=== PATIENT | female | born 1965 | race Native Hawaiian/Other Pacific Islander ===

== ENCOUNTER 2019-07-01 16:09 | Inpatient (IN) | payer OTHER ==
[2019-07-01] MEDS ORDERED: NITROGLYCERIN 0.4 MG TAB SUBL SL ONE (16:55)
[2019-07-01] MEDS ORDERED: ASPIRIN 325 MG TAB PO ONE (16:55)
[2019-07-01 17:17] LABS: Basophils # (Auto) 0.1 K/mm3 (0.0-0.1); Basophils % (Auto) 0.5 % (0.0-1.8); Hematocrit 21.2 % (30.3-42.9); Hemoglobin 6.9 gm/dl (10.1-14.3); Lymphocytes # (Auto) 1.5 K/mm3 (1.2-5.4); Lymphocytes % (Auto) 8.5 % (13.4-35.0); Mean Corpuscular HGB Conc 33 % (30-34); Mean Corpuscular Volume 82 fl (79-97); Monocytes % (Auto) 5.5 % (0.0-7.3); Platelet Count 565 K/mm3 (140-440); Red Blood Count 2.59 M/mm3 (3.65-5.03); Red Cell Distribution Width 14.7 % (13.2-15.2)
[2019-07-01 17:31] LABS: INR 0.97 (0.87-1.13)
[2019-07-01 17:32] LABS: Partial Thromboplastin Time 31.5 Sec. (24.2-36.6)
[2019-07-01 17:37] LABS: Calcium 9.5 mg/dL (8.4-10.2)
[2019-07-01] MEDS ORDERED: SODIUM CHLORIDE 0.9% 1000 ML 1,000 ML IV ONE ×2 (17:58→21:44)
[2019-07-01 18:10] LABS: Chol/HDL Ratio 3.01 %
--- NOTE | 2019-07-01 18:33 | XRay Report ---
CHEST 1 VIEW 07/01/2019 6:04 PM INDICATION / CLINICAL INFORMATION: chest pain. COMPARISON: Chest x-ray 12/04/2012 FINDINGS: SUPPORT DEVICES: None. HEART / MEDIASTINUM: No significant abnormality. LUNGS / PLEURA: Streaky bilateral lower lobe parenchymal disease likely secondary to bronchopneumonia No pneumothorax. ADDITIONAL FINDINGS: No significant additional findings. IMPRESSION: 1. Probable bilateral lower lobe bronchopneumonia. Signer Name: Ganesh Persaud MD Signed: 07/01/2019 6:28 PM Workstation Name: [id number]
[2019-07-01] MEDS ORDERED: SODIUM CHLORIDE 0.9% 1000 ML IV SOLN IV ONE (18:40)
[2019-07-01] MEDS: cefTRIAXone/NS 2 GM/100 ML 2 GM/100 ML BAG IV SCH (19:35)
--- NOTE | 2019-07-01 19:42 | Emergency Department Report ---
ED Chest Pain HPI - General Chief Complaint: Chest Pain Stated Complaint: DIZZY/KEYONNA Time Seen by Provider: 07/01/19 16:55 Source: family Mode of arrival: Wheelchair Limitations: Language Barrier - History of Present Illness Initial Comments: Patient is a 53-year-old female who has a past medical history of diabetes and hypertension who is presenting with left-sided chest pain. Patient states that pain started yesterday and associated with shortness of breath. Patient states there is also some discomfort in her back and some pain with kulwant thing. Patient states the pain is a heaviness that does radiate into her left jaw and down to her hand on the left. Patient denies nausea or vomiting. Patient states she is worried about having heart attack. Note: After the patient is white count and came back and the patient had a chest x-ray which showed bilateral infiltrate as the patient has she had any fever. Her daughter states that she did have a low-grade fevers which improved with Motrin yesterday but did not return. Patient also states she has had a mild cough but she states this was not a major complaint of hers when she arrived therefore she did not mention it. - Related Data Allergies Allergy/AdvReac Type Severity Reaction Status Date / Time No Known Allergies Allergy Unverified 07/01/19 16:29 Heart Score - HEART Score History: Slightly suspicious EKG: Non-specific Age: 45-65 Risk factors: 1-2 risk factors Troponin: > 3x normal limit HEART Score: 5 ED Review of Systems ROS: Stated complaint: DIZZY/KEYONNA Other details as noted in HPI Comment: All other systems reviewed and negative ED Past Medical Hx - Past Medical History Previous Medical History?: Yes Hx Hypertension: Yes Hx Diabetes: Yes - Surgical History Past Surgical History?: No ED Physical Exam - General Limitations: Language Barrier General appearance: alert, in no apparent distress - Head Head exam: Present: atraumatic, normocephalic - Eye Eye exam: Present: normal appearance, PERRL, EOMI - ENT ENT exam: Present: normal orophraynx, mucous membranes moist - Neck Neck exam: Present: normal inspection - Respiratory Respiratory exam: Present: normal lung sounds bilaterally, respiratory distress (Patient is tachypneic and appears uncomfortable with her breathing however her breath sounds are clear). Absent: wheezes, rales, rhonchi - Cardiovascular Cardiovascular Exam: Present: normal rhythm, tachycardia. Absent: systolic murmur, diastolic murmur, rubs, gallop - GI/Abdominal GI/Abdominal exam: Present: soft, normal bowel sounds. Absent: distended, tenderness, guarding - Extremities Exam Extremities exam: Present: normal inspection - Back Exam Back exam: Present: normal inspection - Neurological Exam Neurological exam: Present: alert, oriented X3 - Psychiatric Psychiatric exam: Present: normal affect, normal mood - Skin Skin exam: Present: warm, dry, intact, normal color. Absent: rash ED Course Vital Signs 07/01/19 16:28 Temperature 98.3 F Pulse Rate 106 H Respiratory 18 Rate Blood Pressure 135/71 [Right] O2 Sat by Pulse 87 Oximetry MASSIMO score - Massimo Score Age > 65: (0) No Aspirin use within the Past 7 Days: (0) No 3 or more CAD Risk Factors: (1) Yes 2 or more Angina events in past 24 hrs: (1) Yes Known CAD with more than 50% Stenosis: (0) No Elevated Cardiac Markers: (1) Yes ST Deviation Greater than 0.5mm: (0) No MASSIMO Score: 3 ED Medical Decision Making - Lab Data Result diagrams: 07/01/19 16:58 07/01/19 16:58 Lab Results 07/01/19 07/01/19 07/01/19 Range/Units 16:58 16:58 16:58 WBC 17.6 H (4.5-11.0) K/mm3 RBC 2.59 L (3.65-5.03) M/mm3 Hgb 6.9 L (10.1-14.3) gm/dl Hct 21.2 L (30.3-42.9) % MCV 82 (79-97) fl MCH 27 L (28-32) pg MCHC 33 (30-34) % RDW 14.7 (13.2-15.2) % Plt Count 565 H (140-440) K/mm3 Lymph % (Auto) 8.5 L (13.4-35.0) % [place] % (Auto) 5.5 (0.0-7.3) % Eos % (Auto) 0.0 (0.0-4.3) % Baso % (Auto) 0.5 (0.0-1.8) % Lymph # 1.5 (1.2-5.4) K/mm3 [place] # 1.0 H (0.0-0.8) K/mm3 Eos # 0.0 (0.0-0.4) K/mm3 Baso # 0.1 (0.0-0.1) K/mm3 Seg Neutrophils % 85.5 H (40.0-70.0) % Seg Neutrophils # 15.0 H (1.8-7.7) K/mm3 PT (12.2-14.9) Sec. INR (0.87-1.13) APTT (24.2-36.6) Sec. D-Dimer (0-234) ng/mlDDU Sodium 132 L (137-145) mmol/L Potassium 4.6 (3.6-5.0) mmol/L Chloride 94.7 L (98-107) mmol/L Carbon Dioxide 17 L (22-30) mmol/L Anion Gap 25 mmol/L BUN 53 H (7-17) mg/dL Creatinine 1.3 H (0.7-1.2) mg/dL Estimated GFR 43 ml/min BUN/Creatinine Ratio 41 % Glucose 98 (65-100) mg/dL Calcium 9.5 (8.4-10.2) mg/dL Troponin T 0.236 H* (0.00-0.029) ng/mL Triglycerides 327 H (2-149) mg/dL Cholesterol 205 H (50-199) mg/dL LDL Cholesterol Direct 99 (50-130) mg/dL HDL Cholesterol 68 H (40-59) mg/dL Cholesterol/HDL Ratio 3.01 % HCG, Qual Negative (Negative) 07/01/19 Range/Units 16:58 WBC (4.5-11.0) K/mm3 RBC (3.65-5.03) M/mm3 Hgb (10.1-14.3) gm/dl Hct (30.3-42.9) % MCV (79-97) fl MCH (28-32) pg MCHC (30-34) % RDW (13.2-15.2) % Plt Count (140-440) K/mm3 Lymph % (Auto) (13.4-35.0) % [place] % (Auto) (0.0-7.3) % Eos % (Auto) (0.0-4.3) % Baso % (Auto) (0.0-1.8) % Lymph # (1.2-5.4) K/mm3 [place] # (0.0-0.8) K/mm3 Eos # (0.0-0.4) K/mm3 Baso # (0.0-0.1) K/mm3 Seg Neutrophils % (40.0-70.0) % Seg Neutrophils # (1.8-7.7) K/mm3 PT 13.0 (12.2-14.9) Sec. INR 0.97 (0.87-1.13) APTT 31.5 (24.2-36.6) Sec. D-Dimer 626.19 H (0-234) ng/mlDDU Sodium (137-145) mmol/L Potassium (3.6-5.0) mmol/L Chloride (98-107) mmol/L Carbon Dioxide (22-30) mmol/L Anion Gap mmol/L BUN (7-17) mg/dL Creatinine (0.7-1.2) mg/dL Estimated GFR ml/min BUN/Creatinine Ratio % Glucose (65-100) mg/dL Calcium (8.4-10.2) mg/dL Troponin T (0.00-0.029) ng/mL Triglycerides (2-149) mg/dL Cholesterol (50-199) mg/dL LDL Cholesterol Direct (50-130) mg/dL HDL Cholesterol (40-59) mg/dL Cholesterol/HDL Ratio % HCG, Qual (Negative) - EKG Data -: EKG Interpreted by Nv EKG shows normal: sinus rhythm, axis, intervals, QRS complexes, ST-T waves Rate: tachycardia - EKG Data 07/01/19 19:33 sinus tachytcardia - Radiology Data Patient: GAURAV KAM MR#: [id number] : 1965 Acct:[id number] Age/Sex: 53 / F ADM Date: 07/01/19 Loc: ED Attending Dr: Ordering Physician: CATHRYN HAN MD Date of Service: 07/01/19 Procedure(s): XR chest 1V ap Accession Number(s): [id number] cc: CATHRYN HAN MD Fluoro Time In Minutes: CHEST 1 VIEW 07/01/2019 6:04 PM INDICATION / CLINICAL INFORMATION: chest pain. COMPARISON: Chest x-ray 12/04/2012 FINDINGS: SUPPORT DEVICES: None. HEART / MEDIASTINUM: No significant abnormality. LUNGS / PLEURA: Streaky bilateral lower lobe parenchymal disease likely secondary to bronchopneumonia No pneumothorax. ADDITIONAL FINDINGS: No significant additional findings. IMPRESSION: 1. Probable bilateral lower lobe bronchopneumonia. Signer Name: Ganesh Persaud MD Signed: 07/01/2019 6:28 PM Workstation Name: [id number] Transcribed By: TL Dictated By: Ganesh Persaud MD Electronically Authenticated By: Ganesh Persaud MD Signed Date/Time: 07/01/19 7738 - Medical Decision Making On arrival the patient was complaining of chest pain with radiation to the left neck no shortness of breath. Patient again failed to mention that she was having a cough or fever. Patient was not coughing and did not appear congested during our interactions. Top of the patient's differential was acute coronary syndrome and pulmonary embolus. Patient's d-dimer was elevated however the patient did appear to be in renal failure and a CT could not be performed. VQ scan has been ordered. Patient's x-ray does show by basilar infiltrates. Patient has a elevated white count and the patient was placed on sepsis protocol. Patient was started on Rocephin and azithromycin. Regarding the patient's renal failure this could be due to sepsis however patient also on further questioning states that she has not been eating and drinking well for the last several weeks. Her BUN/creatinine are in a prerenal distribution and dehydration is likely. Patient was hypoxic on arrival and her hypoxia is improved with oxygen. Patient will be admitted to the hospitalist service for further management. Critical Care Time: Yes (30) Critical care attestation.: If time is entered above; I have spent that time in minutes in the direct care of this critically ill patient, excluding procedure time. ED Disposition Clinical Impression: Hypoxia, Acute renal injury, Dehydration, NSTEMI (non-ST elevated myocardial infarction) Pneumonia Qualifiers: Pneumonia type: due to unspecified organism Laterality: bilateral Lung location: lower lobe of lung Qualified Code(s): J18.9 - Pneumonia, unspecified organism Chest pain Qualifiers: Chest pain type: unspecified Qualified Code(s): R07.9 - Chest pain, unspecified Disposition: DC-09 OP ADMIT IP TO THIS HOSP Is pt being admited?: Yes Does the pt Need Aspirin: No Condition: Stable Time of Disposition: 19:46
[2019-07-01] MEDS ORDERED: SODIUM CHLORIDE 0.9% 500 ML 500 ML IV ONE (20:03)
[2019-07-01] MEDS ORDERED: HEPARIN 10,000 UNITS/10 ML VIAL IV ONE (20:04)
[2019-07-01] MEDS ORDERED: ACETAMINOPHEN 325 MG TAB PO PRN (20:08)
[2019-07-01] MEDS ORDERED: ONDANSETRON 4 MG/2 ML INJ IV PRN (20:08)
[2019-07-01] MEDS ORDERED: DEXTROSE 50% IN WATER (25GM) 50 ML SYRINGE IV PRN (20:08)
[2019-07-01] MEDS ORDERED: ALBUTEROL 2.5 MG/3 ML NEBU IH PRN (20:08)
[2019-07-01] MEDS ORDERED: oxyCODONE /ACETAMINOPHEN 5-325MG TAB PO PRN (20:10)
[2019-07-01] MEDS ORDERED: NITROGLYCERIN 0.4 MG TAB SUBL SL PRN (20:16)
[2019-07-01] MEDS: AZITHROMYCIN 500 MG in SODIUM CHLORIDE 0.9% 250ML 250 ML IV SCH (20:34)
[2019-07-01 20:47] LABS: Hemoglobin 6.2 gm/dl (10.1-14.3)
[2019-07-01 20:59] LABS: Partial Thromboplastin Time 29.2 Sec. (24.2-36.6)
[2019-07-01] MEDS ORDERED: HEPARIN/ 0.45% NACL DRIP 25,000 UNIT/500 ML BAG IV SCH (21:00)
[2019-07-01 21:06] LABS: Hematocrit 18.8 % (30.3-42.9)
[2019-07-01] MEDS ORDERED: HEPARIN/ 0.45% NACL DRIP 25,000 UNIT/500 ML BAG ONE (21:09)
[2019-07-01] MEDS ORDERED: HEPARIN 5,000 UNIT/1 ML VIAL ONE (21:09)
[2019-07-01] MEDS ORDERED: EPINEPHrine 1:10,000 1 MG/10 ML SYRINGE ONE (21:20)
[2019-07-01] MEDS ORDERED: LIP THERAPY VASELINE TP PRN (21:36)
[2019-07-01] MEDS ORDERED: MIDAZOLAM 2 MG/2 ML INJ IV PRN (21:36)
[2019-07-01] MEDS ORDERED: MINERAL OIL/PETROLATUM, WHITE OPHTH OINT 3.5 GM OU PRN (21:36)
--- NOTE | 2019-07-01 21:42 | Event Note ---
Date: 07/01/19 (2134) A CODE BLUE was called on this patient while a VQ scan. When the patient went to VQ scan and during most of the study patient was alert and oriented x3. The nuclear plant operator states that when he was taking her off the table to put her back in her stretcher she lost consciousness and loss of pulse. Myself and another physician ran to the room the patient was lying on the stretcher head with no spontaneous respirations and no heart tones. No pulse could be palpated. CPR was initiated. The room was ill-equipped with a crash cart.. Patient was moved back to the emergency department very quickly while chest compressions were initiated by myself. Patient was also being bagged at the time of being transported back to the emergency department. Patient was placed on a monitor patient was given dose of epinephrine. After epinephrine was given the patient did have return of spontaneous circulation. CPR was stopped. Jordy maldonado was intubated by Dr. Tse. There were no complications to the intubation. Postintubation x-ray was done which shows that the patient has dramatic change in her her chest x-ray. Initial chest x-ray showed bilateral lower lobe infiltrates however there is a ARDS type pattern with subcutaneous air. Patient will be sent back to CT now she is been stabilized for a CT of the chest and abdomen. Head CT will be ordered as well
--- NOTE | 2019-07-01 21:54 | Nuclear Medicine Report ---
NUCLEAR MEDICINE VENTILATION/PERFUSION LUNG SCAN INDICATION / CLINICAL INFORMATION: elevated ddimer. TECHNIQUE: 12.6 mCi of Xe-133 were given by inhalation. 5.1 mCi of Tc-99m MAA were given by IV. COMPARISON: Chest radiograph dated 6:04 PM today. FINDINGS: VENTILATION: Poor ventilation of the left lung base and the right lung base. Asymmetric low ventilati on of the right apex as well. No air trapping is identified. PERFUSION: Multiple perfusion defects, generally appearing to correspond to areas of basilar airspace consolidation seen radiographically. ADDITIONAL FINDINGS: None. IMPRESSION: 1. Indeterminate probability for pulmonary embolism. This examination is of limited utility in the se tting of acute airspace disease demonstrated by chest radiograph. Signer Name: Jens Michele MD Signed: 07/01/2019 9:50 PM Workstation Name: [id number]
[2019-07-01] MEDS ORDERED: INSULIN LISPRO 100 UNIT/ML SUB-Q SCH (22:00)
[2019-07-01] MEDS ORDERED: MIDAZOLAM 100 MG in SODIUM CHLORIDE 0.9% 80 ML IV SCH (22:00)
[2019-07-01 22:01] LABS: Alanine Aminotransferase 17 units/L (7-56); Albumin 3.5 g/dL (3.9-5)
[2019-07-01 22:07] LABS: Bilirubin,Direct < 0.2 mg/dL (0-0.2)
--- NOTE | 2019-07-01 22:08 | XRay Report ---
CHEST 1 VIEW INDICATION / CLINICAL INFORMATION: ETT placement. COMPARISON: Chest radiograph 6:04 PM FINDINGS: SUPPORT DEVICES: Endotracheal tube tip is in the midthoracic trachea in the usual position. HEART / MEDIASTINUM: Stable, normal heart size. Extensive pneumomediastinum is present, outlining the border of the heart. LUNGS / PLEURA: Apparent increase in bilateral pulmonary opacities, although some of the apparent inc rease may be due to difference in technique. No definite pleural fluid or pneumothorax, although supi ne radiography is limited for this evaluation. There is extensive cervical and upper thoracic subcutaneous emphysema. IMPRESSION: Satisfactory endotracheal tube position. Extensive subcutaneous emphysema in the neck and chest as we ll as pneumomediastinum. There may have been an interval increase in diffuse bilateral pulmonary opacities. Heart size remains normal. Signer Name: Jens Michele MD Signed: 07/01/2019 10:03 PM Workstation Name: [id number]
--- NOTE | 2019-07-01 22:12 | Procedure Note ---
Date of procedure: 07/01/19 Pre-op diagnosis: cardiac arrest. Procedure: Patient 53-year-old female cardiac arrest. Patient intubated during cardiac arrest. Procedure note for intubation: Patient had a 7.0 ET tube placed at 22 at the teeth. I visualize the tube passing through the cords, equal breath sounds bilaterally. No breath sounds over the epigastrium. Patient had good color change on capnography. A 3 Arnold was used. Patient tolerated procedure well. No complication noted. Patient had a central line because she is status post cardiac arrest. Procedure note for central line: Emergent situation. Timeout taken. Patient currently on yarn polishing machine operator to include pulse ox. Patient was cleaned, draped in a sterile fashion. Sterile mask, gown and gloves were donned. Ultrasound was used. A triple-lumen was placed using Salinger technique in the right femoral vein.. Placement initially confirmed with good blood return at all ports. All ports were aspirated and flushed and capped. The central line was secured with suture with 2-0 silk. A sterile Tegaderm was placed. Patient tolerated the procedure well with no complications. Line is cleared to use. Pathology: none Condition: critical Disposition: ICU
[2019-07-01] MEDS ORDERED: MIDAZOLAM 5 MG/5 ML INJ MDV IV ONE (22:41)
[2019-07-01 22:43] LABS: ABG Base Excess -12.8 mmol/L (-2.0-3.0); ABG HCO3 12.7 mmol/L (20.0-26.0); ABG Methemoglobin 0.3 % (0.0-1.5); ABG Oxygen Saturation 99.1 % (95.0-99.0); ABG PCO2 27.2 mm Hg; ABG PH 7.287 pH Units (7.350-7.450); ABG PO2 194.3 mm Hg (80.0-90.0)
--- NOTE | 2019-07-01 23:10 | History and Physical Report ---
History of Present Illness Date of examination: 07/01/19 Date of admission: 07/01/19 20:08 Chief complaint: Chest Pain SOB History of present illness: 53-year-old female with history of diabetes, hypertension, and CVA (2012) who presents to [facility] ED with complaints of left-sided chest pain. Patient's family is present at bedside and has assisted with providing history. Patient states that he has been experiencing left-sided chest pain with radiation to left jaw, left shoulder, and back for the past day. She describes her pain as heaviness and rates it 7/10. Her chest pain is accompanied by shortness of breath. She denies diaphoresis, nausea or emesis. Additionally patient complains of low grade fever (unable to recall actual value) but recalls using [id number] Motrin with relief. Admits to have been mild intermittent nonproductive cough. Denies recent sick contacts. At the time of my initial examination [facility], alert and oriented x3, and speaking with family. She was on 3 L nasal cannula with saturation of 94%. She continued to complain about chest pain and shortness of breath. satellite project site monitor showed sinus rhythm with heart rate mid 90's to low 100's. VQ scan was ordered due to elevated d-dimer, shortness of breath and tachycardia. CODE BLUE was called while patient was in the nuclear medicine suite. Patient had just completed VQ scan and was in the process of being transferred back to [facility] for return to the ED. ACS protocol was initiated and patient received epinephrine x1, and had return of spontaneous circulation. She was subsequently intubated and placed on ventilator. CT head, CT chest, and CT abdomen and pelvis were ordered post cardiac arrest. CT head negative, CT chest confirmed bilateral lower lobe infiltrates, small pneumothoraces, small to moderate right pleural effusion, small left pleural effusion, and extensive subcutaneous emphysema were seen. CT abdomen pelvis pending Patient will be admitted to ICU for further evaluation and treatment. Past History Past Medical History: diabetes, hypertension, stroke (2012) Past Surgical History: No surgical history Social history: lives with family Family history: no significant family history Medications and Allergies Allergies Allergy/AdvReac Type Severity Reaction Status Date / Time No Known Allergies Allergy Unverified 07/01/19 16:29 Home Medications Medication Instructions Recorded Confirmed Last Taken Type Aspirin [Aspirin BABY CHEW TAB] 81 mg PO QDAY 07/01/19 07/01/19 Unknown History AtorvaSTATin [Lipitor] 20 mg PO QHS 07/01/19 07/01/19 Unknown History Metformin HCl [metFORMIN] 1,000 mg PO BID 07/01/19 07/01/19 Unknown History Triamterene/Hydrochlorothiazid 1 each PO QDAY 07/01/19 07/01/19 Unknown History [Triamterene-Hctz 75-50 mg Tab] amLODIPine [Norvasc] 10 mg PO DAILY 07/01/19 07/01/19 Unknown History Active Meds: Active Medications Acetaminophen (Tylenol) 650 mg PO Q4H PRN PRN Reason: Pain MILD(1-3)/Fever >100.5/STILL Albuterol (Proventil) 2.5 mg IH Q3HRT PRN PRN Reason: Shortness Of Breath Atorvastatin Calcium (Lipitor) 40 mg PO QHS FOUZIA Dextrose (D50w (25gm) Syringe) 0 ml IV Q30MIN PRN; Protocol PRN Reason: Hypoglycemia Docusate Sodium (Colace) 100 mg PO BID FOUZIA Hydrophilic Ointment (Vaseline Lip Therapy) 1 applic TP Q2HR PRN PRN Reason: Dry Lips Ceftriaxone Sodium (Rocephin/Ns 2 Gm/100 Ml) 2 gm in 100 mls @ 200 mls/hr IV Q24HR FOUZIA; Protocol Last Admin: 07/01/19 19:35 Dose: 200 mls/hr Documented by: Azithromycin 500 mg/ Sodium (Chloride) 250 mls @ 250 mls/hr IV Q24HR FOUZIA; Protocol Last Admin: 07/01/19 20:34 Dose: 250 mls/hr Documented by: Sodium Chloride (Nacl 0.9% 1000 Ml) 1,000 mls @ 150 mls/hr IV DIRECT FOUZIA Stop: 07/02/19 11:00 Midazolam HCl 100 mg/ Sodium (Chloride) 100 mls @ 2 mls/hr IV TITR FOUZIA; Protocol Last Admin: 07/01/19 22:15 Dose: 2 mg/hr, 2 mls/hr Documented by: Insulin Human Lispro (Humalog) 0 unit SUB-Q ACHS FOUZIA; Protocol Midazolam HCl (Versed) 2 mg IV Q10MIN PRN PRN Reason: Sedation Multi-Ingred Cream/Lotion/Oil/Oint (Artificial Tears Ophth Oint) 1 applic OU Q4HR PRN PRN Reason: Dry Eye(s) Nitroglycerin (Nitrostat) 0.4 mg SL Q5M PRN PRN Reason: Chest Pain Ondansetron HCl (Zofran) 4 mg IV Q8H PRN PRN Reason: Nausea And Vomiting Oxycodone/Acetaminophen (Percocet 5/325) 1 tab PO Q6H PRN PRN Reason: Pain, Moderate (4-6) Sodium Chloride (Sodium Chloride Flush Syringe 10 Ml) 10 ml IV BID FOUZIA Sodium Chloride (Sodium Chloride Flush Syringe 10 Ml) 10 ml IV PRN PRN PRN Reason: LINE FLUSH Review of Systems All systems: negative Constitutional: fever (Low-grade resolved with 1 dose of OTC Motrin) Cardiovascular: chest pain (with deviation to the jaw under left breast and back), shortness of breath, dyspnea on exertion Respiratory: cough Exam - Physical Exam Narrative exam: Physical exam General appearance: Present: No acute distress, alert and oriented 3, well- developed, well-nourished, adult female - EENT Eyes: Present: PERRL, EOM intact ENT: hearing intact, no dentition, wears dentures - Neck Neck: Present: supple, normal ROM - Respiratory Respiratory effort: Slightly labored, on supplemental oxygen Respiratory: Faint bibasilar crackles - Cardiovascular Heart rate: 103 (bpm) Rhythm: Sinus tachycardia Heart Sounds: Present: S1 & S2. Absent: rub, click - Extremities Extremities: no ischemia, pulses intact, - Peripheral Assessment Peripheral Pulses: within normal limits - Abdominal General gastrointestinal: soft, non-tender, normal bowel sounds - Integumentary Integumentary: Present: warm, dry - Musculoskeletal Musculoskeletal: Able to move all extremities -Neurological Neurological: CN II-XII intact - Psychiatric Psychiatric: cooperative - Constitutional Vitals: Temp Pulse Resp BP Pulse Ox 97.9 F 103 H 26 H 134/76 94 07/01/19 19:20 07/01/19 19:20 07/01/19 19:20 07/01/19 19:20 07/01/19 19:20 JED score - Jed Score Age > 65: (0) No Aspirin use within the Past 7 Days: (0) No 3 or more CAD Risk Factors: (1) Yes 2 or more Angina events in past 24 hrs: (1) Yes Known CAD with more than 50% Stenosis: (0) No Elevated Cardiac Markers: (1) Yes ST Deviation Greater than 0.5mm: (0) No JED Score: 3 Results - Labs CBC & Chem 7: 07/01/19 20:25 07/01/19 16:58 Labs: Laboratory Last Values WBC 17.6 K/mm3 (4.5-11.0) H 07/01/19 16:58 RBC 2.59 M/mm3 (3.65-5.03) L 07/01/19 16:58 Hgb 6.2 gm/dl (10.1-14.3) L 07/01/19 20:25 Hct 18.8 % (30.3-42.9) L* 07/01/19 20:25 MCV 82 fl (79-97) 07/01/19 16:58 MCH 27 pg (28-32) L 07/01/19 16:58 MCHC 33 % (30-34) 07/01/19 16:58 RDW 14.7 % (13.2-15.2) 07/01/19 16:58 Plt Count 551 K/mm3 (140-440) H 07/01/19 20:25 Lymph % (Auto) 8.5 % (13.4-35.0) L 07/01/19 16:58 [place] % (Auto) 5.5 % (0.0-7.3) 07/01/19 16:58 Eos % (Auto) 0.0 % (0.0-4.3) 07/01/19 16:58 Baso % (Auto) 0.5 % (0.0-1.8) 07/01/19 16:58 Lymph # 1.5 K/mm3 (1.2-5.4) 07/01/19 16:58 [place] # 1.0 K/mm3 (0.0-0.8) H 07/01/19 16:58 Eos # 0.0 K/mm3 (0.0-0.4) 07/01/19 16:58 Baso # 0.1 K/mm3 (0.0-0.1) 07/01/19 16:58 Seg Neutrophils % 85.5 % (40.0-70.0) H 07/01/19 16:58 Seg Neutrophils # 15.0 K/mm3 (1.8-7.7) H 07/01/19 16:58 PT 13.3 Sec. (12.2-14.9) 07/01/19 20:25 INR 1.00 (0.87-1.13) 07/01/19 20:25 APTT 29.2 Sec. (24.2-36.6) 07/01/19 20:25 D-Dimer 626.19 ng/mlDDU (0-234) H 07/01/19 16:58 ABG pH 7.287 pH Units (7.350-7.450) L 07/01/19 22:20 ABG pCO2 27.2 mm Hg 07/01/19:20 ABG pO2 194.3 mm Hg (80.0-90.0) H 07/01/19 22:20 ABG HCO3 12.7 mmol/L (20.0-26.0) L 07/01/19 22:20 ABG O2 Saturation 99.1 % (95.0-99.0) H 07/01/19 22:20 ABG O2 Content 8.7 (0.0-44) 07/01/19 22:20 ABG Base Excess -12.8 mmol/L (-2.0-3.0) L 07/01/19:20 ABG Hemoglobin 5.9 gm/dl (12.0-16.0) L 07/01/19 22:20 ABG Carboxyhemoglobin 0.6 % (0.0-5.0) 07/01/19:20 ABG Methemoglobin 0.3 % (0.0-1.5) 07/01/19 22:20 Oxyhemoglobin 98.2 % (95.0-99.0) 07/01/19 22:20 FiO2 100 % 07/01/19 22:20 Sodium 132 mmol/L (137-145) L 07/01/19 16:58 Potassium 4.6 mmol/L (3.6-5.0) 07/01/19 16:58 Chloride 94.7 mmol/L (98-107) L 07/01/19 16:58 Carbon Dioxide 17 mmol/L (22-30) L 07/01/19 16:58 Anion Gap 25 mmol/L 07/01/19 16:58 BUN 53 mg/dL (7-17) H 07/01/19 16:58 Creatinine 1.3 mg/dL (0.7-1.2) H 07/01/19 16:58 Estimated GFR 43 ml/min 07/01/19 16:58 BUN/Creatinine Ratio 41 % 07/01/19 16:58 Glucose 98 mg/dL (65-100) 07/01/19 16:58 Hemoglobin A1c 11.5 % (4-6) H 07/01/19 20:25 Lactic Acid 1.80 mmol/L (0.7-2.0) 07/01/19 20:25 Calcium 9.5 mg/dL (8.4-10.2) 07/01/19 16:58 Total Bilirubin 0.20 mg/dL (0.1-1.2) 07/01/19 19:17 Direct Bilirubin < 0.2 mg/dL (0-0.2) 07/01/19 19:17 Indirect Bilirubin 0.0 mg/dL 07/01/19 19:17 AST 19 units/L (5-40) 07/01/19 19:17 ALT 17 units/L (7-56) 07/01/19 19:17 Alkaline Phosphatase 135 units/L (35-129) H 07/01/19 19:17 Troponin T 0.211 ng/mL (0.00-0.029) H* 07/01/19 21:58 Total Protein 7.6 g/dL (6.3-8.2) 07/01/19 19:17 Albumin 3.5 g/dL (3.9-5) L 07/01/19 19:17 Albumin/Globulin Ratio 0.9 % 07/01/19 19:17 Triglycerides 327 mg/dL (2-149) H 07/01/19 16:58 Cholesterol 205 mg/dL (50-199) H 07/01/19 16:58 LDL Cholesterol Direct 99 mg/dL (50-130) 07/01/19 16:58 HDL Cholesterol 68 mg/dL (40-59) H 07/01/19 16:58 Cholesterol/HDL Ratio 3.01 % 07/01/19 16:58 HCG, Qual Negative (Negative) 07/01/19 16:58 Blood Type A POSITIVE 07/01/19 20:25 Antibody Screen Negative 07/01/19 20:25 Crossmatch See Detail 07/01/19 20:25 - Imaging and Cardiology Imaging and Cardiology: CXR: FINDINGS: SUPPORT DEVICES: None. HEART / MEDIASTINUM: No significant abnormality. LUNGS / PLEURA: Streaky bilateral lower lobe parenchymal disease likely secondary to bronchopneumonia No pneumothorax. ADDITIONAL FINDINGS: No significant additional findings. IMPRESSION: 1. Probable bilateral lower lobe bronchopneumonia. Post Intubation CXR: IMPRESSION: Satisfactory endotracheal tube position. Extensive subcutaneous emphysema in the neck and chest as well as pneumomediastinum. There may have been an interval increase in diffuse bilateral pulmonary opacities. Heart size remains normal. CT Chest with con: FINDINGS: MEDIASTINUM: Extensive pneumomediastinum is noted without a distinct mass or lymphadenopathy. The trachea and main bronchi are patent and normal in caliber. An ET tube appears unremarkable. HEART: No significant abnormality. THORACIC AORTA AND ARTERIES: The aorta is patent and normal in caliber with mild atherosclerosis. Mild atherosclerosis is noted along the great vessels. There is severe coronary atherosclerosis. LUNGS: Small pneumothoraces are seen with a small to moderate right pleural effusion and small left pleural effusion with associated atelectasis. Bilateral multifocal consolidations are noted elsewhere and likely represent pneumonia/edema. No suspicious nodule or mass is seen. ADDITIONAL FINDINGS: Extensive subcutaneous emphysema is noted along the neck and chest. UPPER ABDOMEN: Pneumomediastinum tracks along the central upper abdomen. An NG tube terminates appropriately along the gastric body. There is moderate to severe generalized atherosclerosis. SKELETAL SYSTEM: No acute abnormality. Degenerative changes are seen throughout the spine. IMPRESSION: 1. Extensive pneumomediastinum with small pneumothoraces and subcutaneous emphysema throughout the chest and neck. 2. Bilateral pleural effusions, right greater than left, with associated atelectasis as well as consolidations representing pneumonia/edema. 3. Additional findings as above. CT Head: PARENCHYMA: No mass, midline shift, hemorrhage, extraaxial collection or acute territorial infarction. VENTRICLES: Symmetric and normal in size. SOFT TISSUES: No significant abnormality of the included soft tissues/orbits. BONES: No acute osseous abnormality. SINUSES: Extensive opacification of the nasal cavity is noted. The sinuses and mastoid air cells are clear. ADDITIONAL FINDINGS: There is dense generalized atherosclerosis. IMPRESSION: 1. No acute intracranial abnormality. 2. Additional findings as above. CT Abdomen/Pelvis Pending Assessment and Plan Assessment and plan: 53-year-old female with history of diabetes, hypertension, and CVA (2012) who presents to [facility] ED with complaints of left-sided chest pain, subsequently went into cardiac arrest, and is currently intubated, on vent, and sedated. Acute hypoxic respiratory failure -No Baseline home oxygen requirements -Saturation <88% on RA -Initially placed on nasal cannula -Currently intubated and on vent -Monitor saturations -Continue supplemental oxygen wean as tolerated ACS -S/P cardiac arrest in Nuclear Medicine -C/o Acute chest pain with radiation to jaw and back -Initiate chest pain protocol -Continuous telemetry monitoring -Continue supportive care -Troponin elevated -Will hold heparin drip due to severe anemia -Cardiology consulted Pneumonia -CXR shows Probable bilateral lower lobe bronchopneumonia -Leukocytosis at 17.6 -Blood Cultures pending -Start on IV Abx Sepsis -Leukocytosis 17.6 -Tachycardia 103 -Respirations >20 -Start IVF and IV abx -Continue supportive care Pneumothorax Pleural Effusion -CT Chest shows Small pneumothoraces are seen with a small to moderate right pleural effusion and small left pleural effusion with associated atelectasis -Continue to monitor -Pulmonary consulted Extensive subcutaneous emphysema -Seen on CT chest -Continue to monitor -Continue supportive care SYL -Likely secondary to dehydration -BUN 53 -Cr 1.3 -Hydrate with IVF -Avoid nephrotoxic agents -Renal dose all meds -Nephrology consulted Anemia -Hemoglobin on admission 6.9 -No s/s of active bleeding -Transfused 1U PRBC -Continue to monitor hemoglobin -Transfuse as needed R/O PE -D-dimer elevated at 626 -Tachycardic and tachypneic -V/Q Indeterminate probability for pulmonary embolism. This examination is of limited utility in the setting of acute airspace disease demonstrated by chest radiograph -CT angio Chest Negative Hyponatremia -Na on admission 132 -Slowly correct Na with IVF -Continue to monitor replete prn DM -POC BG monitoring -SSI coverage prn -HgbA1C pending Hypotension -Hx hypertension -On IVF -Continue to monitor BP -Hold all antihypertensive meds HLD -on Statin DVT PPX -On Heparin Advance Directives: No VTE prophylaxis?: Chemical, Mechanical Plan of care discussed with patient/family: Yes
--- NOTE | 2019-07-01 23:20 | Cat Scan Report ---
CT HEAD WITHOUT CONTRAST INDICATION : post cardiac arrest. TECHNIQUE: Axial, coronal and sagittal CT imaging was performed from the skull apex through the skul l base without contrast. All CT scans at this location are performed using CT dose reduction for ALA RA by means of automated exposure control. COMPARISON: None available. FINDINGS: PARENCHYMA: No mass, midline shift, hemorrhage, extraaxial collection or acute territorial infarctio n. VENTRICLES: Symmetric and normal in size. SOFT TISSUES: No significant abnormality of the included soft tissues/orbits. BONES: No acute osseous abnormality. SINUSES: Extensive opacification of the nasal cavity is noted. The sinuses and mastoid air cells are clear. ADDITIONAL FINDINGS: There is dense generalized atherosclerosis. IMPRESSION: 1. No acute intracranial abnormality. 2. Additional findings as above. Signer Name: Gerald Foley MD Signed: 07/01/2019 11:15 PM Workstation Name: [id number]
--- NOTE | 2019-07-01 23:29 | Cat Scan Report ---
CT CHEST WITH CONTRAST INDICATION: Acute respiratory failure. TECHNIQUE: Axial CT images were obtained through the chest after 60 cc Omnipaque 300 IV contrast. Coronal and sa gittal reformats were produced. All CT scans at this location are performed using CT dose reduction f or ALARA by means of automated exposure control. COMPARISON: One view of the chest from earlier today. FINDINGS: MEDIASTINUM: Extensive pneumomediastinum is noted without a distinct mass or lymphadenopathy. The tra jermain and main bronchi are patent and normal in caliber. An ET tube appears unremarkable. HEART: No significant abnormality. THORACIC AORTA AND ARTERIES: The aorta is patent and normal in caliber with mild atherosclerosis. Mil d atherosclerosis is noted along the great vessels. There is severe coronary atherosclerosis. LUNGS: Small pneumothoraces are seen with a small to moderate right pleural effusion and small left p leural effusion with associated atelectasis. Bilateral multifocal consolidations are noted elsewhere and likely represent pneumonia/edema. No suspicious nodule or mass is seen. ADDITIONAL FINDINGS: Extensive subcutaneous emphysema is noted along the neck and chest. UPPER ABDOMEN: Pneumomediastinum tracks along the central upper abdomen. An NG tube terminates approp riately along the gastric body. There is moderate to severe generalized atherosclerosis. SKELETAL SYSTEM: No acute abnormality. Degenerative changes are seen throughout the spine. IMPRESSION: 1. Extensive pneumomediastinum with small pneumothoraces and subcutaneous emphysema throughout the ch est and neck. 2. Bilateral pleural effusions, right greater than left, with associated atelectasis as well as conso lidations representing pneumonia/edema. 3. Additional findings as above. Signer Name: Gerald Foley MD Signed: 07/01/2019 11:25 PM Workstation Name: [id number]
[2019-07-01] MEDS ORDERED: SODIUM CHLORIDE 0.9% 500 ML 500 ML ONE (23:36)
--- NOTE | 2019-07-01 23:58 | Cat Scan Report ---
CT ABDOMEN AND PELVIS WITH CONTRAST INDICATION: Acute respiratory failure. Cardiac arrest. COMPARISON: CT chest with contrast performed concomitantly. TECHNIQUE: Axial, coronal and sagittal CT imaging of the abdomen and pelvis was performed after inje ction of 60 cc Omnipaque [address] scans at this location are performed using CT dose red uction for ALARA by means of automated exposure control. FINDINGS: LOWER CHEST: Pleural effusions are again seen with associated atelectasis as well as possible pneumon ia/edema and small pneumothoraces. Pneumomediastinum is partially visualized. LIVER: There is periportal edema. No additional significant abnormality. BILIARY: The bladder wall thickening and mild surrounding edema is seen without visualization of gall stones. No biliary ductal dilatation is noted. PANCREAS: No significant abnormality. SPLEEN: No significant abnormality. ADRENALS: No significant abnormality. KIDNEYS AND URETERS: No significant abnormality. GI TRACT: No significant abnormality of the stomach, small bowel or colon. Unremarkable appendix. PERITONEUM: There is a small amount of free fluid along the pelvis. The pneumomediastinum is seen tra cking along the upper abdomen centrally. No other free air is seen. No fluid collection. LYMPH NODES: Shotty periaortic nodes are present. No additional significant adenopathy. VASCULATURE: The aorta is patent and normal in caliber. The visualized branches of the aorta are clark nt. There is moderate to severe atherosclerosis. URINARY BLADDER: No significant abnormality. REPRODUCTIVE ORGANS: No significant abnormality. ADDITIONAL FINDINGS: None. SKELETAL SYSTEM: No acute abnormality. Degenerative changes are seen throughout the spine and pelvis. IMPRESSION: 1. Pneumomediastinum with extension into the upper abdomen. 2. Gallbladder wall thickening with mild surrounding edema may indicate acute acalculous cholecystiti s. A gallbladder ultrasound may be helpful for further evaluation. 3. Additional findings as above. Signer Name: Gerald Foley MD Signed: 07/01/2019 11:54 PM Workstation Name: [id number]
[2019-07-02] MEDS: DOCUSATE SODIUM 100 MG CAP PO SCH ×3 (00:53→21:40)
[2019-07-02] MEDS: SODIUM CHLORIDE 0.9% 1000 ML 1,000 ML IV SCH ×2 (01:46→09:27)
[2019-07-02] MEDS: LORazepam 2 MG/ML VIAL IV PRN ×4 (03:36→17:10)
[2019-07-02 05:05] LABS: ABG Base Excess -7.2 mmol/L (-2.0-3.0); ABG HCO3 17.1 mmol/L (20.0-26.0); ABG Methemoglobin 0.3 % (0.0-1.5); ABG Oxygen Saturation 90.8 % (95.0-99.0); ABG PCO2 30.2 mm Hg; ABG PH 7.371 pH Units (7.350-7.450); ABG PO2 65.4 mm Hg (80.0-90.0)
[2019-07-02 05:35] LABS: Basophils # (Auto) 0.1 K/mm3 (0.0-0.1); Basophils % (Auto) 0.4 % (0.0-1.8); Hemoglobin 6.2 gm/dl (10.1-14.3); Lymphocytes # (Auto) 0.9 K/mm3 (1.2-5.4); Mean Corpuscular HGB Conc 33 % (30-34); Mean Corpuscular Volume 83 fl (79-97); Monocytes # (Auto) 1.4 K/mm3 (0.0-0.8); Monocytes % (Auto) 9.4 % (0.0-7.3); Platelet Count 410 K/mm3 (140-440); Red Blood Count 2.33 M/mm3 (3.65-5.03); Red Cell Distribution Width 15.3 % (13.2-15.2)
[2019-07-02 05:42] LABS: Hematocrit 19.2 % (30.3-42.9)
[2019-07-02] MEDS ORDERED: SODIUM CHLORIDE 0.9% 500 ML 500 ML IV ONE (05:53)
[2019-07-02 05:58] LABS: Calcium 7.7 mg/dL (8.4-10.2)
[2019-07-02] MEDS: INSULIN LISPRO 100 UNIT/ML SUB-Q SCH ×3 (07:36→18:35)
--- NOTE | 2019-07-02 08:51 | XRay Report ---
CHEST 1 VIEW INDICATION: follow up respiratory failure. COMPARISON: FINDINGS: Support devices: The endotracheal tube is satisfactory. The nasogastric tube tip is below the diaphra gm and not imaged. Heart: Within normal limits. Pulmonary vessels: Indistinct but more distinct than on the last exam. Lungs/Pleura: Decreased bilateral airspace opacities in the upper lobes and the lung bases when [place] to the last exam. Decreased pneumomediastinum. No pneumothorax. No pleural effusion. Additional findings: Decreased subcutaneous emphysema in the neck and upper chest. IMPRESSION: 1. Interval improvement with decreased bilateral multi lobar airspace disease and decreased pneumomed iastinum and subcutaneous emphysema. Signer Name: Miguelito Dudley MD Signed: 07/02/2019 8:47 AM Workstation Name: [id number]
[2019-07-02] MEDS: cefTRIAXone/NS 2 GM/100 ML 2 GM/100 ML BAG IV SCH (09:26)
[2019-07-02] MEDS: HEPARIN 5,000 UNIT/1 ML VIAL SUB-Q SCH ×2 (09:27→21:36)
[2019-07-02] MEDS: AZITHROMYCIN 500 MG in SODIUM CHLORIDE 0.9% 250ML 250 ML IV SCH (09:27)
[2019-07-02 09:39] LABS: Chloride, Urine 17.5 mmolL (110-250); Creatinine,Urine 62.3 mg/dL (0.1-20.0)
--- NOTE | 2019-07-02 09:51 | Consultation ---
History of Present Illness Consult date: 07/02/19 Requesting physician: SURYA BECK Reason for consult: hypoxemia History of present illness: 53 y/o female, admitted with acute respiratory failure, post cardiac arrest in V/Q scan after coming in with complaints of chest pain. Patient currently intubated. Not on continuous sedation. No family currently at bedside. Past History Past Medical History: diabetes, hypertension, stroke (2012) Past Surgical History: No surgical history Social history: lives with family Family history: no significant family history Medications and Allergies Allergies Allergy/AdvReac Type Severity Reaction Status Date / Time No Known Allergies Allergy Unverified 07/01/19 16:29 Home Medications Medication Instructions Recorded Confirmed Last Taken Type Aspirin [Aspirin BABY CHEW TAB] 81 mg PO QDAY 07/01/19 07/01/19 Unknown History AtorvaSTATin [Lipitor] 20 mg PO QHS 07/01/19 07/01/19 Unknown History Metformin HCl [metFORMIN] 1,000 mg PO BID 07/01/19 07/01/19 Unknown History Triamterene/Hydrochlorothiazid 1 each PO QDAY 07/01/19 07/01/19 Unknown History [Triamterene-Hctz 75-50 mg Tab] amLODIPine [Norvasc] 10 mg PO DAILY 07/01/19 07/01/19 Unknown History Active Meds: Active Medications Acetaminophen (Tylenol) 650 mg PO Q4H PRN PRN Reason: Pain MILD(1-3)/Fever >100.5/STILL Albuterol (Proventil) 2.5 mg IH Q3HRT PRN PRN Reason: Shortness Of Breath Atorvastatin Calcium (Lipitor) 40 mg PO QHS [facility] Last Admin: 07/02/19 00:53 Dose: Not Given Documented by: Dextrose (D50w (25gm) Syringe) 0 ml IV Q30MIN PRN; Protocol PRN Reason: Hypoglycemia Docusate Sodium (Colace) 100 mg PO BID [facility] Last Admin: 07/02/19 00:53 Dose: Not Given Documented by: Famotidine (Pepcid) 20 mg IV BID [facility] Last Admin: 07/02/19 09:27 Dose: 20 mg Documented by: Heparin Sodium (Porcine) (Heparin) 5,000 unit SUB-Q Q12HR [facility] Last Admin: 07/02/19 09:27 Dose: 5,000 unit Documented by: Hydrophilic Ointment (Vaseline Lip Therapy) 1 applic TP Q2HR PRN PRN Reason: Dry Lips Ceftriaxone Sodium (Rocephin/Ns 2 Gm/100 Ml) 2 gm in 100 mls @ 200 mls/hr IV Q24HR FOUZIA; Protocol Last Admin: 07/02/19 09:26 Dose: 200 mls/hr Documented by: Azithromycin 500 mg/ Sodium (Chloride) 250 mls @ 250 mls/hr IV Q24HR FOUZIA; Protocol Last Admin: 07/02/19 09:27 Dose: 250 mls/hr Documented by: Sodium Chloride (Nacl 0.9% 1000 Ml) 1,000 mls @ 150 mls/hr IV DIRECT FOUZIA Stop: 07/02/19 11:00 Last Admin: 07/02/19 09:27 Dose: 150 mls/hr Documented by: Insulin Human Lispro (Humalog) 0 unit SUB-Q Q6H FOUZIA; Protocol Last Admin: 07/02/19 07:36 Dose: 3 unit Documented by: Lorazepam (Ativan) 1 mg IV Q4H PRN PRN Reason: Agitation Last Admin: 07/02/19 06:56 Dose: 1 mg Documented by: Multi-Ingred Cream/Lotion/Oil/Oint (Artificial Tears Ophth Oint) 1 applic OU Q4HR PRN PRN Reason: Dry Eye(s) Nitroglycerin (Nitrostat) 0.4 mg SL Q5M PRN PRN Reason: Chest Pain Ondansetron HCl (Zofran) 4 mg IV Q8H PRN PRN Reason: Nausea And Vomiting Oxycodone/Acetaminophen (Percocet 5/325) 1 tab PO Q6H PRN PRN Reason: Pain, Moderate (4-6) Sodium Chloride (Sodium Chloride Flush Syringe 10 Ml) 10 ml IV BID [facility] Last Admin: 07/02/19 09:27 Dose: 10 ml Documented by: Sodium Chloride (Sodium Chloride Flush Syringe 10 Ml) 10 ml IV PRN PRN PRN Reason: LINE FLUSH Physical Examination Vital signs: Vital Signs Temp Pulse Resp BP Pulse Ox 98.3 F 106 H 18 135/71 87 07/01/19 16:28 07/01/19 16:28 07/01/19 16:28 07/01/19 16:28 07/01/19 16:28 Results - Laboratory Findings CBC and BMP: 07/02/19 05:15 07/02/19 05:15 ABG ABG pH 7.371 pH Units (7.350-7.450) 07/02/19 04:30 ABG pCO2 30.2 mm Hg 07/02/19 04:30 ABG pO2 65.4 mm Hg (80.0-90.0) L 07/02/19 04:30 ABG O2 Saturation 90.8 % (95.0-99.0) L 07/02/19 04:30 PT/INR, D-dimer PT 13.3 Sec. (12.2-14.9) 07/01/19 20:25 INR 1.00 (0.87-1.13) 07/01/19 20:25 D-Dimer 626.19 ng/mlDDU (0-234) H 07/01/19 16:58 Abnormal lab findings: Abnormal Labs 07/01/19 07/01/19 07/01/19 16:58 16:58 16:58 WBC 17.6 H RBC 2.59 L Hgb 6.9 L Hct 21.2 L MCH 27 L RDW Plt Count 565 H Lymph % (Auto) 8.5 L [place] % (Auto) Lymph # [place] # 1.0 H Seg Neutrophils % 85.5 H Seg Neutrophils # 15.0 H D-Dimer 626.19 H ABG pH ABG pO2 ABG HCO3 ABG O2 Saturation ABG Base Excess ABG Hemoglobin Oxyhemoglobin Sodium 132 L Chloride 94.7 L Carbon Dioxide 17 L BUN 53 H Creatinine 1.3 H Glucose POC Glucose Hemoglobin A1c Calcium Alkaline Phosphatase Troponin T 0.236 H* Albumin Triglycerides 327 H Cholesterol 205 H HDL Cholesterol 68 H Urine Creatinine Urine Chloride Crossmatch 07/01/19 07/01/19 07/01/19 19:17 19:17 20:25 WBC RBC Hgb Hct MCH RDW Plt Count Lymph % (Auto) [place] % (Auto) Lymph # [place] # Seg Neutrophils % Seg Neutrophils # D-Dimer ABG pH ABG pO2 ABG HCO3 ABG O2 Saturation ABG Base Excess ABG Hemoglobin Oxyhemoglobin Sodium Chloride Carbon Dioxide BUN Creatinine Glucose POC Glucose Hemoglobin A1c Calcium Alkaline Phosphatase 135 H Troponin T 0.214 H* Albumin 3.5 L Triglycerides Cholesterol HDL Cholesterol Urine Creatinine Urine Chloride Crossmatch See Detail 02/05/0807/01/19 07/01/19 20:25 20:25 21:58 WBC RBC Hgb 6.2 L Hct 18.8 L* MCH RDW Plt Count 551 H Lymph % (Auto) [place] % (Auto) Lymph # [place] # Seg Neutrophils % Seg Neutrophils # D-Dimer ABG pH ABG pO2 ABG HCO3 ABG O2 Saturation ABG Base Excess ABG Hemoglobin Oxyhemoglobin Sodium Chloride Carbon Dioxide BUN Creatinine Glucose POC Glucose Hemoglobin A1c 11.5 H Calcium Alkaline Phosphatase Troponin T 0.211 H* Albumin Triglycerides Cholesterol HDL Cholesterol Urine Creatinine Urine Chloride Crossmatch 07/01/19 07/02/19 07/02/19 22:20 04:30 05:15 WBC 15.0 H RBC 2.33 L Hgb 6.2 L Hct 19.2 L* MCH 27 L RDW 15.3 H Plt Count Lymph % (Auto) 6.0 L [place] % (Auto) 9.4 H Lymph # 0.9 L [place] # 1.4 H Seg Neutrophils % 84.2 H Seg Neutrophils # 12.6 H D-Dimer ABG pH 7.287 L ABG pO2 194.3 H 65.4 L ABG HCO3 12.7 L 17.1 L ABG O2 Saturation 99.1 H 90.8 L ABG Base Excess -12.8 L -7.2 L ABG Hemoglobin 5.9 L 9.1 L Oxyhemoglobin 89.8 L Sodium Chloride Carbon Dioxide BUN Creatinine Glucose POC Glucose Hemoglobin A1c Calcium Alkaline Phosphatase Troponin T Albumin Triglycerides Cholesterol HDL Cholesterol Urine Creatinine Urine Chloride Crossmatch 07/02/19 07/02/19 07/02/19 05:15 05:15 07:34 WBC RBC Hgb Hct MCH RDW Plt Count Lymph % (Auto) [place] % (Auto) Lymph # [place] # Seg Neutrophils % Seg Neutrophils # D-Dimer ABG pH ABG pO2 ABG HCO3 ABG O2 Saturation ABG Base Excess ABG Hemoglobin Oxyhemoglobin Sodium 134 L Chloride Carbon Dioxide 15 L BUN 49 H Creatinine 1.3 H Glucose 228 H POC Glucose 270 H Hemoglobin A1c Calcium 7.7 L D Alkaline Phosphatase Troponin T 0.294 H* D Albumin Triglycerides Cholesterol HDL Cholesterol Urine Creatinine Urine Chloride Crossmatch 07/02/19 09:10 WBC RBC Hgb Hct MCH RDW Plt Count Lymph % (Auto) [place] % (Auto) Lymph # [place] # Seg Neutrophils % Seg Neutrophils # D-Dimer ABG pH ABG pO2 ABG HCO3 ABG O2 Saturation ABG Base Excess ABG Hemoglobin Oxyhemoglobin Sodium Chloride Carbon Dioxide BUN Creatinine Glucose POC Glucose Hemoglobin A1c Calcium Alkaline Phosphatase Troponin T Albumin Triglycerides Cholesterol HDL Cholesterol Urine Creatinine 62.3 H Urine Chloride 17.5 L Crossmatch
[2019-07-02 09:52] LABS: Bacteria,Urine 1+ /HPF (Negative); Bilirubin,Urine NEG (Negative); Blood,Urine SM (Negative); Color,Urine Yellow (Yellow); Mucus,Urine FEW /HPF; Urobilinogen,Urine < 2.0 mg/dL (<2.0)
[2019-07-02] MEDS ORDERED: FAMOTIDINE 20 MG/2 ML INJ IV SCH (10:00)
[2019-07-02] MEDS ORDERED: ASPIRIN 81 MG TAB CHEW PO SCH (10:00)
--- NOTE | 2019-07-02 10:18 | Progress Note ---
Assessment and Plan Assessment and plan: 53-year-old female with history of diabetes, hypertension, and CVA (2012) who presents to [facility] ED with complaints of left-sided chest pain, subsequently went into cardiac arrest while getting a VQ scan, status post CPR, and is currently intubated, on vent, and sedated. --Cardiac arrest status post CPR; Patient is currently intubated on vent Continue current management Cardiology evaluation, follow echocardiogram --Anoxic brain injury; supportive care Neuro work-up, neurology consult --Acute hypoxic respiratory failure; Requiring intubation, continue ventilatory support Nebulizers, supportive care Pulmonary critical following --Possible bilateral pneumonia; Empiric antibiotics, follow cultures Supportive care, ID evaluation --Sepsis; With leukocytosis tachycardia tachypnea Continue empiric antibiotics follow cultures --Small pneumothorax; Supportive care, pulmonary critical following Follow-up chest x-ray as needed --Subcutaneous emphysema; --Acute kidney injury; ATN /vasomotor nephropathy Monitor renal function, avoid nephrotoxins Nephrology following --Anemia; requiring blood transfusion No external evidence of bleeding hemoglobin improved to 7.4 Monitor H&H and transfuse as needed --Elevated D-dimers; CT angiogram negative for PE Lower extremity venous Doppler negative for DVT --Type 2 diabetes mellitus: Accu-Chek sliding scale coverage ADA diet insulin as needed --DVT prophylaxis;SCDs --Full CODE STATUS Monitor closely and adjust management as needed Patient is critically ill with multiple medical problems Poor prognosis. Plan of care reviewed with the patient's nurse Critical care time 45 minutes History Interval history: Patient seen and examined at the bedside in ICU this morning Patient's chart, consultant in ergonomics and safety recommendations, overnight events reviewed Patient is orally intubated on ventilatory support Unresponsive, Vital signs reviewed Hospitalist Physical - Constitutional Vitals: Temp Pulse Resp BP Pulse Ox 99.4 F 110 H 30 H 118/76 94 07/02/19 08:55 07/02/19 10:00 07/02/19 10:00 07/02/19 10:00 07/02/19 10:00 General appearance: Present: severe distress, well-nourished, other (Intubated on vent) - EENT Eyes: Present: PERRL, EOM intact - Neck Neck: Present: supple, normal ROM - Respiratory Respiratory effort: normal Respiratory: bilateral: diminished, rhonchi, negative: rales, wheezing - Cardiovascular Rhythm: regular Heart Sounds: Present: S1 & S2 - Extremities Extremities: no ischemia, No edema - Abdominal General gastrointestinal: soft, non-tender, non-distended, normal bowel sounds - Integumentary Integumentary: Present: clear, warm - Psychiatric Psychiatric: other (Noncommunicative) - Neurologic Neurologic: other (Intubated on vent) JED score - Jed Score Age > 65: (0) No Aspirin use within the Past 7 Days: (0) No 3 or more CAD Risk Factors: (1) Yes 2 or more Angina events in past 24 hrs: (1) Yes Known CAD with more than 50% Stenosis: (0) No Elevated Cardiac Markers: (1) Yes ST Deviation Greater than 0.5mm: (0) No JED Score: 3 Results - Labs CBC & Chem 7: 07/02/19 12:50 07/02/19 05:15 Labs: Laboratory Last Values WBC 15.0 K/mm3 (4.5-11.0) H 07/02/19 05:15 RBC 2.33 M/mm3 (3.65-5.03) L 07/02/19 05:15 Hgb 6.2 gm/dl (10.1-14.3) L 07/02/19 05:15 Hct 19.2 % (30.3-42.9) L* 07/02/19 05:15 MCV 83 fl (79-97) 07/02/19 05:15 MCH 27 pg (28-32) L 07/02/19 05:15 MCHC 33 % (30-34) 07/02/19 05:15 RDW 15.3 % (13.2-15.2) H 07/02/19 05:15 Plt Count 410 K/mm3 (140-440) 07/02/19 05:15 Lymph % (Auto) 6.0 % (13.4-35.0) L 07/02/19 05:15 Gem % (Auto) 9.4 % (0.0-7.3) H 07/02/19 05:15 Eos % (Auto) 0.0 % (0.0-4.3) 07/02/19 05:15 Baso % (Auto) 0.4 % (0.0-1.8) 07/02/19 05:15 Lymph # 0.9 K/mm3 (1.2-5.4) L 07/02/19 05:15 Gem # 1.4 K/mm3 (0.0-0.8) H 07/02/19 05:15 Eos # 0.0 K/mm3 (0.0-0.4) 07/02/19 05:15 Baso # 0.1 K/mm3 (0.0-0.1) 07/02/19 05:15 Seg Neutrophils % 84.2 % (40.0-70.0) H 07/02/19 05:15 Seg Neutrophils # 12.6 K/mm3 (1.8-7.7) H 07/02/19 05:15 PT 13.3 Sec. (12.2-14.9) 07/01/19 20:25 INR 1.00 (0.87-1.13) 07/01/19 20:25 APTT 29.2 Sec. (24.2-36.6) 07/01/19 20:25 D-Dimer 626.19 ng/mlDDU (0-234) H 07/01/19 16:58 ABG pH 7.371 pH Units (7.350-7.450) 07/02/19 04:30 ABG pCO2 30.2 mm Hg 07/02/19 04:30 ABG pO2 65.4 mm Hg (80.0-90.0) L 07/02/19 04:30 ABG HCO3 17.1 mmol/L (20.0-26.0) L 07/02/19 04:30 ABG O2 Saturation 90.8 % (95.0-99.0) L 07/02/19 04:30 ABG O2 Content 11.6 (0.0-44) 07/02/19 04:30 ABG Base Excess -7.2 mmol/L (-2.0-3.0) L 07/02/19 04:30 ABG Hemoglobin 9.1 gm/dl (12.0-16.0) L 07/02/19 04:30 ABG Carboxyhemoglobin 0.7 % (0.0-5.0) 07/02/19 04:30 ABG Methemoglobin 0.3 % (0.0-1.5) 07/02/19 04:30 Oxyhemoglobin 89.8 % (95.0-99.0) L 07/02/19 04:30 FiO2 75 % 07/02/19 04:30 Sodium 134 mmol/L (137-145) L 07/02/19 05:15 Potassium 5.0 mmol/L (3.6-5.0) 07/02/19 05:15 Chloride 100.9 mmol/L (98-107) 07/02/19 05:15 Carbon Dioxide 15 mmol/L (22-30) L 07/02/19 05:15 Anion Gap 23 mmol/L 07/02/19 05:15 BUN 49 mg/dL (7-17) H 07/02/19 05:15 Creatinine 1.3 mg/dL (0.7-1.2) H 07/02/19 05:15 Estimated GFR 43 ml/min 07/02/19 05:15 BUN/Creatinine Ratio 38 % 07/02/19 05:15 Glucose 228 mg/dL (65-100) H 07/02/19 05:15 POC Glucose 270 (70-105) H 07/02/19 07:34 Hemoglobin A1c 11.5 % (4-6) H 07/01/19 20:25 Lactic Acid 1.80 mmol/L (0.7-2.0) 07/01/19 20:25 Calcium 7.7 mg/dL (8.4-10.2) L D 07/02/19 05:15 Total Bilirubin 0.20 mg/dL (0.1-1.2) 07/01/19 19:17 Direct Bilirubin < 0.2 mg/dL (0-0.2) 07/01/19 19:17 Indirect Bilirubin 0.0 mg/dL 07/01/19 19:17 AST 19 units/L (5-40) 07/01/19 19:17 ALT 17 units/L (7-56) 07/01/19 19:17 Alkaline Phosphatase 135 units/L (35-129) H 07/01/19 19:17 Troponin T 0.294 ng/mL (0.00-0.029) H* D 07/02/19 05:15 Total Protein 7.6 g/dL (6.3-8.2) 07/01/19 19:17 Albumin 3.5 g/dL (3.9-5) L 07/01/19 19:17 Albumin/Globulin Ratio 0.9 % 07/01/19 19:17 Triglycerides 327 mg/dL (2-149) H 07/01/19 16:58 Cholesterol 205 mg/dL (50-199) H 07/01/19 16:58 LDL Cholesterol Direct 99 mg/dL (50-130) 07/01/19 16:58 HDL Cholesterol 68 mg/dL (40-59) H 07/01/19 16:58 Cholesterol/HDL Ratio 3.01 % 07/01/19 16:58 HCG, Qual Negative (Negative) 07/01/19 16:58 Urine Color Yellow (Yellow) 07/02/19 09:10 Urine Turbidity Slightly-cloudy (Clear) 07/02/19 09:10 Urine pH 5.0 (5.0-7.0) 07/02/19 09:10 Ur Specific [place] 1.027 (1.003-1.030) 07/02/19 09:10 Urine Protein 100 mg/dl mg/dL (Negative) 07/02/19 09:10 Urine Glucose (UA) 50 mg/dL (Negative) 07/02/19 09:10 Urine Ketones Neg mg/dL (Negative) 07/02/19 09:10 Urine Blood Sm (Negative) 07/02/19 09:10 Urine Nitrite Neg (Negative) 07/02/19 09:10 Urine Bilirubin Neg (Negative) 07/02/19 09:10 Urine Urobilinogen < 2.0 mg/dL (<2.0) 07/02/19 09:10 Ur Leukocyte Esterase Tr (Negative) 07/02/19 09:10 Urine WBC (Auto) 19.0 /HPF (0.0-6.0) H 07/02/19 09:10 Urine RBC (Auto) 1.0 /HPF (0.0-6.0) 07/02/19 09:10 U Epithel Cells (Auto) 1.0 /HPF (0-13.0) 07/02/19 09:10 Urine Bacteria (Auto) 1+ /HPF (Negative) 07/02/19 09:10 Urine Mucus Few /HPF 07/02/19 09:10 Urine Creatinine 62.3 mg/dL (0.1-20.0) H 07/02/19 09:10 Urine Sodium 19 mmol/L 07/02/19 09:10 Urine Chloride 17.5 mmolL (110-250) L 07/02/19 09:10 Blood Type A POSITIVE 07/01/19 20:25 Antibody Screen Negative 07/01/19 20:25 Crossmatch See Detail 07/01/19 20:25 Active Medications - Current Medications Current Medications: Generic Name Dose Route Start Last Admin Trade Name Freq PRN Reason Stop Dose Admin Acetaminophen 650 mg 07/01/19 20:08 Tylenol PO Q4H PRN Pain MILD(1-3)/Fever >100.5/STILL Albuterol 2.5 mg 07/01/19 20:08 Proventil IH Q3HRT PRN Shortness Of Breath Atorvastatin Calcium 40 mg 07/01/19 22:00 07/02/19 00:53 Lipitor PO Not Given QHS FOUZIA Dextrose 0 ml 07/01/19 20:08 D50w (25gm) Syringe IV Q30MIN PRN Hypoglycemia Protocol Docusate Sodium 100 mg 07/01/19 22:00 07/02/19 00:53 Colace PO Not Given BID FOUZIA Famotidine 20 mg 07/02/19 10:00 07/02/19 09:27 Pepcid IV 20 mg BID FOUZIA Administration Heparin Sodium (Porcine) 5,000 unit 07/02/19 10:00 07/02/19 09:27 Heparin SUB-Q 5,000 unit Q12HR FOUZIA Administration Hydrophilic Ointment 1 applic 07/01/19 21:36 Vaseline Lip Therapy TP Q2HR PRN Dry Lips Ceftriaxone Sodium 2 gm in 100 mls @ 200 mls/hr 07/01/19 18:40 07/02/19 09:26 Rocephin/Ns 2 Gm/100 Ml IV 200 mls/hr Q24HR FOUZIA Administration Protocol Azithromycin 500 mg/ Sodium 250 mls @ 250 mls/hr 07/01/19 18:40 07/02/19 09:27 Chloride IV 250 mls/hr Q24HR FOUZIA Administration Protocol Sodium Chloride 1,000 mls @ 150 mls/hr 07/01/19 20:15 07/02/19 09:27 Nacl 0.9% 1000 Ml IV 07/02/19 11:00 150 mls/hr DIRECT FOUZIA Administration Insulin Human Lispro 0 unit 07/02/19 07:00 07/02/19 07:36 Humalog SUB-Q 3 unit Q6H FOUZIA Administration Protocol Lorazepam 1 mg 07/02/19 01:02 07/02/19 06:56 Ativan IV 1 mg Q4H PRN Administration Agitation Multi-Ingred Cream/Lotion/Oil/Oint 1 applic 07/01/19 21:36 Artificial Tears Ophth Oint OU Q4HR PRN Dry Eye(s) Nitroglycerin 0.4 mg 07/01/19 20:16 Nitrostat SL Q5M PRN Chest Pain Ondansetron HCl 4 mg 07/01/19 20:08 Zofran IV Q8H PRN Nausea And Vomiting Oxycodone/Acetaminophen 1 tab 07/01/19 20:10 Percocet 5/325 PO Q6H PRN Pain, Moderate (4-6) Sodium Chloride 10 ml 07/01/19 22:00 07/02/19 09:27 Sodium Chloride Flush Syringe 10 Ml IV 10 ml BID FOUZIA Administration Sodium Chloride 10 ml 07/01/19 20:08 Sodium Chloride Flush Syringe 10 Ml IV PRN PRN LINE FLUSH Nutrition/Malnutrition Assess - Dietary Evaluation Nutrition/Malnutrition Findings: Nutrition Notes Start: 07/02/19 08:21 Freq: Status: Active Protocol: Document 07/02/19 08:21 CT (Rec: 07/02/19 08:37 CT [id number]) Co-Sign 07/02/19 08:21 LP Nutrition Notes Need for Assessment generated from: MD Order,optometric tech Initial or Follow up Assessment Current Diagnosis Acute Kidney Injury,Diabetes, Hypertension,Respiratory Failure,Hyperlipidemia Other Pertinent Diagnosis ACS, Pneu, Pneumothrax Pleural effusion, emphysema, cardiac arrest, [id number] Current Diet NPO Labs/Tests Na 134 BUN 49 Cr 1.3 POC Glu 270 A1c 11.5 Pertinent Medications Humalog Lorazepam NS 150 ml/hr Height 5 ft 2 in Weight 68.2 kg [place] Body Weight (kg) 50.00 BMI 27.5 Weight Status Overweight Subjective/Other Information MD consult for evaluation of nutritional intake and RN screen for hx difficulty chewing and skin risk of 12. Pt on vent, recommending Glucerna 1.2 at 50 ml/hr. Burn Absent Trauma Absent Difficulty In Chewing Current % PO Negligible #1 Nutrition Diagnosis Inadequate oral intake Etiology pt on vent As Evidenced by Signs and Symptoms NPO Is patient on ventilator? Yes Is Patient Ambulatory and/or Out of Bed No REE-([place]-St. Jeor-confined to bed) [phone] Calculation Used for Recommendations [place]-St Jeor Additional Notes Protein needs: 82-136 g/day (1 .2-2 g/kg/day) Fluid needs: 1 ml/kcal or per MD Nutrition Intervention Change Diet Order: Advance to TF when medically feasible Nutrition Support: TF Glucerna at 50 ml/hr (goal rate) Flush 90 ml q4h Kcal 1,440 Protein (gm) 72 Fluid (mL) 966 Goal #1 Diet advancement when medically feasible Anticipated Discharge Needs: unable to determine at this time Follow-Up By: 07/06/19 Additional Comments Follow up for TF initiation and Na labs.
--- NOTE | 2019-07-02 10:31 | Consultation ---
History of Present Illness Consult date: 07/02/19 Requesting physician: LEXUS HOUGH Consult reason: cardiac arrest, other (NSTEMI 2 s/p arrest) History of present illness: Pt is a 53 y.o. female with a past medical hx of CVA (in 2012), HTN, and DM. She is previously unknown to our practice. She is intubated upon evaluation, and thus the HPI is obtained from the chart and ER physician. Pt presented to the ER with c/o CP radiating to her left jaw, shoulder, and back x 1 day. She also reported SOB x 1 day and a recent non-productive cough. Following V/Q scan while in the Nuc Med suite, the pt was noted to develop respiratory distress and hypoxia and then was noted to be in asystole. ACS protocol was initiated at 2120. ROSC obtained following 1 dose of epinephrine. Per Dr. Morales, pt was believed to be in sinus [place]/PEA and then developed sinus tach after ROSC was obtained. The pt was subsequently intubated and placed on mechanical ventilation. Troponin elevated - 0.294. ECG prior to code showed sinus tach with no evidence of acute ischemic changes. F/u ECG obtained - showed NSR with early repolarization pattern, no evidence of acute ischemic changes. D- dimer elevated. V/Q scan showed indeterminate probability for PE. Chest CT showed extensive pneumomediastinum with small pneumothoraces and subcutaneous emphysema, as well as bilateral pleural effusions (R > L) with associated atelectasis. CXR shows diffuse bilateral lower lobe opacities, probable for PNA. Past History Past Medical History: diabetes, hypertension, stroke (2012) Past Surgical History: No surgical history Social history: lives with family Medications and Allergies Allergies Allergy/AdvReac Type Severity Reaction Status Date / Time No Known Allergies Allergy Unverified 07/01/19 16:29 Home Medications Medication Instructions Recorded Confirmed Last Taken Type Aspirin [Aspirin BABY CHEW TAB] 81 mg PO QDAY 07/01/19 07/01/19 Unknown History AtorvaSTATin [Lipitor] 20 mg PO QHS 07/01/19 07/01/19 Unknown History Metformin HCl [metFORMIN] 1,000 mg PO BID 07/01/19 07/01/19 Unknown History Triamterene/Hydrochlorothiazid 1 each PO QDAY 07/01/19 07/01/19 Unknown History [Triamterene-Hctz 75-50 mg Tab] amLODIPine [Norvasc] 10 mg PO DAILY 07/01/19 07/01/19 Unknown History Active Meds: Active Medications Acetaminophen (Tylenol) 650 mg PO Q4H PRN PRN Reason: Pain MILD(1-3)/Fever >100.5/STILL Albuterol (Proventil) 2.5 mg IH Q3HRT PRN PRN Reason: Shortness Of Breath Atorvastatin Calcium (Lipitor) 40 mg PO QHS [facility] Last Admin: 07/02/19 00:53 Dose: Not Given Documented by: Dextrose (D50w (25gm) Syringe) 0 ml IV Q30MIN PRN; Protocol PRN Reason: Hypoglycemia Docusate Sodium (Colace) 100 mg PO BID [facility] Last Admin: 07/02/19 00:53 Dose: Not Given Documented by: Famotidine (Pepcid) 20 mg IV BID [facility] Last Admin: 07/02/19 09:27 Dose: 20 mg Documented by: Heparin Sodium (Porcine) (Heparin) 5,000 unit SUB-Q Q12HR [facility] Last Admin: 07/02/19 09:27 Dose: 5,000 unit Documented by: Hydrophilic Ointment (Vaseline Lip Therapy) 1 applic TP Q2HR PRN PRN Reason: Dry Lips Ceftriaxone Sodium (Rocephin/Ns 2 Gm/100 Ml) 2 gm in 100 mls @ 200 mls/hr IV Q24HR [facility]; Protocol Last Admin: 07/02/19 09:26 Dose: 200 mls/hr Documented by: Azithromycin 500 mg/ Sodium (Chloride) 250 mls @ 250 mls/hr IV Q24HR [facility]; Protocol Last Admin: 07/02/19 09:27 Dose: 250 mls/hr Documented by: Sodium Chloride (Nacl 0.9% 1000 Ml) 1,000 mls @ 150 mls/hr IV DIRECT [facility] Stop: 07/02/19 11:00 Last Admin: 07/02/19 09:27 Dose: 150 mls/hr Documented by: Insulin Human Lispro (Humalog) 0 unit SUB-Q Q6H [facility]; Protocol Last Admin: 07/02/19 07:36 Dose: 3 unit Documented by: Lorazepam (Ativan) 1 mg IV Q4H PRN PRN Reason: Agitation Last Admin: 07/02/19 06:56 Dose: 1 mg Documented by: Multi-Ingred Cream/Lotion/Oil/Oint (Artificial Tears Ophth Oint) 1 applic OU Q4HR PRN PRN Reason: Dry Eye(s) Nitroglycerin (Nitrostat) 0.4 mg SL Q5M PRN PRN Reason: Chest Pain Ondansetron HCl (Zofran) 4 mg IV Q8H PRN PRN Reason: Nausea And Vomiting Oxycodone/Acetaminophen (Percocet 5/325) 1 tab PO Q6H PRN PRN Reason: Pain, Moderate (4-6) Sodium Chloride (Sodium Chloride Flush Syringe 10 Ml) 10 ml IV BID [facility] Last Admin: 07/02/19 09:27 Dose: 10 ml Documented by: Sodium Chloride (Sodium Chloride Flush Syringe 10 Ml) 10 ml IV PRN PRN PRN Reason: LINE FLUSH Review of Systems ROS unobtainable: due to endotracheal tube Physical Examination Last Vital Signs Temp 99.4 F 07/02/19 08:55 Pulse 110 H 07/02/19 10:00 Resp 30 H 07/02/19 10:00 BP 118/76 07/02/19 10:00 Pulse Ox 94 07/02/19 10:00 HEENT: Positive: Normocephaly. Negative: PERRL (pupils sluggish roya) Neck: Positive: neck supple, trachea midline Cardiac: Positive: Regular Rhythm, S1/S2, Tachycardia Lungs: Positive: Ventilated Respirations Neuro: Positive: Other (unable to assess) Abdomen: Positive: Soft, Active Bowel Sounds Skin: Negative: Rash, Wound Musculoskeletal: other (unable to assess) Extremities: Present: upper extr. pulses, lower extr. pulses. Absent: edema Results 07/02/19 05:15 07/02/19 05:15 Cardiac Enzymes 07/01/19 Range/Units 19:17 AST 19 (5-40) units/L Coagulation 07/01/19 07/01/19 Range/Units 16:58 20:25 PT 13.0 13.3 (12.2-14.9) Sec. INR 0.97 1.00 (0.87-1.13) APTT 31.5 29.2 (24.2-36.6) Sec. Lipids 07/01/19 Range/Units 16:58 Triglycerides 327 H (2-149) mg/dL Cholesterol 205 H (50-199) mg/dL HDL Cholesterol 68 H (40-59) mg/dL Cholesterol/HDL Ratio 3.01 % CBC 07/01/19 07/01/19 07/02/19 Range/Units 16:58 20:25 05:15 WBC 17.6 H 15.0 H (4.5-11.0) K/mm3 RBC 2.59 L 2.33 L (3.65-5.03) M/mm3 Hgb 6.9 L 6.2 L 6.2 L (10.1-14.3) gm/dl Hct 21.2 L 18.8 L* 19.2 L* (30.3-42.9) % Plt Count 565 H 551 H 410 (140-440) K/mm3 Lymph # 1.5 0.9 L (1.2-5.4) K/mm3 [place] # 1.0 H 1.4 H (0.0-0.8) K/mm3 Eos # 0.0 0.0 (0.0-0.4) K/mm3 Baso # 0.1 0.1 (0.0-0.1) K/mm3 Comprehensive Metabolic Panel 07/01/19 07/01/19 07/02/19 Range/Units 16:58 19:17 05:15 Sodium 132 L 134 L (137-145) mmol/L Potassium 4.6 5.0 (3.6-5.0) mmol/L Chloride 94.7 L 100.9 (98-107) mmol/L Carbon Dioxide 17 L 15 L (22-30) mmol/L BUN 53 H 49 H (7-17) mg/dL Creatinine 1.3 H 1.3 H (0.7-1.2) mg/dL Glucose 98 228 H (65-100) mg/dL Calcium 9.5 7.7 L D (8.4-10.2) mg/dL Direct Bilirubin < 0.2 (0-0.2) mg/dL Indirect Bilirubin 0.0 mg/dL AST 19 (5-40) units/L ALT 17 (7-56) units/L Alkaline Phosphatase 135 H (35-129) units/L Total Protein 7.6 (6.3-8.2) g/dL Albumin 3.5 L (3.9-5) g/dL - Imaging and Cardiology EKG: report reviewed, image reviewed - EKG Interpretation EKG: no acute changes EKG interpretations - Telemetry EKG Rhythm: Sinus Rhythm - EKG Sinus rhythms and dysrhythmias: sinus tachycardia Assessment and Plan Trend ECGs. Continue to hold ASA and systemic AC in setting of anemia. Continue statin. Obtain echo. Plan for ischemic eval when pt is clinically stable. Consider addition of beta mani if necessary for HR and/or BP optimization. Vent weaning per Pulmonary. The patient has been seen in conjunction with Dr. Almodovar, who agrees with the assessment and plan of care. - Patient Problems (1) NSTEMI (non-ST elevated myocardial infarction) Current Visit: Yes Status: Acute (2) Cardiopulmonary arrest with successful resuscitation Current Visit: Yes Status: Acute (3) Chest pain Current Visit: Yes Status: Acute Qualifiers: Chest pain type: unspecified Qualified Code(s): R07.9 - Chest pain, unspecified (4) Acute respiratory failure with hypoxia Current Visit: Yes Status: Acute (5) Pneumonia Current Visit: Yes Status: Suspected Qualifiers: Pneumonia type: due to unspecified organism Laterality: bilateral Lung location: lower lobe of lung Qualified Code(s): J18.9 - Pneumonia, unspecified organism (6) Subcutaneous emphysema Current Visit: Yes Status: Acute Qualifiers: Encounter type: initial encounter Qualified Code(s): T79.7XXA - Traumatic subcutaneous emphysema, initial encounter (7) Sepsis Current Visit: Yes Status: Suspected (8) UTI (urinary tract infection) Current Visit: Yes Status: Acute (9) Renal insufficiency Current Visit: Yes Status: Acute (10) Anemia Current Visit: Yes Status: Acute Plan to address problem: s/p 2 x PRBCs (11) History of CVA (cerebrovascular accident) Current Visit: Yes Status: Chronic (12) Hypertension Current Visit: Yes Status: Chronic (13) Hyperlipidemia Current Visit: Yes Status: Chronic (14) Diabetes Current Visit: Yes Status: Chronic
[2019-07-02] MEDS ORDERED: fentaNYL 100 MCG/2 ML INJ IV PRN (11:14)
[2019-07-02] MEDS: fentaNYL DRIP Premix 2,000 MCG/100 ML BAG IV SCH (11:25)
--- NOTE | 2019-07-02 11:53 | Vascular Lab Report ---
DUPLEX DOPPLER LOWER EXTREMITY VEINS, BILATERAL INDICATION: Elevated d-dimer, status post cardiac arrest. TECHNIQUE: Duplex doppler imaging was performed through the veins of both lower extremities using venous munir ovi and other maneuvers. COMPARISON: None available. FINDINGS: Right Common femoral vein: Negative. Right Superficial femoral vein: Negative. Right Popliteal vein: Negative. Right Calf veins: Negative. Left Common femoral vein: Negative. Left Superficial femoral vein: Negative. Left Popliteal vein: Negative. Left Calf veins: Negative. Additional findings: PICC line is noted entering the right common femoral vein IMPRESSION: 1. No sonographic evidence for DVT in either lower extremity. Signer Name: Louis Liao MD Signed: 07/02/2019 11:49 AM Workstation Name: [id number]
--- NOTE | 2019-07-02 12:17 | Ultrasound Report ---
ULTRASOUND RENAL INDICATION / CLINICAL INFORMATION: Acute kidney injury. COMPARISON: CT abdomen pelvis with contrast dated 07/01/2019 FINDINGS: RIGHT KIDNEY: Length = 11.8 cm. [normal > 9 cm] - Parenchymal Thickness = 1.8 cm. [normal > 1.5 cm] - Echogenicity: Increased - Hydronephrosis: None. - Cyst or mass: No significant abnormality. - Stones: 2 or 3 calyceal stones are identified in the superior right kidney measuring up to 7 mm on ultrasound. LEFT KIDNEY: Length = 11.8 cm. [normal > 9 cm] - Parenchymal Thickness = 1.9 cm. [normal > 1.5 cm] - Echogenicity: Increased - Hydronephrosis: None. - Cyst or mass: No significant abnormality. - Stones: None seen. URINARY BLADDER: The bladder is empty and contains a Diaz catheter. FREE FLUID: None. ADDITIONAL FINDINGS: None. IMPRESSION: Echogenic kidneys consistent with nonspecific renal parenchymal disease. Right nephrolithiasis, nonobstructing. Signer Name: Bin Sanches Jr, MD Signed: 07/02/2019 12:12 PM Workstation Name: [id number]
[2019-07-02] MEDS: PANTOPRAZOLE 40 MG INJ IV SCH ×2 (12:30→21:36)
[2019-07-02 13:13] LABS: Hemoglobin 7.4 gm/dl (10.1-14.3)
--- NOTE | 2019-07-02 14:37 | Consultation ---
History of Present Illness - Reason for Consult acute renal failure - History of Present Illness 53 y/o female with PMHx of HTN, DM, unknown baseline kidney function, presented to [facility] ED secondary to chest pain with radiation down to left arm, along with worsening shortness of breath. After undergoing a V/Q scan evaluation, patient went into cardiac arrest, CPR was initiated, and ROSC was obtained after one round of epinephrine per ICU nursing staff. Labs noted concerning for NSTEMI. She was noted to have elevated serum creatinine levels, for which nephrology was consulted secondary to SYL evaluation. Renal US was ordered, and it did not show any acute abnormalities. Past History Past Medical History: diabetes, hypertension, stroke (2012) Past Surgical History: No surgical history Social history: lives with family Family history: no significant family history Medications and Allergies Allergies Allergy/AdvReac Type Severity Reaction Status Date / Time No Known Allergies Allergy Unverified 07/01/19 16:29 Home Medications Medication Instructions Recorded Confirmed Last Taken Type Aspirin [Aspirin BABY CHEW TAB] 81 mg PO QDAY 07/01/19 07/01/19 Unknown History AtorvaSTATin [Lipitor] 20 mg PO QHS 07/01/19 07/01/19 Unknown History Metformin HCl [metFORMIN] 1,000 mg PO BID 07/01/19 07/01/19 Unknown History Triamterene/Hydrochlorothiazid 1 each PO QDAY 07/01/19 07/01/19 Unknown History [Triamterene-Hctz 75-50 mg Tab] amLODIPine [Norvasc] 10 mg PO DAILY 07/01/19 07/01/19 Unknown History Active Meds: Active Medications Acetaminophen (Tylenol) 650 mg PO Q4H PRN PRN Reason: Pain MILD(1-3)/Fever >100.5/STILL Albuterol (Proventil) 2.5 mg IH Q3HRT PRN PRN Reason: Shortness Of Breath Atorvastatin Calcium (Lipitor) 40 mg PO QHS [facility] Last Admin: 07/02/19 00:53 Dose: Not Given Documented by: Dextrose (D50w (25gm) Syringe) 0 ml IV Q30MIN PRN; Protocol PRN Reason: Hypoglycemia Docusate Sodium (Colace) 100 mg PO BID [facility] Last Admin: 07/02/19 11:42 Dose: Not Given Documented by: Fentanyl (Sublimaze) 50 mcg IV Q10MIN PRN PRN Reason: ANALGESIA Heparin Sodium (Porcine) (Heparin) 5,000 unit SUB-Q Q12HR [facility] Last Admin: 07/02/19 09:27 Dose: 5,000 unit Documented by: Hydrophilic Ointment (Vaseline Lip Therapy) 1 applic TP Q2HR PRN PRN Reason: Dry Lips Ceftriaxone Sodium (Rocephin/Ns 2 Gm/100 Ml) 2 gm in 100 mls @ 200 mls/hr IV Q24HR [facility]; Protocol Last Admin: 07/02/19 09:26 Dose: 200 mls/hr Documented by: Azithromycin 500 mg/ Sodium (Chloride) 250 mls @ 250 mls/hr IV Q24HR [facility]; Protocol Last Admin: 07/02/19 09:27 Dose: 250 mls/hr Documented by: Fentanyl Citrate (Fentanyl Drip Premix) 2,000 mcg in 100 mls @ 3.41 mls/hr IV TITR [facility]; Protocol Last Admin: 07/02/19 11:25 Dose: 1 mcg/kg/hr, 3.41 mls/hr Documented by: Insulin Human Lispro (Humalog) 0 unit SUB-Q Q6H [facility]; Protocol Last Admin: 07/02/19 13:40 Dose: 2 unit Documented by: Lorazepam (Ativan) 1 mg IV Q4H PRN PRN Reason: Agitation Last Admin: 07/02/19 11:43 Dose: 1 mg Documented by: Multi-Ingred Cream/Lotion/Oil/Oint (Artificial Tears Ophth Oint) 1 applic OU Q4HR PRN PRN Reason: Dry Eye(s) Nitroglycerin (Nitrostat) 0.4 mg SL Q5M PRN PRN Reason: Chest Pain Ondansetron HCl (Zofran) 4 mg IV Q8H PRN PRN Reason: Nausea And Vomiting Oxycodone/Acetaminophen (Percocet 5/325) 1 tab PO Q6H PRN PRN Reason: Pain, Moderate (4-6) Pantoprazole Sodium (Protonix) 40 mg IV BID [facility] Last Admin: 07/02/19 12:30 Dose: 40 mg Documented by: Sodium Chloride (Sodium Chloride Flush Syringe 10 Ml) 10 ml IV BID [facility] Last Admin: 07/02/19 09:27 Dose: 10 ml Documented by: Sodium Chloride (Sodium Chloride Flush Syringe 10 Ml) 10 ml IV PRN PRN PRN Reason: LINE FLUSH Review of Systems ROS unobtainable: due to endotracheal tube Exam - Vital Signs Vital signs: Vital Signs Temp Pulse Resp BP Pulse Ox 98.3 F 106 H 18 135/71 87 07/01/19 16:28 07/01/19 16:28 07/01/19 16:28 07/01/19 16:28 07/01/19 16:28 - General Appearance General appearance: appears stated age, obese, sedated on ventilator, intubated EENT: ATNC Neck: Present: neck supple, trachea midline Respiratory: Clear to Ascultation Heart: regular, S1S2 Gastrointestinal: Present: normal Integumentary: no rash Neurologic: other (intubated, sedated for ECHO. Per nursing staff, when they wean off the fentanyl she is able to follow simple commands in qatari) Musculoskeletal: Present: deferred Results - Lab Results 07/02/19 12:50 07/02/19 05:15 Most recent lab results ABG pH 7.371 pH Units (7.350-7.450) 07/02/19 04:30 ABG pCO2 30.2 mm Hg 07/02/19 04:30 ABG pO2 65.4 mm Hg (80.0-90.0) L 07/02/19 04:30 ABG HCO3 17.1 mmol/L (20.0-26.0) L 07/02/19 04:30 ABG O2 Saturation 90.8 % (95.0-99.0) L 07/02/19 04:30 Calcium 7.7 mg/dL (8.4-10.2) L D 07/02/19 05:15 Urine Creatinine 62.3 mg/dL (0.1-20.0) H 07/02/19 09:10 Urine Sodium 19 mmol/L 07/02/19 09:10 Assessment and Plan - Patient Problems (1) Acute renal injury Current Visit: Yes Status: Acute Plan to address problem: Likely pre-renal in nature in the setting of cardiac arrest. Overall renal function is stable, and we do not have her previous baseline renal function for comparison. Maintain MAP >65mmHg, avoid nephrotoxins. Agree with current management and IV fluid hydration. UA/Urine electrolytes orders in, pending. Will monitor renal function daily. (2) Acute and chronic respiratory failure with hypoxia Current Visit: Yes Status: Acute Plan to address problem: Intubated at this time. Obtaining ECHO at bedside. Further vent management per ICU/pulmonary (3) Cardiopulmonary arrest with successful resuscitation Current Visit: Yes Status: Acute Plan to address problem: Remains in the ICU, intubated, not on pressors. Overall remains hemodynamically stable at this time. Further recommendations/plan per cardiology. (4) Hyperkalemia Current Visit: Yes Status: Acute Plan to address problem: In the setting of SYL. Medical management and close monitoring. (5) NSTEMI (non-ST elevated myocardial infarction) Current Visit: Yes Status: Acute Plan to address problem: Cardiology input appreciated. (6) Diabetes Current Visit: Yes Status: Chronic Plan to address problem: Poorly controlled DM, evidenced by elevated HgA1c. DM management per primary attending. (7) Pneumonia Current Visit: Yes Status: Suspected Qualifiers: Pneumonia type: due to unspecified organism Laterality: bilateral Lung location: lower lobe of lung Qualified Code(s): J18.9 - Pneumonia, unspecified organism Plan to address problem: Please ensure that antibiotics are dosed appropriately for renal function.
--- NOTE | 2019-07-02 14:56 | Consultation ---
History of Present Illness - Reason for Consult Consult date: 07/02/19 - History of Present Illness 53-year-old female past medical history diabetes type 2, hypertension admitted with left-sided chest pain. The pain began the day prior to admission was associated with shortness of breath, she denied any cough at the time. She did complain of some back pain and some pleuritic pain as well. Any nausea or vomiting. She was most concerned about having a heart attack given the heaviness in her chest that radiated to her left jaw. She was sent to radiology for perfusion scan, and had a cardiac arrest there and was resuscitated with CPR. At the time of admission family noted that she had some low-grade fevers for which she took some Motrin which improved her temperature. Afebrile since admission with a white count of 15. She is currently receiving ceftriaxone and azithromycin. Blood cultures are pending. Imaging personally reviewed: Chest x-ray on admission: Bilateral bronchopneumonia. Chest x-ray after coding: Bilateral multi lobar airspace disease with pneumomediastinum and subcutaneous emphysema CT abdomen pelvis: Questionable acute acalculous cholecystitis Past History Past Medical History: diabetes, hypertension, stroke (2012) Past Surgical History: No surgical history Social history: lives with family Family history: no significant family history Medications and Allergies Allergies Allergy/AdvReac Type Severity Reaction Status Date / Time No Known Allergies Allergy Unverified 07/01/19 16:29 Home Medications Medication Instructions Recorded Confirmed Last Taken Type Aspirin [Aspirin BABY CHEW TAB] 81 mg PO QDAY 07/01/19 07/01/19 Unknown History AtorvaSTATin [Lipitor] 20 mg PO QHS 07/01/19 07/01/19 Unknown History Metformin HCl [metFORMIN] 1,000 mg PO BID 07/01/19 07/01/19 Unknown History Triamterene/Hydrochlorothiazid 1 each PO QDAY 07/01/19 07/01/19 Unknown History [Triamterene-Hctz 75-50 mg Tab] amLODIPine [Norvasc] 10 mg PO DAILY 07/01/19 07/01/19 Unknown History Active Meds: Active Medications Acetaminophen (Tylenol) 650 mg PO Q4H PRN PRN Reason: Pain MILD(1-3)/Fever >100.5/STILL Albuterol (Proventil) 2.5 mg IH Q3HRT PRN PRN Reason: Shortness Of Breath Atorvastatin Calcium (Lipitor) 40 mg PO QHS [facility] Last Admin: 07/02/19 00:53 Dose: Not Given Documented by: Dextrose (D50w (25gm) Syringe) 0 ml IV Q30MIN PRN; Protocol PRN Reason: Hypoglycemia Docusate Sodium (Colace) 100 mg PO BID [facility] Last Admin: 07/02/19 11:42 Dose: Not Given Documented by: Fentanyl (Sublimaze) 50 mcg IV Q10MIN PRN PRN Reason: ANALGESIA Heparin Sodium (Porcine) (Heparin) 5,000 unit SUB-Q Q12HR [facility] Last Admin: 07/02/19 09:27 Dose: 5,000 unit Documented by: Hydrophilic Ointment (Vaseline Lip Therapy) 1 applic TP Q2HR PRN PRN Reason: Dry Lips Ceftriaxone Sodium (Rocephin/Ns 2 Gm/100 Ml) 2 gm in 100 mls @ 200 mls/hr IV Q24HR FOUZIA; Protocol Last Admin: 07/02/19 09:26 Dose: 200 mls/hr Documented by: Azithromycin 500 mg/ Sodium (Chloride) 250 mls @ 250 mls/hr IV Q24HR FOUZIA; Protocol Last Admin: 07/02/19 09:27 Dose: 250 mls/hr Documented by: Fentanyl Citrate (Fentanyl Drip Premix) 2,000 mcg in 100 mls @ 3.41 mls/hr IV TITR [facility]; Protocol Last Admin: 07/02/19 11:25 Dose: 1 mcg/kg/hr, 3.41 mls/hr Documented by: Insulin Human Lispro (Humalog) 0 unit SUB-Q Q6H [facility]; Protocol Last Admin: 07/02/19 13:40 Dose: 2 unit Documented by: Lorazepam (Ativan) 1 mg IV Q4H PRN PRN Reason: Agitation Last Admin: 07/02/19 11:43 Dose: 1 mg Documented by: Multi-Ingred Cream/Lotion/Oil/Oint (Artificial Tears Ophth Oint) 1 applic OU Q4HR PRN PRN Reason: Dry Eye(s) Nitroglycerin (Nitrostat) 0.4 mg SL Q5M PRN PRN Reason: Chest Pain Ondansetron HCl (Zofran) 4 mg IV Q8H PRN PRN Reason: Nausea And Vomiting Oxycodone/Acetaminophen (Percocet 5/325) 1 tab PO Q6H PRN PRN Reason: Pain, Moderate (4-6) Pantoprazole Sodium (Protonix) 40 mg IV BID [facility] Last Admin: 07/02/19 12:30 Dose: 40 mg Documented by: Sodium Chloride (Sodium Chloride Flush Syringe 10 Ml) 10 ml IV BID [facility] Last Admin: 07/02/19 09:27 Dose: 10 ml Documented by: Sodium Chloride (Sodium Chloride Flush Syringe 10 Ml) 10 ml IV PRN PRN PRN Reason: LINE FLUSH Review of Systems ROS unobtainable: due to endotracheal tube Physical Examination - Physical Exam Narrative exam: Physical Exam: Constitutional: Intubated, nonresponsive Head, Ears, Nose: Normocephalic, atraumatic. External ears, nose normal Eyes: Conjunctivae/corneas clear. No icterus. No ptosis. Neck: Intubated Oral: Intubated Cardiovascular: S1, S2 normal. Respiratory: Mechanical breath sounds GI: Soft, non-tender; bowel sounds normal. No peritoneal signs. Musculoskeletal: No pedal edema, no cyanosis. Skin: No rash or abscess Hem/Lymphatic: No palpable cervical or supraclavicular nodes. No lymphangitis Psych: Nonresponsive Neurological: Nonresponsive - Constitutional Vitals: Vital Signs Temp Pulse Resp BP Pulse Ox 99.3 F 87 24 118/71 96 07/02/19 12:00 07/02/19 14:30 07/02/19 14:30 07/02/19 14:30 07/02/19 14:30 Temperature -Last 24 Hours Temperature 99.3 F Temperature 99.3 F Temperature 99.4 F Temperature 98.9 F Temperature 98.5 F Temperature 98.9 F Temperature 99.6 F Temperature 100.0 F Temperature 98.0 F Temperature 96 F Temperature 96.4 F Temperature 96.4 F Temperature 94.5 F Temperature 97.9 F Temperature 98.3 F Results - Labs CBC & Chem 7: 07/02/19 12:50 07/02/19 05:15 Labs: Abnormal lab results 07/01/19 07/01/19 07/01/19 Range/Units 16:58 16:58 16:58 WBC 17.6 H (4.5-11.0) K/mm3 RBC 2.59 L (3.65-5.03) M/mm3 Hgb 6.9 L (10.1-14.3) gm/dl Hct 21.2 L (30.3-42.9) % MCH 27 L (28-32) pg RDW (13.2-15.2) % Plt Count 565 H (140-440) K/mm3 Lymph % (Auto) 8.5 L (13.4-35.0) % Roosevelt % (Auto) (0.0-7.3) % Lymph # (1.2-5.4) K/mm3 Roosevelt # 1.0 H (0.0-0.8) K/mm3 Seg Neutrophils % 85.5 H (40.0-70.0) % Seg Neutrophils # 15.0 H (1.8-7.7) K/mm3 D-Dimer 626.19 H (0-234) ng/mlDDU ABG pH (7.350-7.450) pH Units ABG pO2 (80.0-90.0) mm Hg ABG HCO3 (20.0-26.0) mmol/L ABG O2 Saturation (95.0-99.0) % ABG Base Excess (-2.0-3.0) mmol/L ABG Hemoglobin (12.0-16.0) gm/dl Oxyhemoglobin (95.0-99.0) % Sodium 132 L (137-145) mmol/L Chloride 94.7 L (98-107) mmol/L Carbon Dioxide 17 L (22-30) mmol/L BUN 53 H (7-17) mg/dL Creatinine 1.3 H (0.7-1.2) mg/dL Glucose (65-100) mg/dL POC Glucose (70-105) Hemoglobin A1c (4-6) % Calcium (8.4-10.2) mg/dL Alkaline Phosphatase (35-129) units/L Troponin T 0.236 H* (0.00-0.029) ng/mL Albumin (3.9-5) g/dL Triglycerides 327 H (2-149) mg/dL Cholesterol 205 H (50-199) mg/dL HDL Cholesterol 68 H (40-59) mg/dL Urine WBC (Auto) (0.0-6.0) /HPF Urine Creatinine (0.1-20.0) mg/dL Urine Chloride (110-250) mmolL Crossmatch 07/01/19 07/01/19 07/01/19 Range/Units 19:17 19:17 20:25 WBC (4.5-11.0) K/mm3 RBC (3.65-5.03) M/mm3 Hgb (10.1-14.3) gm/dl Hct (30.3-42.9) % MCH (28-32) pg RDW (13.2-15.2) % Plt Count (140-440) K/mm3 Lymph % (Auto) (13.4-35.0) % Roosevelt % (Auto) (0.0-7.3) % Lymph # (1.2-5.4) K/mm3 Roosevelt # (0.0-0.8) K/mm3 Seg Neutrophils % (40.0-70.0) % Seg Neutrophils # (1.8-7.7) K/mm3 D-Dimer (0-234) ng/mlDDU ABG pH (7.350-7.450) pH Units ABG pO2 (80.0-90.0) mm Hg ABG HCO3 (20.0-26.0) mmol/L ABG O2 Saturation (95.0-99.0) % ABG Base Excess (-2.0-3.0) mmol/L ABG Hemoglobin (12.0-16.0) gm/dl Oxyhemoglobin (95.0-99.0) % Sodium (137-145) mmol/L Chloride (98-107) mmol/L Carbon Dioxide (22-30) mmol/L BUN (7-17) mg/dL Creatinine (0.7-1.2) mg/dL Glucose (65-100) mg/dL POC Glucose (70-105) Hemoglobin A1c (4-6) % Calcium (8.4-10.2) mg/dL Alkaline Phosphatase 135 H (35-129) units/L Troponin T 0.214 H* (0.00-0.029) ng/mL Albumin 3.5 L (3.9-5) g/dL Triglycerides (2-149) mg/dL Cholesterol (50-199) mg/dL HDL Cholesterol (40-59) mg/dL Urine WBC (Auto) (0.0-6.0) /HPF Urine Creatinine (0.1-20.0) mg/dL Urine Chloride (110-250) mmolL Crossmatch See Detail 07/01/19 07/01/19 07/01/19 Range/Units 20:25 20:25 21:58 WBC (4.5-11.0) K/mm3 RBC (3.65-5.03) M/mm3 Hgb 6.2 L (10.1-14.3) gm/dl Hct 18.8 L* (30.3-42.9) % MCH (28-32) pg RDW (13.2-15.2) % Plt Count 551 H (140-440) K/mm3 Lymph % (Auto) (13.4-35.0) % Roosevelt % (Auto) (0.0-7.3) % Lymph # (1.2-5.4) K/mm3 Roosevelt # (0.0-0.8) K/mm3 Seg Neutrophils % (40.0-70.0) % Seg Neutrophils # (1.8-7.7) K/mm3 D-Dimer (0-234) ng/mlDDU ABG pH (7.350-7.450) pH Units ABG pO2 (80.0-90.0) mm Hg ABG HCO3 (20.0-26.0) mmol/L ABG O2 Saturation (95.0-99.0) % ABG Base Excess (-2.0-3.0) mmol/L ABG Hemoglobin (12.0-16.0) gm/dl Oxyhemoglobin (95.0-99.0) % Sodium (137-145) mmol/L Chloride (98-107) mmol/L Carbon Dioxide (22-30) mmol/L BUN (7-17) mg/dL Creatinine (0.7-1.2) mg/dL Glucose (65-100) mg/dL POC Glucose (70-105) Hemoglobin A1c 11.5 H (4-6) % Calcium (8.4-10.2) mg/dL Alkaline Phosphatase (35-129) units/L Troponin T 0.211 H* (0.00-0.029) ng/mL Albumin (3.9-5) g/dL Triglycerides (2-149) mg/dL Cholesterol (50-199) mg/dL HDL Cholesterol (40-59) mg/dL Urine WBC (Auto) (0.0-6.0) /HPF Urine Creatinine (0.1-20.0) mg/dL Urine Chloride (110-250) mmolL Crossmatch 07/01/19 07/02/19 07/02/19 Range/Units 22:20 04:30 05:15 WBC 15.0 H (4.5-11.0) K/mm3 RBC 2.33 L (3.65-5.03) M/mm3 Hgb 6.2 L (10.1-14.3) gm/dl Hct 19.2 L* (30.3-42.9) % MCH 27 L (28-32) pg RDW 15.3 H (13.2-15.2) % Plt Count (140-440) K/mm3 Lymph % (Auto) 6.0 L (13.4-35.0) % Roosevelt % (Auto) 9.4 H (0.0-7.3) % Lymph # 0.9 L (1.2-5.4) K/mm3 Roosevelt # 1.4 H (0.0-0.8) K/mm3 Seg Neutrophils % 84.2 H (40.0-70.0) % Seg Neutrophils # 12.6 H (1.8-7.7) K/mm3 D-Dimer (0-234) ng/mlDDU ABG pH 7.287 L (7.350-7.450) pH Units ABG pO2 194.3 H 65.4 L (80.0-90.0) mm Hg ABG HCO3 12.7 L 17.1 L (20.0-26.0) mmol/L ABG O2 Saturation 99.1 H 90.8 L (95.0-99.0) % ABG Base Excess -12.8 L -7.2 L (-2.0-3.0) mmol/L ABG Hemoglobin 5.9 L 9.1 L (12.0-16.0) gm/dl Oxyhemoglobin 89.8 L (95.0-99.0) % Sodium (137-145) mmol/L Chloride (98-107) mmol/L Carbon Dioxide (22-30) mmol/L BUN (7-17) mg/dL Creatinine (0.7-1.2) mg/dL Glucose (65-100) mg/dL POC Glucose (70-105) Hemoglobin A1c (4-6) % Calcium (8.4-10.2) mg/dL Alkaline Phosphatase (35-129) units/L Troponin T (0.00-0.029) ng/mL Albumin (3.9-5) g/dL Triglycerides (2-149) mg/dL Cholesterol (50-199) mg/dL HDL Cholesterol (40-59) mg/dL Urine WBC (Auto) (0.0-6.0) /HPF Urine Creatinine (0.1-20.0) mg/dL Urine Chloride (110-250) mmolL Crossmatch 07/02/19 07/02/19 07/02/19 Range/Units 05:15 05:15 07:34 WBC (4.5-11.0) K/mm3 RBC (3.65-5.03) M/mm3 Hgb (10.1-14.3) gm/dl Hct (30.3-42.9) % MCH (28-32) pg RDW (13.2-15.2) % Plt Count (140-440) K/mm3 Lymph % (Auto) (13.4-35.0) % Roosevelt % (Auto) (0.0-7.3) % Lymph # (1.2-5.4) K/mm3 Roosevelt # (0.0-0.8) K/mm3 Seg Neutrophils % (40.0-70.0) % Seg Neutrophils # (1.8-7.7) K/mm3 D-Dimer (0-234) ng/mlDDU ABG pH (7.350-7.450) pH Units ABG pO2 (80.0-90.0) mm Hg ABG HCO3 (20.0-26.0) mmol/L ABG O2 Saturation (95.0-99.0) % ABG Base Excess (-2.0-3.0) mmol/L ABG Hemoglobin (12.0-16.0) gm/dl Oxyhemoglobin (95.0-99.0) % Sodium 134 L (137-145) mmol/L Chloride (98-107) mmol/L Carbon Dioxide 15 L (22-30) mmol/L BUN 49 H (7-17) mg/dL Creatinine 1.3 H (0.7-1.2) mg/dL Glucose 228 H (65-100) mg/dL POC Glucose 270 H (70-105) Hemoglobin A1c (4-6) % Calcium 7.7 L D (8.4-10.2) mg/dL Alkaline Phosphatase (35-129) units/L Troponin T 0.294 H* D (0.00-0.029) ng/mL Albumin (3.9-5) g/dL Triglycerides (2-149) mg/dL Cholesterol (50-199) mg/dL HDL Cholesterol (40-59) mg/dL Urine WBC (Auto) (0.0-6.0) /HPF Urine Creatinine (0.1-20.0) mg/dL Urine Chloride (110-250) mmolL Crossmatch 07/02/19 07/02/19 07/02/19 Range/Units 09:10 09:10 12:50 WBC (4.5-11.0) K/mm3 RBC (3.65-5.03) M/mm3 Hgb 7.4 L (10.1-14.3) gm/dl Hct 22.0 L (30.3-42.9) % MCH (28-32) pg RDW (13.2-15.2) % Plt Count (140-440) K/mm3 Lymph % (Auto) (13.4-35.0) % Roosevelt % (Auto) (0.0-7.3) % Lymph # (1.2-5.4) K/mm3 Roosevelt # (0.0-0.8) K/mm3 Seg Neutrophils % (40.0-70.0) % Seg Neutrophils # (1.8-7.7) K/mm3 D-Dimer (0-234) ng/mlDDU ABG pH (7.350-7.450) pH Units ABG pO2 (80.0-90.0) mm Hg ABG HCO3 (20.0-26.0) mmol/L ABG O2 Saturation (95.0-99.0) % ABG Base Excess (-2.0-3.0) mmol/L ABG Hemoglobin (12.0-16.0) gm/dl Oxyhemoglobin (95.0-99.0) % Sodium (137-145) mmol/L Chloride (98-107) mmol/L Carbon Dioxide (22-30) mmol/L BUN (7-17) mg/dL Creatinine (0.7-1.2) mg/dL Glucose (65-100) mg/dL POC Glucose (70-105) Hemoglobin A1c (4-6) % Calcium (8.4-10.2) mg/dL Alkaline Phosphatase (35-129) units/L Troponin T (0.00-0.029) ng/mL Albumin (3.9-5) g/dL Triglycerides (2-149) mg/dL Cholesterol (50-199) mg/dL HDL Cholesterol (40-59) mg/dL Urine WBC (Auto) 19.0 H (0.0-6.0) /HPF Urine Creatinine 62.3 H (0.1-20.0) mg/dL Urine Chloride 17.5 L (110-250) mmolL Crossmatch 07/02/19 Range/Units 13:19 WBC (4.5-11.0) K/mm3 RBC (3.65-5.03) M/mm3 Hgb (10.1-14.3) gm/dl Hct (30.3-42.9) % MCH (28-32) pg RDW (13.2-15.2) % Plt Count (140-440) K/mm3 Lymph % (Auto) (13.4-35.0) % Roosevelt % (Auto) (0.0-7.3) % Lymph # (1.2-5.4) K/mm3 Roosevelt # (0.0-0.8) K/mm3 Seg Neutrophils % (40.0-70.0) % Seg Neutrophils # (1.8-7.7) K/mm3 D-Dimer (0-234) ng/mlDDU ABG pH (7.350-7.450) pH Units ABG pO2 (80.0-90.0) mm Hg ABG HCO3 (20.0-26.0) mmol/L ABG O2 Saturation (95.0-99.0) % ABG Base Excess (-2.0-3.0) mmol/L ABG Hemoglobin (12.0-16.0) gm/dl Oxyhemoglobin (95.0-99.0) % Sodium (137-145) mmol/L Chloride (98-107) mmol/L Carbon Dioxide (22-30) mmol/L BUN (7-17) mg/dL Creatinine (0.7-1.2) mg/dL Glucose (65-100) mg/dL POC Glucose 220 H (70-105) Hemoglobin A1c (4-6) % Calcium (8.4-10.2) mg/dL Alkaline Phosphatase (35-129) units/L Troponin T (0.00-0.029) ng/mL Albumin (3.9-5) g/dL Triglycerides (2-149) mg/dL Cholesterol (50-199) mg/dL HDL Cholesterol (40-59) mg/dL Urine WBC (Auto) (0.0-6.0) /HPF Urine Creatinine (0.1-20.0) mg/dL Urine Chloride (110-250) mmolL Crossmatch Assessment and Plan Cultures: 07/01/2019 blood culture: Pending A&P: 53-year-old woman past medical history hypertension diabetes admitted with chest pain, subsequent CODE BLUE. #Bilateral pneumonia: Agree with ceftriaxone and azithromycin for now. She has minimal risk factors for resistant disease. Procalcitonin not likely to be useful in the setting after having a cardiac arrest. Check flu #Leukocytosis: May worsen after having cardiac arrest and resuscitation. #Acute acalculous cholecystitis: Add metronidazole for now #SYL: Renally adjust antibiotics Recommendations: -Continue ceftriaxone 2 g every 24 hours -Continue azithromycin 500 mg every 24 hours -Start metronidazole 500 mg every 8 hours -Start Tamiflu 75 mg every 24 hours renally adjusted -Check influenza swab Thank you for the consult, will continue to follow Ada Shook MD [facility] M: [phone] O: [phone] F: [phone]
[2019-07-02] MEDS ORDERED: OSELTAMIVIR 75 MG CAP PO SCH (16:00)
[2019-07-02] MEDS: metroNIDAZOLE/NS 500 MG/100 ML 500 MG/100 ML BAG IV SCH ×2 (16:00→21:36)
[2019-07-02 16:24] LABS: ABG HCO3 17.1 mmol/L (20.0-26.0); ABG Methemoglobin 0.3 % (0.0-1.5); ABG Oxygen Saturation 95.1 % (95.0-99.0); ABG PH 7.388 pH Units (7.350-7.450); ABG PO2 74.8 mm Hg (80.0-90.0)
--- NOTE | 2019-07-02 17:29 | Progress Note ---
Assessment and Plan - Patient Problems (1) NSTEMI (non-ST elevated myocardial infarction) Current Visit: Yes Status: Acute (2) Cardiopulmonary arrest with successful resuscitation Current Visit: Yes Status: Acute (3) Chest pain Current Visit: Yes Status: Acute Qualifiers: Chest pain type: unspecified Qualified Code(s): R07.9 - Chest pain, unspecified (4) Acute respiratory failure with hypoxia Current Visit: Yes Status: Acute (5) Pneumonia Current Visit: Yes Status: Suspected Qualifiers: Pneumonia type: due to unspecified organism Laterality: bilateral Lung location: lower lobe of lung Qualified Code(s): J18.9 - Pneumonia, unspecified organism (6) Subcutaneous emphysema Current Visit: Yes Status: Acute Qualifiers: Encounter type: initial encounter Qualified Code(s): T79.7XXA - Traumatic subcutaneous emphysema, initial encounter (7) Sepsis Current Visit: Yes Status: Suspected (8) UTI (urinary tract infection) Current Visit: Yes Status: Acute (9) Renal insufficiency Current Visit: Yes Status: Acute (10) Anemia Current Visit: Yes Status: Acute Plan to address problem: s/p 2 x PRBCs (11) History of CVA (cerebrovascular accident) Current Visit: Yes Status: Chronic (12) Hypertension Current Visit: Yes Status: Chronic (13) Hyperlipidemia Current Visit: Yes Status: Chronic (14) Diabetes Current Visit: Yes Status: Chronic Subjective Date of service: 07/02/19 Interval history: Patient seen in ICU. Paient is on respirator. Objective Vital Signs Temp Pulse Resp BP BP Pulse Ox 07/02/19 16:30 87 24 116/69 95 07/02/19 16:21 88 24 106/65 94 07/02/19 16:11 85 24 106/65 95 07/02/19 16:00 99.2 F 86 24 106/65 96 07/02/19 15:51 86 24 110/65 96 07/02/19 15:42 87 118/71 96 07/02/19 15:41 88 24 105/60 95 07/02/19 15:30 87 21 111/65 96 07/02/19 15:21 89 24 116/61 95 07/02/19 15:11 84 24 105/60 95 07/02/19 15:00 84 24 105/60 96 07/02/19 14:51 85 24 110/63 96 07/02/19 14:41 87 24 118/71 95 07/02/19 14:30 87 24 118/71 96 07/02/19 14:21 86 24 108/63 96 07/02/19 14:11 85 22 116/71 95 07/02/19 14:00 84 24 116/71 95 07/02/19 13:51 83 22 109/66 95 07/02/19 13:41 84 24 117/72 95 07/02/19 13:30 88 24 117/71 95 07/02/19 13:21 86 24 111/70 95 07/02/19 13:11 88 24 117/72 94 07/02/19 13:00 90 24 117/72 94 07/02/19 12:51 90 24 116/74 93 07/02/19 12:41 88 24 117/71 93 07/02/19 12:30 93 H 24 120/73 93 07/02/19 12:21 92 H 24 111/69 90 07/02/19 12:11 92 H 23 117/71 91 07/02/19 12:00 99.3 F 96 H 24 117/71 92 07/02/19 11:51 97 H 24 124/74 93 07/02/19 11:41 103 H 24 132/80 95 07/02/19 11:30 107 H 28 H 132/80 96 07/02/19 11:21 111 H 31 H 153/90 96 07/02/19 11:11 122 H 16 160/93 96 07/02/19 11:00 99.3 F 118 H 16 160/93 94 07/02/19 10:51 101 H 30 H 110/69 90 07/02/19 10:41 100 H 26 H 108/67 89 07/02/19 10:30 102 H 30 H 108/67 89 07/02/19 10:21 103 H 26 H 112/70 90 07/02/19 10:11 106 H 26 H 118/76 91 07/02/19 10:00 110 H 30 H 118/76 94 07/02/19 09:51 120 H 35 H 168/85 99 07/02/19 09:41 125 H 26 H 169/87 98 07/02/19 09:31 123 H 26 H 169/87 98 07/02/19 09:21 118 H 19 118/72 86 07/02/19 09:11 94 H 24 123/71 96 07/02/19 09:00 95 H 26 H 116/70 96 07/02/19 08:55 99.4 F 94 H 26 H 123/71 96 07/02/19 08:51 95 H 27 H 123/71 95 07/02/19 08:41 96 H 25 H 111/65 96 07/02/19 08:30 98 H 26 H 129/76 96 07/02/19 08:25 98.9 F 98 H 26 H 120/72 95 07/02/19 08:21 100 H 26 H 120/72 94 07/02/19 08:11 94 H 27 H 111/65 95 07/02/19 08:08 94 H 111/65 93 07/02/19 08:00 93 H 25 H 111/65 93 07/02/19 07:55 98.5 F 94 H 24 111/65 93 07/02/19 07:51 94 H 24 111/64 93 07/02/19 07:50 98.9 F 07/02/19 07:41 96 H 24 109/61 93 07/02/19 07:30 93 H 23 109/61 94 07/02/19 07:25 99.6 F 96 H 25 H 109/61 94 07/02/19 07:21 98 H 23 116/65 93 07/02/19 07:11 105 H 28 H 143/78 92 07/02/19 07:00 115 H 33 H 143/78 99 07/02/19 06:55 100.0 F H 109 H 25 H 143/78 100 07/02/19 06:51 127 H 19 171/93 100 07/02/19 06:41 104 H 31 H 105/64 98 07/02/19 06:40 98.0 F 103 H 32 H 105/64 97 07/02/19 06:30 93 H 24 105/64 97 07/02/19 06:21 95 H 24 105/64 97 07/02/19 06:11 93 H 25 H 111/66 97 07/02/19 06:00 95 H 25 H 111/66 97 07/02/19 05:51 92 H 24 106/63 96 07/02/19 05:41 94 H 24 104/60 96 07/02/19 05:30 94 H 25 H 104/60 95 07/02/19 05:21 93 H 24 104/62 95 07/02/19 05:11 93 H 24 109/63 95 07/02/19 05:00 96 H 25 H 109/63 94 07/02/19 04:51 94 H 27 H 99/59 94 07/02/19 04:41 93 H 24 105/63 93 07/02/19 04:30 96 H 24 105/63 93 07/02/19 04:22 91 H 91/55 93 07/02/19 04:21 92 H 24 91/55 93 07/02/19 04:11 91 H 24 87/53 94 07/02/19 04:10 93 H 07/02/19 04:00 93 H 24 87/53 93 07/02/19 03:51 97 H 24 108/64 91 07/02/19 03:41 107 H 24 145/106 92 07/02/19 03:31 124 H 26 H 145/106 97 07/02/19 03:21 91 H 24 98/62 97 07/02/19 03:11 94 H 24 96/62 97 07/02/19 03:00 93 H 24 96/62 97 07/02/19 02:51 92 H 24 99/65 97 07/02/19 02:45 93 H 99/65 97 07/02/19 02:41 95 H 24 100/62 96 07/02/19 02:30 95 H 24 100/62 96 07/02/19 02:21 93 H 24 105/67 97 07/02/19 02:11 98 H 24 111/73 100 07/02/19 02:00 99 H 24 111/73 100 07/02/19 01:51 101 H 24 121/79 100 07/02/19 01:41 104 H 24 100 07/02/19 01:33 103 H 24 100 07/02/19 01:09 96 F L 96 H 24 115/73 100 07/02/19 00:43 100 H 07/02/19 00:30 24 100 07/02/19 00:26 96.4 F L 102 H 24 141/85 100 07/02/19 00:20 96.4 F L 07/01/19 23:56 94 H 24 105/58 97 07/01/19 23:55 94 H 24 105/58 97 07/01/19 23:41 94.5 F L 94 H 17 100/59 97 07/01/19 22:34 92 H 96/59 96 07/01/19 22:31 115 H 30 H 138/79 95 07/01/19 22:00 107 H 31 H 133/65 97 07/01/19 20:31 102 H 26 H 130/74 93 07/01/19 20:00 103 H 23 127/66 94 07/01/19 19:20 97.9 F 103 H 26 H 134/76 94 07/01/19 19:15 102 H 35 H 139/76 91 07/01/19 19:00 105 H 31 H 147/86 93 07/01/19 18:45 107 H 27 H 147/86 92 07/01/19 18:30 104 H 39 H 133/75 90 07/01/19 18:15 108 H 28 H 133/75 89 07/01/19 18:12 28 H 92 07/01/19 18:00 109 H 30 H 136/75 90 07/01/19 17:45 106 H 20 136/75 92 07/01/19 17:30 111 H 26 H 143/74 97 - Physical Examination HEENT: Positive: Normocephaly. Negative: PERRL (pupils sluggish roya) Neck: Positive: neck supple, trachea midline Neuro: Positive: Other (unable to assess) Abdomen: Positive: Soft, Active Bowel Sounds Skin: Negative: Rash, Wound Musculoskeletal: other (unable to assess) Extremities: Present: upper extr. pulses, lower extr. pulses. Absent: edema - Labs and Meds Cardiac Enzymes 07/01/19 Range/Units 19:17 AST 19 (5-40) units/L Coagulation 07/01/19 07/01/19 Range/Units 16:58 20:25 PT 13.0 13.3 (12.2-14.9) Sec. INR 0.97 1.00 (0.87-1.13) APTT 31.5 29.2 (24.2-36.6) Sec. Lipids 07/01/19 Range/Units 16:58 Triglycerides 327 H (2-149) mg/dL Cholesterol 205 H (50-199) mg/dL HDL Cholesterol 68 H (40-59) mg/dL Cholesterol/HDL Ratio 3.01 % CBC 0207/02/19 07/02/19 Range/Units 20:25 05:15 12:50 WBC 15.0 H (4.5-11.0) K/mm3 RBC 2.33 L (3.65-5.03) M/mm3 Hgb 6.2 L 6.2 L 7.4 L (10.1-14.3) gm/dl Hct 18.8 L* 19.2 L* 22.0 L (30.3-42.9) % Plt Count 551 H 410 (140-440) K/mm3 Lymph # 0.9 L (1.2-5.4) K/mm3 [place] # 1.4 H (0.0-0.8) K/mm3 Eos # 0.0 (0.0-0.4) K/mm3 Baso # 0.1 (0.0-0.1) K/mm3 Comprehensive Metabolic Panel 07/01/19 07/01/19 07/02/19 Range/Units 16:58 19:17 05:15 Sodium 132 L 134 L (137-145) mmol/L Potassium 4.6 5.0 (3.6-5.0) mmol/L Chloride 94.7 L 100.9 (98-107) mmol/L Carbon Dioxide 17 L 15 L (22-30) mmol/L BUN 53 H 49 H (7-17) mg/dL Creatinine 1.3 H 1.3 H (0.7-1.2) mg/dL Glucose 98 228 H (65-100) mg/dL Calcium 9.5 7.7 L D (8.4-10.2) mg/dL Direct Bilirubin < 0.2 (0-0.2) mg/dL Indirect Bilirubin 0.0 mg/dL AST 19 (5-40) units/L ALT 17 (7-56) units/L Alkaline Phosphatase 135 H (35-129) units/L Total Protein 7.6 (6.3-8.2) g/dL Albumin 3.5 L (3.9-5) g/dL - Imaging and Cardiology EKG: report reviewed, image reviewed - EKG Sinus rhythms and dysrhythmias: sinus tachycardia
[2019-07-02 18:16] LABS: Hematocrit 22.6 % (30.3-42.9); Hemoglobin 7.6 gm/dl (10.1-14.3)
[2019-07-03] MEDS: fentaNYL DRIP Premix 2,000 MCG/100 ML BAG IV SCH (00:21)
[2019-07-03] MEDS: INSULIN LISPRO 100 UNIT/ML SUB-Q SCH ×4 (01:05→18:17)
[2019-07-03 01:20] LABS: Hematocrit 24.2 % (30.3-42.9)
--- NOTE | 2019-07-03 02:50 | XRay Report ---
CHEST 1 VIEW 07/03/2019 2:05 AM INDICATION / CLINICAL INFORMATION: follow up respiratory failure. COMPARISON: One view of the chest from 07/02/2019. FINDINGS: SUPPORT DEVICES: Stable. HEART / MEDIASTINUM: No significant abnormality. LUNGS / PLEURA: Aeration of the lungs has improved. No significant pleural effusion. No pneumothorax. ADDITIONAL FINDINGS: No significant additional findings. IMPRESSION: Improved aeration of the lungs. Signer Name: Gerald Foley MD Signed: 07/03/2019 2:45 AM Workstation Name: [id number]
[2019-07-03 05:03] LABS: ABG Base Excess -8.1 mmol/L (-2.0-3.0); ABG HCO3 16.2 mmol/L (20.0-26.0); ABG Methemoglobin 0.5 % (0.0-1.5); ABG Oxygen Saturation 98.6 % (95.0-99.0); ABG PH 7.366 pH Units (7.350-7.450); ABG PO2 134.8 mm Hg (80.0-90.0)
[2019-07-03] MEDS: metroNIDAZOLE/NS 500 MG/100 ML 500 MG/100 ML BAG IV SCH ×3 (06:37→22:00)
[2019-07-03 08:58] LABS: Basophils % (Auto) 0.2 % (0.0-1.8); Hematocrit 27.4 % (30.3-42.9); Hemoglobin 9.1 gm/dl (10.1-14.3); Lymphocytes # (Auto) 1.1 K/mm3 (1.2-5.4); Lymphocytes % (Auto) 6.8 % (13.4-35.0); Mean Corpuscular HGB Conc 33 % (30-34); Mean Corpuscular Volume 84 fl (79-97); Monocytes # (Auto) 1.6 K/mm3 (0.0-0.8); Monocytes % (Auto) 9.8 % (0.0-7.3); Platelet Count 453 K/mm3 (140-440); Red Blood Count 3.25 M/mm3 (3.65-5.03)
[2019-07-03] MEDS ORDERED: FUROSEMIDE 40 MG/4 ML INJ IV NR (09:01)
--- NOTE | 2019-07-03 09:03 | Progress Note ---
Assessment and Plan Assessment and plan: 53-year-old female with history of diabetes, hypertension, and CVA (2012) who presents to [facility] ED with complaints of left-sided chest pain, subsequently went into cardiac arrest while getting a VQ scan, status post CPR, and is currently intubated, on vent, and sedated. Patient is more alert and awake, responding appropriately Pulmonary planning to wean and extubate Advised Lasix 40 IV once. Patient had anemia requiring transfusion Consult GI to rule out GI causes of anemia Stool for occult blood --Cardiac arrest status post CPR; Patient is currently intubated on vent Wean as tolerated and extubate --Anoxic brain injury; supportive care Neuro work-up, neurology consult --Acute hypoxic respiratory failure; Requiring intubation, continue ventilatory support Nebulizers, supportive care Pulmonary critical following Wean as tolerated and extubate --Possible bilateral pneumonia; Empiric antibiotics, follow cultures Supportive care, ID following --Sepsis; With leukocytosis tachycardia tachypnea Continue empiric antibiotics follow cultures --Small pneumothorax/pneumomediastinum on CT chest Supportive care, pulmonary critical following Follow-up chest x-ray as needed --Subcutaneous emphysema; --Acute kidney injury; ATN /vasomotor nephropathy Monitor renal function, avoid nephrotoxins Nephrology following --Anemia; requiring blood transfusion No external evidence of bleeding hemoglobin improved to 7.4 Stool for occult blood, GI consult --Elevated D-dimers; CT angiogram negative for PE Lower extremity venous Doppler negative for DVT --Type 2 diabetes mellitus: Accu-Chek sliding scale coverage ADA diet insulin as needed --DVT prophylaxis;SCDs --Full CODE STATUS Monitor closely and adjust management as needed Patient is critically ill with multiple medical problems Poor prognosis. Plan of care reviewed with the patient's nurse Critical care time 45 minutes History Interval history: Patient seen and examined at bedside in ICU this morning medical records reviewed Patient is alert and awake responding appropriately, not in acute distress Patient is intubated on ventilatory support No new overnight events reported by the nursing Vital signs reviewed Hospitalist Physical - Constitutional Vitals: Temp Pulse Resp BP Pulse Ox 98.7 F 103 H 20 153/79 95 07/03/19 08:00 07/03/19 08:32 07/03/19 08:32 07/03/19 08:32 07/03/19 08:32 General appearance: Present: mild distress, well-nourished, other (Intubated on vent, alert and awake responding appropriately) - EENT Eyes: Present: PERRL, EOM intact - Neck Neck: Present: supple, normal ROM - Respiratory Respiratory effort: normal Respiratory: bilateral: diminished, negative: rales, rhonchi, wheezing - Cardiovascular Rhythm: regular Heart Sounds: Present: S1 & S2 - Extremities Extremities: no ischemia, No edema - Abdominal General gastrointestinal: soft, non-tender, non-distended - Integumentary Integumentary: Present: clear, warm - Psychiatric Psychiatric: appropriate mood/affect, cooperative - Neurologic Neurologic: moves all extremities JED score - Jed Score Age > 65: (0) No Aspirin use within the Past 7 Days: (0) No 3 or more CAD Risk Factors: (1) Yes 2 or more Angina events in past 24 hrs: (1) Yes Known CAD with more than 50% Stenosis: (0) No Elevated Cardiac Markers: (1) Yes ST Deviation Greater than 0.5mm: (0) No JED Score: 3 Results - Labs CBC & Chem 7: 07/03/19 19:25 07/03/19 08:53 Labs: Laboratory Last Values WBC 15.0 K/mm3 (4.5-11.0) H 07/02/19 05:15 RBC 2.33 M/mm3 (3.65-5.03) L 07/02/19 05:15 Hgb 8.0 gm/dl (10.1-14.3) L 07/03/19 00:43 Hct 24.2 % (30.3-42.9) L 07/03/19 00:43 MCV 83 fl (79-97) 07/02/19 05:15 MCH 27 pg (28-32) L 07/02/19 05:15 MCHC 33 % (30-34) 07/02/19 05:15 RDW 15.3 % (13.2-15.2) H 07/02/19 05:15 Plt Count 410 K/mm3 (140-440) 07/02/19 05:15 Lymph % (Auto) 6.0 % (13.4-35.0) L 07/02/19 05:15 [place] % (Auto) 9.4 % (0.0-7.3) H 07/02/19 05:15 Eos % (Auto) 0.0 % (0.0-4.3) 07/02/19 05:15 Baso % (Auto) 0.4 % (0.0-1.8) 07/02/19 05:15 Lymph # 0.9 K/mm3 (1.2-5.4) L 07/02/19 05:15 [place] # 1.4 K/mm3 (0.0-0.8) H 07/02/19 05:15 Eos # 0.0 K/mm3 (0.0-0.4) 07/02/19 05:15 Baso # 0.1 K/mm3 (0.0-0.1) 07/02/19 05:15 Seg Neutrophils % 84.2 % (40.0-70.0) H 07/02/19 05:15 Seg Neutrophils # 12.6 K/mm3 (1.8-7.7) H 07/02/19 05:15 PT 13.3 Sec. (12.2-14.9) 07/01/19 20:25 INR 1.00 (0.87-1.13) 07/01/19 20:25 APTT 29.2 Sec. (24.2-36.6) 07/01/19 20:25 D-Dimer 626.19 ng/mlDDU (0-234) H 07/01/19 16:58 ABG pH 7.366 pH Units (7.350-7.450) 07/03/19 04:23 ABG pCO2 29.0 mm Hg 07/03/19 04:23 ABG pO2 134.8 mm Hg (80.0-90.0) H 07/03/19 04:23 ABG HCO3 16.2 mmol/L (20.0-26.0) L 07/03/19 04:23 ABG O2 Saturation 98.6 % (95.0-99.0) 07/03/19 04:23 ABG O2 Content 12.4 (0.0-44) 07/03/19 04:23 ABG Base Excess -8.1 mmol/L (-2.0-3.0) L 07/03/19 04:23 ABG Hemoglobin 8.9 gm/dl (12.0-16.0) L 07/03/19 04:23 ABG Carboxyhemoglobin 0.8 % (0.0-5.0) 07/03/19 04:23 ABG Methemoglobin 0.5 % (0.0-1.5) 07/03/19 04:23 Oxyhemoglobin 97.4 % (95.0-99.0) 07/03/19 04:23 FiO2 70 % 07/03/19 04:23 Sodium 134 mmol/L (137-145) L 07/02/19 05:15 Potassium 5.0 mmol/L (3.6-5.0) 07/02/19 05:15 Chloride 100.9 mmol/L (98-107) 07/02/19 05:15 Carbon Dioxide 15 mmol/L (22-30) L 07/02/19 05:15 Anion Gap 23 mmol/L 07/02/19 05:15 BUN 49 mg/dL (7-17) H 07/02/19 05:15 Creatinine 1.3 mg/dL (0.7-1.2) H 07/02/19 05:15 Estimated GFR 43 ml/min 07/02/19 05:15 BUN/Creatinine Ratio 38 % 07/02/19 05:15 Glucose 228 mg/dL (65-100) H 07/02/19 05:15 POC Glucose 180 (70-105) H 07/03/19 05:10 Hemoglobin A1c 11.5 % (4-6) H 07/01/19 20:25 Lactic Acid 1.80 mmol/L (0.7-2.0) 07/01/19 20:25 Calcium 7.7 mg/dL (8.4-10.2) L D 07/02/19 05:15 Total Bilirubin 0.20 mg/dL (0.1-1.2) 07/01/19 19:17 Direct Bilirubin < 0.2 mg/dL (0-0.2) 07/01/19 19:17 Indirect Bilirubin 0.0 mg/dL 07/01/19 19:17 AST 19 units/L (5-40) 07/01/19 19:17 ALT 17 units/L (7-56) 07/01/19 19:17 Alkaline Phosphatase 135 units/L (35-129) H 07/01/19 19:17 Troponin T 0.294 ng/mL (0.00-0.029) H* D 07/02/19 05:15 Total Protein 7.6 g/dL (6.3-8.2) 07/01/19 19:17 Albumin 3.5 g/dL (3.9-5) L 07/01/19 19:17 Albumin/Globulin Ratio 0.9 % 07/01/19 19:17 Triglycerides 327 mg/dL (2-149) H 07/01/19 16:58 Cholesterol 205 mg/dL (50-199) H 07/01/19 16:58 LDL Cholesterol Direct 99 mg/dL (50-130) 07/01/19 16:58 HDL Cholesterol 68 mg/dL (40-59) H 07/01/19 16:58 Cholesterol/HDL Ratio 3.01 % 07/01/19 16:58 HCG, Qual Negative (Negative) 07/01/19 16:58 Urine Color Yellow (Yellow) 07/02/19 09:10 Urine Turbidity Slightly-cloudy (Clear) 07/02/19 09:10 Urine pH 5.0 (5.0-7.0) 07/02/19 09:10 Ur Specific [place] 1.027 (1.003-1.030) 07/02/19 09:10 Urine Protein 100 mg/dl mg/dL (Negative) 07/02/19 09:10 Urine Glucose (UA) 50 mg/dL (Negative) 07/02/19 09:10 Urine Ketones Neg mg/dL (Negative) 07/02/19 09:10 Urine Blood Sm (Negative) 07/02/19 09:10 Urine Nitrite Neg (Negative) 07/02/19 09:10 Urine Bilirubin Neg (Negative) 07/02/19 09:10 Urine Urobilinogen < 2.0 mg/dL (<2.0) 07/02/19 09:10 Ur Leukocyte Esterase Tr (Negative) 07/02/19 09:10 Urine WBC (Auto) 19.0 /HPF (0.0-6.0) H 07/02/19 09:10 Urine RBC (Auto) 1.0 /HPF (0.0-6.0) 07/02/19 09:10 U Epithel Cells (Auto) 1.0 /HPF (0-13.0) 07/02/19 09:10 Urine Bacteria (Auto) 1+ /HPF (Negative) 07/02/19 09:10 Urine Mucus Few /HPF 07/02/19 09:10 Urine Creatinine 62.3 mg/dL (0.1-20.0) H 07/02/19 09:10 Urine Sodium 19 mmol/L 07/02/19 09:10 Urine Chloride 17.5 mmolL (110-250) L 07/02/19 09:10 Influenza A (Rapid) Negative (Negative) 07/02/19 17:55 Influenza B (Rapid) Negative (Negative) 07/02/19 17:55 Blood Type A POSITIVE 07/01/19 20:25 Antibody Screen Negative 07/01/19 20:25 Crossmatch See Detail 07/01/19 20:25 Active Medications - Current Medications Current Medications: Generic Name Dose Route Start Last Admin Trade Name Freq PRN Reason Stop Dose Admin Acetaminophen 650 mg 07/01/19 20:08 Tylenol PO Q4H PRN Pain MILD(1-3)/Fever >100.5/STILL Albuterol 2.5 mg 07/01/19 20:08 Proventil IH Q3HRT PRN Shortness Of Breath Atorvastatin Calcium 40 mg 07/01/19 22:00 07/02/19 21:40 Lipitor PO Not Given QHS FOUZIA Dextrose 0 ml 07/01/19 20:08 D50w (25gm) Syringe IV Q30MIN PRN Hypoglycemia Protocol Docusate Sodium 100 mg 07/01/19 22:00 07/02/19 21:40 Colace PO Not Given BID FOUZIA Fentanyl 50 mcg 07/02/19 11:14 Sublimaze IV Q10MIN PRN ANALGESIA Heparin Sodium (Porcine) 5,000 unit 07/02/19 10:00 07/02/19 21:36 Heparin SUB-Q 5,000 unit Q12HR FOUZIA Administration Hydrophilic Ointment 1 applic 07/01/19 21:36 Vaseline Lip Therapy TP Q2HR PRN Dry Lips Ceftriaxone Sodium 2 gm in 100 mls @ 200 mls/hr 07/01/19 18:40 07/02/19 09:26 Rocephin/Ns 2 Gm/100 Ml IV 200 mls/hr Q24HR FOUZIA Administration Protocol Azithromycin 500 mg/ Sodium 250 mls @ 250 mls/hr 07/01/19 18:40 07/02/19 09:2 7 Chloride IV 250 mls/hr Q24HR FOUZIA Administration Protocol Fentanyl Citrate 2,000 mcg in 100 mls @ 3.41 mls/hr 07/02/19 12:00 07/03/19 00:21 Fentanyl Drip Premix IV 2 mcg/kg/hr TITR FOUZIA 6.82 mls/hr Administration Protocol 1 MCG/KG/HR Metronidazole 500 mg in 100 mls @ 100 mls/hr 07/02/19 16:00 07/03/19 06:37 Flagyl 500 Mg/100 Ml IV 100 mls/hr Q8HR FOUZIA Administration Protocol Insulin Human Lispro 0 unit 07/02/19 07:00 07/03/19 06:48 Humalog SUB-Q Not Given Q6H [facility] Protocol Lorazepam 1 mg 07/02/19 01:02 07/02/19 17:10 Ativan IV 1 mg Q4H PRN Administration Agitation Multi-Ingred Cream/Lotion/Oil/Oint 1 applic 07/01/19 21:36 Artificial Tears Ophth Oint OU Q4HR PRN Dry Eye(s) Nitroglycerin 0.4 mg 07/01/19 20:16 Nitrostat SL Q5M PRN Chest Pain Ondansetron HCl 4 mg 07/01/19 20:08 Zofran IV Q8H PRN Nausea And Vomiting Oseltamivir Phosphate 30 mg 07/03/19 10:00 Tamiflu PO 07/07/19 22:01 BID FOUZIA Oxycodone/Acetaminophen 1 tab 07/01/19 20:10 Percocet 5/325 PO Q6H PRN Pain, Moderate (4-6) Pantoprazole Sodium 40 mg 07/02/19 12:00 07/02/19 21:36 Protonix IV 40 mg BID FOUZIA Administration Sodium Chloride 10 ml 07/01/19 22:00 07/02/19 21:40 Sodium Chloride Flush Syringe 10 Ml IV 10 ml BID FOUZIA Administration Sodium Chloride 10 ml 07/01/19 20:08 Sodium Chloride Flush Syringe 10 Ml IV PRN PRN LINE FLUSH Nutrition/Malnutrition Assess - Dietary Evaluation Nutrition/Malnutrition Findings: Nutrition Notes Start: 07/02/19 08:21 Freq: Status: Active Protocol: Document 07/02/19 08:21 CT (Rec: 07/02/19 08:37 CT [id number]) Co-Sign 07/02/19 08:21 LP Nutrition Notes Need for Assessment generated from: MD Order,customer professional Initial or Follow up Assessment Current Diagnosis Acute Kidney Injury,Diabetes, Hypertension,Respiratory Failure,Hyperlipidemia Other Pertinent Diagnosis ACS, Pneu, Pneumothrax Pleural effusion, emphysema, cardiac arrest, [id number] Current Diet NPO Labs/Tests Na 134 BUN 49 Cr 1.3 POC Glu 270 A1c 11.5 Pertinent Medications Humalog Lorazepam NS 150 ml/hr Height 5 ft 2 in Weight 68.2 kg [place] Body Weight (kg) 50.00 BMI 27.5 Weight Status Overweight Subjective/Other Information MD consult for evaluation of nutritional intake and RN screen for hx difficulty chewing and skin risk of 12. Pt on vent, recommending Glucerna 1.2 at 50 ml/hr. Pt has an OGT that is having blood suctioned. Per MD pt to remain NPO until GI consult/dx . Burn Absent Trauma Absent Difficulty In Chewing Current % PO Negligible #1 Nutrition Diagnosis Inadequate oral intake Etiology pt on vent As Evidenced by Signs and Symptoms NPO Is patient on ventilator? Yes Is Patient Ambulatory and/or Out of Bed No REE-([facility]-confined to bed) [phone] Calculation Used for Recommendations [facility] Additional Notes Protein needs: 82-136 g/day (1 .2-2 g/kg/day) Fluid needs: 1 ml/kcal or per MD Nutrition Intervention Change Diet Order: Advance to TF when medically feasible Nutrition Support: TF Glucerna 1.2 at 50 ml/hr ( goal rate) Flush 90 ml q4h Kcal 1,440 Protein (gm) 72 Fluid (mL) 966 Goal #1 Diet advancement when medically feasible Anticipated Discharge Needs: unable to determine at this time Follow-Up By: 07/06/19 Additional Comments Follow up for TF initiation and Na labs.
[2019-07-03] MEDS: AZITHROMYCIN 500 MG in SODIUM CHLORIDE 0.9% 250ML 250 ML IV SCH (09:07)
[2019-07-03] MEDS: cefTRIAXone/NS 2 GM/100 ML 2 GM/100 ML BAG IV SCH (09:07)
[2019-07-03] MEDS: PANTOPRAZOLE 40 MG INJ IV SCH ×2 (09:07→21:11)
[2019-07-03] MEDS: DOCUSATE SODIUM 100 MG CAP PO SCH ×2 (09:23→21:10)
[2019-07-03] MEDS: HEPARIN 5,000 UNIT/1 ML VIAL SUB-Q SCH ×2 (09:23→21:09)
--- NOTE | 2019-07-03 09:28 | Progress Note ---
Assessment and Plan 53 y/o female with acute respiratory failure, likely from pulmonary edema, now with newly diagnosed systolic heart failure. 1. Spoke with renal, will given lasix 40 now given new diagnosis of systolic CHF. 2. Extubate 3. Will order BIPAP PRN 4. Follow up renal and cardiology recs, likely needs ischemic work up. CCT 31 minutes Subjective Date of service: 07/03/19 Interval history: no acute events. Currently on PSV and tolerating well. Alert and oriented. Objective Vital Signs - 12hr 07/02/19 07/02/19 07/02/19 21:30 21:35 21:41 Temperature Pulse Rate 86 82 80 Pulse Rate [ From Monitor] Respiratory 24 24 24 Rate Blood Pressure 113/70 113/70 113/70 O2 Sat by Pulse 98 97 97 Oximetry 07/02/19 07/02/19 07/02/19 21:51 22:00 22:11 Temperature Pulse Rate 78 78 76 Pulse Rate [ From Monitor] Respiratory 24 24 24 Rate Blood Pressure 108/67 101/63 101/63 O2 Sat by Pulse 97 97 98 Oximetry 07/02/19 07/02/19 07/02/19 22:21 22:30 22:41 Temperature Pulse Rate 77 77 77 Pulse Rate [ From Monitor] Respiratory 23 24 24 Rate Blood Pressure 97/62 99/61 99/61 O2 Sat by Pulse 98 97 98 Oximetry 07/02/19 07/02/19 07/02/19 22:51 23:00 23:11 Temperature Pulse Rate 79 79 98 H Pulse Rate [ From Monitor] Respiratory 25 H 24 22 Rate Blood Pressure 105/64 103/65 103/65 O2 Sat by Pulse 98 98 99 Oximetry 07/02/19 07/02/19 07/02/19 23:21 23:30 23:41 Temperature Pulse Rate 97 H 85 80 Pulse Rate [ From Monitor] Respiratory 24 24 24 Rate Blood Pressure 158/87 130/73 130/73 O2 Sat by Pulse 98 97 97 Oximetry 07/02/19 07/02/19 07/03/19 23:48 23:51 00:00 Temperature 97.8 F Pulse Rate 86 86 Pulse Rate [ 86 From Monitor] Respiratory 24 24 Rate Blood Pressure 120/71 127/75 O2 Sat by Pulse 99 100 Oximetry 07/03/19 07/03/19 07/03/19 00:11 00:21 00:30 Temperature Pulse Rate 82 80 78 Pulse Rate [ From Monitor] Respiratory 24 23 24 Rate Blood Pressure 127/75 118/68 113/64 O2 Sat by Pulse 97 98 97 Oximetry 07/03/19 07/03/19 07/03/19 00:34 00:41 00:51 Temperature Pulse Rate 79 101 H 92 H Pulse Rate [ From Monitor] Respiratory 20 23 Rate Blood Pressure 113/64 113/64 153/78 O2 Sat by Pulse 97 99 97 Oximetry 07/03/19 07/03/19 07/03/19 01:00 01:11 01:21 Temperature Pulse Rate 88 81 80 Pulse Rate [ From Monitor] Respiratory 24 24 24 Rate Blood Pressure 131/74 131/74 121/67 O2 Sat by Pulse 97 96 97 Oximetry 07/03/19 07/03/19 07/03/19 01:30 01:41 01:51 Temperature Pulse Rate 82 82 80 Pulse Rate [ From Monitor] Respiratory 24 24 24 Rate Blood Pressure 118/68 118/68 115/66 O2 Sat by Pulse 97 97 97 Oximetry 07/03/19 07/03/19 07/03/19 02:00 02:11 02:21 Temperature Pulse Rate 77 98 H 87 Pulse Rate [ From Monitor] Respiratory 25 H 26 H 24 Rate Blood Pressure 114/64 114/64 145/78 O2 Sat by Pulse 97 97 97 Oximetry 07/03/19 07/03/19 07/03/19 02:30 02:41 02:51 Temperature Pulse Rate 91 H 84 Pulse Rate [ From Monitor] Respiratory 23 24 Rate Blood Pressure 148/79 148/79 142/75 O2 Sat by Pulse 96 99 98 Oximetry 07/03/19 07/03/19 07/03/19 03:00 03:11 03:15 Temperature 98.8 F Pulse Rate 92 H 84 Pulse Rate [ From Monitor] Respiratory 24 24 Rate Blood Pressure 151/83 151/83 O2 Sat by Pulse 99 97 Oximetry 07/03/19 07/03/19 07/03/19 03:21 03:30 03:41 Temperature Pulse Rate 104 H 84 80 Pulse Rate [ From Monitor] Respiratory 21 24 24 Rate Blood Pressure 138/81 133/73 133/73 O2 Sat by Pulse 100 100 100 Oximetry 07/03/19 07/03/19 07/03/19 03:51 04:00 04:11 Temperature Pulse Rate 80 84 80 Pulse Rate [ 78 From Monitor] Respiratory 24 24 24 Rate Blood Pressure 126/69 135/76 135/76 O2 Sat by Pulse 100 100 100 Oximetry 07/03/19 07/03/19 07/03/19 04:21 04:30 04:41 Temperature Pulse Rate 87 85 82 Pulse Rate [ From Monitor] Respiratory 25 H 24 24 Rate Blood Pressure 138/84 139/75 139/75 O2 Sat by Pulse 100 98 98 Oximetry 07/03/19 07/03/19 07/03/19 04:51 05:00 05:11 Temperature Pulse Rate 98 H 94 H 84 Pulse Rate [ From Monitor] Respiratory 21 19 24 Rate Blood Pressure 135/82 150/78 150/78 O2 Sat by Pulse 100 100 98 Oximetry 07/03/19 07/03/19 07/03/19 05:21 05:30 05:41 Temperature Pulse Rate 90 88 87 Pulse Rate [ From Monitor] Respiratory 24 23 24 Rate Blood Pressure 128/69 139/74 139/74 O2 Sat by Pulse 99 99 98 Oximetry 07/03/19 07/03/19 07/03/19 05:51 06:00 06:11 Temperature Pulse Rate 84 91 H 96 H Pulse Rate [ From Monitor] Respiratory 24 21 24 Rate Blood Pressure 146/78 148/74 148/74 O2 Sat by Pulse 98 100 99 Oximetry 07/03/19 07/03/19 07/03/19 06:21 06:30 06:41 Temperature Pulse Rate 86 101 H 93 H Pulse Rate [ From Monitor] Respiratory 25 H 29 H 24 Rate Blood Pressure 135/72 155/80 155/80 O2 Sat by Pulse 99 100 100 Oximetry 07/03/19 07/03/19 07/03/19 06:51 07:00 07:11 Temperature Pulse Rate 92 H 90 85 Pulse Rate [ From Monitor] Respiratory 17 24 15 Rate Blood Pressure 137/73 131/72 131/72 O2 Sat by Pulse 98 95 94 Oximetry 07/03/19 07/03/19 07/03/19 07:21 07:30 07:41 Temperature Pulse Rate 98 H 99 H 102 H Pulse Rate [ From Monitor] Respiratory 21 17 13 Rate Blood Pressure 149/81 149/81 O2 Sat by Pulse 97 95 97 Oximetry 07/03/19 07/03/19 07/03/19 07:51 08:00 08:11 Temperature 98.7 F Pulse Rate 109 H 107 H 101 H Pulse Rate [ 101 H From Monitor] Respiratory 18 21 19 Rate Blood Pressure 161/78 144/74 144/74 O2 Sat by Pulse 95 96 96 Oximetry 07/03/19 07/03/19 07/03/19 08:21 08:28 08:30 Temperature Pulse Rate 102 H 104 H 103 H Pulse Rate [ From Monitor] Respiratory 18 24 Rate Blood Pressure 138/70 138/70 153/79 O2 Sat by Pulse 93 98 97 Oximetry 07/03/19 07/03/19 07/03/19 08:32 08:41 08:51 Temperature Pulse Rate 103 H 102 H 105 H Pulse Rate [ From Monitor] Respiratory 20 29 H 17 Rate Blood Pressure 153/79 153/79 158/80 O2 Sat by Pulse 95 92 95 Oximetry 07/03/19 09:00 Temperature Pulse Rate 105 H Pulse Rate [ From Monitor] Respiratory 14 Rate Blood Pressure 149/77 O2 Sat by Pulse 97 Oximetry CBC and BMP: 07/03/19 08:53 07/02/19 05:15 ABG, PT/INR, D-dimer: ABG ABG pH 7.366 pH Units (7.350-7.450) 07/03/19 04:23 ABG pCO2 29.0 mm Hg 07/03/19 04:23 ABG pO2 134.8 mm Hg (80.0-90.0) H 07/03/19 04:23 ABG O2 Saturation 98.6 % (95.0-99.0) 07/03/19 04:23 PT/INR, D-dimer PT 13.3 Sec. (12.2-14.9) 07/01/19 20:25 INR 1.00 (0.87-1.13) 07/01/19 20:25 D-Dimer 626.19 ng/mlDDU (0-234) H 07/01/19 16:58 Abnormal lab findings: Abnormal Labs 07/01/19 07/01/19 07/01/19 16:58 16:58 16:58 WBC 17.6 H RBC 2.59 L Hgb 6.9 L Hct 21.2 L MCH 27 L RDW Plt Count 565 H Lymph % (Auto) 8.[address] [place] % (Auto) Lymph # [place] # 1.0 H Seg Neutrophils % 85.5 H Seg Neutrophils # 15.0 H D-Dimer 626.19 H ABG pH ABG pO2 ABG HCO3 ABG O2 Saturation ABG Base Excess ABG Hemoglobin Oxyhemoglobin Sodium 132 L Chloride 94.7 L Carbon Dioxide 17 L BUN 53 H Creatinine 1.3 H Glucose POC Glucose Hemoglobin A1c Calcium Alkaline Phosphatase Troponin T 0.236 H* Albumin Triglycerides 327 H Cholesterol 205 H HDL Cholesterol 68 H Urine WBC (Auto) Urine Creatinine Urine Chloride Crossmatch 07/01/19 07/01/19 07/01/19 19:17 19:17 20:25 WBC RBC Hgb Hct MCH RDW Plt Count Lymph % (Auto) [place] % (Auto) Lymph # [place] # Seg Neutrophils % Seg Neutrophils # D-Dimer ABG pH ABG pO2 ABG HCO3 ABG O2 Saturation ABG Base Excess ABG Hemoglobin Oxyhemoglobin Sodium Chloride Carbon Dioxide BUN Creatinine Glucose POC Glucose Hemoglobin A1c Calcium Alkaline Phosphatase 135 H Troponin T 0.214 H* Albumin 3.5 L Triglycerides Cholesterol HDL Cholesterol Urine WBC (Auto) Urine Creatinine Urine Chloride Crossmatch See Detail 07/01/19 07/01/19 07/01/19 20:25 20:25 21:58 WBC RBC Hgb 6.2 L Hct 18.8 L* MCH RDW Plt Count 551 H Lymph % (Auto) [place] % (Auto) Lymph # [place] # Seg Neutrophils % Seg Neutrophils # D-Dimer ABG pH ABG pO2 ABG HCO3 ABG O2 Saturation ABG Base Excess ABG Hemoglobin Oxyhemoglobin Sodium Chloride Carbon Dioxide BUN Creatinine Glucose POC Glucose Hemoglobin A1c 11.5 H Calcium Alkaline Phosphatase Troponin T 0.211 H* Albumin Triglycerides Cholesterol HDL Cholesterol Urine WBC (Auto) Urine Creatinine Urine Chloride Crossmatch 07/01/19 07/02/19 07/02/19 22:20 04:30 05:15 WBC 15.0 H RBC 2.33 L Hgb 6.2 L Hct 19.2 L* MCH 27 L RDW 15.3 H Plt Count Lymph % (Auto) 6.[address] [place] % (Auto) 9.4 H Lymph # 0.[address] [place] # 1.4 H Seg Neutrophils % 84.2 H Seg Neutrophils # 12.6 H D-Dimer ABG pH 7.287 L ABG pO2 194.3 H 65.4 L ABG HCO3 12.7 L 17.1 L ABG O2 Saturation 99.1 H 90.8 L ABG Base Excess -12.8 L -7.2 L ABG Hemoglobin 5.9 L 9.1 L Oxyhemoglobin 89.8 L Sodium Chloride Carbon Dioxide BUN Creatinine Glucose POC Glucose Hemoglobin A1c Calcium Alkaline Phosphatase Troponin T Albumin Triglycerides Cholesterol HDL Cholesterol Urine WBC (Auto) Urine Creatinine Urine Chloride Crossmatch 07/02/19 07/02/19 07/02/19 05:15 05:15 07:34 WBC RBC Hgb Hct MCH RDW Plt Count Lymph % (Auto) [place] % (Auto) Lymph # [place] # Seg Neutrophils % Seg Neutrophils # D-Dimer ABG pH ABG pO2 ABG HCO3 ABG O2 Saturation ABG Base Excess ABG Hemoglobin Oxyhemoglobin Sodium 134 L Chloride Carbon Dioxide 15 L BUN 49 H Creatinine 1.3 H Glucose 228 H POC Glucose 270 H Hemoglobin A1c Calcium 7.7 L D Alkaline Phosphatase Troponin T 0.294 H* D Albumin Triglycerides Cholesterol HDL Cholesterol Urine WBC (Auto) Urine Creatinine Urine Chloride Crossmatch 07/02/19 07/02/19 07/02/19 09:10 09:10 12:50 WBC RBC Hgb 7.4 L Hct 22.0 L MCH RDW Plt Count Lymph % (Auto) [place] % (Auto) Lymph # [place] # Seg Neutrophils % Seg Neutrophils # D-Dimer ABG pH ABG pO2 ABG HCO3 ABG O2 Saturation ABG Base Excess ABG Hemoglobin Oxyhemoglobin Sodium Chloride Carbon Dioxide BUN Creatinine Glucose POC Glucose Hemoglobin A1c Calcium Alkaline Phosphatase Troponin T Albumin Triglycerides Cholesterol HDL Cholesterol Urine WBC (Auto) 19.0 H Urine Creatinine 62.3 H Urine Chloride 17.5 L Crossmatch 07/02/19 07/02/19 07/02/19 13:19 16:16 17:55 WBC RBC Hgb 7.6 L Hct 22.6 L MCH RDW Plt Count Lymph % (Auto) [place] % (Auto) Lymph # [facility] # Seg Neutrophils % Seg Neutrophils # D-Dimer ABG pH ABG pO2 74.8 L ABG HCO3 17.1 L ABG O2 Saturation ABG Base Excess -7.0 L ABG Hemoglobin 8.4 L Oxyhemoglobin 94.1 L Sodium Chloride Carbon Dioxide BUN Creatinine Glucose POC Glucose 220 H Hemoglobin A1c Calcium Alkaline Phosphatase Troponin T Albumin Triglycerides Cholesterol HDL Cholesterol Urine WBC (Auto) Urine Creatinine Urine Chloride Crossmatch 07/02/19 07/02/19 07/03/19 18:25 23:23 00:43 WBC RBC Hgb 8.0 L Hct 24.2 L MCH RDW Plt Count Lymph % (Auto) [facility] % (Auto) Lymph # [facility] # Seg Neutrophils % Seg Neutrophils # D-Dimer ABG pH ABG pO2 ABG HCO3 ABG O2 Saturation ABG Base Excess ABG Hemoglobin Oxyhemoglobin Sodium Chloride Carbon Dioxide BUN Creatinine Glucose POC Glucose 191 H 141 H Hemoglobin A1c Calcium Alkaline Phosphatase Troponin T Albumin Triglycerides Cholesterol HDL Cholesterol Urine WBC (Auto) Urine Creatinine Urine Chloride Crossmatch 07/03/19 07/03/19 07/03/19 04:23 05:10 08:53 WBC 16.4 H RBC 3.25 L Hgb 9.1 L Hct 27.4 L MCH RDW Plt Count 453 H Lymph % (Auto) 6.[address] [facility] % (Auto) 9.8 H Lymph # 1.[address] [facility] # 1.6 H Seg Neutrophils % 83.2 H Seg Neutrophils # 13.6 H D-Dimer ABG pH ABG pO2 134.8 H ABG HCO3 16.2 L ABG O2 Saturation ABG Base Excess -8.1 L ABG Hemoglobin 8.9 L Oxyhemoglobin Sodium Chloride Carbon Dioxide BUN Creatinine Glucose POC Glucose 180 H Hemoglobin A1c Calcium Alkaline Phosphatase Troponin T Albumin Triglycerides Cholesterol HDL Cholesterol Urine WBC (Auto) Urine Creatinine Urine Chloride Crossmatch
[2019-07-03 09:35] LABS: Calcium 8.5 mg/dL (8.4-10.2)
[2019-07-03] MEDS: OSELTAMIVIR PHOSPHATE 30 MG/5 ML ORALSYR PO SCH ×2 (09:45→21:11)
[2019-07-03] MEDS ORDERED: EPINEPHrine RACEMIC 2.25% 0.5ML NEBU IH ONE (09:55)
--- NOTE | 2019-07-03 10:04 | Progress Note ---
Assessment and Plan - Patient Problems (1) Acute renal injury Current Visit: Yes Status: Acute Plan to address problem: Likely pre-renal in nature in the setting of cardiac arrest. Overall renal function is stable, and we do not have her previous baseline renal function for comparison. Maintain MAP >65mmHg, avoid nephrotoxins. Agree with current management and IV fluid hydration. UA/Urine electrolytes reviewed, confirming likely pre-renal etiology. Will monitor renal function daily. (2) Acute and chronic respiratory failure with hypoxia Current Visit: Yes Status: Acute Plan to address problem: Intubated at this time. s/p ECHO with EF 30-35% noted Further vent management per ICU/pulmonary From renal standpoint ok to give dose of lasix to help diurese with goal of extubation. (3) Cardiopulmonary arrest with successful resuscitation Current Visit: Yes Status: Acute Plan to address problem: Remains in the ICU, intubated, not on pressors. Overall remains hemodynamically stable at this time. Further recommendations/plan per cardiology. (4) Hyperkalemia Current Visit: Yes Status: Acute Plan to address problem: In the setting of SYL. Medical management and close monitoring. (5) NSTEMI (non-ST elevated myocardial infarction) Current Visit: Yes Status: Acute Plan to address problem: Cardiology input appreciated. (6) Diabetes Current Visit: Yes Status: Chronic Plan to address problem: Poorly controlled DM, evidenced by elevated HgA1c. DM management per primary attending. (7) Pneumonia Current Visit: Yes Status: Suspected Qualifiers: Pneumonia type: due to unspecified organism Laterality: bilateral Lung location: lower lobe of lung Qualified Code(s): J18.9 - Pneumonia, unspecified organism Plan to address problem: Please ensure that antibiotics are dosed appropriately for renal function. Subjective Date of service: 07/03/19 Interval history: Patient awake, remains intubate, but plans to likely extubate today. Seen earlier this am. No new renal function labs. Objective - Vital Signs Vital signs: Vital Signs - 12hr 07/02/19 07/02/19 07/02/19 22:11 22:21 22:30 Temperature Pulse Rate 76 77 77 Pulse Rate [ From Monitor] Respiratory 24 23 24 Rate Blood Pressure 101/63 97/62 99/61 O2 Sat by Pulse 98 98 97 Oximetry 07/02/19 07/02/19 07/02/19 22:41 22:51 23:00 Temperature Pulse Rate 77 79 79 Pulse Rate [ From Monitor] Respiratory 24 25 H 24 Rate Blood Pressure 99/61 105/64 103/65 O2 Sat by Pulse 98 98 98 Oximetry 07/02/19 07/02/19 07/02/19 23:11 23:21 23:30 Temperature Pulse Rate 98 H 97 H 85 Pulse Rate [ From Monitor] Respiratory 22 24 24 Rate Blood Pressure 103/65 158/87 130/73 O2 Sat by Pulse 99 98 97 Oximetry 07/02/19 07/02/19 07/02/19 23:41 23:48 23:51 Temperature 97.8 F Pulse Rate 80 86 Pulse Rate [ From Monitor] Respiratory 24 24 Rate Blood Pressure 130/73 120/71 O2 Sat by Pulse 97 99 Oximetry 07/03/19 07/03/19 07/03/19 00:00 00:11 00:21 Temperature Pulse Rate 86 82 80 Pulse Rate [ 86 From Monitor] Respiratory 24 24 23 Rate Blood Pressure 127/75 127/75 118/68 O2 Sat by Pulse 100 97 98 Oximetry 07/03/19 07/03/19 07/03/19 00:30 00:34 00:41 Temperature Pulse Rate 78 79 101 H Pulse Rate [ From Monitor] Respiratory 24 20 Rate Blood Pressure 113/64 113/64 113/64 O2 Sat by Pulse 97 97 99 Oximetry 07/03/19 07/03/19 07/03/19 00:51 01:00 01:11 Temperature Pulse Rate 92 H 88 81 Pulse Rate [ From Monitor] Respiratory 23 24 24 Rate Blood Pressure 153/78 131/74 131/74 O2 Sat by Pulse 97 97 96 Oximetry 07/03/19 07/03/19 07/03/19 01:21 01:30 01:41 Temperature Pulse Rate 80 82 82 Pulse Rate [ From Monitor] Respiratory 24 24 24 Rate Blood Pressure 121/67 118/68 118/68 O2 Sat by Pulse 97 97 97 Oximetry 07/03/19 07/03/19 07/03/19 01:51 02:00 02:11 Temperature Pulse Rate 80 77 98 H Pulse Rate [ From Monitor] Respiratory 24 25 H 26 H Rate Blood Pressure 115/66 114/64 114/64 O2 Sat by Pulse 97 97 97 Oximetry 07/03/19 07/03/19 07/03/19 02:21 02:30 02:41 Temperature Pulse Rate 87 91 H Pulse Rate [ From Monitor] Respiratory 24 23 Rate Blood Pressure 145/78 148/79 148/79 O2 Sat by Pulse 97 96 99 Oximetry 07/03/19 07/03/19 07/03/19 02:51 03:00 03:11 Temperature Pulse Rate 84 92 H 84 Pulse Rate [ From Monitor] Respiratory 24 24 24 Rate Blood Pressure 142/75 151/83 151/83 O2 Sat by Pulse 98 99 97 Oximetry 07/03/19 07/03/19 07/03/19 03:15 03:21 03:30 Temperature 98.8 F Pulse Rate 104 H 84 Pulse Rate [ From Monitor] Respiratory 21 24 Rate Blood Pressure 138/81 133/73 O2 Sat by Pulse 100 100 Oximetry 07/03/19 07/03/19 07/03/19 03:41 03:51 04:00 Temperature Pulse Rate 80 80 84 Pulse Rate [ 78 From Monitor] Respiratory 24 24 24 Rate Blood Pressure 133/73 126/69 135/76 O2 Sat by Pulse 100 100 100 Oximetry 07/03/19 07/03/19 07/03/19 04:11 04:21 04:30 Temperature Pulse Rate 80 87 85 Pulse Rate [ From Monitor] Respiratory 24 25 H 24 Rate Blood Pressure 135/76 138/84 139/75 O2 Sat by Pulse 100 100 98 Oximetry 07/03/19 07/03/19 07/03/19 04:41 04:51 05:00 Temperature Pulse Rate 82 98 H 94 H Pulse Rate [ From Monitor] Respiratory 24 21 19 Rate Blood Pressure 139/75 135/82 150/78 O2 Sat by Pulse 98 100 100 Oximetry 07/03/19 07/03/19 07/03/19 05:11 05:21 05:30 Temperature Pulse Rate 84 90 88 Pulse Rate [ From Monitor] Respiratory 24 24 23 Rate Blood Pressure 150/78 128/69 139/74 O2 Sat by Pulse 98 99 99 Oximetry 07/03/19 07/03/19 07/03/19 05:41 05:51 06:00 Temperature Pulse Rate 87 84 91 H Pulse Rate [ From Monitor] Respiratory 24 24 21 Rate Blood Pressure 139/74 146/78 148/74 O2 Sat by Pulse 98 98 100 Oximetry 07/03/19 07/03/19 07/03/19 06:11 06:21 06:30 Temperature Pulse Rate 96 H 86 101 H Pulse Rate [ From Monitor] Respiratory 24 25 H 29 H Rate Blood Pressure 148/74 135/72 155/80 O2 Sat by Pulse 99 99 100 Oximetry 07/03/19 07/03/19 07/03/19 06:41 06:51 07:00 Temperature Pulse Rate 93 H 92 H 90 Pulse Rate [ From Monitor] Respiratory 24 17 24 Rate Blood Pressure 155/80 137/73 131/72 O2 Sat by Pulse 100 98 95 Oximetry 07/03/19 07/03/19 07/03/19 07:11 07:21 07:30 Temperature Pulse Rate 85 98 H 99 H Pulse Rate [ From Monitor] Respiratory 15 21 17 Rate Blood Pressure 131/72 149/81 149/81 O2 Sat by Pulse 94 97 95 Oximetry 07/03/19 07/03/19 07/03/19 07:41 07:51 08:00 Temperature 98.7 F Pulse Rate 102 H 109 H 107 H Pulse Rate [ 101 H From Monitor] Respiratory 13 18 21 Rate Blood Pressure 161/78 144/74 O2 Sat by Pulse 97 95 96 Oximetry 07/03/19 07/03/19 07/03/19 08:11 08:21 08:28 Temperature Pulse Rate 101 H 102 H 104 H Pulse Rate [ From Monitor] Respiratory 19 18 Rate Blood Pressure 144/74 138/70 138/70 O2 Sat by Pulse 96 93 98 Oximetry 07/03/19 07/03/19 07/03/19 08:30 08:32 08:41 Temperature Pulse Rate 103 H 103 H 102 H Pulse Rate [ From Monitor] Respiratory 24 20 29 H Rate Blood Pressure 153/79 153/79 153/79 O2 Sat by Pulse 97 95 92 Oximetry 07/03/19 07/03/19 08:51 09:00 Temperature Pulse Rate 105 H 105 H Pulse Rate [ From Monitor] Respiratory 17 14 Rate Blood Pressure 158/80 149/77 O2 Sat by Pulse 95 97 Oximetry - General Appearance General appearance: well-developed, appears stated age, intubated EENT: ATNC, PERRL Neck: no JVD Respiratory: Present: Decreased Breath Sounds Cardiology: regular, S1S2 Gastrointestinal: normal, normoactive bowel sounds Integumentary: no rash Neurologic: no focal deficit Musculoskeletal: deferred Psychiatric: cooperative - Lab 07/03/19 08:53 07/03/19 08:53 Most recent lab results ABG pH 7.366 pH Units (7.350-7.450) 07/03/19 04:23 ABG pCO2 29.0 mm Hg 07/03/19 04:23 ABG pO2 134.8 mm Hg (80.0-90.0) H 07/03/19 04:23 ABG HCO3 16.2 mmol/L (20.0-26.0) L 07/03/19 04:23 ABG O2 Saturation 98.6 % (95.0-99.0) 07/03/19 04:23 Calcium 8.5 mg/dL (8.4-10.2) 07/03/19 08:53 Urine Creatinine 62.3 mg/dL (0.1-20.0) H 07/02/19 09:10 Urine Sodium 19 mmol/L 07/02/19 09:10 - Allied health notes Allied health notes reviewed: nursing Medications & Allergies - Medications Allergies/Adverse Reactions: Allergies No Known Allergies Allergy (Unverified 07/01/19 16:29) Home Medications: Home Medications Medication Instructions Recorded Confirmed Last Taken Type Aspirin [Aspirin BABY CHEW TAB] 81 mg PO QDAY 07/01/19 07/01/19 Unknown History AtorvaSTATin [Lipitor] 20 mg PO QHS 07/01/19 07/01/19 Unknown History Metformin HCl [metFORMIN] 1,000 mg PO BID 07/01/19 07/01/19 Unknown History Triamterene/Hydrochlorothiazid 1 each PO QDAY 07/01/19 07/01/19 Unknown History [Triamterene-Hctz 75-50 mg Tab] amLODIPine [Norvasc] 10 mg PO DAILY 07/01/19 07/01/19 Unknown History Active Medications: Generic Name Dose Route Start Last Admin Trade Name Freq PRN Reason Stop Dose Admin Acetaminophen 650 mg 07/01/19 20:08 Tylenol PO Q4H PRN Pain MILD(1-3)/Fever >100.5/STILL Albuterol 2.5 mg 07/01/19 20:08 Proventil IH Q3HRT PRN Shortness Of Breath Atorvastatin Calcium 40 mg 07/01/19 22:00 07/02/19 21:40 Lipitor PO Not Given QHS FOUZIA Dextrose 0 ml 07/01/19 20:08 D50w (25gm) Syringe IV Q30MIN PRN Hypoglycemia Protocol Docusate Sodium 100 mg 07/01/19 22:00 07/03/19 09:23 Colace PO 100 mg BID FOUZIA Administration Fentanyl 50 mcg 07/02/19 11:14 Sublimaze IV Q10MIN PRN ANALGESIA Furosemide 40 mg 07/03/19 09:01 07/03/19 09:20 Lasix IV 07/03/19 10:30 40 mg ONCE NR Administration Heparin Sodium (Porcine) 5,000 unit 07/02/19 10:00 07/03/19 09:23 Heparin SUB-Q 5,000 unit Q12HR FOUZIA Administration Hydrophilic Ointment 1 applic 07/01/19 21:36 Vaseline Lip Therapy TP Q2HR PRN Dry Lips Ceftriaxone Sodium 2 gm in 100 mls @ 200 mls/hr 07/01/19 18:40 07/03/19 09:07 Rocephin/Ns 2 Gm/100 Ml IV 200 mls/hr Q24HR [facility] Administration Protocol Azithromycin 500 mg/ Sodium 250 mls @ 250 mls/hr 07/01/19 18:40 07/03/19 09:07 Chloride IV 250 mls/hr Q24HR [facility] Administration Protocol Fentanyl Citrate 2,000 mcg in 100 mls @ 3.41 mls/hr 07/02/19 12:00 07/03/19 00:21 Fentanyl Drip Premix IV 2 mcg/kg/hr TITR FOUZIA 6.82 mls/hr Administration Protocol 1 MCG/KG/HR Metronidazole 500 mg in 100 mls @ 100 mls/hr 07/02/19 16:00 07/03/19 06:37 Flagyl 500 Mg/100 Ml IV 100 mls/hr Q8HR [facility] Administration Protocol Insulin Human Lispro 0 unit 07/02/19 07:00 07/03/19 06:48 Humalog SUB-Q Not Given Q6H [facility] Protocol Lorazepam 1 mg 07/02/19 01:02 07/02/19 17:10 Ativan IV 1 mg Q4H PRN Administration Agitation Multi-Ingred Cream/Lotion/Oil/Oint 1 applic 07/01/19 21:36 Artificial Tears Ophth Oint OU Q4HR PRN Dry Eye(s) Nitroglycerin 0.4 mg 07/01/19 20:16 Nitrostat SL Q5M PRN Chest Pain Ondansetron HCl 4 mg 07/01/19 20:08 Zofran IV Q8H PRN Nausea And Vomiting Oseltamivir Phosphate 30 mg 07/03/19 10:00 07/03/19 09:45 Tamiflu PO 07/07/19 22:01 30 mg BID FOUZIA Administration Oxycodone/Acetaminophen 1 tab 07/01/19 20:10 Percocet 5/325 PO Q6H PRN Pain, Moderate (4-6) Pantoprazole Sodium 40 mg 07/02/19 12:00 07/03/19 09:07 Protonix IV 40 mg BID FOUZIA Administration Sodium Chloride 10 ml 07/01/19 22:00 07/03/19 09:09 Sodium Chloride Flush Syringe 10 Ml IV 10 ml BID FOUZIA Administration Sodium Chloride 10 ml 07/01/19 20:08 Sodium Chloride Flush Syringe 10 Ml IV PRN PRN LINE FLUSH
--- NOTE | 2019-07-03 10:31 | Progress Note ---
Assessment and Plan TTE reviewed - EF 30-35%, pseudonormalization, mild MR and TR, RVSP 49mmHg. No heparin gtt or ASA for NSTEMI at this time in setting of anemia. Pt is s/p PRBC tx. Recommend GI consultation per primary team for eval of anemia. Initiate GDMT for CMP and titrate as tolerated. Pt for extubation today. Will tentatively plan for lexiscan MPI stress test on Saturday pending pt is medically stable. The patient has been seen in conjunction with Dr. Almodovar who agrees with the assessment and plan of care. - Patient Problems (1) NSTEMI (non-ST elevated myocardial infarction) Current Visit: Yes Status: Acute (2) Cardiopulmonary arrest with successful resuscitation Current Visit: Yes Status: Acute (3) Cardiomyopathy Current Visit: Yes Status: Chronic (4) Acute respiratory failure with hypoxia Current Visit: Yes Status: Acute (5) Pneumonia Current Visit: Yes Status: Suspected Qualifiers: Pneumonia type: due to unspecified organism Laterality: bilateral Lung location: lower lobe of lung Qualified Code(s): J18.9 - Pneumonia, unspecified organism (6) Subcutaneous emphysema Current Visit: Yes Status: Acute Qualifiers: Encounter type: initial encounter Qualified Code(s): T79.7XXA - Traumatic subcutaneous emphysema, initial encounter (7) Sepsis Current Visit: Yes Status: Suspected (8) UTI (urinary tract infection) Current Visit: Yes Status: Acute (9) Renal insufficiency Current Visit: Yes Status: Acute (10) Anemia Current Visit: Yes Status: Acute Plan to address problem: s/p 2 x PRBCs (11) History of CVA (cerebrovascular accident) Current Visit: Yes Status: Chronic (12) Hypertension Current Visit: Yes Status: Chronic (13) Hyperlipidemia Current Visit: Yes Status: Chronic (14) Diabetes Current Visit: Yes Status: Chronic Subjective Date of service: 07/03/19 Principal diagnosis: respiratory failure Interval history: pt resting in bed, alert, remains intubated. in SR on tele. Objective Last Vital Signs Temp 98.7 F 07/03/19 08:00 Pulse 105 H 07/03/19 09:00 Resp 07/03/19 09:00 BP 149/77 07/03/19 09:00 Pulse Ox 94 07/03/19 10:10 - Physical Examination General: Other (intubated, alert) HEENT: Positive: Normocephaly. Negative: PERRL (pupils sluggish roya) Neck: Positive: neck supple, trachea midline Cardiac: Positive: Reg Rate and Rhythm, S1/S2 Lungs: Positive: Decreased Breath Sounds Neuro: Positive: Other (intubated, alert) Abdomen: Positive: Soft, Active Bowel Sounds Skin: Negative: Rash, Wound Musculoskeletal: other (unable to assess) Extremities: Present: upper extr. pulses, lower extr. pulses. Absent: edema - Labs and Meds CBC 07/02/19 07/02/19 07/03/19 Range/Units 12:50 17:55 00:43 WBC (4.5-11.0) K/mm3 RBC (3.65-5.03) M/mm3 Hgb 7.4 L 7.6 L 8.0 L (10.1-14.3) gm/dl Hct 22.0 L 22.6 L 24.2 L (30.3-42.9) % Plt Count (140-440) K/mm3 Lymph # (1.2-5.4) K/mm3 Real # (0.0-0.8) K/mm3 Eos # (0.0-0.4) K/mm3 Baso # (0.0-0.1) K/mm3 07/03/19 Range/Units 08:53 WBC 16.4 H (4.5-11.0) K/mm3 RBC 3.25 L (3.65-5.03) M/mm3 Hgb 9.1 L (10.1-14.3) gm/dl Hct 27.4 L (30.3-42.9) % Plt Count 453 H (140-440) K/mm3 Lymph # 1.1 L (1.2-5.4) K/mm3 Real # 1.6 H (0.0-0.8) K/mm3 Eos # 0.0 (0.0-0.4) K/mm3 Baso # 0.0 (0.0-0.1) K/mm3 Comprehensive Metabolic Panel 07/03/19 Range/Units 08:53 Sodium 138 (137-145) mmol/L Potassium 4.5 (3.6-5.0) mmol/L Chloride 105.0 (98-107) mmol/L Carbon Dioxide 13 L (22-30) mmol/L BUN 46 H (7-17) mg/dL Creatinine 1.4 H (0.7-1.2) mg/dL Glucose 242 H (65-100) mg/dL Calcium 8.5 (8.4-10.2) mg/dL - Imaging and Cardiology EKG: report reviewed, image reviewed Echo: report reviewed - Telemetry EKG Rhythm: Sinus Rhythm - EKG Sinus rhythms and dysrhythmias: sinus tachycardia - Allied health notes Allied health notes reviewed: nursing
--- NOTE | 2019-07-03 11:17 | Progress Note ---
Assessment and Plan Cultures: 07/01/2019 blood culture: Pending Rapid flu: negative A&P: 53-year-old woman past medical history hypertension diabetes admitted with chest pain, subsequent CODE BLUE. #Bilateral pneumonia: Agree with ceftriaxone and azithromycin for now. She has minimal risk factors for resistant disease. Procalcitonin not likely to be usef ul in the setting after having a cardiac arrest. Check flu #Leukocytosis: May worsen after having cardiac arrest and resuscitation. #Acute acalculous cholecystitis: Add metronidazole for now #SYL: Renally adjust antibiotics Recommendations: -Continue ceftriaxone 2 g every 24 hours -Continue azithromycin 500 mg every 24 hours -Start metronidazole 500 mg every 8 hours -Stop Tamiflu as flu negative Thank you for the consult, will continue to follow Dr. Aguiar covering this weekend. Ada Shook MD [facility] ([facility]) M: [phone] O: [phone] F: [phone] Subjective Date of service: 07/03/19 Principal diagnosis: respiratory failure Interval history: Afebrile, white count mildly increased. Alert and oriented now. Objective - Exam Narrative Exam: Physical Exam: Constitutional: Intubated, alert Head, Ears, Nose: Normocephalic, atraumatic. External ears, nose normal Neck: Intubated Oral: Intubated Cardiovascular: S1, S2 normal. Respiratory: Mechanical breath sounds GI: Soft, non-tender; bowel sounds normal. No peritoneal signs. Musculoskeletal: No pedal edema, no cyanosis. Skin: No rash or abscess Hem/Lymphatic: No palpable cervical or supraclavicular nodes. No lymphangitis Neurological: alert, oriented - Constitutional Vitals: Vital Signs Temp Pulse Resp BP Pulse Ox 98.7 F 105 H 16 125/70 89 07/03/19 08:00 07/03/19 11:00 07/03/19 11:00 07/03/19 11:00 07/03/19 11:00 Temperature -Last 24 Hours Temperature 98.7 F Temperature 98.8 F Temperature 97.8 F Temperature 99.9 F Temperature 99.2 F Temperature 99.3 F - Labs CBC & Chem 7: 07/03/19 08:53 07/03/19 08:53 Labs: Abnormal lab results 07/02/19 07/02/19 07/02/19 Range/Units 12:50 13:19 16:16 WBC (4.5-11.0) K/mm3 RBC (3.65-5.03) M/mm3 Hgb 7.4 L (10.1-14.3) gm/dl Hct 22.0 L (30.3-42.9) % Plt Count (140-440) K/mm3 Lymph % (Auto) (13.4-35.0) % [place] % (Auto) (0.0-7.3) % Lymph # (1.2-5.4) K/mm3 [place] # (0.0-0.8) K/mm3 Seg Neutrophils % (40.0-70.0) % Seg Neutrophils # (1.8-7.7) K/mm3 ABG pO2 74.8 L (80.0-90.0) mm Hg ABG HCO3 17.1 L (20.0-26.0) mmol/L ABG Base Excess -7.0 L (-2.0-3.0) mmol/L ABG Hemoglobin 8.4 L (12.0-16.0) gm/dl Oxyhemoglobin 94.1 L (95.0-99.0) % Carbon Dioxide (22-30) mmol/L BUN (7-17) mg/dL Creatinine (0.7-1.2) mg/dL Glucose (65-100) mg/dL POC Glucose 220 H (70-105) Troponin T (0.00-0.029) ng/mL 07/02/19 07/02/19 07/02/19 Range/Units 17:55 18:25 23:23 WBC (4.5-11.0) K/mm3 RBC (3.65-5.03) M/mm3 Hgb 7.6 L (10.1-14.3) gm/dl Hct 22.6 L (30.3-42.9) % Plt Count (140-440) K/mm3 Lymph % (Auto) (13.4-35.0) % [place] % (Auto) (0.0-7.3) % Lymph # (1.2-5.4) K/mm3 [place] # (0.0-0.8) K/mm3 Seg Neutrophils % (40.0-70.0) % Seg Neutrophils # (1.8-7.7) K/mm3 ABG pO2 (80.0-90.0) mm Hg ABG HCO3 (20.0-26.0) mmol/L ABG Base Excess (-2.0-3.0) mmol/L ABG Hemoglobin (12.0-16.0) gm/dl Oxyhemoglobin (95.0-99.0) % Carbon Dioxide (22-30) mmol/L BUN (7-17) mg/dL Creatinine (0.7-1.2) mg/dL Glucose (65-100) mg/dL POC Glucose 191 H 141 H (70-105) Troponin T (0.00-0.029) ng/mL 07/03/19 07/03/19 07/03/19 Range/Units 00:43 04:23 05:10 WBC (4.5-11.0) K/mm3 RBC (3.65-5.03) M/mm3 Hgb 8.0 L (10.1-14.3) gm/dl Hct 24.2 L (30.3-42.9) % Plt Count (140-440) K/mm3 Lymph % (Auto) (13.4-35.0) % [place] % (Auto) (0.0-7.3) % Lymph # (1.2-5.4) K/mm3 [place] # (0.0-0.8) K/mm3 Seg Neutrophils % (40.0-70.0) % Seg Neutrophils # (1.8-7.7) K/mm3 ABG pO2 134.8 H (80.0-90.0) mm Hg ABG HCO3 16.2 L (20.0-26.0) mmol/L ABG Base Excess -8.1 L (-2.0-3.0) mmol/L ABG Hemoglobin 8.9 L (12.0-16.0) gm/dl Oxyhemoglobin (95.0-99.0) % Carbon Dioxide (22-30) mmol/L BUN (7-17) mg/dL Creatinine (0.7-1.2) mg/dL Glucose (65-100) mg/dL POC Glucose 180 H (70-105) Troponin T (0.00-0.029) ng/mL 07/03/19 07/03/19 Range/Units 08:53 08:53 WBC 16.4 H (4.5-11.0) K/mm3 RBC 3.25 L (3.65-5.03) M/mm3 Hgb 9.1 L (10.1-14.3) gm/dl Hct 27.4 L (30.3-42.9) % Plt Count 453 H (140-440) K/mm3 Lymph % (Auto) 6.8 L (13.4-35.0) % [place] % (Auto) 9.8 H (0.0-7.3) % Lymph # 1.1 L (1.2-5.4) K/mm3 [place] # 1.6 H (0.0-0.8) K/mm3 Seg Neutrophils % 83.2 H (40.0-70.0) % Seg Neutrophils # 13.6 H (1.8-7.7) K/mm3 ABG pO2 (80.0-90.0) mm Hg ABG HCO3 (20.0-26.0) mmol/L ABG Base Excess (-2.0-3.0) mmol/L ABG Hemoglobin (12.0-16.0) gm/dl Oxyhemoglobin (95.0-99.0) % Carbon Dioxide 13 L (22-30) mmol/L BUN 46 H (7-17) mg/dL Creatinine 1.4 H (0.7-1.2) mg/dL Glucose 242 H (65-100) mg/dL POC Glucose (70-105) Troponin T 0.370 H* D (0.00-0.029) ng/mL
--- NOTE | 2019-07-03 12:19 | Gastroenterology Consultation ---
<ABRAHAM KATE - Last Filed: 07/03/19 12:46> History of Present Illness - Reason for Consult Consult date: 07/03/19 anemia Requesting physician: KYLIE KWON - History of Present Illness Patient is a 53 y/o female with PMH of DM, HTN, and CVA ( who presented to ED on 07/01/19 with c/o CP and SOB. Upon admission, she went into cardiac arrest during VQ scan with successful resuscitation, was intubated and admitted to ICU. She currently remains in ICU s/p extubation (on NC; BiPAP PRN) this am being treated for s/p arrest, acute respiratory failure/subcutaneous emphysema, bilateral pneumonia, pneumothorax, sepsis/acute acalculous cholecystitis?, SYL, elevated D-dimer (CTA negative for PE, lower ext doppler negative for DVT), cardiomyopathy (EF 30-35%), NSTEMI (no anticogulation at this time in setting of anemia), and anemia to which GI has been consulted. ID, pulmonary, nephrology, and cardiology following. Cards with ischemic workup in progress with stress test tentatively planned for this up coming Saturday07/06/19. This morning patient was sitting up on bed w/o acute distress. Noted to be alert and oriented, however with noted language barrier so history obtained via chart reviewed and by assistance of daughter at bedside. Patient has no hx of anemia or GI bleeding. Daughter states that prior to admission, patient was complaining of abd pain and diarrhea with stool color unknown (patient reports brown stool). There has been no active signs of bleeding such as hematemesis, melena, or hematochezia noted since admission per nursing. Takes daily ASA at home but no hx of PUD. No previous endoscopic evaluation with EGD/colonoscopy. No know Fhx of GI cancers. Past History Past Medical History: diabetes, hypertension, stroke (2012) Past Surgical History: No surgical history Social history: lives with family Family history: no significant family history Medications and Allergies Allergies Allergy/AdvReac Type Severity Reaction Status Date / Time No Known Allergies Allergy Unverified 07/01/19 16:29 Home Medications Medication Instructions Recorded Confirmed Last Taken Type Aspirin [Aspirin BABY CHEW TAB] 81 mg PO QDAY 07/01/19 07/01/19 Unknown History AtorvaSTATin [Lipitor] 20 mg PO QHS 07/01/19 07/01/19 Unknown History Metformin HCl [metFORMIN] 1,000 mg PO BID 07/01/19 07/01/19 Unknown History Triamterene/Hydrochlorothiazid 1 each PO QDAY 07/01/19 07/01/19 Unknown History [Triamterene-Hctz 75-50 mg Tab] amLODIPine [Norvasc] 10 mg PO DAILY 07/01/19 07/01/19 Unknown History Active Meds: Active Medications Acetaminophen (Tylenol) 650 mg PO Q4H PRN PRN Reason: Pain MILD(1-3)/Fever >100.5/STILL Albuterol (Proventil) 2.5 mg IH Q3HRT PRN PRN Reason: Shortness Of Breath Atorvastatin Calcium (Lipitor) 40 mg PO QHS [facility] Last Admin: 07/02/19 21:40 Dose: Not Given Documented by: Dextrose (D50w (25gm) Syringe) 0 ml IV Q30MIN PRN; Protocol PRN Reason: Hypoglycemia Docusate Sodium (Colace) 100 mg PO BID [facility] Last Admin: 07/03/19 09:23 Dose: 100 mg Documented by: Fentanyl (Sublimaze) 50 mcg IV Q10MIN PRN PRN Reason: ANALGESIA Heparin Sodium (Porcine) (Heparin) 5,000 unit SUB-Q Q12HR [facility] Last Admin: 07/03/19 09:23 Dose: 5,000 unit Documented by: Hydrophilic Ointment (Vaseline Lip Therapy) 1 applic TP Q2HR PRN PRN Reason: Dry Lips Ceftriaxone Sodium (Rocephin/Ns 2 Gm/100 Ml) 2 gm in 100 mls @ 200 mls/hr IV Q24HR [facility]; Protocol Last Admin: 07/03/19 09:07 Dose: 200 mls/hr Documented by: Azithromycin 500 mg/ Sodium (Chloride) 250 mls @ 250 mls/hr IV Q24HR [facility]; Protocol Last Admin: 07/03/19 09:07 Dose: 250 mls/hr Documented by: Fentanyl Citrate (Fentanyl Drip Premix) 2,000 mcg in 100 mls @ 3.41 mls/hr IV TITR [facility]; Protocol Last Titration: 07/03/19 09:21 Dose: 0 mcg/kg/hr, 0 mls/hr Documented by: Metronidazole (Flagyl 500 Mg/100 Ml) 500 mg in 100 mls @ 100 mls/hr IV Q8HR [facility]; Protocol Last Admin: 07/03/19 06:37 Dose: 100 mls/hr Documented by: Insulin Human Lispro (Humalog) 0 unit SUB-Q Q6H [facility]; Protocol Last Admin: 07/03/19 06:48 Dose: Not Given Documented by: Lisinopril (Zestril) 10 mg PO QDAY [facility] Lorazepam (Ativan) 1 mg IV Q4H PRN PRN Reason: Agitation Last Admin: 07/02/19 17:10 Dose: 1 mg Documented by: Metoprolol Succinate (Metoprolol Xl) 25 mg PO QDAY [facility] Multi-Ingred Cream/Lotion/Oil/Oint (Artificial Tears Ophth Oint) 1 applic OU Q4HR PRN PRN Reason: Dry Eye(s) Nitroglycerin (Nitrostat) 0.4 mg SL Q5M PRN PRN Reason: Chest Pain Ondansetron HCl (Zofran) 4 mg IV Q8H PRN PRN Reason: Nausea And Vomiting Oseltamivir Phosphate (Tamiflu) 30 mg PO BID [facility] Stop: 07/07/19 22:01 Last Admin: 07/03/19 09:45 Dose: 30 mg Documented by: Oxycodone/Acetaminophen (Percocet 5/325) 1 tab PO Q6H PRN PRN Reason: Pain, Moderate (4-6) Pantoprazole Sodium (Protonix) 40 mg IV BID [facility] Last Admin: 07/03/19 09:07 Dose: 40 mg Documented by: Sodium Chloride (Sodium Chloride Flush Syringe 10 Ml) 10 ml IV BID [facility] Last Admin: 07/03/19 09:09 Dose: 10 ml Documented by: Sodium Chloride (Sodium Chloride Flush Syringe 10 Ml) 10 ml IV PRN PRN PRN Reason: LINE FLUSH medications reviewed/updated as required Review of Systems - Review of Systems All systems: negative Cardiovascular: chest pain Respiratory: shortness of breath Gastrointestinal: no hematemesis, no melena, no hematochezia Exam - Constitutional Vital Signs: Temp Pulse Resp BP Pulse Ox 98.7 F 102 H 19 144/84 93 07/03/19 08:00 07/03/19 12:00 07/03/19 12:00 07/03/19 12:00 02/14/20 12:00 General appearance: no acute distress - EENT Eyes: PERRL, EOM intact ENT: hearing intact - Respiratory Respiratory effort: labored (slightly) Respiratory: bilateral: diminished - Cardiovascular Rhythm: other (tachycardia) - Gastrointestinal General gastrointestinal: Present: soft, non-tender, non-distended, normal bowel sounds - Integumentary Integumentary: Present: warm, dry - Neurologic Neurological: alert and oriented x3 - Labs CBC & Chem 7: 07/03/19 08:53 07/03/19 08:53 Lab Results: Laboratory Results - last 24 hr 07/02/19 07/02/19 07/02/19 12:50 13:19 16:16 WBC RBC Hgb 7.4 L Hct 22.0 L MCV MCH MCHC RDW Plt Count Lymph % (Auto) [place] % (Auto) Eos % (Auto) Baso % (Auto) Lymph # [place] # Eos # Baso # Seg Neutrophils % Seg Neutrophils # ABG pH 7.388 ABG pCO2 29.0 ABG pO2 74.8 L ABG HCO3 17.1 L ABG O2 Saturation 95.1 ABG O2 Content 11.2 ABG Base Excess -7.0 L ABG Hemoglobin 8.4 L ABG Carboxyhemoglobin 0.8 ABG Methemoglobin 0.3 Oxyhemoglobin 94.1 L FiO2 70 Sodium Potassium Chloride Carbon Dioxide Anion Gap BUN Creatinine Estimated GFR BUN/Creatinine Ratio Glucose POC Glucose 220 H Calcium Troponin T Influenza A (Rapid) Influenza B (Rapid) 07/02/19 07/02/19 07/02/19 17:55 17:55 18:25 WBC RBC Hgb 7.6 L Hct 22.6 L MCV MCH MCHC RDW Plt Count Lymph % (Auto) [place] % (Auto) Eos % (Auto) Baso % (Auto) Lymph # [place] # Eos # Baso # Seg Neutrophils % Seg Neutrophils # ABG pH ABG pCO2 ABG pO2 ABG HCO3 ABG O2 Saturation ABG O2 Content ABG Base Excess ABG Hemoglobin ABG Carboxyhemoglobin ABG Methemoglobin Oxyhemoglobin FiO2 Sodium Potassium Chloride Carbon Dioxide Anion Gap BUN Creatinine Estimated GFR BUN/Creatinine Ratio Glucose POC Glucose 191 H Calcium Troponin T Influenza A (Rapid) Negative Influenza B (Rapid) Negative 07/02/19 07/03/19 07/03/19 23:23 00:43 04:23 WBC RBC Hgb 8.0 L Hct 24.2 L MCV MCH MCHC RDW Plt Count Lymph % (Auto) [place] % (Auto) Eos % (Auto) Baso % (Auto) Lymph # [place] # Eos # Baso # Seg Neutrophils % Seg Neutrophils # ABG pH 7.366 ABG pCO2 29.0 ABG pO2 134.8 H ABG HCO3 16.2 L ABG O2 Saturation 98.6 ABG O2 Content 12.4 ABG Base Excess -8.1 L ABG Hemoglobin 8.9 L ABG Carboxyhemoglobin 0.8 ABG Methemoglobin 0.5 Oxyhemoglobin 97.4 FiO2 70 Sodium Potassium Chloride Carbon Dioxide Anion Gap BUN Creatinine Estimated GFR BUN/Creatinine Ratio Glucose POC Glucose 141 H Calcium Troponin T Influenza A (Rapid) Influenza B (Rapid) 07/03/19 07/03/19 07/03/19 05:10 08:53 08:53 WBC 16.4 H RBC 3.25 L Hgb 9.1 L Hct 27.4 L MCV 84 MCH 28 MCHC 33 RDW 15.0 Plt Count 453 H Lymph % (Auto) 6.8 L [place] % (Auto) 9.8 H Eos % (Auto) 0.0 Baso % (Auto) 0.2 Lymph # 1.1 L [place] # 1.6 H Eos # 0.0 Baso # 0.0 Seg Neutrophils % 83.2 H Seg Neutrophils # 13.6 H ABG pH ABG pCO2 ABG pO2 ABG HCO3 ABG O2 Saturation ABG O2 Content ABG Base Excess ABG Hemoglobin ABG Carboxyhemoglobin ABG Methemoglobin Oxyhemoglobin FiO2 Sodium 138 Potassium 4.5 Chloride 105.0 Carbon Dioxide 13 L Anion Gap 25 BUN 46 H Creatinine 1.4 H Estimated GFR 39 BUN/Creatinine Ratio 33 Glucose 242 H POC Glucose 180 H Calcium 8.5 Troponin T 0.370 H* D Influenza A (Rapid) Influenza B (Rapid) 07/03/19 11:50 WBC RBC Hgb Hct MCV MCH MCHC RDW Plt Count Lymph % (Auto) [place] % (Auto) Eos % (Auto) Baso % (Auto) Lymph # [place] # Eos # Baso # Seg Neutrophils % Seg Neutrophils # ABG pH ABG pCO2 ABG pO2 ABG HCO3 ABG O2 Saturation ABG O2 Content ABG Base Excess ABG Hemoglobin ABG Carboxyhemoglobin ABG Methemoglobin Oxyhemoglobin FiO2 Sodium Potassium Chloride Carbon Dioxide Anion Gap BUN Creatinine Estimated GFR BUN/Creatinine Ratio Glucose POC Glucose 286 H Calcium Troponin T Influenza A (Rapid) Influenza B (Rapid) Assessment and Plan 1.anemia -MCV WNL -H/H 6.2/18.8 on admission; now 9.1/27.4 s/p blood transfusion -continue to monitor H/H and transfuse as needed -no active signs of bleeding; currently HD stable -etiology unclear -given need for anticoagulation, recommend EGD/colonoscopy for further evaluation once medically stable (will speak with Dr. Diallo on timing; sooner if overt bleeding develops) -cardiology following with ischemic workup in process (stress test tentatively planned on Thursday 07/06) -diet as tolerated for now -continue PPI IV BID -continue supportive care -further recommendations to follow 2.s/p cardiac arrest 3.NSTEMI 4.cardiomyopathy 5.acute respiratory failure 6.sepsis 7.pneumonia 8.subcutaneous emphysema 9.SYL 10.HTN 11.DM 12.H/o CVA 12.HLD <ALONDRA DIALLO - Last Filed: 07/03/19 14:25> Medications and Allergies Active Meds: Active Medications Acetaminophen (Tylenol) 650 mg PO Q4H PRN PRN Reason: Pain MILD(1-3)/Fever >100.5/STILL Albuterol (Proventil) 2.5 mg IH Q3HRT PRN PRN Reason: Shortness Of Breath Atorvastatin Calcium (Lipitor) 40 mg PO QHS [facility] Last Admin: 07/02/19 21:40 Dose: Not Given Documented by: Dextrose (D50w (25gm) Syringe) 0 ml IV Q30MIN PRN; Protocol PRN Reason: Hypoglycemia Docusate Sodium (Colace) 100 mg PO BID [facility] Last Admin: 07/03/19 09:23 Dose: 100 mg Documented by: Fentanyl (Sublimaze) 50 mcg IV Q10MIN PRN PRN Reason: ANALGESIA Heparin Sodium (Porcine) (Heparin) 5,000 unit SUB-Q Q12HR [facility] Last Admin: 07/03/19 09:23 Dose: 5,000 unit Documented by: Hydrophilic Ointment (Vaseline Lip Therapy) 1 applic TP Q2HR PRN PRN Reason: Dry Lips Ceftriaxone Sodium (Rocephin/Ns 2 Gm/100 Ml) 2 gm in 100 mls @ 200 mls/hr IV Q24HR [facility]; Protocol Last Admin: 07/03/19 09:07 Dose: 200 mls/hr Documented by: Azithromycin 500 mg/ Sodium (Chloride) 250 mls @ 250 mls/hr IV Q24HR [facility]; Protocol Last Admin: 07/03/19 09:07 Dose: 250 mls/hr Documented by: Fentanyl Citrate (Fentanyl Drip Premix) 2,000 mcg in 100 mls @ 3.41 mls/hr IV TITR [facility]; Protocol Last Titration: 07/03/19 09:21 Dose: 0 mcg/kg/hr, 0 mls/hr Documented by: Metronidazole (Flagyl 500 Mg/100 Ml) 500 mg in 100 mls @ 100 mls/hr IV Q8HR [facility]; Protocol Last Admin: 07/03/19 13:15 Dose: 100 mls/hr Documented by: Insulin Human Lispro (Humalog) 0 unit SUB-Q Q6H [facility]; Protocol Last Admin: 07/03/19 12:18 Dose: 3 unit Documented by: Lisinopril (Zestril) 10 mg PO QDAY [facility] Lorazepam (Ativan) 1 mg IV Q4H PRN PRN Reason: Agitation Last Admin: 07/02/19 17:10 Dose: 1 mg Documented by: Metoprolol Succinate (Metoprolol Xl) 25 mg PO QDAY [facility] Multi-Ingred Cream/Lotion/Oil/Oint (Artificial Tears Ophth Oint) 1 applic OU Q4HR PRN PRN Reason: Dry Eye(s) Nitroglycerin (Nitrostat) 0.4 mg SL Q5M PRN PRN Reason: Chest Pain Ondansetron HCl (Zofran) 4 mg IV Q8H PRN PRN Reason: Nausea And Vomiting Oseltamivir Phosphate (Tamiflu) 30 mg PO BID [facility] Stop: 07/07/19 22:01 Last Admin: 07/03/19 09:45 Dose: 30 mg Documented by: Oxycodone/Acetaminophen (Percocet 5/325) 1 tab PO Q6H PRN PRN Reason: Pain, Moderate (4-6) Pantoprazole Sodium (Protonix) 40 mg IV BID [facility] Last Admin: 07/03/19 09:07 Dose: 40 mg Documented by: Sodium Chloride (Sodium Chloride Flush Syringe 10 Ml) 10 ml IV BID [facility] Last Admin: 07/03/19 09:09 Dose: 10 ml Documented by: Sodium Chloride (Sodium Chloride Flush Syringe 10 Ml) 10 ml IV PRN PRN PRN Reason: LINE FLUSH Exam - Constitutional Vital Signs: Temp Pulse Resp BP Pulse Ox 98.5 F 105 H 22 143/78 90 07/03/19 12:00 07/03/19 13:21 07/03/19 13:21 07/03/19 13:21 07/03/19 13:21 - Labs CBC & Chem 7: 07/03/19 08:53 07/03/19 08:53 Lab Results: Laboratory Results - last 24 hr 07/02/19 07/02/19 07/02/19 16:16 17:55 17:55 WBC RBC Hgb 7.6 L Hct 22.6 L MCV MCH MCHC RDW Plt Count Lymph % (Auto) [place] % (Auto) Eos % (Auto) Baso % (Auto) Lymph # [place] # Eos # Baso # Seg Neutrophils % Seg Neutrophils # ABG pH 7.388 ABG pCO2 29.0 ABG pO2 74.8 L ABG HCO3 17.1 L ABG O2 Saturation 95.1 ABG O2 Content 11.2 ABG Base Excess -7.0 L ABG Hemoglobin 8.4 L ABG Carboxyhemoglobin 0.8 ABG Methemoglobin 0.3 Oxyhemoglobin 94.1 L FiO2 70 Sodium Potassium Chloride Carbon Dioxide Anion Gap BUN Creatinine Estimated GFR BUN/Creatinine Ratio Glucose POC Glucose Calcium Troponin T Influenza A (Rapid) Negative Influenza B (Rapid) Negative 07/02/19 07/02/19 07/03/19 18:25 23:23 00:43 WBC RBC Hgb 8.0 L Hct 24.2 L MCV MCH MCHC RDW Plt Count Lymph % (Auto) [place] % (Auto) Eos % (Auto) Baso % (Auto) Lymph # [place] # Eos # Baso # Seg Neutrophils % Seg Neutrophils # ABG pH ABG pCO2 ABG pO2 ABG HCO3 ABG O2 Saturation ABG O2 Content ABG Base Excess ABG Hemoglobin ABG Carboxyhemoglobin ABG Methemoglobin Oxyhemoglobin FiO2 Sodium Potassium Chloride Carbon Dioxide Anion Gap BUN Creatinine Estimated GFR BUN/Creatinine Ratio Glucose POC Glucose 191 H 141 H Calcium Troponin T Influenza A (Rapid) Influenza B (Rapid) 07/03/19 07/03/1920 04:23 05:10 08:53 WBC 16.4 H RBC 3.25 L Hgb 9.1 L Hct 27.4 L MCV 84 MCH 28 MCHC 33 RDW 15.0 Plt Count 453 H Lymph % (Auto) 6.8 L [place] % (Auto) 9.8 H Eos % (Auto) 0.0 Baso % (Auto) 0.2 Lymph # 1.1 L [place] # 1.6 H Eos # 0.0 Baso # 0.0 Seg Neutrophils % 83.2 H Seg Neutrophils # 13.6 H ABG pH 7.366 ABG pCO2 29.0 ABG pO2 134.8 H ABG HCO3 16.2 L ABG O2 Saturation 98.6 ABG O2 Content 12.4 ABG Base Excess -8.1 L ABG Hemoglobin 8.9 L ABG Carboxyhemoglobin 0.8 ABG Methemoglobin 0.5 Oxyhemoglobin 97.4 FiO2 70 Sodium Potassium Chloride Carbon Dioxide Anion Gap BUN Creatinine Estimated GFR BUN/Creatinine Ratio Glucose POC Glucose 180 H Calcium Troponin T Influenza A (Rapid) Influenza B (Rapid) 07/03/19 07/03/19 08:53 11:50 WBC RBC Hgb Hct MCV MCH MCHC RDW Plt Count Lymph % (Auto) [place] % (Auto) Eos % (Auto) Baso % (Auto) Lymph # [place] # Eos # Baso # Seg Neutrophils % Seg Neutrophils # ABG pH ABG pCO2 ABG pO2 ABG HCO3 ABG O2 Saturation ABG O2 Content ABG Base Excess ABG Hemoglobin ABG Carboxyhemoglobin ABG Methemoglobin Oxyhemoglobin FiO2 Sodium 138 Potassium 4.5 Chloride 105.0 Carbon Dioxide 13 L Anion Gap 25 BUN 46 H Creatinine 1.4 H Estimated GFR 39 BUN/Creatinine Ratio 33 Glucose 242 H POC Glucose 286 H Calcium 8.5 Troponin T 0.370 H* D Influenza A (Rapid) Influenza B (Rapid) Assessment and Plan Patient seen and examined; agree with note above. s/p cardiac arrest, respiratory failure, nstemi now extubated. presented with severe anemia, unknown baseline without overt gi bleeding. appropriate rise in h/h following blood transfusions. noted plans for stress test on Saturday; will plan for egd/colonoscopy after cardiac work-up/stress test. will follow
[2019-07-03 14:27] LABS: Hematocrit 26.5 % (30.3-42.9); Hemoglobin 8.9 gm/dl (10.1-14.3)
--- NOTE | 2019-07-03 16:02 | Consultation ---
History of Present Illness Consult date: 07/03/19 Reason for Consult: Altered mental status, anoxic brain injury Chief complaint: Altered mental status, anoxic brain injury. History of present illness: Patient is a 53-year-old woman with history of diabetes, hypertension, history of CVA with residual left-sided weakness, hyperlipidemia. Patient presented 2 days ago with chest pain. As patient was undergoing a VQ scan, she was noted to have coded. Patient was given CPR, and return ultimately to spontaneous circulation. She was intubated and sent to the ICU. She was found to have ACS, respiratory failure, pneumonia, sepsis, SYL. This morning, the patient was extubated around 10 AM. I examined the patient at approximately 1 PM, and she was noted to be alert, awake, and oriented. Past History Past Medical History: diabetes, hypertension, stroke (2012), other Past Surgical History: No surgical history Social history: lives with family Family history: no significant family history Medications and Allergies Allergies Allergy/AdvReac Type Severity Reaction Status Date / Time No Known Allergies Allergy Unverified 07/01/19 16:29 Home Medications Medication Instructions Recorded Confirmed Last Taken Type Aspirin [Aspirin BABY CHEW TAB] 81 mg PO QDAY 07/01/19 07/01/19 Unknown History AtorvaSTATin [Lipitor] 20 mg PO QHS 07/01/19 07/01/19 Unknown History Metformin HCl [metFORMIN] 1,000 mg PO BID 07/01/19 07/01/19 Unknown History Triamterene/Hydrochlorothiazid 1 each PO QDAY 07/01/19 07/01/19 Unknown History [Triamterene-Hctz 75-50 mg Tab] amLODIPine [Norvasc] 10 mg PO DAILY 07/01/19 07/01/19 Unknown History Active Meds: Active Medications Acetaminophen (Tylenol) 650 mg PO Q4H PRN PRN Reason: Pain MILD(1-3)/Fever >100.5/STILL Albuterol (Proventil) 2.5 mg IH Q3HRT PRN PRN Reason: Shortness Of Breath Atorvastatin Calcium (Lipitor) 40 mg PO QHS [facility] Last Admin: 07/02/19 21:40 Dose: Not Given Documented by: Dextrose (D50w (25gm) Syringe) 0 ml IV Q30MIN PRN; Protocol PRN Reason: Hypoglycemia Docusate Sodium (Colace) 100 mg PO BID [facility] Last Admin: 07/03/19 09:23 Dose: 100 mg Documented by: Fentanyl (Sublimaze) 50 mcg IV Q10MIN PRN PRN Reason: ANALGESIA Heparin Sodium (Porcine) (Heparin) 5,000 unit SUB-Q Q12HR [facility] Last Admin: 07/03/19 09:23 Dose: 5,000 unit Documented by: Hydrophilic Ointment (Vaseline Lip Therapy) 1 applic TP Q2HR PRN PRN Reason: Dry Lips Ceftriaxone Sodium (Rocephin/Ns 2 Gm/100 Ml) 2 gm in 100 mls @ 200 mls/hr IV Q24HR [facility]; Protocol Last Admin: 07/03/19 09:07 Dose: 200 mls/hr Documented by: Azithromycin 500 mg/ Sodium (Chloride) 250 mls @ 250 mls/hr IV Q24HR [facility]; Protocol Last Admin: 07/03/19 09:07 Dose: 250 mls/hr Documented by: Fentanyl Citrate (Fentanyl Drip Premix) 2,000 mcg in 100 mls @ 3.41 mls/hr IV TITR [facility]; Protocol Last Titration: 07/03/19 09:21 Dose: 0 mcg/kg/hr, 0 mls/hr Documented by: Metronidazole (Flagyl 500 Mg/100 Ml) 500 mg in 100 mls @ 100 mls/hr IV Q8HR [facility]; Protocol Last Admin: 07/03/19 13:15 Dose: 100 mls/hr Documented by: Insulin Human Lispro (Humalog) 0 unit SUB-Q Q6H [facility]; Protocol Last Admin: 07/03/19 12:18 Dose: 3 unit Documented by: Lisinopril (Zestril) 10 mg PO QDAY [facility] Lorazepam (Ativan) 1 mg IV Q4H PRN PRN Reason: Agitation Last Admin: 07/02/19 17:10 Dose: 1 mg Documented by: Metoprolol Succinate (Metoprolol Xl) 25 mg PO QDAY [facility] Multi-Ingred Cream/Lotion/Oil/Oint (Artificial Tears Ophth Oint) 1 applic OU Q4HR PRN PRN Reason: Dry Eye(s) Nitroglycerin (Nitrostat) 0.4 mg SL Q5M PRN PRN Reason: Chest Pain Ondansetron HCl (Zofran) 4 mg IV Q8H PRN PRN Reason: Nausea And Vomiting Oseltamivir Phosphate (Tamiflu) 30 mg PO BID [facility] Stop: 07/07/19 22:01 Last Admin: 07/03/19 09:45 Dose: 30 mg Documented by: Oxycodone/Acetaminophen (Percocet 5/325) 1 tab PO Q6H PRN PRN Reason: Pain, Moderate (4-6) Pantoprazole Sodium (Protonix) 40 mg IV BID [facility] Last Admin: 07/03/19 09:07 Dose: 40 mg Documented by: Sodium Chloride (Sodium Chloride Flush Syringe 10 Ml) 10 ml IV BID [facility] Last Admin: 07/03/19 09:09 Dose: 10 ml Documented by: Sodium Chloride (Sodium Chloride Flush Syringe 10 Ml) 10 ml IV PRN PRN PRN Reason: LINE FLUSH Review of Systems All systems: negative Cardiovascular: chest pain Physical Examination - Vital Signs Vital Signs: Vital Signs Temp Pulse Resp BP Pulse Ox 98.3 F 106 H 18 135/71 87 07/01/19 16:28 07/01/19 16:28 07/01/19 16:28 07/01/19 16:28 07/01/19 16:28 - Physical Exam Narrative exam: Patient is alert, awake, oriented x4, follows complex commands. PERRL, EOMI, VF F, tongue midline, bilaterally intact to LT, no facial weakness noted. 5/5 strength in right upper extremity/right lower extremity, 5-/5 in left upper and lower extremities which is reportedly her baseline since previous stroke. Bilaterally intact light touch. Bilaterally intact to FTN and HTS. 2+ reflexes throughout. - Constitutional General appearance: comfortable - EENT EENT: Present: ATNC, PERRL, mucous membranes moist, hearing intact, vision intact - Respiratory Respiratory: Present: decreased breath sounds - Cardiovascular Cardiovascular: Present: regular rate, normal S1, normal S2 Extremities: Present: no clubbing, cyanosis, no inflammation - Gastrointestinal Gastrointestinal: Present: normoactive bowel sounds, soft, non-tender - Integumentary Integumentary: Present: normal - Musculoskeletal Musculoskeletal: Present: no fluid collection - Psychiatric Psychiatric: Present: mood/affect appropriate Results - Laboratory Findings CBC and BMP: 07/03/19 13:44 07/03/19 08:53 Abnormal Lab Findings: Abnormal Labs 07/01/19 07/01/19 07/01/19 16:58 16:58 16:58 WBC 17.6 H RBC 2.59 L Hgb 6.9 L Hct 21.2 L MCH 27 L RDW Plt Count 565 H Lymph % (Auto) 8.5 L [place] % (Auto) Lymph # [place] # 1.0 H Seg Neutrophils % 85.5 H Seg Neutrophils # 15.0 H D-Dimer 626.19 H ABG pH ABG pO2 ABG HCO3 ABG O2 Saturation ABG Base Excess ABG Hemoglobin Oxyhemoglobin Sodium 132 L Chloride 94.7 L Carbon Dioxide 17 L BUN 53 H Creatinine 1.3 H Glucose POC Glucose Hemoglobin A1c Calcium Alkaline Phosphatase Troponin T 0.236 H* Albumin Triglycerides 327 H Cholesterol 205 H HDL Cholesterol 68 H Urine WBC (Auto) Urine Creatinine Urine Chloride Crossmatch 07/01/19 07/01/19 07/01/19 19:17 19:17 20:25 WBC RBC Hgb Hct MCH RDW Plt Count Lymph % (Auto) [place] % (Auto) Lymph # [place] # Seg Neutrophils % Seg Neutrophils # D-Dimer ABG pH ABG pO2 ABG HCO3 ABG O2 Saturation ABG Base Excess ABG Hemoglobin Oxyhemoglobin Sodium Chloride Carbon Dioxide BUN Creatinine Glucose POC Glucose Hemoglobin A1c Calcium Alkaline Phosphatase 135 H Troponin T 0.214 H* Albumin 3.5 L Triglycerides Cholesterol HDL Cholesterol Urine WBC (Auto) Urine Creatinine Urine Chloride Crossmatch See Detail 07/01/19 07/01/19 07/01/19 20:25 20:25 21:58 WBC RBC Hgb 6.2 L Hct 18.8 L* MCH RDW Plt Count 551 H Lymph % (Auto) [place] % (Auto) Lymph # [place] # Seg Neutrophils % Seg Neutrophils # D-Dimer ABG pH ABG pO2 ABG HCO3 ABG O2 Saturation ABG Base Excess ABG Hemoglobin Oxyhemoglobin Sodium Chloride Carbon Dioxide BUN Creatinine Glucose POC Glucose Hemoglobin A1c 11.5 H Calcium Alkaline Phosphatase Troponin T 0.211 H* Albumin Triglycerides Cholesterol HDL Cholesterol Urine WBC (Auto) Urine Creatinine Urine Chloride Crossmatch 07/01/19 07/02/19 07/02/19 22:20 04:30 05:15 WBC 15.0 H RBC 2.33 L Hgb 6.2 L Hct 19.2 L* MCH 27 L RDW 15.3 H Plt Count Lymph % (Auto) 6.0 L [place] % (Auto) 9.4 H Lymph # 0.9 L [place] # 1.4 H Seg Neutrophils % 84.2 H Seg Neutrophils # 12.6 H D-Dimer ABG pH 7.287 L ABG pO2 194.3 H 65.4 L ABG HCO3 12.7 L 17.1 L ABG O2 Saturation 99.1 H 90.8 L ABG Base Excess -12.8 L -7.2 L ABG Hemoglobin 5.9 L 9.1 L Oxyhemoglobin 89.8 L Sodium Chloride Carbon Dioxide BUN Creatinine Glucose POC Glucose Hemoglobin A1c Calcium Alkaline Phosphatase Troponin T Albumin Triglycerides Cholesterol HDL Cholesterol Urine WBC (Auto) Urine Creatinine Urine Chloride Crossmatch 07/02/19 07/02/19 07/02/19 05:15 05:15 07:34 WBC RBC Hgb Hct MCH RDW Plt Count Lymph % (Auto) [place] % (Auto) Lymph # [place] # Seg Neutrophils % Seg Neutrophils # D-Dimer ABG pH ABG pO2 ABG HCO3 ABG O2 Saturation ABG Base Excess ABG Hemoglobin Oxyhemoglobin Sodium 134 L Chloride Carbon Dioxide 15 L BUN 49 H Creatinine 1.3 H Glucose 228 H POC Glucose 270 H Hemoglobin A1c Calcium 7.7 L D Alkaline Phosphatase Troponin T 0.294 H* D Albumin Triglycerides Cholesterol HDL Cholesterol Urine WBC (Auto) Urine Creatinine Urine Chloride Crossmatch 07/02/19 07/02/19 07/02/19 09:10 09:10 12:50 WBC RBC Hgb 7.4 L Hct 22.0 L MCH RDW Plt Count Lymph % (Auto) [place] % (Auto) Lymph # [place] # Seg Neutrophils % Seg Neutrophils # D-Dimer ABG pH ABG pO2 ABG HCO3 ABG O2 Saturation ABG Base Excess ABG Hemoglobin Oxyhemoglobin Sodium Chloride Carbon Dioxide BUN Creatinine Glucose POC Glucose Hemoglobin A1c Calcium Alkaline Phosphatase Troponin T Albumin Triglycerides Cholesterol HDL Cholesterol Urine WBC (Auto) 19.0 H Urine Creatinine 62.3 H Urine Chloride 17.5 L Crossmatch 07/02/19 07/02/19 07/02/19 13:19 16:16 17:55 WBC RBC Hgb 7.6 L Hct 22.6 L MCH RDW Plt Count Lymph % (Auto) [place] % (Auto) Lymph # [place] # Seg Neutrophils % Seg Neutrophils # D-Dimer ABG pH ABG pO2 74.8 L ABG HCO3 17.1 L ABG O2 Saturation ABG Base Excess -7.0 L ABG Hemoglobin 8.4 L Oxyhemoglobin 94.1 L Sodium Chloride Carbon Dioxide BUN Creatinine Glucose POC Glucose 220 H Hemoglobin A1c Calcium Alkaline Phosphatase Troponin T Albumin Triglycerides Cholesterol HDL Cholesterol Urine WBC (Auto) Urine Creatinine Urine Chloride Crossmatch 07/02/19 07/02/19 07/03/19 18:25 23:23 00:43 WBC RBC Hgb 8.0 L Hct 24.2 L MCH RDW Plt Count Lymph % (Auto) [place] % (Auto) Lymph # [place] # Seg Neutrophils % Seg Neutrophils # D-Dimer ABG pH ABG pO2 ABG HCO3 ABG O2 Saturation ABG Base Excess ABG Hemoglobin Oxyhemoglobin Sodium Chloride Carbon Dioxide BUN Creatinine Glucose POC Glucose 191 H 141 H Hemoglobin A1c Calcium Alkaline Phosphatase Troponin T Albumin Triglycerides Cholesterol HDL Cholesterol Urine WBC (Auto) Urine Creatinine Urine Chloride Crossmatch 07/03/19 07/03/19 07/03/19 04:23 05:10 08:53 WBC 16.4 H RBC 3.25 L Hgb 9.1 L Hct 27.4 L MCH RDW Plt Count 453 H Lymph % (Auto) 6.8 L [place] % (Auto) 9.8 H Lymph # 1.1 L [place] # 1.6 H Seg Neutrophils % 83.2 H Seg Neutrophils # 13.6 H D-Dimer ABG pH ABG pO2 134.8 H ABG HCO3 16.2 L ABG O2 Saturation ABG Base Excess -8.1 L ABG Hemoglobin 8.9 L Oxyhemoglobin Sodium Chloride Carbon Dioxide BUN Creatinine Glucose POC Glucose 180 H Hemoglobin A1c Calcium Alkaline Phosphatase Troponin T Albumin Triglycerides Cholesterol HDL Cholesterol Urine WBC (Auto) Urine Creatinine Urine Chloride Crossmatch 07/03/19 07/03/19 07/03/19 08:53 11:50 13:44 WBC RBC Hgb 8.9 L Hct 26.5 L MCH RDW Plt Count Lymph % (Auto) [place] % (Auto) Lymph # [place] # Seg Neutrophils % Seg Neutrophils # D-Dimer ABG pH ABG pO2 ABG HCO3 ABG O2 Saturation ABG Base Excess ABG Hemoglobin Oxyhemoglobin Sodium Chloride Carbon Dioxide 13 L BUN 46 H Creatinine 1.4 H Glucose 242 H POC Glucose 286 H Hemoglobin A1c Calcium Alkaline Phosphatase Troponin T 0.370 H* D Albumin Triglycerides Cholesterol HDL Cholesterol Urine WBC (Auto) Urine Creatinine Urine Chloride Crossmatch Assessment and Plan Patient is a 53-year-old woman with history of diabetes, hypertension, history of CVA with residual left-sided weakness, hyperlipidemia. Patient presented 2 days ago with chest pain. As patient was undergoing a VQ scan, she was noted to have coded. Patient was given CPR, and return ultimately to spontaneous circulation. She was intubated and sent to the ICU. She was found to have ACS, respiratory failure, pneumonia, sepsis, SYL. According the patient's clinical findings, she likely had very mild anoxic brain injury at the time of cardiac arrest. However, patient is now awake, alert, extubated, following all commands, and is oriented. Family endorses that the patient is back to baseline of mental and neurologic status. Plan: 1. Anoxic brain injury: - CT head: No acute abnormality -Patient now back to baseline mental status, after being extubated. No significant neurologic deficits noted at this time. -Continue to correct metabolic abnormalities and infections per primary team and ICU team. -Recommend PT/OT. -Will sign off, as I am not covering neurology service over the weekend. Please consult neurologist covering the service over the weekend for further neurologic monitoring and management. Thank you for allowing me to take part in the care of this patient. Peewee Arroyo MD Neurology
[2019-07-03 19:48] LABS: Hematocrit 26.5 % (30.3-42.9); Hemoglobin 8.8 gm/dl (10.1-14.3)
[2019-07-04] MEDS: INSULIN LISPRO 100 UNIT/ML SUB-Q SCH ×4 (00:26→18:48)
[2019-07-04 00:35] LABS: Hematocrit 25.6 % (30.3-42.9); Hemoglobin 8.3 gm/dl (10.1-14.3)
[2019-07-04] MEDS: LORazepam 2 MG/ML VIAL IV PRN (01:22)
--- NOTE | 2019-07-04 02:37 | XRay Report ---
CHEST 1 VIEW INDICATION / CLINICAL INFORMATION: follow up respiratory failure. COMPARISON: 07/03/2019 FINDINGS: SUPPORT DEVICES: Endotracheal tube and nasogastric tube have been removed. HEART / MEDIASTINUM: Unchanged LUNGS / PLEURA: There are bilateral probably perihilar interstitial and airspace opacities likely rep resenting edema.. No pneumothorax. ADDITIONAL FINDINGS: No significant additional findings. IMPRESSION: 1. There are increased interstitial and airspace opacities bilaterally. This likely represents edema. Signer Name: Louis Liao MD Signed: 07/04/2019 2:32 AM Workstation Name: [email or web address]
[2019-07-04 04:54] LABS: Hemoglobin 8.3 gm/dl (10.1-14.3); Mean Corpuscular HGB Conc 33 % (30-34); Mean Corpuscular Volume 84 fl (79-97); Platelet Count 357 K/mm3 (140-440); Red Blood Count 2.97 M/mm3 (3.65-5.03); Red Cell Distribution Width 15.1 % (13.2-15.2)
[2019-07-04 05:04] LABS: Calcium 8.9 mg/dL (8.4-10.2)
[2019-07-04] MEDS: metroNIDAZOLE/NS 500 MG/100 ML 500 MG/100 ML BAG IV SCH ×3 (06:14→21:37)
[2019-07-04] MEDS: HEPARIN 5,000 UNIT/1 ML VIAL SUB-Q SCH ×2 (10:20→21:36)
[2019-07-04] MEDS: PANTOPRAZOLE 40 MG INJ IV SCH ×2 (10:20→21:36)
[2019-07-04] MEDS: cefTRIAXone/NS 2 GM/100 ML 2 GM/100 ML BAG IV SCH (10:20)
--- NOTE | 2019-07-04 10:21 | Progress Note ---
Assessment and Plan - Patient Problems (1) Acute renal injury Current Visit: Yes Status: Acute Plan to address problem: Likely pre-renal in nature in the setting of cardiac arrest. Overall renal function is stable, and we do not have her previous baseline renal function for comparison. Maintain MAP >65mmHg, avoid nephrotoxins. Agree with current management and IV fluid hydration. (2) Acute and chronic respiratory failure with hypoxia Current Visit: Yes Status: Acute Plan to address problem: s/p extubation s/p ECHO with EF 30-35% noted Further vent management per ICU/pulmonary (3) Cardiopulmonary arrest with successful resuscitation Current Visit: Yes Status: Acute Plan to address problem: Overall remains hemodynamically stable at this time. Further recommendations/plan per cardiology. (4) Hyperkalemia Current Visit: Yes Status: Acute Plan to address problem: In the setting of SYL. improved with medical management (5) NSTEMI (non-ST elevated myocardial infarction) Current Visit: Yes Status: Acute Plan to address problem: Cardiology input appreciated. (6) Diabetes Current Visit: Yes Status: Chronic Plan to address problem: Poorly controlled DM, evidenced by elevated HgA1c. DM management per primary attending. (7) Pneumonia Current Visit: Yes Status: Suspected Qualifiers: Pneumonia type: due to unspecified organism Laterality: bilateral Lung location: lower lobe of lung Qualified Code(s): J18.9 - Pneumonia, unspecified organism Subjective Date of service: 07/04/19 Principal diagnosis: respiratory failure Interval history: Pt awake, alert, in no acute distress Objective - Vital Signs Vital signs: Vital Signs - 12hr 07/03/19 07/03/19 07/04/19 23:00 23:18 00:00 Temperature 98.8 F Pulse Rate 102 H 105 H Pulse Rate [ From Monitor] Respiratory 24 20 Rate Blood Pressure 139/71 137/69 O2 Sat by Pulse 90 93 Oximetry 07/04/19 07/04/19 07/04/19 01:00 01:15 01:20 Temperature Pulse Rate 115 H Pulse Rate [ 103 H From Monitor] Respiratory 26 H 24 Rate Blood Pressure 137/69 132/72 O2 Sat by Pulse 75 L 96 100 Oximetry 07/04/19 07/04/19 07/04/19 02:00 03:00 03:40 Temperature 98.4 F Pulse Rate 95 H 92 H Pulse Rate [ From Monitor] Respiratory 19 18 Rate Blood Pressure 123/65 126/73 O2 Sat by Pulse 96 95 Oximetry 07/04/19 07/04/19 07/04/19 03:53 04:00 05:00 Temperature Pulse Rate 102 H 90 91 H Pulse Rate [ 103 H From Monitor] Respiratory 18 33 H 26 H Rate Blood Pressure 126/73 141/80 130/76 O2 Sat by Pulse 99 97 96 Oximetry 07/04/19 07/04/19 07/04/19 06:00 07:00 07:50 Temperature 98.7 F Pulse Rate 85 86 Pulse Rate [ From Monitor] Respiratory 15 17 Rate Blood Pressure 124/73 137/74 O2 Sat by Pulse 96 98 96 Oximetry 07/04/19 07/04/19 07/04/19 07:51 08:00 09:00 Temperature 98.7 F Pulse Rate 94 H 95 H 95 H Pulse Rate [ From Monitor] Respiratory 23 15 11 L Rate Blood Pressure 137/74 132/77 143/89 O2 Sat by Pulse 99 92 95 Oximetry - General Appearance General appearance: well-developed, well-nourished, appears stated age EENT: ATNC, PERRL, mucous membranes moist Neck: no JVD Respiratory: Present: Clear to Ascultation Cardiology: regular, S1S2 Gastrointestinal: normoactive bowel sounds Integumentary: no rash, other (no edema ) Neurologic: no focal deficit, alert and oriented x3, strength 5/5, CN 3-12 intact Psychiatric: mood/affect appropriate, cooperative - Lab 07/04/19 04:05 07/04/19 04:05 Most recent lab results ABG pH 7.366 pH Units (7.350-7.450) 07/03/19 04:23 ABG pCO2 29.0 mm Hg 07/03/19 04:23 ABG pO2 134.8 mm Hg (80.0-90.0) H 07/03/19 04:23 ABG HCO3 16.2 mmol/L (20.0-26.0) L 07/03/19 04:23 ABG O2 Saturation 98.6 % (95.0-99.0) 07/03/19 04:23 Calcium 8.9 mg/dL (8.4-10.2) 07/04/19 04:05 Urine Creatinine 62.3 mg/dL (0.1-20.0) H 07/02/19 09:10 Urine Sodium 19 mmol/L 07/02/19 09:10 Medications & Allergies - Medications Allergies/Adverse Reactions: Allergies No Known Allergies Allergy (Unverified 07/01/19 16:29) Home Medications: Home Medications Medication Instructions Recorded Confirmed Last Taken Type Aspirin [Aspirin BABY CHEW TAB] 81 mg PO QDAY 07/01/19 07/01/19 Unknown History AtorvaSTATin [Lipitor] 20 mg PO QHS 07/01/19 07/01/19 Unknown History Metformin HCl [metFORMIN] 1,000 mg PO BID 07/01/19 07/01/19 Unknown History Triamterene/Hydrochlorothiazid 1 each PO QDAY 07/01/19 07/01/19 Unknown History [Triamterene-Hctz 75-50 mg Tab] amLODIPine [Norvasc] 10 mg PO DAILY 07/01/19 07/01/19 Unknown History Active Medications: Generic Name Dose Route Start Last Admin Trade Name Freq PRN Reason Stop Dose Admin Acetaminophen 650 mg 07/01/19 20:08 Tylenol PO Q4H PRN Pain MILD(1-3)/Fever >100.5/STILL Albuterol 2.5 mg 07/01/19 20:08 Proventil IH Q3HRT PRN Shortness Of Breath Atorvastatin Calcium 40 mg 07/01/19 22:00 07/03/19 21:10 Lipitor PO Not Given QHS [facility] Dextrose 0 ml 07/01/19 20:08 D50w (25gm) Syringe IV Q30MIN PRN Hypoglycemia Protocol Docusate Sodium 100 mg 07/01/19 22:00 07/03/19 21:10 Colace PO Not Given BID [facility] Fentanyl 50 mcg 07/02/19 11:14 Sublimaze IV Q10MIN PRN ANALGESIA Heparin Sodium (Porcine) 5,000 unit 07/02/19 10:00 07/03/19 21:09 Heparin SUB-Q 5,000 unit Q12HR [facility] Administration Hydrophilic Ointment 1 applic 07/01/19 21:36 Vaseline Lip Therapy TP Q2HR PRN Dry Lips Ceftriaxone Sodium 2 gm in 100 mls @ 200 mls/hr 07/01/19 18:40 07/03/19 09:07 Rocephin/Ns 2 Gm/100 Ml IV 200 mls/hr Q24HR [facility] Administration Protocol Azithromycin 500 mg/ Sodium 250 mls @ 250 mls/hr 07/01/19 18:40 07/03/19 09:07 Chloride IV 250 mls/hr Q24HR [facility] Administration Protocol Fentanyl Citrate 2,000 mcg in 100 mls @ 3.41 mls/hr 07/02/19 12:00 07/03/19 09:21 Fentanyl Drip Premix IV 0 mcg/kg/hr TITR [facility] 0 mls/hr Titration Protocol 1 MCG/KG/HR Metronidazole 500 mg in 100 mls @ 100 mls/hr 07/02/19 16:00 07/04/19 06:14 Flagyl 500 Mg/100 Ml IV 100 mls/hr Q8HR [facility] Administration Protocol Insulin Human Lispro 0 unit 07/02/19 07:00 07/04/19 06:14 Humalog SUB-Q 2 unit Q6H [facility] Administration Protocol Lisinopril 10 mg 07/04/19 10:00 Zestril PO QDAY [facility] Lorazepam 1 mg 07/02/19 01:02 07/04/19 01:22 Ativan IV 1 mg Q4H PRN Administration Agitation Metoprolol Succinate 25 mg 07/04/19 10:00 Metoprolol Xl PO QDAY [facility] Multi-Ingred Cream/Lotion/Oil/Oint 1 applic 07/01/19 21:36 Artificial Tears Ophth Oint OU Q4HR PRN Dry Eye(s) Nitroglycerin 0.4 mg 07/01/19 20:16 Nitrostat SL Q5M PRN Chest Pain Ondansetron HCl 4 mg 07/01/19 20:08 Zofran IV Q8H PRN Nausea And Vomiting Oseltamivir Phosphate 30 mg 07/03/19 10:00 07/03/19 21:11 Tamiflu PO 07/07/19 22:01 Not Given BID [facility] Oxycodone/Acetaminophen 1 tab 07/01/19 20:10 Percocet 5/325 PO Q6H PRN Pain, Moderate (4-6) Pantoprazole Sodium 40 mg 07/02/19 12:00 07/03/19 21:11 Protonix IV 40 mg BID [facility] Administration Sodium Chloride 10 ml 07/01/19 22:00 07/03/19 21:11 Sodium Chloride Flush Syringe 10 Ml IV 10 ml BID [facility] Administration Sodium Chloride 10 ml 07/01/19 20:08 Sodium Chloride Flush Syringe 10 Ml IV PRN PRN LINE FLUSH
[2019-07-04] MEDS: LISINOPRIL 10 MG TAB PO SCH (10:32)
[2019-07-04] MEDS: METOPROLOL SUCCINATE XL 25 MG TAB PO SCH (10:32)
[2019-07-04] MEDS: AZITHROMYCIN 500 MG in SODIUM CHLORIDE 0.9% 250ML 250 ML IV SCH (10:34)
[2019-07-04] MEDS: DOCUSATE SODIUM 100 MG CAP PO SCH ×2 (10:34→21:36)
[2019-07-04] MEDS: OSELTAMIVIR PHOSPHATE 30 MG/5 ML ORALSYR PO SCH ×2 (10:38→21:36)
[2019-07-04] MEDS ORDERED: FUROSEMIDE 40 MG/4 ML INJ IV ONE (11:57)
--- NOTE | 2019-07-04 12:03 | Progress Note ---
Assessment and Plan 53 y/o female with acute respiratory failure, likely from pulmonary edema, now with newly diagnosed systolic heart failure. 1. Will give an additional 40 of lasix now 2. May need bipap later today 3. BP control given CHF, likely new diagnosis 4. May need to hold transfer if sats dont improve Subjective Date of service: 07/04/19 Principal diagnosis: respiratory failure Interval history: Patient back in pulmonary edema once PPV removed. Satting in the low 90's on ventimask. Mildly labored breathing. Objective Vital Signs - 12hr 07/04/19 07/04/19 07/04/19 00:00 01:00 01:15 Temperature Pulse Rate 105 H Pulse Rate [ 103 H From Monitor] Respiratory 20 26 H Rate Blood Pressure 137/69 137/69 O2 Sat by Pulse 93 75 L 96 Oximetry 07/04/19 07/04/19 07/04/19 01:20 02:00 03:00 Temperature Pulse Rate 115 H 95 H 92 H Pulse Rate [ From Monitor] Respiratory 24 19 18 Rate Blood Pressure 132/72 123/65 126/73 O2 Sat by Pulse 100 96 95 Oximetry 07/04/19 07/04/19 07/04/19 03:40 03:53 04:00 Temperature 98.4 F Pulse Rate 102 H 90 Pulse Rate [ From Monitor] Respiratory 18 33 H Rate Blood Pressure 126/73 141/80 O2 Sat by Pulse 99 97 Oximetry 07/04/19 07/04/19 07/04/19 05:00 06:00 07:00 Temperature 98.7 F Pulse Rate 91 H 85 86 Pulse Rate [ 103 H From Monitor] Respiratory 26 H 15 17 Rate Blood Pressure 130/76 124/73 137/74 O2 Sat by Pulse 96 96 98 Oximetry 07/04/19 07/04/19 07/04/19 07:50 07:51 08:00 Temperature 98.7 F Pulse Rate 94 H 95 H Pulse Rate [ From Monitor] Respiratory 23 15 Rate Blood Pressure 137/74 132/77 O2 Sat by Pulse 96 99 92 Oximetry 07/04/19 07/04/19 09:00 10:32 Temperature Pulse Rate 95 H 101 H Pulse Rate [ From Monitor] Respiratory 11 L Rate Blood Pressure 143/89 131/67 O2 Sat by Pulse 95 Oximetry Constitutional: alert, appears uncomfortable Eyes: non-icteric ENT: oropharynx moist Neck: supple Effort: mildly labored Ascultation: Bilateral: rales Gastrointestinal: normoactive bowel sounds, soft, non-tender Integumentary: normal CBC and BMP: 07/04/19 04:05 07/04/19 04:05 ABG, PT/INR, D-dimer: ABG ABG pH 7.366 pH Units (7.350-7.450) 07/03/19 04:23 ABG pCO2 29.0 mm Hg 07/03/19 04:23 ABG pO2 134.8 mm Hg (80.0-90.0) H 07/03/19 04:23 ABG O2 Saturation 98.6 % (95.0-99.0) 07/03/19 04:23 PT/INR, D-dimer PT 13.3 Sec. (12.2-14.9) 07/01/19 20:25 INR 1.00 (0.87-1.13) 07/01/19 20:25 D-Dimer 626.19 ng/mlDDU (0-234) H 07/01/19 16:58 Abnormal lab findings: Abnormal Labs 07/01/19 07/01/19 07/01/19 16:58 16:58 16:58 WBC 17.6 H RBC 2.59 L Hgb 6.9 L Hct 21.2 L MCH 27 L RDW Plt Count 565 H Lymph % (Auto) 8.5 L [place] % (Auto) Lymph # [place] # 1.0 H Seg Neutrophils % 85.5 H Seg Neutrophils # 15.0 H D-Dimer 626.19 H ABG pH ABG pO2 ABG HCO3 ABG O2 Saturation ABG Base Excess ABG Hemoglobin Oxyhemoglobin Sodium 132 L Chloride 94.7 L Carbon Dioxide 17 L BUN 53 H Creatinine 1.3 H Glucose POC Glucose Hemoglobin A1c Calcium Alkaline Phosphatase Troponin T 0.236 H* Albumin Triglycerides 327 H Cholesterol 205 H HDL Cholesterol 68 H Urine WBC (Auto) Urine Creatinine Urine Chloride Crossmatch 07/01/19 07/01/19 07/01/19 19:17 19:17 20:25 WBC RBC Hgb Hct MCH RDW Plt Count Lymph % (Auto) [place] % (Auto) Lymph # [place] # Seg Neutrophils % Seg Neutrophils # D-Dimer ABG pH ABG pO2 ABG HCO3 ABG O2 Saturation ABG Base Excess ABG Hemoglobin Oxyhemoglobin Sodium Chloride Carbon Dioxide BUN Creatinine Glucose POC Glucose Hemoglobin A1c Calcium Alkaline Phosphatase 135 H Troponin T 0.214 H* Albumin 3.5 L Triglycerides Cholesterol HDL Cholesterol Urine WBC (Auto) Urine Creatinine Urine Chloride Crossmatch See Detail 07/01/19 07/01/19 07/01/19 20:25 20:25 21:58 WBC RBC Hgb 6.2 L Hct 18.8 L* MCH RDW Plt Count 551 H Lymph % (Auto) [place] % (Auto) Lymph # [place] # Seg Neutrophils % Seg Neutrophils # D-Dimer ABG pH ABG pO2 ABG HCO3 ABG O2 Saturation ABG Base Excess ABG Hemoglobin Oxyhemoglobin Sodium Chloride Carbon Dioxide BUN Creatinine Glucose POC Glucose Hemoglobin A1c 11.5 H Calcium Alkaline Phosphatase Troponin T 0.211 H* Albumin Triglycerides Cholesterol HDL Cholesterol Urine WBC (Auto) Urine Creatinine Urine Chloride Crossmatch 07/01/19 07/02/19 07/02/19 22:20 04:30 05:15 WBC 15.0 H RBC 2.33 L Hgb 6.2 L Hct 19.2 L* MCH 27 L RDW 15.3 H Plt Count Lymph % (Auto) 6.0 L [place] % (Auto) 9.4 H Lymph # 0.9 L [place] # 1.4 H Seg Neutrophils % 84.2 H Seg Neutrophils # 12.6 H D-Dimer ABG pH 7.287 L ABG pO2 194.3 H 65.4 L ABG HCO3 12.7 L 17.1 L ABG O2 Saturation 99.1 H 90.8 L ABG Base Excess -12.8 L -7.2 L ABG Hemoglobin 5.9 L 9.1 L Oxyhemoglobin 89.8 L Sodium Chloride Carbon Dioxide BUN Creatinine Glucose POC Glucose Hemoglobin A1c Calcium Alkaline Phosphatase Troponin T Albumin Triglycerides Cholesterol HDL Cholesterol Urine WBC (Auto) Urine Creatinine Urine Chloride Crossmatch 07/02/19 07/02/19 07/02/19 05:15 05:15 07:34 WBC RBC Hgb Hct MCH RDW Plt Count Lymph % (Auto) [place] % (Auto) Lymph # [place] # Seg Neutrophils % Seg Neutrophils # D-Dimer ABG pH ABG pO2 ABG HCO3 ABG O2 Saturation ABG Base Excess ABG Hemoglobin Oxyhemoglobin Sodium 134 L Chloride Carbon Dioxide 15 L BUN 49 H Creatinine 1.3 H Glucose 228 H POC Glucose 270 H Hemoglobin A1c Calcium 7.7 L D Alkaline Phosphatase Troponin T 0.294 H* D Albumin Triglycerides Cholesterol HDL Cholesterol Urine WBC (Auto) Urine Creatinine Urine Chloride Crossmatch 07/02/19 07/02/19 07/02/19 09:10 09:10 12:50 WBC RBC Hgb 7.4 L Hct 22.0 L MCH RDW Plt Count Lymph % (Auto) [place] % (Auto) Lymph # [place] # Seg Neutrophils % Seg Neutrophils # D-Dimer ABG pH ABG pO2 ABG HCO3 ABG O2 Saturation ABG Base Excess ABG Hemoglobin Oxyhemoglobin Sodium Chloride Carbon Dioxide BUN Creatinine Glucose POC Glucose Hemoglobin A1c Calcium Alkaline Phosphatase Troponin T Albumin Triglycerides Cholesterol HDL Cholesterol Urine WBC (Auto) 19.0 H Urine Creatinine 62.3 H Urine Chloride 17.5 L Crossmatch 07/02/19 07/02/19 07/02/19 13:19 16:16 17:55 WBC RBC Hgb 7.6 L Hct 22.6 L MCH RDW Plt Count Lymph % (Auto) [place] % (Auto) Lymph # [place] # Seg Neutrophils % Seg Neutrophils # D-Dimer ABG pH ABG pO2 74.8 L ABG HCO3 17.1 L ABG O2 Saturation ABG Base Excess -7.0 L ABG Hemoglobin 8.4 L Oxyhemoglobin 94.1 L Sodium Chloride Carbon Dioxide BUN Creatinine Glucose POC Glucose 220 H Hemoglobin A1c Calcium Alkaline Phosphatase Troponin T Albumin Triglycerides Cholesterol HDL Cholesterol Urine WBC (Auto) Urine Creatinine Urine Chloride Crossmatch 07/02/19 07/02/19 07/03/19 18:25 23:23 00:43 WBC RBC Hgb 8.0 L Hct 24.2 L MCH RDW Plt Count Lymph % (Auto) [place] % (Auto) Lymph # [place] # Seg Neutrophils % Seg Neutrophils # D-Dimer ABG pH ABG pO2 ABG HCO3 ABG O2 Saturation ABG Base Excess ABG Hemoglobin Oxyhemoglobin Sodium Chloride Carbon Dioxide BUN Creatinine Glucose POC Glucose 191 H 141 H Hemoglobin A1c Calcium Alkaline Phosphatase Troponin T Albumin Triglycerides Cholesterol HDL Cholesterol Urine WBC (Auto) Urine Creatinine Urine Chloride Crossmatch 07/03/19 07/03/19 07/03/19 04:23 05:10 08:53 WBC 16.4 H RBC 3.25 L Hgb 9.1 L Hct 27.4 L MCH RDW Plt Count 453 H Lymph % (Auto) 6.8 L [place] % (Auto) 9.8 H Lymph # 1.1 L [place] # 1.6 H Seg Neutrophils % 83.2 H Seg Neutrophils # 13.6 H D-Dimer ABG pH ABG pO2 134.8 H ABG HCO3 16.2 L ABG O2 Saturation ABG Base Excess -8.1 L ABG Hemoglobin 8.9 L Oxyhemoglobin Sodium Chloride Carbon Dioxide BUN Creatinine Glucose POC Glucose 180 H Hemoglobin A1c Calcium Alkaline Phosphatase Troponin T Albumin Triglycerides Cholesterol HDL Cholesterol Urine WBC (Auto) Urine Creatinine Urine Chloride Crossmatch 07/03/19 07/03/19 07/03/19 08:53 11:50 13:44 WBC RBC Hgb 8.9 L Hct 26.5 L MCH RDW Plt Count Lymph % (Auto) [place] % (Auto) Lymph # [place] # Seg Neutrophils % Seg Neutrophils # D-Dimer ABG pH ABG pO2 ABG HCO3 ABG O2 Saturation ABG Base Excess ABG Hemoglobin Oxyhemoglobin Sodium Chloride Carbon Dioxide 13 L BUN 46 H Creatinine 1.4 H Glucose 242 H POC Glucose 286 H Hemoglobin A1c Calcium Alkaline Phosphatase Troponin T 0.370 H* D Albumin Triglycerides Cholesterol HDL Cholesterol Urine WBC (Auto) Urine Creatinine Urine Chloride Crossmatch 07/03/19 07/03/19 07/04/19 17:57 19:25 00:02 WBC RBC Hgb 8.8 L Hct 26.5 L MCH RDW Plt Count Lymph % (Auto) [place] % (Auto) Lymph # [place] # Seg Neutrophils % Seg Neutrophils # D-Dimer ABG pH ABG pO2 ABG HCO3 ABG O2 Saturation ABG Base Excess ABG Hemoglobin Oxyhemoglobin Sodium Chloride Carbon Dioxide BUN Creatinine Glucose POC Glucose 239 H 265 H Hemoglobin A1c Calcium Alkaline Phosphatase Troponin T Albumin Triglycerides Cholesterol HDL Cholesterol Urine WBC (Auto) Urine Creatinine Urine Chloride Crossmatch 07/04/19 07/04/19 07/04/19 00:13 04:05 04:05 WBC 14.0 H RBC 2.97 L Hgb 8.3 L 8.3 L Hct 25.6 L 25.0 L MCH RDW Plt Count Lymph % (Auto) [place] % (Auto) Lymph # [place] # Seg Neutrophils % Seg Neutrophils # D-Dimer ABG pH ABG pO2 ABG HCO3 ABG O2 Saturation ABG Base Excess ABG Hemoglobin Oxyhemoglobin Sodium 146 H D Chloride 109.6 H Carbon Dioxide 16 L BUN 37 H Creatinine 1.3 H Glucose 232 H POC Glucose Hemoglobin A1c Calcium Alkaline Phosphatase Troponin T Albumin Triglycerides Cholesterol HDL Cholesterol Urine WBC (Auto) Urine Creatinine Urine Chloride Crossmatch 07/04/19 05:17 WBC RBC Hgb Hct MCH RDW Plt Count Lymph % (Auto) [place] % (Auto) Lymph # [place] # Seg Neutrophils % Seg Neutrophils # D-Dimer ABG pH ABG pO2 ABG HCO3 ABG O2 Saturation ABG Base Excess ABG Hemoglobin Oxyhemoglobin Sodium Chloride Carbon Dioxide BUN Creatinine Glucose POC Glucose 241 H Hemoglobin A1c Calcium Alkaline Phosphatase Troponin T Albumin Triglycerides Cholesterol HDL Cholesterol Urine WBC (Auto) Urine Creatinine Urine Chloride Crossmatch Allied health notes reviewed: nursing
--- NOTE | 2019-07-04 13:29 | Progress Note ---
Assessment and Plan Patient is extubated.doing better.Lexiscan Saturday if stable. TTE reviewed - EF 30-35%, pseudonormalization, mild MR and TR, RVSP 49mmHg. No heparin gtt or ASA for NSTEMI at this time in setting of anemia. Pt is s/p PRBC - Patient Problems (1) Acute respiratory failure with hypoxia Current Visit: Yes Status: Acute (2) Cardiopulmonary arrest with successful resuscitation Current Visit: Yes Status: Acute (3) NSTEMI (non-ST elevated myocardial infarction) Current Visit: Yes Status: Acute (4) Hyperlipidemia Current Visit: Yes Status: Chronic (5) Hypertension Current Visit: Yes Status: Chronic (6) Pneumonia Current Visit: Yes Status: Suspected Qualifiers: Pneumonia type: due to unspecified organism Laterality: bilateral Lung location: lower lobe of lung Qualified Code(s): J18.9 - Pneumonia, unspecified organism Subjective Date of service: 07/04/19 Principal diagnosis: respiratory failure Interval history: Feeling better. No cardiac sx Objective Vital Signs Temp Pulse Pulse Resp Resp BP Pulse Ox 07/04/19 13:00 89 19 120/69 95 07/04/19 12:00 84 83 24 112/63 92 07/04/19 11:00 95 H 27 H 142/78 93 07/04/19 10:32 101 H 131/67 07/04/19 10:00 99 H 24 131/67 91 07/04/19 09:00 95 H 11 L 143/89 95 07/04/19 08:00 98.7 F 84 86 20 20 132/77 94 07/04/19 07:51 94 H 23 137/74 99 07/04/19 07:50 96 07/04/19 07:00 86 17 137/74 98 07/04/19 06:00 98.7 F 85 15 124/73 96 07/04/19 05:00 91 H 103 H 26 H 130/76 96 07/04/19 04:00 90 33 H 141/80 97 07/04/19 03:53 102 H 18 126/73 99 07/04/19 03:40 98.4 F 07/04/19 03:00 92 H 18 126/73 95 07/04/19 02:00 95 H 19 123/65 96 07/04/19 01:20 115 H 24 132/72 100 07/04/19 01:15 103 H 26 H 96 07/04/19 01:00 137/69 75 L 07/04/19 00:00 105 H 20 137/69 93 07/03/19 23:18 98.8 F 07/03/19 23:00 102 H 24 139/71 90 07/03/19 22:19 104 H 25 H 138/77 89 07/03/19 22:00 103 H 25 H 138/77 95 07/03/19 21:00 106 H 28 H 114/58 90 07/03/19 20:20 94 07/03/19 20:00 98.5 F 104 H 107 H 20 123/67 92 07/03/19 19:01 108 H 29 H 129/72 93 07/03/19 18:00 105 H 21 126/60 92 07/03/19 17:51 77 33 H 145/81 88 07/03/19 17:41 102 H 22 146/80 91 07/03/19 17:30 102 H 26 H 146/80 92 07/03/19 17:29 93 07/03/19 17:21 102 H 18 131/75 90 07/03/19 17:11 101 H 26 H 147/77 88 07/03/19 17:00 101 H 25 H 147/77 89 07/03/19 16:51 101 H 22 142/84 89 07/03/19 16:41 101 H 27 H 134/77 92 07/03/19 16:30 101 H 27 H 134/77 92 07/03/19 16:21 104 H 23 136/80 90 07/03/19 16:11 102 H 30 H 133/77 93 07/03/19 16:00 101 H 107 H 23 133/77 90 07/03/19 15:51 100 H 22 136/83 90 07/03/19 15:41 101 H 22 142/85 92 07/03/19 15:30 102 H 18 141/81 90 07/03/19 15:20 103 H 24 142/85 90 07/03/19 15:10 102 H 25 H 145/86 91 07/03/19 15:00 105 H 17 145/86 88 07/03/19 14:51 103 H 24 140/81 91 07/03/19 14:41 105 H 26 H 152/77 90 07/03/19 14:30 106 H 22 152/77 90 07/03/19 14:21 105 H 20 141/86 86 07/03/19 14:11 107 H 27 H 141/86 88 07/03/19 14:00 105 H 22 141/86 91 07/03/19 13:51 105 H 24 145/76 89 07/03/19 13:41 110 H 18 143/81 88 07/03/19 13:30 102 H 22 143/81 94 - Physical Examination General: No Apparent Distress HEENT: Positive: Normocephaly. Negative: PERRL (pupils sluggish roya) Neck: Positive: neck supple, trachea midline Cardiac: Positive: Reg Rate and Rhythm Lungs: Positive: Decreased Breath Sounds, Other (in the base) Neuro: Positive: Other (intubated, alert) Abdomen: Positive: Soft, Active Bowel Sounds Skin: Negative: Rash, Wound Musculoskeletal: other (unable to assess) Extremities: Present: upper extr. pulses, lower extr. pulses. Absent: edema - Labs and Meds CBC 07/03/19 07/03/19 07/04/19 Range/Units 13:44 19:25 00:13 WBC (4.5-11.0) K/mm3 RBC (3.65-5.03) M/mm3 Hgb 8.9 L 8.8 L 8.3 L (10.1-14.3) gm/dl Hct 26.5 L 26.5 L 25.6 L (30.3-42.9) % Plt Count (140-440) K/mm3 07/04/19 Range/Units 04:05 WBC 14.0 H (4.5-11.0) K/mm3 RBC 2.97 L (3.65-5.03) M/mm3 Hgb 8.3 L (10.1-14.3) gm/dl Hct 25.0 L (30.3-42.9) % Plt Count 357 (140-440) K/mm3 Comprehensive Metabolic Panel 07/04/19 Range/Units 04:05 Sodium 146 H D (137-145) mmol/L Potassium 3.9 (3.6-5.0) mmol/L Chloride 109.6 H (98-107) mmol/L Carbon Dioxide 16 L (22-30) mmol/L BUN 37 H (7-17) mg/dL Creatinine 1.3 H (0.7-1.2) mg/dL Glucose 232 H (65-100) mg/dL Calcium 8.9 (8.4-10.2) mg/dL - Imaging and Cardiology EKG: report reviewed, image reviewed Echo: report reviewed - EKG Sinus rhythms and dysrhythmias: sinus tachycardia - Allied health notes Allied health notes reviewed: nursing
--- NOTE | 2019-07-04 13:34 | Progress Note ---
Assessment and Plan Cultures: 07/01/2019 blood culture: Negative 07/01/2019 sputum culture: usual respiratory toney 07/02/2019 tracheal aspirate culture: No growth 07/02/2019 urine culture: No growth A&P: 53-year-old woman past medical history hypertension diabetes admitted with chest pain, subsequent CODE BLUE. #Bilateral pneumonia v/s fluid overload: She has minimal risk factors for resistant disease. Procalcitonin not likely to be useful in the setting after having a cardiac arrest. Short course of empiric abx. #Leukocytosis: stable to improving #?Acute acalculous cholecystitis: Clinically no RUQ tenderness. Will get RUQ US. #SYL: Renally adjust antibiotics Recommendations: -Continue ceftriaxone 2 g every 24 hours and Flagyl -Azithromycin discontinued -RUQ US ordered to eval GB -anticipate short course of abx Sai Aguiar MD, FACP [facility] ([facility] C: [phone] O: [phone] F: [phone] Subjective Date of service: 07/04/19 Principal diagnosis: respiratory failure Interval history: No fever. Extubated. Getting bedside swallow eval. Pain ?from CPR. Objective - Exam Narrative Exam: Physical Exam: Constitutional: Alert, cooperative. No acute distress Head, Ears, Nose: Normocephalic, atraumatic. External ears, nose normal Eyes: Conjunctivae/corneas clear. No icterus. No ptosis. Neck: Supple, no meningeal signs Cardiovascular: S1, S2 normal. Respiratory: Good air entry, clear to auscultation bilaterally GI: Soft, non-tender; bowel sounds normal. No peritoneal signs Musculoskeletal: No pedal edema, no cyanosis. Skin: No rash or abscess Hem/Lymphatic: No palpable cervical or supraclavicular nodes. No lymphangitis Psych: Mood ok. Affect normal Neurological: Awake, alert, oriented - Constitutional Vitals: Vital Signs Temp Pulse Resp BP Pulse Ox 98.7 F 89 19 120/69 95 07/04/19 08:00 07/04/19 13:00 07/04/19 13:00 07/04/19 13:00 07/04/19 13:00 Temperature -Last 24 Hours Temperature 98.7 F Temperature 98.7 F Temperature 98.4 F Temperature 98.8 F Temperature 98.5 F - Labs CBC & Chem 7: 07/04/19 04:05 07/04/19 04:05 Labs: Abnormal lab results 07/03/19 07/03/19 07/03/19 Range/Units 13:44 17:57 19:25 WBC (4.5-11.0) K/mm3 RBC (3.65-5.03) M/mm3 Hgb 8.9 L 8.8 L (10.1-14.3) gm/dl Hct 26.5 L 26.5 L (30.3-42.9) % Sodium (137-145) mmol/L Chloride (98-107) mmol/L Carbon Dioxide (22-30) mmol/L BUN (7-17) mg/dL Creatinine (0.7-1.2) mg/dL Glucose (65-100) mg/dL POC Glucose 239 H (70-105) 07/04/19 07/04/19 07/04/19 Range/Units 00:02 00:13 04:05 WBC 14.0 H (4.5-11.0) K/mm3 RBC 2.97 L (3.65-5.03) M/mm3 Hgb 8.3 L 8.3 L (10.1-14.3) gm/dl Hct 25.6 L 25.0 L (30.3-42.9) % Sodium (137-145) mmol/L Chloride (98-107) mmol/L Carbon Dioxide (22-30) mmol/L BUN (7-17) mg/dL Creatinine (0.7-1.2) mg/dL Glucose (65-100) mg/dL POC Glucose 265 H (70-105) 07/04/19 07/04/19 07/04/19 Range/Units 04:05 05:17 12:57 WBC (4.5-11.0) K/mm3 RBC (3.65-5.03) M/mm3 Hgb (10.1-14.3) gm/dl Hct (30.3-42.9) % Sodium 146 H D (137-145) mmol/L Chloride 109.6 H (98-107) mmol/L Carbon Dioxide 16 L (22-30) mmol/L BUN 37 H (7-17) mg/dL Creatinine 1.3 H (0.7-1.2) mg/dL Glucose 232 H (65-100) mg/dL POC Glucose 241 H 249 H (70-105)
--- NOTE | 2019-07-04 13:59 | Progress Note ---
Assessment and Plan Assessment and plan: 53-year-old female with history of diabetes, hypertension, and CVA (2012) who presents to [facility] with complaints of left-sided chest pain, subsequently went into cardiac arrest while getting a VQ scan, status post CPR, and was intubated, on vent, patient was stabilized Weaned and extubated yesterday afternoon. Today patient is more alert and awake, oriented x3 --Cardiac arrest status post CPR; Patient intubated and extubated Wean as tolerated and extubate --Anoxic brain injury; supportive care Neuro work-up, neurology consult --Acute hypoxic respiratory failure; Requiring intubation, continue ventilatory support Nebulizers, supportive care, Pulmonary critical following Wean as tolerated and extubate --Possible bilateral pneumonia; Empiric antibiotics, follow cultures Supportive care, ID following --Sepsis; With leukocytosis tachycardia tachypnea Continue empiric antibiotics follow cultures --Small pneumothorax/pneumomediastinum on CT chest Supportive care, pulmonary critical following Follow-up chest x-ray as needed --Subcutaneous emphysema; --Acute kidney injury; ATN /vasomotor nephropathy Monitor renal function, avoid nephrotoxins Nephrology following --Anemia; requiring blood transfusion No external evidence of bleeding hemoglobin improved to 7.4 Stool for occult blood, GI consult --Elevated D-dimers; CT angiogram negative for PE Lower extremity venous Doppler negative for DVT --Type 2 diabetes mellitus: Accu-Chek sliding scale coverage ADA diet insulin as needed --DVT prophylaxis;SCDs --Full CODE STATUS Monitor closely and adjust management as needed Patient is critically ill with multiple medical problems Poor prognosis. Plan of care reviewed with the patient's nurse Critical care time 45 minutes History Interval history: Patient seen and examined at the bedside Patient's chart and other records reviewed Patient feels better, on Ventimask/BiPAP as needed Alert and awake complains of mild sore throat Vital signs noted Hospitalist Physical - Constitutional Vitals: Temp Pulse Resp BP Pulse Ox 98.7 F 89 19 120/69 95 07/04/19 08:00 07/04/19 13:00 07/04/19 13:00 07/04/19 13:00 07/04/19 13:00 General appearance: Present: mild distress, well-nourished, other (On Ventimask) - EENT Eyes: Present: PERRL, EOM intact - Neck Neck: Present: supple, normal ROM - Respiratory Respiratory effort: normal Respiratory: bilateral: diminished, rhonchi, negative: rales, wheezing - Cardiovascular Rhythm: regular Heart Sounds: Present: S1 & S2 - Extremities Extremities: no ischemia, No edema - Abdominal General gastrointestinal: soft, non-tender, non-distended, normal bowel sounds - Integumentary Integumentary: Present: clear, warm - Psychiatric Psychiatric: appropriate mood/affect, cooperative - Neurologic Neurologic: CNII-XII intact, moves all extremities JED score - Jed Score Age > 65: (0) No Aspirin use within the Past 7 Days: (0) No 3 or more CAD Risk Factors: (1) Yes 2 or more Angina events in past 24 hrs: (1) Yes Known CAD with more than 50% Stenosis: (0) No Elevated Cardiac Markers: (1) Yes ST Deviation Greater than 0.5mm: (0) No JED Score: 3 Results - Labs CBC & Chem 7: 07/04/19 04:05 07/04/19 04:05 Labs: Laboratory Last Values WBC 14.0 K/mm3 (4.5-11.0) H 07/04/19 04:05 RBC 2.97 M/mm3 (3.65-5.03) L 07/04/19 04:05 Hgb 8.3 gm/dl (10.1-14.3) L 07/04/19 04:05 Hct 25.0 % (30.3-42.9) L 07/04/19 04:05 MCV 84 fl (79-97) 07/04/19 04:05 MCH 28 pg (28-32) 07/04/19 04:05 MCHC 33 % (30-34) 07/04/19 04:05 RDW 15.1 % (13.2-15.2) 07/04/19 04:05 Plt Count 357 K/mm3 (140-440) 07/04/19 04:05 Lymph % (Auto) 6.8 % (13.4-35.0) L 07/03/19 08:53 [place] % (Auto) 9.8 % (0.0-7.3) H 07/03/19 08:53 Eos % (Auto) 0.0 % (0.0-4.3) 07/03/19 08:53 Baso % (Auto) 0.2 % (0.0-1.8) 07/03/19 08:53 Lymph # 1.1 K/mm3 (1.2-5.4) L 07/03/19 08:53 [place] # 1.6 K/mm3 (0.0-0.8) H 07/03/19 08:53 Eos # 0.0 K/mm3 (0.0-0.4) 07/03/19 08:53 Baso # 0.0 K/mm3 (0.0-0.1) 07/03/19 08:53 Seg Neutrophils % 83.2 % (40.0-70.0) H 07/03/19 08:53 Seg Neutrophils # 13.6 K/mm3 (1.8-7.7) H 07/03/19 08:53 PT 13.3 Sec. (12.2-14.9) 07/01/19 20:25 INR 1.00 (0.87-1.13) 07/01/19 20:25 APTT 29.2 Sec. (24.2-36.6) 07/01/19 20:25 D-Dimer 626.19 ng/mlDDU (0-234) H 07/01/19 16:58 ABG pH 7.366 pH Units (7.350-7.450) 07/03/19 04:23 ABG pCO2 29.0 mm Hg 07/03/19 04:23 ABG pO2 134.8 mm Hg (80.0-90.0) H 07/03/19 04:23 ABG HCO3 16.2 mmol/L (20.0-26.0) L 07/03/19 04:23 ABG O2 Saturation 98.6 % (95.0-99.0) 07/03/19 04:23 ABG O2 Content 12.4 (0.0-44) 07/03/19 04:23 ABG Base Excess -8.1 mmol/L (-2.0-3.0) L 07/03/19 04:23 ABG Hemoglobin 8.9 gm/dl (12.0-16.0) L 07/03/19 04:23 ABG Carboxyhemoglobin 0.8 % (0.0-5.0) 07/03/19 04:23 ABG Methemoglobin 0.5 % (0.0-1.5) 07/03/19 04:23 Oxyhemoglobin 97.4 % (95.0-99.0) 07/03/19 04:23 FiO2 70 % 07/03/19 04:23 Sodium 146 mmol/L (137-145) H D 07/04/19 04:05 Potassium 3.9 mmol/L (3.6-5.0) 07/04/19 04:05 Chloride 109.6 mmol/L (98-107) H 07/04/19 04:05 Carbon Dioxide 16 mmol/L (22-30) L 07/04/19 04:05 Anion Gap 24 mmol/L 07/04/19 04:05 BUN 37 mg/dL (7-17) H 07/04/19 04:05 Creatinine 1.3 mg/dL (0.7-1.2) H 07/04/19 04:05 Estimated GFR 43 ml/min 07/04/19 04:05 BUN/Creatinine Ratio 28 % 07/04/19 04:05 Glucose 232 mg/dL (65-100) H 07/04/19 04:05 POC Glucose 249 (70-105) H 07/04/19 12:57 Hemoglobin A1c 11.5 % (4-6) H 07/01/19 20:25 Lactic Acid 1.80 mmol/L (0.7-2.0) 07/01/19 20:25 Calcium 8.9 mg/dL (8.4-10.2) 07/04/19 04:05 Total Bilirubin 0.20 mg/dL (0.1-1.2) 07/01/19 19:17 Direct Bilirubin < 0.2 mg/dL (0-0.2) 07/01/19 19:17 Indirect Bilirubin 0.0 mg/dL 07/01/19 19:17 AST 19 units/L (5-40) 07/01/19 19:17 ALT 17 units/L (7-56) 07/01/19 19:17 Alkaline Phosphatase 135 units/L (35-129) H 07/01/19 19:17 Troponin T 0.370 ng/mL (0.00-0.029) H* D 07/03/19 08:53 Total Protein 7.6 g/dL (6.3-8.2) 07/01/19 19:17 Albumin 3.5 g/dL (3.9-5) L 07/01/19 19:17 Albumin/Globulin Ratio 0.9 % 07/01/19 19:17 Triglycerides 327 mg/dL (2-149) H 07/01/19 16:58 Cholesterol 205 mg/dL (50-199) H 07/01/19 16:58 LDL Cholesterol Direct 99 mg/dL (50-130) 07/01/19 16:58 HDL Cholesterol 68 mg/dL (40-59) H 07/01/19 16:58 Cholesterol/HDL Ratio 3.01 % 07/01/19 16:58 HCG, Qual Negative (Negative) 07/01/19 16:58 Urine Color Yellow (Yellow) 07/02/19 09:10 Urine Turbidity Slightly-cloudy (Clear) 07/02/19 09:10 Urine pH 5.0 (5.0-7.0) 07/02/19 09:10 Ur Specific [place] 1.027 (1.003-1.030) 07/02/19 09:10 Urine Protein 100 mg/dl mg/dL (Negative) 07/02/19 09:10 Urine Glucose (UA) 50 mg/dL (Negative) 07/02/19 09:10 Urine Ketones Neg mg/dL (Negative) 07/02/19 09:10 Urine Blood Sm (Negative) 07/02/19 09:10 Urine Nitrite Neg (Negative) 07/02/19 09:10 Urine Bilirubin Neg (Negative) 07/02/19 09:10 Urine Urobilinogen < 2.0 mg/dL (<2.0) 07/02/19 09:10 Ur Leukocyte Esterase Tr (Negative) 07/02/19 09:10 Urine WBC (Auto) 19.0 /HPF (0.0-6.0) H 07/02/19 09:10 Urine RBC (Auto) 1.0 /HPF (0.0-6.0) 07/02/19 09:10 U Epithel Cells (Auto) 1.0 /HPF (0-13.0) 07/02/19 09:10 Urine Bacteria (Auto) 1+ /HPF (Negative) 07/02/19 09:10 Urine Mucus Few /HPF 07/02/19 09:10 Urine Creatinine 62.3 mg/dL (0.1-20.0) H 07/02/19 09:10 Urine Sodium 19 mmol/L 07/02/19 09:10 Urine Chloride 17.5 mmolL (110-250) L 07/02/19 09:10 Influenza A (Rapid) Negative (Negative) 07/02/19 17:55 Influenza B (Rapid) Negative (Negative) 07/02/19 17:55 Blood Type A POSITIVE 07/01/19 20:25 Antibody Screen Negative 07/01/19 20:25 Crossmatch See Detail 07/01/19 20:25 Active Medications - Current Medications Current Medications: Generic Name Dose Route Start Last Admin Trade Name Freq PRN Reason Stop Dose Admin Acetaminophen 650 mg 07/01/19 20:08 Tylenol PO Q4H PRN Pain MILD(1-3)/Fever >100.5/STILL Albuterol 2.5 mg 07/01/19 20:08 Proventil IH Q3HRT PRN Shortness Of Breath Atorvastatin Calcium 40 mg 07/01/19 22:00 07/03/19 21:10 Lipitor PO Not Given QHS FOUZIA Dextrose 0 ml 07/01/19 20:08 D50w (25gm) Syringe IV Q30MIN PRN Hypoglycemia Protocol Docusate Sodium 100 mg 07/01/19 22:00 07/04/19 10:34 Colace PO 100 mg BID FOUZIA Administration Fentanyl 50 mcg 07/02/19 11:14 Sublimaze IV Q10MIN PRN ANALGESIA Heparin Sodium (Porcine) 5,000 unit 07/02/19 10:00 07/04/19 10:20 Heparin SUB-Q 5,000 unit Q12HR FOUZIA Administration Hydrophilic Ointment 1 applic 07/01/19 21:36 Vaseline Lip Therapy TP Q2HR PRN Dry Lips Ceftriaxone Sodium 2 gm in 100 mls @ 200 mls/hr 07/01/19 18:40 07/04/19 10:20 Rocephin/Ns 2 Gm/100 Ml IV 200 mls/hr Q24HR FOUZIA Administration Protocol Azithromycin 500 mg/ Sodium 250 mls @ 250 mls/hr 07/01/19 18:40 07/04/19 10:34 Chloride IV 250 mls/hr Q24HR FOUZIA Administration Protocol Fentanyl Citrate 2,000 mcg in 100 mls @ 3.41 mls/hr 07/02/19 12:00 07/03/19 09:21 Fentanyl Drip Premix IV 0 mcg/kg/hr TITR FOUZIA 0 mls/hr Titration Protocol 1 MCG/KG/HR Metronidazole 500 mg in 100 mls @ 100 mls/hr 07/02/19 16:00 07/04/19 13:45 Flagyl 500 Mg/100 Ml IV 100 mls/hr Q8HR FOUZIA Administration Protocol Insulin Human Lispro 0 unit 07/02/19 07:00 07/04/19 13:44 Humalog SUB-Q 2 unit Q6H FOUZIA Administration Protocol Lisinopril 10 mg 07/04/19 10:00 07/04/19 10:32 Zestril PO 10 mg QDAY FOUZIA Administration Lorazepam 1 mg 07/02/19 01:02 07/04/19 01:22 Ativan IV 1 mg Q4H PRN Administration Agitation Metoprolol Succinate 25 mg 07/04/19 10:00 07/04/19 10:32 Metoprolol Xl PO 25 mg QDAY FOUZIA Administration Multi-Ingred Cream/Lotion/Oil/Oint 1 applic 07/01/19 21:36 Artificial Tears Ophth Oint OU Q4HR PRN Dry Eye(s) Nitroglycerin 0.4 mg 07/01/19 20:16 Nitrostat SL Q5M PRN Chest Pain Ondansetron HCl 4 mg 07/01/19 20:08 Zofran IV Q8H PRN Nausea And Vomiting Oseltamivir Phosphate 30 mg 07/03/19 10:00 07/04/19 10:38 Tamiflu PO 07/07/19 22:01 30 mg BID FOUZIA Administration Oxycodone/Acetaminophen 1 tab 07/01/19 20:10 Percocet 5/325 PO Q6H PRN Pain, Moderate (4-6) Pantoprazole Sodium 40 mg 07/02/19 12:00 07/04/19 10:20 Protonix IV 40 mg BID FOUZIA Administration Sodium Chloride 10 ml 07/01/19 22:00 07/04/19 10:34 Sodium Chloride Flush Syringe 10 Ml IV 10 ml BID FOUZIA Administration Sodium Chloride 10 ml 07/01/19 20:08 Sodium Chloride Flush Syringe 10 Ml IV PRN PRN LINE FLUSH Nutrition/Malnutrition Assess - Dietary Evaluation Nutrition/Malnutrition Findings: Nutrition Notes Start: 07/02/19 08:21 Freq: Status: Active Protocol: Document 02/13/20 08:21 CT (Rec: 07/02/19 08:37 CT [id number]) Co-Sign 07/02/19 08:21 LP Nutrition Notes Need for Assessment generated from: MD Order,rehab director occupational therapist Initial or Follow up Assessment Current Diagnosis Acute Kidney Injury,Diabetes, Hypertension,Respiratory Failure,Hyperlipidemia Other Pertinent Diagnosis ACS, Pneu, Pneumothrax Pleural effusion, emphysema, cardiac arrest, [id number] Current Diet NPO Labs/Tests Na 134 BUN 49 Cr 1.3 POC Glu 270 A1c 11.5 Pertinent Medications Humalog Lorazepam NS 150 ml/hr Height 5 ft 2 in Weight 68.2 kg [place] Body Weight (kg) 50.00 BMI 27.5 Weight Status Overweight Subjective/Other Information MD consult for evaluation of nutritional intake and RN screen for hx difficulty chewing and skin risk of 12. Pt on vent, recommending Glucerna 1.2 at 50 ml/hr. Pt has an OGT that is having blood suctioned. Per MD pt to remain NPO until GI consult/dx . Burn Absent Trauma Absent Difficulty In Chewing Current % PO Negligible #1 Nutrition Diagnosis Inadequate oral intake Etiology pt on vent As Evidenced by Signs and Symptoms NPO Is patient on ventilator? Yes Is Patient Ambulatory and/or Out of Bed No REE-([facility]-confined to bed) 3537.022 Calculation Used for Recommendations [facility] Additional Notes Protein needs: 82-136 g/day (1 .2-2 g/kg/day) Fluid needs: 1 ml/kcal or per MD Nutrition Intervention Change Diet Order: Advance to TF when medically feasible Nutrition Support: TF Glucerna 1.2 at 50 ml/hr ( goal rate) Flush 90 ml q4h Kcal 1,440 Protein (gm) 72 Fluid (mL) 966 Goal #1 Diet advancement when medically feasible Anticipated Discharge Needs: unable to determine at this time Follow-Up By: 07/06/19 Additional Comments Follow up for TF initiation and Na labs.
[2019-07-04] MEDS ORDERED: SODIUM BICARBONATE 325 MG TAB FEEDTUBE PRN (15:20)
[2019-07-04] MEDS ORDERED: LIPASE 10,500/PROTEASE 25,000/AMYLASE 43,750 (UNITS) DR CAP FEEDTUBE PRN (15:20)
[2019-07-04] MEDS ORDERED: SIMPLE SYRUP 15 ML FEEDTUBE PRN ×2 (15:20)
--- NOTE | 2019-07-04 19:19 | Gastroenterology Progress Note ---
Assessment and Plan Assessment and Plan 1.anemia -MCV WNL -H/H 6.2/18.8 on admission; now 9.1/27.4 s/p blood transfusion -continue to monitor H/H and transfuse as needed -no active signs of bleeding; currently HD stable -etiology unclear -given need for anticoagulation, recommend EGD/colonoscopy for further evaluation once medically stable and cleared by cardiology -cardiology following with ischemic workup in process (stress test tentatively planned on Thursday 07/06) -diet as tolerated for now -continue PPI IV BID -continue supportive care -further recommendations to follow 2.s/p cardiac arrest 3.NSTEMI 4.cardiomyopathy 5.acute respiratory failure 6.sepsis 7.pneumonia 8.subcutaneous emphysema 9.SYL 10.HTN 11.DM 12.H/o CVA 12.HLD Subjective Date of service: 07/04/19 Principal diagnosis: respiratory failure Interval history: - no signs bleeding overnight per staff Objective - Constitutional Vitals: Temp Pulse Resp BP Pulse Ox 99.0 F 89 21 138/66 95 07/04/19 16:00 07/04/19 18:00 07/04/19 18:00 07/04/19 18:00 07/04/19 18:00 General appearance: no acute distress - EENT Eyes: PERRL - Respiratory Respiratory: bilateral: rhonchi - Cardiovascular Rhythm: regular Heart Sounds: Present: S1 & S2 - Gastrointestinal General gastrointestinal: Present: soft, non-tender, non-distended - Labs CBC & Chem 7: 07/04/19 04:05 07/04/19 04:05 Labs: Laboratory Results - last 24 hr 07/03/19 07/04/19 07/04/19 19:25 00:02 00:13 WBC RBC Hgb 8.8 L 8.3 L Hct 26.5 L 25.6 L MCV MCH MCHC RDW Plt Count Sodium Potassium Chloride Carbon Dioxide Anion Gap BUN Creatinine Estimated GFR BUN/Creatinine Ratio Glucose POC Glucose 265 H Calcium 07/04/19 07/04/19 07/04/19 04:05 04:05 05:17 WBC 14.0 H RBC 2.97 L Hgb 8.3 L Hct 25.0 L MCV 84 MCH 28 MCHC 33 RDW 15.1 Plt Count 357 Sodium 146 H D Potassium 3.9 Chloride 109.6 H Carbon Dioxide 16 L Anion Gap 24 BUN 37 H Creatinine 1.3 H Estimated GFR 43 BUN/Creatinine Ratio 28 Glucose 232 H POC Glucose 241 H Calcium 8.9 07/04/19 07/04/19 12:57 17:54 WBC RBC Hgb Hct MCV MCH MCHC RDW Plt Count Sodium Potassium Chloride Carbon Dioxide Anion Gap BUN Creatinine Estimated GFR BUN/Creatinine Ratio Glucose POC Glucose 249 H 291 H Calcium
[2019-07-05] MEDS: INSULIN LISPRO 100 UNIT/ML SUB-Q SCH ×5 (00:09→19:08)
--- NOTE | 2019-07-05 02:30 | XRay Report ---
CHEST 1 VIEW INDICATION / CLINICAL INFORMATION: follow up respiratory failure. COMPARISON: 07/04/2019 FINDINGS: SUPPORT DEVICES: None. HEART / MEDIASTINUM: No significant abnormality. LUNGS / PLEURA: Pulmonary opacities appear unchanged.. No pneumothorax. ADDITIONAL FINDINGS: No significant additional findings. IMPRESSION: 1. No significant change. Signer Name: Louis Liao MD Signed: 07/05/2019 2:25 AM Workstation Name: [id number]
[2019-07-05] MEDS: metroNIDAZOLE/NS 500 MG/100 ML 500 MG/100 ML BAG IV SCH ×3 (05:49→22:14)
--- NOTE | 2019-07-05 08:51 | Progress Note ---
Assessment and Plan - Patient Problems (1) Acute renal injury Current Visit: Yes Status: Acute Plan to address problem: Likely pre-renal in nature in the setting of cardiac arrest. Overall renal function is stable, and we do not have her previous baseline renal function for comparison. Maintain MAP >65mmHg, avoid nephrotoxins. Agree with current management and IV fluid hydration. (2) Acute and chronic respiratory failure with hypoxia Current Visit: Yes Status: Acute Plan to address problem: s/p extubation s/p ECHO with EF 30-35% noted Further vent management per ICU/pulmonary (3) Cardiopulmonary arrest with successful resuscitation Current Visit: Yes Status: Acute Plan to address problem: Overall remains hemodynamically stable at this time. Further recommendations/plan per cardiology. (4) Hyperkalemia Current Visit: Yes Status: Acute Plan to address problem: In the setting of SYL. improved with medical management (5) NSTEMI (non-ST elevated myocardial infarction) Current Visit: Yes Status: Acute Plan to address problem: Cardiology input appreciated. (6) Diabetes Current Visit: Yes Status: Chronic Plan to address problem: Poorly controlled DM, evidenced by elevated HgA1c. DM management per primary attending. (7) Pneumonia Current Visit: Yes Status: Suspected Qualifiers: Pneumonia type: due to unspecified organism Laterality: bilateral Lung location: lower lobe of lung Qualified Code(s): J18.9 - Pneumonia, unspecified organism Subjective Date of service: 07/05/19 Principal diagnosis: respiratory failure Interval history: Pt awake, alert, in no acute distress Objective - Vital Signs Vital signs: Vital Signs - 12hr 07/04/19 07/04/19 07/04/19 21:00 22:00 22:02 Temperature Pulse Rate 91 H 94 H 94 H Pulse Rate [ From Monitor] Respiratory 19 12 17 Rate Respiratory Rate [Chest] Blood Pressure 139/70 135/110 135/110 O2 Sat by Pulse 95 97 96 Oximetry 07/04/19 07/04/19 07/05/19 23:00 23:39 00:00 Temperature 100.3 F H Pulse Rate 87 85 Pulse Rate [ 85 From Monitor] Respiratory 21 28 H Rate Respiratory 20 Rate [Chest] Blood Pressure 138/68 138/65 O2 Sat by Pulse 94 94 Oximetry 07/05/19 07/05/19 07/05/19 01:00 02:00 03:00 Temperature Pulse Rate 96 H 85 82 Pulse Rate [ From Monitor] Respiratory 17 20 21 Rate Respiratory Rate [Chest] Blood Pressure 128/68 128/60 143/73 O2 Sat by Pulse 60 L 94 93 Oximetry 07/05/19 07/05/19 07/05/19 03:20 04:00 05:00 Temperature 99.1 F Pulse Rate 85 84 Pulse Rate [ 85 From Monitor] Respiratory 21 17 Rate Respiratory Rate [Chest] Blood Pressure 125/50 133/59 O2 Sat by Pulse 95 92 Oximetry 07/05/19 07/05/19 06:00 07:52 Temperature Pulse Rate 92 H Pulse Rate [ From Monitor] Respiratory 25 H Rate Respiratory Rate [Chest] Blood Pressure 133/59 O2 Sat by Pulse 98 98 Oximetry - General Appearance General appearance: well-developed, well-nourished, appears stated age EENT: ATNC, PERRL, mucous membranes moist Neck: no JVD Respiratory: Present: Clear to Ascultation Cardiology: regular, S1S2 Gastrointestinal: normoactive bowel sounds Integumentary: no rash, other (no edema ) Neurologic: no focal deficit, alert and oriented x3, strength 5/5, CN 3-12 intact Psychiatric: mood/affect appropriate, cooperative - Lab 07/04/19 04:05 07/04/19 04:05 Most recent lab results ABG pH 7.366 pH Units (7.350-7.450) 07/03/19 04:23 ABG pCO2 29.0 mm Hg 07/03/19 04:23 ABG pO2 134.8 mm Hg (80.0-90.0) H 07/03/19 04:23 ABG HCO3 16.2 mmol/L (20.0-26.0) L 07/03/19 04:23 ABG O2 Saturation 98.6 % (95.0-99.0) 07/03/19 04:23 Calcium 8.9 mg/dL (8.4-10.2) 07/04/19 04:05 Urine Creatinine 62.3 mg/dL (0.1-20.0) H 07/02/19 09:10 Urine Sodium 19 mmol/L 07/02/19 09:10 Medications & Allergies - Medications Allergies/Adverse Reactions: Allergies No Known Allergies Allergy (Unverified 07/01/19 16:29) Home Medications: Home Medications Medication Instructions Recorded Confirmed Last Taken Type Aspirin [Aspirin BABY CHEW TAB] 81 mg PO QDAY 07/01/19 07/01/19 Unknown History AtorvaSTATin [Lipitor] 20 mg PO QHS 07/01/19 07/01/19 Unknown History Metformin HCl [metFORMIN] 1,000 mg PO BID 07/01/19 07/01/19 Unknown History Triamterene/Hydrochlorothiazid 1 each PO QDAY 07/01/19 07/01/19 Unknown History [Triamterene-Hctz 75-50 mg Tab] amLODIPine [Norvasc] 10 mg PO DAILY 07/01/19 07/01/19 Unknown History Active Medications: Generic Name Dose Route Start Last Admin Trade Name Freq PRN Reason Stop Dose Admin Acetaminophen 650 mg 07/01/19 20:08 Tylenol PO Q4H PRN Pain MILD(1-3)/Fever >100.5/STILL Albuterol 2.5 mg 07/01/19 20:08 Proventil IH Q3HRT PRN Shortness Of Breath Lipase/Protease/Amylase 1 each 07/04/19 15:20 Pancrechaparro Best 10,500 Unit FEEDTUBE PRN PRN For Clogged Feeding Tube Atorvastatin Calcium 40 mg 07/01/19 22:00 07/04/19 21:36 Lipitor PO 40 mg QHS FOUZIA Administration Dextrose 0 ml 07/01/19 20:08 D50w (25gm) Syringe IV Q30MIN PRN Hypoglycemia Protocol Docusate Sodium 100 mg 07/01/19 22:00 07/04/19 21:36 Colace PO 100 mg BID FOUZIA Administration Fentanyl 50 mcg 07/02/19 11:14 Sublimaze IV Q10MIN PRN ANALGESIA Heparin Sodium (Porcine) 5,000 unit 07/02/19 10:00 07/04/19 21:36 Heparin SUB-Q 5,000 unit Q12HR FOUZIA Administration Hydrophilic Ointment 1 applic 07/01/19 21:36 Vaseline Lip Therapy TP Q2HR PRN Dry Lips Ceftriaxone Sodium 2 gm in 100 mls @ 200 mls/hr 07/01/19 18:40 07/04/19 10:20 Rocephin/Ns 2 Gm/100 Ml IV 200 mls/hr Q24HR FOUZIA Administration Protocol Fentanyl Citrate 2,000 mcg in 100 mls @ 3.41 mls/hr 07/02/19 12:00 07/03/19 09:21 Fentanyl Drip Premix IV 0 mcg/kg/hr TITR FOUZIA 0 mls/hr Titration Protocol 1 MCG/KG/HR Metronidazole 500 mg in 100 mls @ 100 mls/hr 07/02/19 16:00 07/05/19 05:49 Flagyl 500 Mg/100 Ml IV 100 mls/hr Q8HR [facility] Administration Protocol Insulin Human Lispro 0 unit 07/02/19 07:00 07/05/19 05:49 Humalog SUB-Q 4 unit Q6H [facility] Administration Protocol Lisinopril 10 mg 07/04/19 10:00 07/04/19 10:32 Zestril PO 10 mg QDAY [facility] Administration Lorazepam 1 mg 07/02/19 01:02 07/04/19 01:22 Ativan IV 1 mg Q4H PRN Administration Agitation Metoprolol Succinate 25 mg 07/04/19 10:00 07/04/19 10:32 Metoprolol Xl PO 25 mg QDAY [facility] Administration Multi-Ingred Cream/Lotion/Oil/Oint 1 applic 07/01/19 21:36 Artificial Tears Ophth Oint OU Q4HR PRN Dry Eye(s) Nitroglycerin 0.4 mg 07/01/19 20:16 Nitrostat SL Q5M PRN Chest Pain Ondansetron HCl 4 mg 07/01/19 20:08 Zofran IV Q8H PRN Nausea And Vomiting Oseltamivir Phosphate 30 mg 07/03/19 10:00 07/04/19 21:36 Tamiflu PO 07/07/19 22:01 30 mg BID FOUZIA Administration Oxycodone/Acetaminophen 1 tab 07/01/19 20:10 Percocet 5/325 PO Q6H PRN Pain, Moderate (4-6) Pantoprazole Sodium 40 mg 07/02/19 12:00 07/04/19 21:36 Protonix IV 40 mg BID FOUZIA Administration Simple Syrup 15 ml 07/04/19 15:20 Simple Syrup FEEDTUBE PRN PRN Hypoglycemia Simple Syrup 30 ml 07/04/19 15:20 Simple Syrup FEEDTUBE PRN PRN Hypoglycemia Sodium Bicarbonate 325 mg 07/04/19 15:20 Sodium Bicarbonate FEEDTUBE PRN PRN For Clogged Feeding Tube Sodium Chloride 10 ml 07/01/19 22:00 07/04/19 21:36 Sodium Chloride Flush Syringe 10 Ml IV 10 ml BID FOUZIA Administration Sodium Chloride 10 ml 07/01/19 20:08 Sodium Chloride Flush Syringe 10 Ml IV PRN PRN LINE FLUSH
--- NOTE | 2019-07-05 09:28 | Progress Note ---
Assessment and Plan Cultures: 07/01/2019 blood culture: Negative 07/01/2019 sputum culture: usual respiratory toney 07/02/2019 tracheal aspirate culture: No growth 07/02/2019 urine culture: No growth A&P: 53-year-old woman past medical history hypertension diabetes admitted with chest pain, subsequent CODE BLUE. #Bilateral pneumonia v/s fluid overload: She has minimal risk factors for resistant disease. Procalcitonin not likely to be useful in the setting after having a cardiac arrest. Short course of empiric abx. #Leukocytosis: stable to improving #?Acute acalculous cholecystitis: Clinically no RUQ tenderness. F/U RUQ US. #SYL: Renally adjust antibiotics Recommendations: -Continue ceftriaxone 2 g every 24 hours and Flagyl -RUQ US ordered is still pending -anticipate short course of abx Dr. Shook covering tomorrow onwards. Sai Aguiar MD, FACP [facility] ([facility]) C: [phone] O: [phone] F: [phone] Subjective Date of service: 07/05/19 Principal diagnosis: respiratory failure Interval history: One low grade temp last evening, no fever as such. Denies any new complaints. Breathing is fair. Objective - Exam Narrative Exam: Physical Exam: Constitutional: Alert, cooperative. No acute distress Head, Ears, Nose: Normocephalic, atraumatic. External ears, nose normal Eyes: Conjunctivae/corneas clear. No icterus. No ptosis. Neck: Supple, no meningeal signs Cardiovascular: S1, S2 normal. Respiratory: Good air entry, clear to auscultation bilaterally GI: Soft, non-tender; bowel sounds normal. No peritoneal signs Musculoskeletal: No pedal edema, no cyanosis. Skin: No rash or abscess Hem/Lymphatic: No palpable cervical or supraclavicular nodes. No lymphangitis Psych: Mood ok. Affect normal Neurological: Awake, alert, oriented - Constitutional Vitals: Vital Signs Temp Pulse Resp BP Pulse Ox 99.1 F 92 H 25 H 133/59 98 07/05/19 03:20 07/05/19 06:00 07/05/19 06:00 07/05/19 06:00 07/05/19 07:52 Temperature -Last 24 Hours Temperature 99.1 F Temperature 100.3 F Temperature 98.2 F Temperature 99.0 F - Labs CBC & Chem 7: 07/04/19 04:05 07/04/19 04:05 Labs: Abnormal lab results 07/04/19 07/04/19 07/05/19 Range/Units 12:57 17:54 00:15 POC Glucose 249 H 291 H 365 H (70-105) 07/05/19 Range/Units 05:20 POC Glucose 282 H (70-105) - Imaging and cardiology Chest x-ray: report reviewed, image reviewed (stable findings, mild b/l pulmonary opacities)
[2019-07-05] MEDS: PANTOPRAZOLE 40 MG INJ IV SCH ×2 (10:12→22:14)
[2019-07-05] MEDS: METOPROLOL SUCCINATE XL 25 MG TAB PO SCH (10:13)
[2019-07-05] MEDS: OSELTAMIVIR PHOSPHATE 30 MG/5 ML ORALSYR PO SCH (10:13)
[2019-07-05] MEDS: DOCUSATE SODIUM 100 MG CAP PO SCH ×2 (10:13→22:14)
[2019-07-05] MEDS: LISINOPRIL 10 MG TAB PO SCH (10:14)
[2019-07-05] MEDS: cefTRIAXone/NS 2 GM/100 ML 2 GM/100 ML BAG IV SCH (10:15)
[2019-07-05] MEDS: HEPARIN 5,000 UNIT/1 ML VIAL SUB-Q SCH ×2 (10:15→22:14)
--- NOTE | 2019-07-05 10:53 | Progress Note ---
Assessment and Plan 53 y/o female with acute respiratory failure, likely from pulmonary edema, now with newly diagnosed systolic heart failure. 1. Will give an additional 40 of lasix now. May need to have daily lasix but will defer to renal for this. 2. Bipap QHS and PRN 3. BP control given CHF, likely new diagnosis 4. Stable for transfer to floor 5. Follow up Speech recs Subjective Date of service: 07/05/19 Principal diagnosis: respiratory failure Interval history: No acute events. Stable on nasal cannula. Sitting up in chair. Objective Vital Signs - 12hr 07/04/19 07/04/19 07/05/19 23:00 23:39 00:00 Temperature 100.3 F H Pulse Rate 87 85 Pulse Rate [ 85 From Monitor] Respiratory 21 28 H Rate Respiratory 20 Rate [Chest] Blood Pressure 138/68 138/65 O2 Sat by Pulse 94 94 Oximetry 07/05/19 07/05/19 07/05/19 01:00 02:00 03:00 Temperature Pulse Rate 96 H 85 82 Pulse Rate [ From Monitor] Respiratory 17 20 21 Rate Respiratory Rate [Chest] Blood Pressure 128/68 128/60 143/73 O2 Sat by Pulse 60 L 94 93 Oximetry 07/05/19 07/05/19 07/05/19 03:20 04:00 05:00 Temperature 99.1 F Pulse Rate 85 84 Pulse Rate [ 85 From Monitor] Respiratory 21 17 Rate Respiratory Rate [Chest] Blood Pressure 125/50 133/59 O2 Sat by Pulse 95 92 Oximetry 07/05/19 07/05/19 07/05/19 06:00 07:52 10:13 Temperature Pulse Rate 92 H 79 Pulse Rate [ From Monitor] Respiratory 25 H Rate Respiratory Rate [Chest] Blood Pressure 133/59 145/65 O2 Sat by Pulse 98 98 Oximetry 07/05/19 10:14 Temperature Pulse Rate 81 Pulse Rate [ From Monitor] Respiratory Rate Respiratory Rate [Chest] Blood Pressure 145/65 O2 Sat by Pulse Oximetry Constitutional: alert, appears uncomfortable Eyes: non-icteric ENT: oropharynx moist Neck: supple Effort: mildly labored Ascultation: Bilateral: rales Gastrointestinal: normoactive bowel sounds, soft, non-tender Integumentary: normal CBC and BMP: 07/04/19 04:05 07/04/19 04:05 ABG, PT/INR, D-dimer: ABG ABG pH 7.366 pH Units (7.350-7.450) 07/03/19 04:23 ABG pCO2 29.0 mm Hg 07/03/19 04:23 ABG pO2 134.8 mm Hg (80.0-90.0) H 07/03/19 04:23 ABG O2 Saturation 98.6 % (95.0-99.0) 07/03/19 04:23 PT/INR, D-dimer PT 13.3 Sec. (12.2-14.9) 07/01/19 20:25 INR 1.00 (0.87-1.13) 07/01/19 20:25 D-Dimer 626.19 ng/mlDDU (0-234) H 07/01/19 16:58 Abnormal lab findings: Abnormal Labs 07/01/19 07/01/19 07/01/19 16:58 16:58 16:58 WBC 17.6 H RBC 2.59 L Hgb 6.9 L Hct 21.2 L MCH 27 L RDW Plt Count 565 H Lymph % (Auto) 8.5 L [place] % (Auto) Lymph # [place] # 1.0 H Seg Neutrophils % 85.5 H Seg Neutrophils # 15.0 H D-Dimer 626.19 H ABG pH ABG pO2 ABG HCO3 ABG O2 Saturation ABG Base Excess ABG Hemoglobin Oxyhemoglobin Sodium 132 L Chloride 94.7 L Carbon Dioxide 17 L BUN 53 H Creatinine 1.3 H Glucose POC Glucose Hemoglobin A1c Calcium Alkaline Phosphatase Troponin T 0.236 H* Albumin Triglycerides 327 H Cholesterol 205 H HDL Cholesterol 68 H Urine WBC (Auto) Urine Creatinine Urine Chloride Crossmatch 07/01/19 07/01/19 07/01/19 19:17 19:17 20:25 WBC RBC Hgb Hct MCH RDW Plt Count Lymph % (Auto) [place] % (Auto) Lymph # [place] # Seg Neutrophils % Seg Neutrophils # D-Dimer ABG pH ABG pO2 ABG HCO3 ABG O2 Saturation ABG Base Excess ABG Hemoglobin Oxyhemoglobin Sodium Chloride Carbon Dioxide BUN Creatinine Glucose POC Glucose Hemoglobin A1c Calcium Alkaline Phosphatase 135 H Troponin T 0.214 H* Albumin 3.5 L Triglycerides Cholesterol HDL Cholesterol Urine WBC (Auto) Urine Creatinine Urine Chloride Crossmatch See Detail 07/01/19 07/01/19 07/01/19 20:25 20:25 21:58 WBC RBC Hgb 6.2 L Hct 18.8 L* MCH RDW Plt Count 551 H Lymph % (Auto) [place] % (Auto) Lymph # [place] # Seg Neutrophils % Seg Neutrophils # D-Dimer ABG pH ABG pO2 ABG HCO3 ABG O2 Saturation ABG Base Excess ABG Hemoglobin Oxyhemoglobin Sodium Chloride Carbon Dioxide BUN Creatinine Glucose POC Glucose Hemoglobin A1c 11.5 H Calcium Alkaline Phosphatase Troponin T 0.211 H* Albumin Triglycerides Cholesterol HDL Cholesterol Urine WBC (Auto) Urine Creatinine Urine Chloride Crossmatch 07/01/19 07/02/19 07/02/19 22:20 04:30 05:15 WBC 15.0 H RBC 2.33 L Hgb 6.2 L Hct 19.2 L* MCH 27 L RDW 15.3 H Plt Count Lymph % (Auto) 6.0 L [place] % (Auto) 9.4 H Lymph # 0.9 L [place] # 1.4 H Seg Neutrophils % 84.2 H Seg Neutrophils # 12.6 H D-Dimer ABG pH 7.287 L ABG pO2 194.3 H 65.4 L ABG HCO3 12.7 L 17.1 L ABG O2 Saturation 99.1 H 90.8 L ABG Base Excess -12.8 L -7.2 L ABG Hemoglobin 5.9 L 9.1 L Oxyhemoglobin 89.8 L Sodium Chloride Carbon Dioxide BUN Creatinine Glucose POC Glucose Hemoglobin A1c Calcium Alkaline Phosphatase Troponin T Albumin Triglycerides Cholesterol HDL Cholesterol Urine WBC (Auto) Urine Creatinine Urine Chloride Crossmatch 07/02/19 07/02/19 07/02/19 05:15 05:15 07:34 WBC RBC Hgb Hct MCH RDW Plt Count Lymph % (Auto) [place] % (Auto) Lymph # [place] # Seg Neutrophils % Seg Neutrophils # D-Dimer ABG pH ABG pO2 ABG HCO3 ABG O2 Saturation ABG Base Excess ABG Hemoglobin Oxyhemoglobin Sodium 134 L Chloride Carbon Dioxide 15 L BUN 49 H Creatinine 1.3 H Glucose 228 H POC Glucose 270 H Hemoglobin A1c Calcium 7.7 L D Alkaline Phosphatase Troponin T 0.294 H* D Albumin Triglycerides Cholesterol HDL Cholesterol Urine WBC (Auto) Urine Creatinine Urine Chloride Crossmatch 07/02/19 07/02/19 07/02/19 09:10 09:10 12:50 WBC RBC Hgb 7.4 L Hct 22.0 L MCH RDW Plt Count Lymph % (Auto) [place] % (Auto) Lymph # [place] # Seg Neutrophils % Seg Neutrophils # D-Dimer ABG pH ABG pO2 ABG HCO3 ABG O2 Saturation ABG Base Excess ABG Hemoglobin Oxyhemoglobin Sodium Chloride Carbon Dioxide BUN Creatinine Glucose POC Glucose Hemoglobin A1c Calcium Alkaline Phosphatase Troponin T Albumin Triglycerides Cholesterol HDL Cholesterol Urine WBC (Auto) 19.0 H Urine Creatinine 62.3 H Urine Chloride 17.5 L Crossmatch 07/02/19 07/02/19 07/02/19 13:19 16:16 17:55 WBC RBC Hgb 7.6 L Hct 22.6 L MCH RDW Plt Count Lymph % (Auto) [place] % (Auto) Lymph # [place] # Seg Neutrophils % Seg Neutrophils # D-Dimer ABG pH ABG pO2 74.8 L ABG HCO3 17.1 L ABG O2 Saturation ABG Base Excess -7.0 L ABG Hemoglobin 8.4 L Oxyhemoglobin 94.1 L Sodium Chloride Carbon Dioxide BUN Creatinine Glucose POC Glucose 220 H Hemoglobin A1c Calcium Alkaline Phosphatase Troponin T Albumin Triglycerides Cholesterol HDL Cholesterol Urine WBC (Auto) Urine Creatinine Urine Chloride Crossmatch 07/02/19 07/02/19 07/03/19 18:25 23:23 00:43 WBC RBC Hgb 8.0 L Hct 24.2 L MCH RDW Plt Count Lymph % (Auto) [place] % (Auto) Lymph # [place] # Seg Neutrophils % Seg Neutrophils # D-Dimer ABG pH ABG pO2 ABG HCO3 ABG O2 Saturation ABG Base Excess ABG Hemoglobin Oxyhemoglobin Sodium Chloride Carbon Dioxide BUN Creatinine Glucose POC Glucose 191 H 141 H Hemoglobin A1c Calcium Alkaline Phosphatase Troponin T Albumin Triglycerides Cholesterol HDL Cholesterol Urine WBC (Auto) Urine Creatinine Urine Chloride Crossmatch 07/03/19 07/03/19 07/03/19 04:23 05:10 08:53 WBC 16.4 H RBC 3.25 L Hgb 9.1 L Hct 27.4 L MCH RDW Plt Count 453 H Lymph % (Auto) 6.8 L [place] % (Auto) 9.8 H Lymph # 1.1 L [place] # 1.6 H Seg Neutrophils % 83.2 H Seg Neutrophils # 13.6 H D-Dimer ABG pH ABG pO2 134.8 H ABG HCO3 16.2 L ABG O2 Saturation ABG Base Excess -8.1 L ABG Hemoglobin 8.9 L Oxyhemoglobin Sodium Chloride Carbon Dioxide BUN Creatinine Glucose POC Glucose 180 H Hemoglobin A1c Calcium Alkaline Phosphatase Troponin T Albumin Triglycerides Cholesterol HDL Cholesterol Urine WBC (Auto) Urine Creatinine Urine Chloride Crossmatch 07/03/19 07/03/19 07/03/19 08:53 11:50 13:44 WBC RBC Hgb 8.9 L Hct 26.5 L MCH RDW Plt Count Lymph % (Auto) [place] % (Auto) Lymph # [place] # Seg Neutrophils % Seg Neutrophils # D-Dimer ABG pH ABG pO2 ABG HCO3 ABG O2 Saturation ABG Base Excess ABG Hemoglobin Oxyhemoglobin Sodium Chloride Carbon Dioxide 13 L BUN 46 H Creatinine 1.4 H Glucose 242 H POC Glucose 286 H Hemoglobin A1c Calcium Alkaline Phosphatase Troponin T 0.370 H* D Albumin Triglycerides Cholesterol HDL Cholesterol Urine WBC (Auto) Urine Creatinine Urine Chloride Crossmatch 07/03/19 07/03/19 07/04/19 17:57 19:25 00:02 WBC RBC Hgb 8.8 L Hct 26.5 L MCH RDW Plt Count Lymph % (Auto) [place] % (Auto) Lymph # [place] # Seg Neutrophils % Seg Neutrophils # D-Dimer ABG pH ABG pO2 ABG HCO3 ABG O2 Saturation ABG Base Excess ABG Hemoglobin Oxyhemoglobin Sodium Chloride Carbon Dioxide BUN Creatinine Glucose POC Glucose 239 H 265 H Hemoglobin A1c Calcium Alkaline Phosphatase Troponin T Albumin Triglycerides Cholesterol HDL Cholesterol Urine WBC (Auto) Urine Creatinine Urine Chloride Crossmatch 07/04/19 07/04/19 07/04/19 00:13 04:05 04:05 WBC 14.0 H RBC 2.97 L Hgb 8.3 L 8.3 L Hct 25.6 L 25.0 L MCH RDW Plt Count Lymph % (Auto) [place] % (Auto) Lymph # [place] # Seg Neutrophils % Seg Neutrophils # D-Dimer ABG pH ABG pO2 ABG HCO3 ABG O2 Saturation ABG Base Excess ABG Hemoglobin Oxyhemoglobin Sodium 146 H D Chloride 109.6 H Carbon Dioxide 16 L BUN 37 H Creatinine 1.3 H Glucose 232 H POC Glucose Hemoglobin A1c Calcium Alkaline Phosphatase Troponin T Albumin Triglycerides Cholesterol HDL Cholesterol Urine WBC (Auto) Urine Creatinine Urine Chloride Crossmatch 07/04/19 07/04/19 07/04/19 05:17 12:57 17:54 WBC RBC Hgb Hct MCH RDW Plt Count Lymph % (Auto) [place] % (Auto) Lymph # [place] # Seg Neutrophils % Seg Neutrophils # D-Dimer ABG pH ABG pO2 ABG HCO3 ABG O2 Saturation ABG Base Excess ABG Hemoglobin Oxyhemoglobin Sodium Chloride Carbon Dioxide BUN Creatinine Glucose POC Glucose 241 H 249 H 291 H Hemoglobin A1c Calcium Alkaline Phosphatase Troponin T Albumin Triglycerides Cholesterol HDL Cholesterol Urine WBC (Auto) Urine Creatinine Urine Chloride Crossmatch 07/05/19 07/05/19 00:15 05:20 WBC RBC Hgb Hct MCH RDW Plt Count Lymph % (Auto) [place] % (Auto) Lymph # [place] # Seg Neutrophils % Seg Neutrophils # D-Dimer ABG pH ABG pO2 ABG HCO3 ABG O2 Saturation ABG Base Excess ABG Hemoglobin Oxyhemoglobin Sodium Chloride Carbon Dioxide BUN Creatinine Glucose POC Glucose 365 H 282 H Hemoglobin A1c Calcium Alkaline Phosphatase Troponin T Albumin Triglycerides Cholesterol HDL Cholesterol Urine WBC (Auto) Urine Creatinine Urine Chloride Crossmatch Allied health notes reviewed: nursing
[2019-07-05] MEDS ORDERED: FUROSEMIDE 40 MG/4 ML INJ IV ONE (11:00)
[2019-07-05] MEDS ORDERED: INSULIN NPH/REGULAR 70/30 INJ SUB-Q ONE (11:00)
--- NOTE | 2019-07-05 11:27 | Progress Note ---
Assessment and Plan Patient is doing well today. Appears to be more alert and comfortable. No cardiac symptoms today. Improving. Lexiscan tomorrow for further cardiac evaluation.. TTE reviewed - EF 30-35%, pseudonormalization, mild MR and TR, RVSP 49mmHg. No heparin gtt or ASA for NSTEMI at this time in setting of anemia. Pt is s/p PRBC - Patient Problems (1) Acute respiratory failure with hypoxia Current Visit: Yes Status: Acute (2) Cardiopulmonary arrest with successful resuscitation Current Visit: Yes Status: Acute (3) NSTEMI (non-ST elevated myocardial infarction) Current Visit: Yes Status: Acute (4) Hyperlipidemia Current Visit: Yes Status: Chronic (5) Hypertension Current Visit: Yes Status: Chronic (6) Pneumonia Current Visit: Yes Status: Suspected Qualifiers: Pneumonia type: due to unspecified organism Laterality: bilateral Lung location: lower lobe of lung Qualified Code(s): J18.9 - Pneumonia, unspecified organism Subjective Date of service: 07/05/19 Principal diagnosis: respiratory failure Interval history: Patient is sitting in the chair. Appears to be more alert Feeling better. No cardiac sx Objective Vital Signs Temp Pulse Pulse Resp Resp BP Pulse Ox 07/05/19 10:14 81 145/65 07/05/19 10:13 79 145/65 07/05/19 07:52 98 07/05/19 06:00 92 H 25 H 133/59 98 07/05/19 05:00 84 17 133/59 92 07/05/19 04:00 85 85 21 125/50 95 07/05/19 03:20 99.1 F 07/05/19 03:00 82 21 143/73 93 07/05/19 02:00 85 20 128/60 94 07/05/19 01:00 96 H 17 128/68 60 L 07/05/19 00:00 85 85 28 H 20 138/65 94 07/04/19 23:39 100.3 F H 07/04/19 23:00 87 21 138/68 94 07/04/19 22:02 94 H 17 135/110 96 07/04/19 22:00 94 H 12 135/110 97 07/04/19 21:00 91 H 19 139/70 95 07/04/19 20:13 87 25 H 93 07/04/19 20:01 96 07/04/19 20:00 98.2 F 96 H 27 H 125/52 93 07/04/19 19:00 89 22 128/61 91 07/04/19 18:00 89 21 138/66 95 07/04/19 17:26 97 07/04/19 17:00 90 91 H 22 134/73 92 07/04/19 16:00 99.0 F 92 H 21 134/73 89 07/04/19 15:00 101 H 15 134/68 91 07/04/19 14:00 91 H 22 134/68 96 07/04/19 13:00 89 19 120/69 95 07/04/19 12:00 84 83 24 112/63 92 - Physical Examination General: No Apparent Distress HEENT: Positive: Normocephaly. Negative: PERRL (pupils sluggish roya) Neck: Positive: neck supple, trachea midline Cardiac: Positive: Regular Rhythm Lungs: Positive: clear to auscultation Neuro: Positive: Other (intubated, alert) Abdomen: Positive: Soft, Active Bowel Sounds Skin: Negative: Rash, Wound Musculoskeletal: other (unable to assess) Extremities: Present: upper extr. pulses, lower extr. pulses. Absent: edema - Imaging and Cardiology EKG: report reviewed, image reviewed Echo: report reviewed - EKG Sinus rhythms and dysrhythmias: sinus tachycardia - Allied health notes Allied health notes reviewed: nursing
--- NOTE | 2019-07-05 15:31 | Gastroenterology Progress Note ---
Assessment and Plan 1.anemia -MCV WNL -H/H 6.2/18.8 on admission; now 9.1/27.4 s/p blood transfusion -continue to monitor H/H and transfuse as needed -no active signs of bleeding; currently HD stable -etiology unclear -given need for anticoagulation, recommend EGD/colonoscopy for further evaluation once medically stable and cleared by cardiology -cardiology following with ischemic workup in process (stress test tentatively planned on Thursday 07/06) -diet as tolerated for now -continue PPI IV BID -continue supportive care -further recommendations to follow 2.s/p cardiac arrest 3.NSTEMI 4.cardiomyopathy 5.acute respiratory failure 6.sepsis 7.pneumonia 8.subcutaneous emphysema 9.SYL 10.HTN 11.DM 12.H/o CVA 12.HLD Subjective Date of service: 07/05/19 Principal diagnosis: respiratory failure Interval history: - no GI complaints overnight Objective - Constitutional Vitals: Temp Pulse Resp BP Pulse Ox 97.8 F 80 14 147/71 98 07/05/19 12:00 07/05/19 12:00 07/05/19 12:00 07/05/19 12:00 07/05/19 12:00 General appearance: no acute distress - EENT Eyes: PERRL - Respiratory Respiratory: bilateral: rhonchi - Cardiovascular Rhythm: regular Heart Sounds: Present: S1 & S2 - Gastrointestinal General gastrointestinal: Present: soft, non-tender, non-distended - Labs CBC & Chem 7: 07/04/19 04:05 07/04/19 04:05 Labs: Laboratory Results - last 24 hr 07/04/19 07/05/19 07/05/19 17:54 00:15 05:20 POC Glucose 291 H 365 H 282 H 07/05/19 11:35 POC Glucose 278 H
--- NOTE | 2019-07-05 19:03 | Progress Note ---
Assessment and Plan Assessment and plan: 53-year-old female with history of diabetes, hypertension, and CVA (2012) who presents to [facility] ED with complaints of left-sided chest pain, subsequently went into cardiac arrest while getting a VQ scan, status post CPR, and was intubated, on vent, patient was stabilized Weaned and extubated yesterday afternoon. Today patient is sitting in chair alert awake oriented, saturating well on nasal cannula oxygen Past bedside swallow evaluation, started on clear liquids Cardiology planning stress test tomorrow --Cardiac arrest status post CPR; Patient intubated and extubated On nasal cannula oxygen --Non-ST elevation OH; continue current cardiac medications Possible stress test tomorrow, cardiology following --New onset systolic congestive heart failure; EF 30 to 35% IV diuretics, beta-blockers, no ERNESTO inhibitors due to acute renal failure, Input output monitoring, cardiology following --Acute hypoxic respiratory failure; status post extubation Nasal cannula oxygen, not in acute distress --Possible bilateral pneumonia; Empiric antibiotics, follow cultures Supportive care, ID following --Sepsis; With leukocytosis tachycardia tachypnea Continue empiric antibiotics follow cultures --Acute kidney injury; ATN /vasomotor nephropathy Monitor renal function, avoid nephrotoxins, Nephrology following --Anemia; requiring blood transfusion No external evidence of bleeding hemoglobin improved to 7.4 Stool for occult blood, GI following --Elevated D-dimers; CT angiogram negative for PE Lower extremity venous Doppler negative for DVT --Type 2 diabetes mellitus: Accu-Chek sliding scale coverage ADA diet insulin as needed --DVT prophylaxis;SCDs --Full CODE STATUS Monitor closely and adjust management as needed Patient is critically ill with multiple medical problems Poor prognosis. Plan of care reviewed with the patient and her nurse Critical care time 32 minutes Patient is stable to be transferred out of ICU to telemetry today Consults and recommendations noted and appreciated History Interval history: Patient seen and examined at bedside in ICU this morning Patient's chart, last 24 hours events, medication list, consultants recommendations reviewed Patient is sitting in chair, asking for food, Not in acute distress Passed the bedside swallow eval, Vital signs noted Hospitalist Physical - Constitutional Vitals: Temp Pulse Resp BP Pulse Ox 97.8 F 80 14 147/71 98 07/05/19 12:00 07/05/19 12:07/05/19 12:07/05/19 12:00 07/05/19 12:00 General appearance: Present: mild distress, well-nourished, other (On nasal cannula oxygen) - EENT Eyes: Present: PERRL, EOM intact - Neck Neck: Present: supple, normal ROM - Respiratory Respiratory effort: normal Respiratory: bilateral: diminished, rhonchi, negative: rales, wheezing - Cardiovascular Rhythm: regular Heart Sounds: Present: S1 & S2 - Extremities Extremities: no ischemia, No edema - Abdominal General gastrointestinal: soft, non-tender, non-distended, normal bowel sounds - Integumentary Integumentary: Present: clear, warm - Psychiatric Psychiatric: appropriate mood/affect, cooperative - Neurologic Neurologic: moves all extremities MASSIMO score - Massimo Score Age > 65: (0) No Aspirin use within the Past 7 Days: (0) No 3 or more CAD Risk Factors: (1) Yes 2 or more Angina events in past 24 hrs: (1) Yes Known CAD with more than 50% Stenosis: (0) No Elevated Cardiac Markers: (1) Yes ST Deviation Greater than 0.5mm: (0) No MASSIMO Score: 3 Results - Labs CBC & Chem 7: 07/04/19 04:05 07/04/19 04:05 Labs: Laboratory Last Values WBC 14.0 K/mm3 (4.5-11.0) H 07/04/19 04:05 RBC 2.97 M/mm3 (3.65-5.03) L 07/04/19 04:05 Hgb 8.3 gm/dl (10.1-14.3) L 07/04/19 04:05 Hct 25.0 % (30.3-42.9) L 07/04/19 04:05 MCV 84 fl (79-97) 07/04/19 04:05 MCH 28 pg (28-32) 07/04/19 04:05 MCHC 33 % (30-34) 07/04/19 04:05 RDW 15.1 % (13.2-15.2) 07/04/19 04:05 Plt Count 357 K/mm3 (140-440) 07/04/19 04:05 Lymph % (Auto) 6.8 % (13.4-35.0) L 07/03/19 08:53 [place] % (Auto) 9.8 % (0.0-7.3) H 07/03/19 08:53 Eos % (Auto) 0.0 % (0.0-4.3) 07/03/19 08:53 Baso % (Auto) 0.2 % (0.0-1.8) 07/03/19 08:53 Lymph # 1.1 K/mm3 (1.2-5.4) L 07/03/19 08:53 [place] # 1.6 K/mm3 (0.0-0.8) H 07/03/19 08:53 Eos # 0.0 K/mm3 (0.0-0.4) 07/03/19 08:53 Baso # 0.0 K/mm3 (0.0-0.1) 07/03/19 08:53 Seg Neutrophils % 83.2 % (40.0-70.0) H 07/03/19 08:53 Seg Neutrophils # 13.6 K/mm3 (1.8-7.7) H 07/03/19 08:53 PT 13.3 Sec. (12.2-14.9) 07/01/19 20:25 INR 1.00 (0.87-1.13) 07/01/19 20:25 APTT 29.2 Sec. (24.2-36.6) 07/01/19 20:25 D-Dimer 626.19 ng/mlDDU (0-234) H 07/01/19 16:58 ABG pH 7.366 pH Units (7.350-7.450) 07/03/19 04:23 ABG pCO2 29.0 mm Hg 07/03/19 04:23 ABG pO2 134.8 mm Hg (80.0-90.0) H 07/03/19 04:23 ABG HCO3 16.2 mmol/L (20.0-26.0) L 07/03/19 04:23 ABG O2 Saturation 98.6 % (95.0-99.0) 07/03/19 04:23 ABG O2 Content 12.4 (0.0-44) 07/03/19 04:23 ABG Base Excess -8.1 mmol/L (-2.0-3.0) L 07/03/19 04:23 ABG Hemoglobin 8.9 gm/dl (12.0-16.0) L 07/03/19 04:23 ABG Carboxyhemoglobin 0.8 % (0.0-5.0) 07/03/19 04:23 ABG Methemoglobin 0.5 % (0.0-1.5) 07/03/19 04:23 Oxyhemoglobin 97.4 % (95.0-99.0) 07/03/19 04:23 FiO2 70 % 07/03/19 04:23 Sodium 146 mmol/L (137-145) H D 07/04/19 04:05 Potassium 3.9 mmol/L (3.6-5.0) 07/04/19 04:05 Chloride 109.6 mmol/L (98-107) H 07/04/19 04:05 Carbon Dioxide 16 mmol/L (22-30) L 07/04/19 04:05 Anion Gap 24 mmol/L 07/04/19 04:05 BUN 37 mg/dL (7-17) H 07/04/19 04:05 Creatinine 1.3 mg/dL (0.7-1.2) H 07/04/19 04:05 Estimated GFR 43 ml/min 07/04/19 04:05 BUN/Creatinine Ratio 28 % 07/04/19 04:05 Glucose 232 mg/dL (65-100) H 07/04/19 04:05 POC Glucose 362 (70-105) H 07/05/19 17:33 Hemoglobin A1c 11.5 % (4-6) H 07/01/19 20:25 Lactic Acid 1.80 mmol/L (0.7-2.0) 07/01/19 20:25 Calcium 8.9 mg/dL (8.4-10.2) 07/04/19 04:05 Total Bilirubin 0.20 mg/dL (0.1-1.2) 07/01/19 19:17 Direct Bilirubin < 0.2 mg/dL (0-0.2) 07/01/19 19:17 Indirect Bilirubin 0.0 mg/dL 07/01/19 19:17 AST 19 units/L (5-40) 07/01/19 19:17 ALT 17 units/L (7-56) 07/01/19 19:17 Alkaline Phosphatase 135 units/L (35-129) H 07/01/19 19:17 Troponin T 0.370 ng/mL (0.00-0.029) H* D 07/03/19 08:53 Total Protein 7.6 g/dL (6.3-8.2) 07/01/19 19:17 Albumin 3.5 g/dL (3.9-5) L 07/01/19 19:17 Albumin/Globulin Ratio 0.9 % 07/01/19 19:17 Triglycerides 327 mg/dL (2-149) H 07/01/19 16:58 Cholesterol 205 mg/dL (50-199) H 07/01/19 16:58 LDL Cholesterol Direct 99 mg/dL (50-130) 07/01/19 16:58 HDL Cholesterol 68 mg/dL (40-59) H 07/01/19 16:58 Cholesterol/HDL Ratio 3.01 % 07/01/19 16:58 HCG, Qual Negative (Negative) 07/01/19 16:58 Urine Color Yellow (Yellow) 07/02/19 09:10 Urine Turbidity Slightly-cloudy (Clear) 07/02/19 09:10 Urine pH 5.0 (5.0-7.0) 07/02/19 09:10 Ur Specific [place] 1.027 (1.003-1.030) 07/02/19 09:10 Urine Protein 100 mg/dl mg/dL (Negative) 07/02/19 09:10 Urine Glucose (UA) 50 mg/dL (Negative) 07/02/19 09:10 Urine Ketones Neg mg/dL (Negative) 07/02/19 09:10 Urine Blood Sm (Negative) 07/02/19 09:10 Urine Nitrite Neg (Negative) 07/02/19 09:10 Urine Bilirubin Neg (Negative) 07/02/19 09:10 Urine Urobilinogen < 2.0 mg/dL (<2.0) 07/02/19 09:10 Ur Leukocyte Esterase Tr (Negative) 07/02/19 09:10 Urine WBC (Auto) 19.0 /HPF (0.0-6.0) H 07/02/19 09:10 Urine RBC (Auto) 1.0 /HPF (0.0-6.0) 07/02/19 09:10 U Epithel Cells (Auto) 1.0 /HPF (0-13.0) 07/02/19 09:10 Urine Bacteria (Auto) 1+ /HPF (Negative) 07/02/19 09:10 Urine Mucus Few /HPF 07/02/19 09:10 Urine Creatinine 62.3 mg/dL (0.1-20.0) H 07/02/19 09:10 Urine Sodium 19 mmol/L 07/02/19 09:10 Urine Chloride 17.5 mmolL (110-250) L 07/02/19 09:10 Influenza A (Rapid) Negative (Negative) 07/02/19 17:55 Influenza B (Rapid) Negative (Negative) 07/02/19 17:55 Blood Type A POSITIVE 07/01/19 20:25 Antibody Screen Negative 07/01/19 20:25 Crossmatch See Detail 07/01/19 20:25 Active Medications - Current Medications Current Medications: Generic Name Dose Route Start Last Admin Trade Name Freq PRN Reason Stop Dose Admin Acetaminophen 650 mg 07/01/19 20:08 Tylenol PO Q4H PRN Pain MILD(1-3)/Fever >100.5/STILL Albuterol 2.5 mg 07/01/19 20:08 Proventil IH Q3HRT PRN Shortness Of Breath Lipase/Protease/Amylase 1 each 07/04/19 15:[address] 10,500 Unit FEEDTUBE PRN PRN For Clogged Feeding Tube Atorvastatin Calcium 40 mg 07/01/19 22:00 07/04/19 21:36 Lipitor PO 40 mg QHS FOUZIA Administration Dextrose 0 ml 07/01/19 20:08 D50w (25gm) Syringe IV Q30MIN PRN Hypoglycemia Protocol Docusate Sodium 100 mg 07/01/19 22:00 07/05/19 10:13 Colace PO 100 mg BID FOUZIA Administration Heparin Sodium (Porcine) 5,000 unit 07/02/19 10:00 07/05/19 10:15 Heparin SUB-Q 5,000 unit Q12HR FOUZIA Administration Ceftriaxone Sodium 2 gm in 100 mls @ 200 mls/hr 07/01/19 18:40 07/05/19 10:15 Rocephin/Ns 2 Gm/100 Ml IV 200 mls/hr Q24HR FOUZIA Administration Protocol Metronidazole 500 mg in 100 mls @ 100 mls/hr 07/02/19 16:00 07/05/19 05:49 Flagyl 500 Mg/100 Ml IV 100 mls/hr Q8HR FOUZIA Administration Protocol Insulin Human Isoph/Insulin Regular 8 unit 07/05/19 17:00 Humulin 70/30 SUB-Q BIDDIAB FOUZIA Insulin Human Lispro 0 unit 07/02/19 07:00 07/05/19 12:18 Humalog SUB-Q 3 unit Q6H FOUZIA Administration Protocol Lisinopril 10 mg 07/04/19 10:00 07/05/19 10:14 Zestril PO 10 mg QDAY FOUZIA Administration Metoprolol Succinate 25 mg 07/04/19 10:00 07/05/19 10:13 Metoprolol Xl PO 25 mg QDAY FOUZIA Administration Nitroglycerin 0.4 mg 07/01/19 20:16 Nitrostat SL Q5M PRN Chest Pain Ondansetron HCl 4 mg 07/01/19 20:08 Zofran IV Q8H PRN Nausea And Vomiting Pantoprazole Sodium 40 mg 07/02/19 12:00 07/05/19 10:12 Protonix IV 40 mg BID FOUZIA Administration Nutrition/Malnutrition Assess - Dietary Evaluation Nutrition/Malnutrition Findings: Nutrition Notes Start: 07/02/19 08:21 Freq: Status: Active Protocol: Document 07/04/19 15:11 (Rec: 07/04/19 15:20 [id number]) Nutrition Notes Need for Assessment generated from: MD Order Initial or Follow up Assessment Current Diagnosis Acute Kidney Injury,Diabetes, Hypertension,Respiratory Failure,Hyperlipidemia Other Pertinent Diagnosis ACS, Pneu, Pneumothrax Pleural effusion, emphysema, cardiac arrest, [id number] Current Diet NPO Labs/Tests Na: 146 BUN: 37 Cr: 1.3 POC glu: 249 Pertinent Medications Colace Humaolog Ativan Protonix Lasix Height 5 ft 2 in Weight 68.2 kg [place] Body Weight (kg) 50.00 BMI 27.5 Weight Status Overweight Subjective/Other Information MD consult for TF. Per RN, METAL ANNEALER can't se pt until Saturday, so plan is to feed via dobhoff until pt can be evaluated by METAL ANNEALER. Burn Absent Trauma Absent Difficulty In Chewing Current % PO Negligible #1 Nutrition Diagnosis Inadequate oral intake As Evidenced by Signs and Symptoms Pt extubated, needs barium swallow study performed thursday 07/06 Diagnosis Progress(for reassessment Continues documentation) Is patient on ventilator? No Is Patient Ambulatory and/or Out of Bed No REE-([place]-St. Jeor-confined to bed) [phone] Calculation Used for Recommendations [place]-St Jeor Additional Notes Protein needs: 82-136 g/day (1 .2-2 g/kg/day) Fluid needs: 1 ml/kcal or per MD Nutrition Intervention Change Diet Order: TF Nutrition Support: TF Glucerna 1.2 at 50 ml/hr ( goal rate) Flush 100 ml q4h Kcal 1,440 Protein (gm) 72 Fluid (mL) 966 Goal #1 TF initiation/tolerance Goal #2 Diet advancement when medically feasible Anticipated Discharge Needs: unable to determine at this time Follow-Up By: 07/06/19 Additional Comments F/u for TF initiation, Na labs , METAL ANNEALER lore
[2019-07-06] MEDS: INSULIN LISPRO 100 UNIT/ML SUB-Q SCH ×4 (00:02→18:31)
[2019-07-06] MEDS: INSULIN NPH/REGULAR 70/30 INJ SUB-Q SCH ×3 (00:02→16:59)
[2019-07-06] MEDS: metroNIDAZOLE/NS 500 MG/100 ML 500 MG/100 ML BAG IV SCH ×3 (06:03→21:29)
[2019-07-06] MEDS ORDERED: REGADENOSON 0.4 MG/5 ML INJ IV ONE (07:04)
[2019-07-06 07:36] LABS: Basophils % (Auto) 0.5 % (0.0-1.8); Eosinophils # (Auto) 0.2 K/mm3 (0.0-0.4); Hemoglobin 8.9 gm/dl (10.1-14.3); Lymphocytes # (Auto) 1.8 K/mm3 (1.2-5.4); Lymphocytes % (Auto) 20.6 % (13.4-35.0); Mean Corpuscular HGB Conc 33 % (30-34); Mean Corpuscular Volume 83 fl (79-97); Monocytes % (Auto) 11.6 % (0.0-7.3); Platelet Count 382 K/mm3 (140-440); Red Blood Count 3.24 M/mm3 (3.65-5.03); Red Cell Distribution Width 15.3 % (13.2-15.2)
[2019-07-06 08:00] LABS: Alanine Aminotransferase 10 units/L (7-56); Albumin 2.5 g/dL (3.9-5); BUN/Creatinine Ratio 21; Blood Urea Nitrogen 17 mg/dL (7-17); Calcium 8.8 mg/dL (8.4-10.2); Hemolysis Index 3
--- NOTE | 2019-07-06 09:47 | Progress Note ---
Assessment and Plan - Patient Problems (1) Hypernatremia Current Visit: Yes Status: Acute Plan to address problem: Increase free water intake. We will give IV fluids while patient is n.p.o. for procedure (2) Hypokalemia Current Visit: Yes Status: Acute Plan to address problem: Supplement potassium and follow-up level (3) Acute kidney injury Current Visit: Yes Status: Acute Plan to address problem: Acute kidney injury resolved. Follow-up electrolytes and renal function periodically (4) Anemia Current Visit: Yes Status: Acute Plan to address problem: Follow-up hemoglobin. EGD/colonoscopy planned by supplemental manager to exclude occult GI bleeding with planned chronic anticoagulation (5) Acute respiratory failure with hypoxia Current Visit: Yes Status: Acute Plan to address problem: Improved. (6) NSTEMI (non-ST elevated myocardial infarction) Current Visit: Yes Status: Acute Plan to address problem: For stress test this morning. Subjective Date of service: 07/06/19 Principal diagnosis: respiratory failure Interval history: Patient seen lying in bed. Her son is at the bedside. She has no complaints. On review she admits to left-sided chest pain on coughing. No nausea vomiting. Objective - Exam Narrative Exam: Middle-aged female lying in bed in no acute distress HEENT: NCAT, pink oral mucous membrane Neck: Supple, no venous distention CVS: S1S2 RRR with no murmur, rub or gallop Chest: Clear to auscultation, diminished breath sounds in the lower zones Abdomen: Protuberant, soft, nontender, no organomegaly, bowel sounds are present Extremities: No edema Neuro: Awake, alert no focal deficits - Vital Signs Vital signs: Vital Signs - 12hr 07/05/19 07/06/19 07/06/19 23:30 00:00 04:00 Temperature 98.1 F Pulse Rate 83 78 85 Respiratory 18 Rate Blood Pressure 143/70 O2 Sat by Pulse 92 Oximetry 07/06/19 04:15 Temperature 97.9 F Pulse Rate 73 Respiratory 16 Rate Blood Pressure 133/66 O2 Sat by Pulse 99 Oximetry - Lab 07/06/19 06:51 07/06/19 06:51 Most recent lab results ABG pH 7.366 pH Units (7.350-7.450) 07/03/19 04:23 ABG pCO2 29.0 mm Hg 07/03/19 04:23 ABG pO2 134.8 mm Hg (80.0-90.0) H 07/03/19 04:23 ABG HCO3 16.2 mmol/L (20.0-26.0) L 07/03/19 04:23 ABG O2 Saturation 98.6 % (95.0-99.0) 07/03/19 04:23 Calcium 8.8 mg/dL (8.4-10.2) 07/06/19 06:51 Magnesium 1.80 mg/dL (1.7-2.3) 07/06/19 06:51 Urine Creatinine 62.3 mg/dL (0.1-20.0) H 07/02/19 09:10 Urine Sodium 19 mmol/L 07/02/19 09:10 Medications & Allergies - Medications Allergies/Adverse Reactions: Allergies No Known Allergies Allergy (Unverified 07/01/19 16:29) Home Medications: Home Medications Medication Instructions Recorded Confirmed Last Taken Type Aspirin [Aspirin BABY CHEW TAB] 81 mg PO QDAY 07/01/19 07/01/19 Unknown History AtorvaSTATin [Lipitor] 20 mg PO QHS 07/01/19 07/01/19 Unknown History Metformin HCl [metFORMIN] 1,000 mg PO BID 07/01/19 07/01/19 Unknown History Triamterene/Hydrochlorothiazid 1 each PO QDAY 07/01/19 07/01/19 Unknown History [Triamterene-Hctz 75-50 mg Tab] amLODIPine [Norvasc] 10 mg PO DAILY 07/01/19 07/01/19 Unknown History Active Medications: Generic Name Dose Route Start Last Admin Trade Name Giovannyq PRN Reason Stop Dose Admin Acetaminophen 650 mg 07/01/19 20:08 Tylenol PO Q4H PRN Pain MILD(1-3)/Fever >100.5/STILL Albuterol 2.5 mg 07/01/19 20:08 Proventil IH Q3HRT PRN Shortness Of Breath Lipase/Protease/Amylase 1 each 07/04/19 15:20 Pancre[place] Best 10,500 Unit FEEDTUBE PRN PRN For Clogged Feeding Tube Atorvastatin Calcium 40 mg 07/01/19 22:00 07/05/19 22:14 Lipitor PO 40 mg QHS FOUZIA Administration Dextrose 0 ml 07/01/19 20:08 D50w (25gm) Syringe IV Q30MIN PRN Hypoglycemia Protocol Docusate Sodium 100 mg 07/01/19 22:00 07/05/19 22:14 Colace PO 100 mg BID FOUZIA Administration Heparin Sodium (Porcine) 5,000 unit 07/02/19 10:00 07/05/19 22:14 Heparin SUB-Q 5,000 unit Q12HR FOUZIA Administration Ceftriaxone Sodium 2 gm in 100 mls @ 200 mls/hr 07/01/19 18:40 07/05/19 10:15 Rocephin/Ns 2 Gm/100 Ml IV 200 mls/hr Q24HR [facility] Administration Protocol Metronidazole 500 mg in 100 mls @ 100 mls/hr 07/02/19 16:00 07/06/19 06:03 Flagyl 500 Mg/100 Ml IV 100 mls/hr Q8HR [facility] Administration Protocol Insulin Human Isoph/Insulin Regular 8 unit 07/05/19 17:00 07/06/19 00:02 Humulin 70/30 SUB-Q 8 unit BIDDIAB [facility] Administration Insulin Human Lispro 0 unit 07/02/19 07:00 07/06/19 06:05 Humalog SUB-Q Not Given Q6H [facility] Protocol Lisinopril 10 mg 07/04/19 10:00 07/05/19 10:14 Zestril PO 10 mg QDAY FOUZIA Administration Metoprolol Succinate 25 mg 07/04/19 10:00 07/05/19 10:13 Metoprolol Xl PO 25 mg QDAY FOUZIA Administration Nitroglycerin 0.4 mg 07/01/19 20:16 Nitrostat SL Q5M PRN Chest Pain Ondansetron HCl 4 mg 07/01/19 20:08 Zofran IV Q8H PRN Nausea And Vomiting Pantoprazole Sodium 40 mg 07/02/19 12:00 07/05/19 22:14 Protonix IV 40 mg BID FOUZIA Administration
[2019-07-06] MEDS ORDERED: DEXTROSE 5% IN WATER 1,000 ML IV SCH (10:00)
--- NOTE | 2019-07-06 10:41 | Progress Note ---
Assessment and Plan 53 y/o female with acute respiratory failure, likely from pulmonary edema, now with newly diagnosed systolic heart failure. 1. Patient with newly diagnosed systolic heart failure and "pneumonia" called on CXR was pulmonary edema (improved with positive pressure and then came back once extubated and positive pressure was removed). Responded well to 2 days of diuresis. Her mildly elevated Na is from diuresis. Would not give fluids right now, even though she is NPO for stress as this could precipitate pulmonary edema again and worsening respiratory failure. 2. Bipap QHS and PRN 3. BP control given CHF, likely new diagnosis 4. Will not give lasix today. Evaluate again tomorrow. Hope renal would consider giving this on a daily basis given her heart function and propensity for pulmonary edema. 5. Wean FiO2 for sats >88%. Will need walk test prior to discharge. No known history of pulmonary disease Subjective Date of service: 07/06/19 Principal diagnosis: respiratory failure Interval history: Successful transfer out of ICU. For stress test this am. Reviewed renal note and they started fluids but she has not received them yet. Objective Vital Signs - 12hr 07/05/19 07/06/19 07/06/19 23:30 00:00 04:00 Temperature 98.1 F Pulse Rate 83 78 85 Respiratory 18 Rate Blood Pressure 143/70 O2 Sat by Pulse 92 Oximetry 07/06/19 04:15 Temperature 97.9 F Pulse Rate 73 Respiratory 16 Rate Blood Pressure 133/66 O2 Sat by Pulse 99 Oximetry Constitutional: alert, appears uncomfortable Eyes: non-icteric ENT: oropharynx moist Neck: supple Effort: mildly labored Ascultation: Bilateral: rales Gastrointestinal: normoactive bowel sounds, soft, non-tender Integumentary: normal CBC and BMP: 07/06/19 06:51 07/06/19 06:51 ABG, PT/INR, D-dimer: ABG ABG pH 7.366 pH Units (7.350-7.450) 07/03/19 04:23 ABG pCO2 29.0 mm Hg 07/03/19 04:23 ABG pO2 134.8 mm Hg (80.0-90.0) H 07/03/19 04:23 ABG O2 Saturation 98.6 % (95.0-99.0) 07/03/19 04:23 PT/INR, D-dimer PT 13.3 Sec. (12.2-14.9) 07/01/19 20:25 INR 1.00 (0.87-1.13) 07/01/19 20:25 D-Dimer 626.19 ng/mlDDU (0-234) H 07/01/19 16:58 Abnormal lab findings: Abnormal Labs 07/01/19 07/01/19 07/01/19 16:58 16:58 16:58 WBC 17.6 H RBC 2.59 L Hgb 6.9 L Hct 21.2 L MCH 27 L RDW Plt Count 565 H Lymph % (Auto) 8.5 L [place] % (Auto) Lymph # [place] # 1.0 H Seg Neutrophils % 85.5 H Seg Neutrophils # 15.0 H D-Dimer 626.19 H ABG pH ABG pO2 ABG HCO3 ABG O2 Saturation ABG Base Excess ABG Hemoglobin Oxyhemoglobin Sodium 132 L Potassium Chloride 94.7 L Carbon Dioxide 17 L BUN 53 H Creatinine 1.3 H Glucose POC Glucose Hemoglobin A1c Calcium Alkaline Phosphatase Troponin T 0.236 H* Albumin Triglycerides 327 H Cholesterol 205 H HDL Cholesterol 68 H Urine WBC (Auto) Urine Creatinine Urine Chloride Crossmatch 07/01/19 07/01/19 07/01/19 19:17 19:17 20:25 WBC RBC Hgb Hct MCH RDW Plt Count Lymph % (Auto) [place] % (Auto) Lymph # [place] # Seg Neutrophils % Seg Neutrophils # D-Dimer ABG pH ABG pO2 ABG HCO3 ABG O2 Saturation ABG Base Excess ABG Hemoglobin Oxyhemoglobin Sodium Potassium Chloride Carbon Dioxide BUN Creatinine Glucose POC Glucose Hemoglobin A1c Calcium Alkaline Phosphatase 135 H Troponin T 0.214 H* Albumin 3.5 L Triglycerides Cholesterol HDL Cholesterol Urine WBC (Auto) Urine Creatinine Urine Chloride Crossmatch See Detail 07/01/19 07/01/19 07/01/19 20:25 20:25 21:58 WBC RBC Hgb 6.2 L Hct 18.8 L* MCH RDW Plt Count 551 H Lymph % (Auto) [place] % (Auto) Lymph # [place] # Seg Neutrophils % Seg Neutrophils # D-Dimer ABG pH ABG pO2 ABG HCO3 ABG O2 Saturation ABG Base Excess ABG Hemoglobin Oxyhemoglobin Sodium Potassium Chloride Carbon Dioxide BUN Creatinine Glucose POC Glucose Hemoglobin A1c 11.5 H Calcium Alkaline Phosphatase Troponin T 0.211 H* Albumin Triglycerides Cholesterol HDL Cholesterol Urine WBC (Auto) Urine Creatinine Urine Chloride Crossmatch 07/01/19 07/02/19 07/02/19 22:20 04:30 05:15 WBC 15.0 H RBC 2.33 L Hgb 6.2 L Hct 19.2 L* MCH 27 L RDW 15.3 H Plt Count Lymph % (Auto) 6.0 L [place] % (Auto) 9.4 H Lymph # 0.9 L [place] # 1.4 H Seg Neutrophils % 84.2 H Seg Neutrophils # 12.6 H D-Dimer ABG pH 7.287 L ABG pO2 194.3 H 65.4 L ABG HCO3 12.7 L 17.1 L ABG O2 Saturation 99.1 H 90.8 L ABG Base Excess -12.8 L -7.2 L ABG Hemoglobin 5.9 L 9.1 L Oxyhemoglobin 89.8 L Sodium Potassium Chloride Carbon Dioxide BUN Creatinine Glucose POC Glucose Hemoglobin A1c Calcium Alkaline Phosphatase Troponin T Albumin Triglycerides Cholesterol HDL Cholesterol Urine WBC (Auto) Urine Creatinine Urine Chloride Crossmatch 07/02/19 07/02/19 07/02/19 05:15 05:15 07:34 WBC RBC Hgb Hct MCH RDW Plt Count Lymph % (Auto) [place] % (Auto) Lymph # [place] # Seg Neutrophils % Seg Neutrophils # D-Dimer ABG pH ABG pO2 ABG HCO3 ABG O2 Saturation ABG Base Excess ABG Hemoglobin Oxyhemoglobin Sodium 134 L Potassium Chloride Carbon Dioxide 15 L BUN 49 H Creatinine 1.3 H Glucose 228 H POC Glucose 270 H Hemoglobin A1c Calcium 7.7 L D Alkaline Phosphatase Troponin T 0.294 H* D Albumin Triglycerides Cholesterol HDL Cholesterol Urine WBC (Auto) Urine Creatinine Urine Chloride Crossmatch 07/02/19 07/02/19 07/02/19 09:10 09:10 12:50 WBC RBC Hgb 7.4 L Hct 22.0 L MCH RDW Plt Count Lymph % (Auto) [place] % (Auto) Lymph # [place] # Seg Neutrophils % Seg Neutrophils # D-Dimer ABG pH ABG pO2 ABG HCO3 ABG O2 Saturation ABG Base Excess ABG Hemoglobin Oxyhemoglobin Sodium Potassium Chloride Carbon Dioxide BUN Creatinine Glucose POC Glucose Hemoglobin A1c Calcium Alkaline Phosphatase Troponin T Albumin Triglycerides Cholesterol HDL Cholesterol Urine WBC (Auto) 19.0 H Urine Creatinine 62.3 H Urine Chloride 17.5 L Crossmatch 07/02/19 07/02/19 07/02/19 13:19 16:16 17:55 WBC RBC Hgb 7.6 L Hct 22.6 L MCH RDW Plt Count Lymph % (Auto) [place] % (Auto) Lymph # [place] # Seg Neutrophils % Seg Neutrophils # D-Dimer ABG pH ABG pO2 74.8 L ABG HCO3 17.1 L ABG O2 Saturation ABG Base Excess -7.0 L ABG Hemoglobin 8.4 L Oxyhemoglobin 94.1 L Sodium Potassium Chloride Carbon Dioxide BUN Creatinine Glucose POC Glucose 220 H Hemoglobin A1c Calcium Alkaline Phosphatase Troponin T Albumin Triglycerides Cholesterol HDL Cholesterol Urine WBC (Auto) Urine Creatinine Urine Chloride Crossmatch 07/02/19 07/02/19 07/03/19 18:25 23:23 00:43 WBC RBC Hgb 8.0 L Hct 24.2 L MCH RDW Plt Count Lymph % (Auto) [place] % (Auto) Lymph # [place] # Seg Neutrophils % Seg Neutrophils # D-Dimer ABG pH ABG pO2 ABG HCO3 ABG O2 Saturation ABG Base Excess ABG Hemoglobin Oxyhemoglobin Sodium Potassium Chloride Carbon Dioxide BUN Creatinine Glucose POC Glucose 191 H 141 H Hemoglobin A1c Calcium Alkaline Phosphatase Troponin T Albumin Triglycerides Cholesterol HDL Cholesterol Urine WBC (Auto) Urine Creatinine Urine Chloride Crossmatch 07/03/19 07/03/19 07/03/19 04:23 05:10 08:53 WBC 16.4 H RBC 3.25 L Hgb 9.1 L Hct 27.4 L MCH RDW Plt Count 453 H Lymph % (Auto) 6.8 L [place] % (Auto) 9.8 H Lymph # 1.1 L [place] # 1.6 H Seg Neutrophils % 83.2 H Seg Neutrophils # 13.6 H D-Dimer ABG pH ABG pO2 134.8 H ABG HCO3 16.2 L ABG O2 Saturation ABG Base Excess -8.1 L ABG Hemoglobin 8.9 L Oxyhemoglobin Sodium Potassium Chloride Carbon Dioxide BUN Creatinine Glucose POC Glucose 180 H Hemoglobin A1c Calcium Alkaline Phosphatase Troponin T Albumin Triglycerides Cholesterol HDL Cholesterol Urine WBC (Auto) Urine Creatinine Urine Chloride Crossmatch 07/03/19 07/03/19 07/03/19 08:53 11:50 13:44 WBC RBC Hgb 8.9 L Hct 26.5 L MCH RDW Plt Count Lymph % (Auto) [place] % (Auto) Lymph # [place] # Seg Neutrophils % Seg Neutrophils # D-Dimer ABG pH ABG pO2 ABG HCO3 ABG O2 Saturation ABG Base Excess ABG Hemoglobin Oxyhemoglobin Sodium Potassium Chloride Carbon Dioxide 13 L BUN 46 H Creatinine 1.4 H Glucose 242 H POC Glucose 286 H Hemoglobin A1c Calcium Alkaline Phosphatase Troponin T 0.370 H* D Albumin Triglycerides Cholesterol HDL Cholesterol Urine WBC (Auto) Urine Creatinine Urine Chloride Crossmatch 07/03/19 07/03/19 07/04/19 17:57 19:25 00:02 WBC RBC Hgb 8.8 L Hct 26.5 L MCH RDW Plt Count Lymph % (Auto) [place] % (Auto) Lymph # [place] # Seg Neutrophils % Seg Neutrophils # D-Dimer ABG pH ABG pO2 ABG HCO3 ABG O2 Saturation ABG Base Excess ABG Hemoglobin Oxyhemoglobin Sodium Potassium Chloride Carbon Dioxide BUN Creatinine Glucose POC Glucose 239 H 265 H Hemoglobin A1c Calcium Alkaline Phosphatase Troponin T Albumin Triglycerides Cholesterol HDL Cholesterol Urine WBC (Auto) Urine Creatinine Urine Chloride Crossmatch 07/04/19 07/04/19 07/04/19 00:13 04:05 04:05 WBC 14.0 H RBC 2.97 L Hgb 8.3 L 8.3 L Hct 25.6 L 25.0 L MCH RDW Plt Count Lymph % (Auto) [place] % (Auto) Lymph # [place] # Seg Neutrophils % Seg Neutrophils # D-Dimer ABG pH ABG pO2 ABG HCO3 ABG O2 Saturation ABG Base Excess ABG Hemoglobin Oxyhemoglobin Sodium 146 H D Potassium Chloride 109.6 H Carbon Dioxide 16 L BUN 37 H Creatinine 1.3 H Glucose 232 H POC Glucose Hemoglobin A1c Calcium Alkaline Phosphatase Troponin T Albumin Triglycerides Cholesterol HDL Cholesterol Urine WBC (Auto) Urine Creatinine Urine Chloride Crossmatch 07/04/19 07/04/19 07/04/19 05:17 12:57 17:54 WBC RBC Hgb Hct MCH RDW Plt Count Lymph % (Auto) [place] % (Auto) Lymph # [place] # Seg Neutrophils % Seg Neutrophils # D-Dimer ABG pH ABG pO2 ABG HCO3 ABG O2 Saturation ABG Base Excess ABG Hemoglobin Oxyhemoglobin Sodium Potassium Chloride Carbon Dioxide BUN Creatinine Glucose POC Glucose 241 H 249 H 291 H Hemoglobin A1c Calcium Alkaline Phosphatase Troponin T Albumin Triglycerides Cholesterol HDL Cholesterol Urine WBC (Auto) Urine Creatinine Urine Chloride Crossmatch 07/05/19 07/05/1907/05/20 00:15 05:20 11:35 WBC RBC Hgb Hct MCH RDW Plt Count Lymph % (Auto) [place] % (Auto) Lymph # [place] # Seg Neutrophils % Seg Neutrophils # D-Dimer ABG pH ABG pO2 ABG HCO3 ABG O2 Saturation ABG Base Excess ABG Hemoglobin Oxyhemoglobin Sodium Potassium Chloride Carbon Dioxide BUN Creatinine Glucose POC Glucose 365 H 282 H 278 H Hemoglobin A1c Calcium Alkaline Phosphatase Troponin T Albumin Triglycerides Cholesterol HDL Cholesterol Urine WBC (Auto) Urine Creatinine Urine Chloride Crossmatch 07/05/19 07/05/19 07/06/19 17:33 23:38 06:14 WBC RBC Hgb Hct MCH RDW Plt Count Lymph % (Auto) [place] % (Auto) Lymph # [place] # Seg Neutrophils % Seg Neutrophils # D-Dimer ABG pH ABG pO2 ABG HCO3 ABG O2 Saturation ABG Base Excess ABG Hemoglobin Oxyhemoglobin Sodium Potassium Chloride Carbon Dioxide BUN Creatinine Glucose POC Glucose 362 H 420 H 246 H Hemoglobin A1c Calcium Alkaline Phosphatase Troponin T Albumin Triglycerides Cholesterol HDL Cholesterol Urine WBC (Auto) Urine Creatinine Urine Chloride Crossmatch 07/06/19 07/06/19 06:51 06:51 WBC RBC 3.24 L Hgb 8.9 L Hct 27.0 L MCH RDW 15.3 H Plt Count Lymph % (Auto) [place] % (Auto) 11.6 H Lymph # [place] # 1.0 H Seg Neutrophils % Seg Neutrophils # D-Dimer ABG pH ABG pO2 ABG HCO3 ABG O2 Saturation ABG Base Excess ABG Hemoglobin Oxyhemoglobin Sodium 147 H Potassium 2.9 L* D Chloride Carbon Dioxide BUN Creatinine Glucose 252 H POC Glucose Hemoglobin A1c Calcium Alkaline Phosphatase Troponin T Albumin 2.5 L Triglycerides Cholesterol HDL Cholesterol Urine WBC (Auto) Urine Creatinine Urine Chloride Crossmatch Allied health notes reviewed: nursing
--- NOTE | 2019-07-06 11:12 | Progress Note ---
Assessment and Plan Assessment and plan: --Non-ST elevation MN; continue current cardiac medications Stress test , abnormal stress test, advised heart cath after GI work-up --Anemia; requiring blood transfusion Stool for occult blood, GI following GI evaluated the patient planning EGD and colonoscopy tomorrow --Cardiac arrest status post CPR; Patient intubated and extubated On nasal cannula oxygen --New onset systolic congestive heart failure; EF 30 to 35% IV diuretics, beta-blockers, no ERNESTO inhibitors due to acute renal failure, Input output monitoring, cardiology following --Acute hypoxic respiratory failure; status post extubation Nasal cannula oxygen, not in acute distress --Possible bilateral pneumonia; Empiric antibiotics, follow cultures Supportive care, ID following --Sepsis; With leukocytosis tachycardia tachypnea Continue empiric antibiotics follow cultures --Acute kidney injury; ATN /vasomotor nephropathy Monitor renal function, avoid nephrotoxins, Nephrology following --Elevated D-dimers; CT angiogram negative for PE Lower extremity venous Doppler negative for DVT --Type 2 diabetes mellitus: Accu-Chek sliding scale coverage ADA diet insulin as needed --DVT prophylaxis;SCDs --Full CODE STATUS Disposition; cardiology recommend heart cath GI recommended colonoscopy and EGD tomorrow Follow all the consultants recommendations Brief history : 53-year-old female with history of diabetes, hypertension, and CVA (2012) who presents to [facility] ED with complaints of left-sided chest pain, subsequently went into cardiac arrest while getting a VQ scan, status post CPR, and was intubated, on vent, patient was stabilized Weaned and extubated yesterday afternoon. Stress test abnormal. Plan heart c ath GI planning EGD colonoscopy tomorrow, follow clinically History Interval history: Patient seen and examined medical records reviewed Patient underwent stress test today which was abnormal Patient feels slightly better Alert awake oriented Vital signs noted Hospitalist Physical - Constitutional Vitals: Temp Pulse Resp BP Pulse Ox 97.9 F 73 16 133/66 99 07/06/19 04:15 07/06/19 04:15 07/06/19 04:15 07/06/19 04:15 07/06/19 04:15 General appearance: Present: mild distress, well-nourished, other (On nasal cannula oxygen) - EENT Eyes: Present: PERRL, EOM intact - Neck Neck: Present: supple, normal ROM - Respiratory Respiratory effort: normal Respiratory: bilateral: diminished, negative: rales, rhonchi, wheezing - Cardiovascular Rhythm: regular Heart Sounds: Present: S1 & S2 - Extremities Extremities: no ischemia, No edema - Abdominal General gastrointestinal: soft, non-tender, non-distended, normal bowel sounds - Integumentary Integumentary: Present: clear, warm - Psychiatric Psychiatric: appropriate mood/affect, cooperative - Neurologic Neurologic: CNII-XII intact, moves all extremities MASSIMO score - Massimo Score Age > 65: (0) No Aspirin use within the Past 7 Days: (0) No 3 or more CAD Risk Factors: (1) Yes 2 or more Angina events in past 24 hrs: (1) Yes Known CAD with more than 50% Stenosis: (0) No Elevated Cardiac Markers: (1) Yes ST Deviation Greater than 0.5mm: (0) No MASSIMO Score: 3 Results - Labs CBC & Chem 7: 07/06/19 06:51 07/06/19 15:48 Labs: Laboratory Last Values WBC 8.9 K/mm3 (4.5-11.0) 07/06/19 06:51 RBC 3.24 M/mm3 (3.65-5.03) L 07/06/19 06:51 Hgb 8.9 gm/dl (10.1-14.3) L 07/06/19 06:51 Hct 27.0 % (30.3-42.9) L 07/06/19 06:51 MCV 83 fl (79-97) 07/06/19 06:51 MCH 28 pg (28-32) 07/06/19 06:51 MCHC 33 % (30-34) 07/06/19 06:51 RDW 15.3 % (13.2-15.2) H 07/06/19 06:51 Plt Count 382 K/mm3 (140-440) 07/06/19 06:51 Lymph % (Auto) 20.6 % (13.4-35.0) 07/06/19 06:51 [place] % (Auto) 11.6 % (0.0-7.3) H 07/06/19 06:51 Eos % (Auto) 2.0 % (0.0-4.3) 07/06/19 06:51 Baso % (Auto) 0.5 % (0.0-1.8) 07/06/19 06:51 Lymph # 1.8 K/mm3 (1.2-5.4) 07/06/19 06:51 [place] # 1.0 K/mm3 (0.0-0.8) H 07/06/19 06:51 Eos # 0.2 K/mm3 (0.0-0.4) 07/06/19 06:51 Baso # 0.0 K/mm3 (0.0-0.1) 07/06/19 06:51 Seg Neutrophils % 65.3 % (40.0-70.0) 07/06/19 06:51 Seg Neutrophils # 5.8 K/mm3 (1.8-7.7) 07/06/19 06:51 PT 13.3 Sec. (12.2-14.9) 07/01/19 20:25 INR 1.00 (0.87-1.13) 07/01/19 20:25 APTT 29.2 Sec. (24.2-36.6) 07/01/19 20:25 D-Dimer 626.19 ng/mlDDU (0-234) H 07/01/19 16:58 ABG pH 7.366 pH Units (7.350-7.450) 07/03/19 04:23 ABG pCO2 29.0 mm Hg 07/03/19 04:23 ABG pO2 134.8 mm Hg (80.0-90.0) H 07/03/19 04:23 ABG HCO3 16.2 mmol/L (20.0-26.0) L 07/03/19 04:23 ABG O2 Saturation 98.6 % (95.0-99.0) 07/03/19 04:23 ABG O2 Content 12.4 (0.0-44) 07/03/19 04:23 ABG Base Excess -8.1 mmol/L (-2.0-3.0) L 07/03/19 04:23 ABG Hemoglobin 8.9 gm/dl (12.0-16.0) L 07/03/19 04:23 ABG Carboxyhemoglobin 0.8 % (0.0-5.0) 07/03/19 04:23 ABG Methemoglobin 0.5 % (0.0-1.5) 07/03/19 04:23 Oxyhemoglobin 97.4 % (95.0-99.0) 07/03/19 04:23 FiO2 70 % 07/03/19 04:23 Sodium 147 mmol/L (137-145) H 07/06/19 06:51 Potassium 2.9 mmol/L (3.6-5.0) L* D 07/06/19 06:51 Chloride 106.6 mmol/L (98-107) 07/06/19 06:51 Carbon Dioxide 22 mmol/L (22-30) 07/06/19 06:51 Anion Gap 21 mmol/L 07/06/19 06:51 BUN 17 mg/dL (7-17) 07/06/19 06:51 Creatinine 0.8 mg/dL (0.7-1.2) 07/06/19 06:51 Estimated GFR > 60 ml/min 07/06/19 06:51 BUN/Creatinine Ratio 21 % 07/06/19 06:51 Glucose 252 mg/dL (65-100) H 07/06/19 06:51 POC Glucose 246 (70-105) H 07/06/19 06:14 Hemoglobin A1c 11.5 % (4-6) H 07/01/19 20:25 Lactic Acid 1.80 mmol/L (0.7-2.0) 07/01/19 20:25 Calcium 8.8 mg/dL (8.4-10.2) 07/06/19 06:51 Magnesium 1.80 mg/dL (1.7-2.3) 07/06/19 06:51 Total Bilirubin 0.20 mg/dL (0.1-1.2) 07/06/19 06:51 Direct Bilirubin < 0.2 mg/dL (0-0.2) 07/01/19 19:17 Indirect Bilirubin 0.0 mg/dL 07/01/19 19:17 AST 8 units/L (5-40) 07/06/19 06:51 ALT 10 units/L (7-56) 07/06/19 06:51 Alkaline Phosphatase 117 units/L (35-129) 07/06/19 06:51 Troponin T 0.370 ng/mL (0.00-0.029) H* D 07/03/19 08:53 Total Protein 6.3 g/dL (6.3-8.2) 07/06/19 06:51 Albumin 2.5 g/dL (3.9-5) L 07/06/19 06:51 Albumin/Globulin Ratio 0.7 % 07/06/19 06:51 Triglycerides 327 mg/dL (2-149) H 07/01/19 16:58 Cholesterol 205 mg/dL (50-199) H 07/01/19 16:58 LDL Cholesterol Direct 99 mg/dL (50-130) 07/01/19 16:58 HDL Cholesterol 68 mg/dL (40-59) H 07/01/19 16:58 Cholesterol/HDL Ratio 3.01 % 07/01/19 16:58 HCG, Qual Negative (Negative) 07/01/19 16:58 Urine Color Yellow (Yellow) 07/02/19 09:10 Urine Turbidity Slightly-cloudy (Clear) 07/02/19 09:10 Urine pH 5.0 (5.0-7.0) 07/02/19 09:10 Ur Specific [place] 1.027 (1.003-1.030) 07/02/19 09:10 Urine Protein 100 mg/dl mg/dL (Negative) 07/02/19 09:10 Urine Glucose (UA) 50 mg/dL (Negative) 07/02/19 09:10 Urine Ketones Neg mg/dL (Negative) 07/02/19 09:10 Urine Blood Sm (Negative) 07/02/19 09:10 Urine Nitrite Neg (Negative) 07/02/19 09:10 Urine Bilirubin Neg (Negative) 07/02/19 09:10 Urine Urobilinogen < 2.0 mg/dL (<2.0) 07/02/19 09:10 Ur Leukocyte Esterase Tr (Negative) 07/02/19 09:10 Urine WBC (Auto) 19.0 /HPF (0.0-6.0) H 07/02/19 09:10 Urine RBC (Auto) 1.0 /HPF (0.0-6.0) 07/02/19 09:10 U Epithel Cells (Auto) 1.0 /HPF (0-13.0) 07/02/19 09:10 Urine Bacteria (Auto) 1+ /HPF (Negative) 07/02/19 09:10 Urine Mucus Few /HPF 07/02/19 09:10 Urine Creatinine 62.3 mg/dL (0.1-20.0) H 07/02/19 09:10 Urine Sodium 19 mmol/L 07/02/19 09:10 Urine Chloride 17.5 mmolL (110-250) L 07/02/19 09:10 Influenza A (Rapid) Negative (Negative) 07/02/19 17:55 Influenza B (Rapid) Negative (Negative) 07/02/19 17:55 Blood Type A POSITIVE 07/01/19 20:25 Antibody Screen Negative 07/01/19 20:25 Crossmatch See Detail 07/01/19 20:25 Active Medications - Current Medications Current Medications: Generic Name Dose Route Start Last Admin Trade Name Freq PRN Reason Stop Dose Admin Acetaminophen 650 mg 07/01/19 20:08 Tylenol PO Q4H PRN Pain MILD(1-3)/Fever >100.5/STILL Albuterol 2.5 mg 07/01/19 20:08 Proventil IH Q3HRT PRN Shortness Of Breath Lipase/Protease/Amylase 1 each 07/04/19 15:20 Pancreaze 10,500 Unit FEEDTUBE PRN PRN For Clogged Feeding Tube Atorvastatin Calcium 40 mg 07/01/19 22:00 07/05/19 22:14 Lipitor PO 40 mg QHS FOUZIA Administration Dextrose 0 ml 07/01/19 20:08 D50w (25gm) Syringe IV Q30MIN PRN Hypoglycemia Protocol Docusate Sodium 100 mg 07/01/19 22:00 07/05/19 22:14 Colace PO 100 mg BID FOUZIA Administration Heparin Sodium (Porcine) 5,000 unit 07/02/19 10:00 07/05/19 22:14 Heparin SUB-Q 5,000 unit Q12HR FOUZIA Administration Ceftriaxone Sodium 2 gm in 100 mls @ 200 mls/hr 07/01/19 18:40 07/05/19 10:15 Rocephin/Ns 2 Gm/100 Ml IV 200 mls/hr Q24HR FOUZIA Administration Protocol Metronidazole 500 mg in 100 mls @ 100 mls/hr 07/02/19 16:00 07/06/19 06:03 Flagyl 500 Mg/100 Ml IV 100 mls/hr Q8HR FOUZIA Administration Protocol Potassium Chloride 10 meq in 100 mls @ 100 mls/hr 07/06/19 10:00 Kcl 10meq/100ml IV 07/06/19 13:59 Q1H COUNTS INCLUDE 234 BEDS AT THE [facility] Insulin Human Isoph/Insulin Regular 8 unit 07/05/19 17:00 07/06/19 10:04 Humulin 70/30 SUB-Q Not Given BIDDIAB COUNTS INCLUDE 234 BEDS AT THE [facility] Insulin Human Lispro 0 unit 07/02/19 07:00 07/06/19 06:05 Humalog SUB-Q Not Given Q6H COUNTS INCLUDE 234 BEDS AT THE [facility] Protocol Lisinopril 10 mg 07/04/19 10:00 07/05/19 10:14 Zestril PO 10 mg QDAY FOUZIA Administration Metoprolol Succinate 25 mg 07/04/19 10:00 07/05/19 10:13 Metoprolol Xl PO 25 mg QDAY FOUZIA Administration Nitroglycerin 0.4 mg 07/01/19 20:16 Nitrostat SL Q5M PRN Chest Pain Ondansetron HCl 4 mg 07/01/19 20:08 Zofran IV Q8H PRN Nausea And Vomiting Pantoprazole Sodium 40 mg 07/02/19 12:00 07/05/19 22:14 Protonix IV 40 mg BID FOUZIA Administration Nutrition/Malnutrition Assess - Dietary Evaluation Nutrition/Malnutrition Findings: Nutrition Notes Start: 07/02/19 08:21 Freq: Status: Active Protocol: Document 07/04/19 15:11 (Rec: 07/04/19 15:20 [email or web address]) Nutrition Notes Need for Assessment generated from: MD Order Initial or Follow up Assessment Current Diagnosis Acute Kidney Injury,Diabetes, Hypertension,Respiratory Failure,Hyperlipidemia Other Pertinent Diagnosis ACS, Pneu, Pneumothrax Pleural effusion, emphysema, cardiac arrest, [id number] Current Diet NPO Labs/Tests Na: 146 BUN: 37 Cr: 1.3 POC glu: 249 Pertinent Medications Colace Humaolog Ativan Protonix Lasix Height 5 ft 2 in Weight 68.2 kg [place] Body Weight (kg) 50.00 BMI 27.5 Weight Status Overweight Subjective/Other Information MD consult for TF. Per RN, MARKETING DEVELOPMENT SPECIALIST can't se pt until Saturday, so plan is to feed via dobhoff until pt can be evaluated by MARKETING DEVELOPMENT SPECIALIST. Burn Absent Trauma Absent Difficulty In Chewing Current % PO Negligible #1 Nutrition Diagnosis Inadequate oral intake As Evidenced by Signs and Symptoms Pt extubated, needs barium swallow study performed thursday 07/06 Diagnosis Progress(for reassessment Continues documentation) Is patient on ventilator? No Is Patient Ambulatory and/or Out of Bed No REE-([facility]-confined to bed) 2507.831 Calculation Used for Recommendations [facility] Additional Notes Protein needs: 82-136 g/day (1 .2-2 g/kg/day) Fluid needs: 1 ml/kcal or per MD Nutrition Intervention Change Diet Order: TF Nutrition Support: TF Glucerna 1.2 at 50 ml/hr ( goal rate) Flush 100 ml q4h Kcal 1,440 Protein (gm) 72 Fluid (mL) 966 Goal #1 TF initiation/tolerance Goal #2 Diet advancement when medically feasible Anticipated Discharge Needs: unable to determine at this time Follow-Up By: 07/06/19 Additional Comments F/u for TF initiation, Na labs , MARKETING DEVELOPMENT SPECIALIST lore
--- NOTE | 2019-07-06 11:50 | Progress Note ---
Assessment and Plan Currently stable cardiac status. Cont GDMT for CMP. Initiate IV lasix daily in setting of pulmonary edema. Mild hypernatremina noted, recommend against IVF at this time. Replete K+ and f/u BMP in AM. GI w/u of anemia in progress. S/p lexiscan MPI stress test this AM which showed large apical infarct with jf-infarction ischemia, EF 40%. Coronary angiography is recommended for definitive diagnosis. However, we would prefer that GI evaluation is completed prior to LHC as cardiac intervention may be required which would necessitate in itiation of DAPT. D/w GI team - pt for tentative endoscopy tomorrow. Pending GI recs, we will plan for LHC on Saturday. Currently stable cardiac status. Pt is at moderate cardiovascular risk for end oscopy. There are no immediate cardiac contraindications to proceeding with endoscopy at this time. The patient has been seen in conjunction with Dr. Buckner who agrees with the assessment and plan of care. - Patient Problems (1) NSTEMI (non-ST elevated myocardial infarction) Current Visit: Yes Status: Acute (2) Cardiopulmonary arrest with successful resuscitation Current Visit: Yes Status: Acute (3) Cardiomyopathy Current Visit: Yes Status: Chronic (4) Acute respiratory failure with hypoxia Current Visit: Yes Status: Acute (5) Pneumonia Current Visit: Yes Status: Suspected Qualifiers: Pneumonia type: due to unspecified organism Laterality: bilateral Lung location: lower lobe of lung Qualified Code(s): J18.9 - Pneumonia, unspecified organism (6) Subcutaneous emphysema Current Visit: Yes Status: Acute Qualifiers: Encounter type: initial encounter Qualified Code(s): T79.7XXA - Traumatic subcutaneous emphysema, initial encounter (7) Sepsis Current Visit: Yes Status: Suspected (8) UTI (urinary tract infection) Current Visit: Yes Status: Acute (9) Renal insufficiency Current Visit: Yes Status: Acute (10) Anemia Current Visit: Yes Status: Acute Plan to address problem: s/p PRBC tx (11) History of CVA (cerebrovascular accident) Current Visit: Yes Status: Chronic (12) Hypertension Current Visit: Yes Status: Chronic (13) Hyperlipidemia Current Visit: Yes Status: Chronic (14) Diabetes Current Visit: Yes Status: Chronic (15) Hypokalemia Current Visit: Yes Status: Acute Subjective Date of service: 07/06/19 Principal diagnosis: cardiopulmonary arrest Interval history: pt for stress test today. no current complaints. in SR on tele. Objective Last Vital Signs Temp 97.9 F 07/06/19 04:15 Pulse 73 07/06/19 04:15 Resp 16 07/06/19 04:15 BP 133/66 07/06/19 04:15 Pulse Ox 99 07/06/19 04:15 - Physical Examination General: No Apparent Distress HEENT: Positive: PERRL, Normocephaly Neck: Positive: neck supple, trachea midline Cardiac: Positive: Reg Rate and Rhythm, S1/S2 Lungs: Positive: Decreased Breath Sounds Neuro: Positive: Grossly Intact Abdomen: Positive: Soft, Active Bowel Sounds Skin: Negative: Rash, Wound Musculoskeletal: No Pain Extremities: Present: upper extr. pulses, lower extr. pulses. Absent: edema - Labs and Meds Cardiac Enzymes 07/06/19 Range/Units 06:51 AST 8 (5-40) units/L CBC 07/06/19 Range/Units 06:51 WBC 8.9 (4.5-11.0) K/mm3 RBC 3.24 L (3.65-5.03) M/mm3 Hgb 8.9 L (10.1-14.3) gm/dl Hct 27.0 L (30.3-42.9) % Plt Count 382 (140-440) K/mm3 Lymph # 1.8 (1.2-5.4) K/mm3 [place] # 1.0 H (0.0-0.8) K/mm3 Eos # 0.2 (0.0-0.4) K/mm3 Baso # 0.0 (0.0-0.1) K/mm3 Comprehensive Metabolic Panel 07/06/19 Range/Units 06:51 Sodium 147 H (137-145) mmol/L Potassium 2.9 L* D (3.6-5.0) mmol/L Chloride 106.6 (98-107) mmol/L Carbon Dioxide 22 (22-30) mmol/L BUN 17 (7-17) mg/dL Creatinine 0.8 (0.7-1.2) mg/dL Glucose 252 H (65-100) mg/dL Calcium 8.8 (8.4-10.2) mg/dL AST 8 (5-40) units/L ALT 10 (7-56) units/L Alkaline Phosphatase 117 (35-129) units/L Total Protein 6.3 (6.3-8.2) g/dL Albumin 2.5 L (3.9-5) g/dL - Imaging and Cardiology EKG: report reviewed, image reviewed Echo: report reviewed ( EF 30-35%, pseudonormalization, mild MR and TR, RVSP 49mmHg. ) - Telemetry EKG Rhythm: Sinus Rhythm - EKG Sinus rhythms and dysrhythmias: sinus tachycardia - Allied health notes Allied health notes reviewed: nursing
[2019-07-06] MEDS ORDERED: FUROSEMIDE 40 MG TAB PO SCH (12:00)
[2019-07-06] MEDS: cefTRIAXone/NS 2 GM/100 ML 2 GM/100 ML BAG IV SCH (13:47)
[2019-07-06] MEDS: FUROSEMIDE 40 MG/4 ML INJ IV SCH (13:47)
[2019-07-06] MEDS: DOCUSATE SODIUM 100 MG CAP PO SCH ×2 (13:48→21:28)
[2019-07-06] MEDS: PANTOPRAZOLE 40 MG INJ IV SCH ×2 (13:48→21:28)
[2019-07-06] MEDS: LISINOPRIL 10 MG TAB PO SCH (13:48)
[2019-07-06] MEDS: METOPROLOL SUCCINATE XL 25 MG TAB PO SCH (13:48)
[2019-07-06] MEDS: POTASSIUM CHLORIDE 10 MEQ 10 MEQ/100 ML BAG IV SCH ×3 (13:50→15:32)
[2019-07-06] MEDS: HEPARIN 5,000 UNIT/1 ML VIAL SUB-Q SCH ×2 (13:51→21:28)
--- NOTE | 2019-07-06 13:55 | Ultrasound Report ---
LIMITED RUQ ABDOMINAL ULTRASOUND INDICATION: cholecystitis. COMPARISON: CT abdomen pelvis with contrast 07/01/2019. FINDINGS: Pancreas: Visualized portions show no significant abnormality. Abdominal Aorta: The aorta is obscured by bowel gas. IVC: No significant abnormality. Liver: The liver measures 16.3 cm in length. No significant abnormality. Normal hepatopedal blood fl ow in the main portal vein. Gallbladder: Moderate sludge and at least one gallstone measuring up to 1.4 cm is identified within t he gallbladder lumen. The gallbladder is partially contracted with mild wall thickening measuring 4.5 mm. No pericholecystic fluid.. Bile ducts: No significant abnormality. Common bile duct measures 1.4 mm. Right kidney: No significant abnormality visualized.. Free fluid: None. Additional Findings: None. IMPRESSION: Cholelithiasis. Nonspecific gallbladder wall thickening with no distention. No evidence for acute ch olecystitis. Limited visualization of the aorta.. Signer Name: Bin Sanches Jr, MD Signed: 07/06/2019 1:51 PM Workstation Name: [id number]
--- NOTE | 2019-07-06 14:06 | Gastroenterology Progress Note ---
Assessment and Plan 1.anemia -MCV WNL -H/H 8.9/27.0-stable s/p blood transfusion (6.2/18.8 on admission) -continue to monitor H/H and transfuse as needed -no active signs of bleeding -etiology unclear -cardiology following with ischemic workup in process- s/p stress test this am that revealed large apical infarct with jf-infarction ischemia, EF 40% with he art cath recommended following workup of anemia (r/o high risk lesions given need for anticoagulation) -will schedule for EGD/colonoscopy tomorrow -decrease diet to clear liquids now, then NPO after MN -continue PPI and supportive care -electrolyte management per primary team -will follow 2.s/p cardiac arrest 3.NSTEMI 4.cardiomyopathy 5.acute respiratory failure 6.sepsis 7.pneumonia 8.subcutaneous emphysema 9.SYL 10.HTN 11.DM 12.H/o CVA 12.HLD Subjective Date of service: 07/06/19 Principal diagnosis: anemia Interval history: No acute distress or active signs of bleeding. Denies abd pain or N/V. Jeanie erating diet. Objective - Constitutional Vitals: Temp Pulse Resp BP Pulse Ox 97.9 F 86 19 157/86 97 07/06/19 04:15 07/06/19 13:48 07/06/19 10:00 07/06/19 13:48 07/06/19 10:00 General appearance: no acute distress - EENT Eyes: PERRL, EOM intact ENT: hearing intact - Respiratory Respiratory effort: normal Respiratory: bilateral: diminished - Cardiovascular Rhythm: regular - Gastrointestinal General gastrointestinal: Present: soft, non-tender, non-distended, normal bowel sounds - Neurologic Neurological: alert and oriented x3 - Labs CBC & Chem 7: 07/06/19 06:51 07/06/19 06:51 Labs: Laboratory Results - last 24 hr 07/05/19 07/05/19 07/06/19 17:33 23:38 06:14 WBC RBC Hgb Hct MCV MCH MCHC RDW Plt Count Lymph % (Auto) [place] % (Auto) Eos % (Auto) Baso % (Auto) Lymph # [place] # Eos # Baso # Seg Neutrophils % Seg Neutrophils # Sodium Potassium Chloride Carbon Dioxide Anion Gap BUN Creatinine Estimated GFR BUN/Creatinine Ratio Glucose POC Glucose 362 H 420 H 246 H Calcium Magnesium Total Bilirubin AST ALT Alkaline Phosphatase Total Protein Albumin Albumin/Globulin Ratio 07/06/19 07/06/19 06:51 06:51 WBC 8.9 RBC 3.24 L Hgb 8.9 L Hct 27.0 L MCV 83 MCH 28 MCHC 33 RDW 15.3 H Plt Count 382 Lymph % (Auto) 20.6 [place] % (Auto) 11.6 H Eos % (Auto) 2.0 Baso % (Auto) 0.5 Lymph # 1.8 [place] # 1.0 H Eos # 0.2 Baso # 0.0 Seg Neutrophils % 65.3 Seg Neutrophils # 5.8 Sodium 147 H Potassium 2.9 L* D Chloride 106.6 Carbon Dioxide 22 Anion Gap 21 BUN 17 Creatinine 0.8 Estimated GFR > 60 BUN/Creatinine Ratio 21 Glucose 252 H POC Glucose Calcium 8.8 Magnesium 1.80 Total Bilirubin 0.20 AST 8 ALT 10 Alkaline Phosphatase 117 Total Protein 6.3 Albumin 2.5 L Albumin/Globulin Ratio 0.7
[2019-07-06] MEDS ORDERED: POLYETHYLENE GLYCOL/ELECT SOLN 4000 ML PO ONE (14:12)
--- NOTE | 2019-07-06 16:09 | Progress Note ---
Assessment and Plan Cultures: 07/01/2019 blood culture: Negative 07/01/2019 sputum culture: usual respiratory toney 07/02/2019 tracheal aspirate culture: No growth 07/02/2019 urine culture: No growth A&P: 53-year-old woman past medical history hypertension diabetes admitted with chest pain, subsequent CODE BLUE. #Bilateral pneumonia v/s fluid overload: She has minimal risk factors for resistant disease. Procalcitonin not likely to be useful in the setting after having a cardiac arrest. Short course of empiric abx. #Leukocytosis: stable to improving #Cholelithiasis: RUQ without signs of inflammation #SYL: Renally adjust antibiotics Recommendations: -Continue ceftriaxone 2 g every 24 hours and Flagyl -Complete 7 days of antibiotics. Stop tomorrow 07/07/2019 Thank you for the consult, we will sign off. please call with any questions. Ada Shook MD [facility] ([facility]) M: [phone] O: [phone] F: [phone] Subjective Date of service: 07/06/19 Principal diagnosis: anemia Interval history: Afebrile, improved white count. Imaging personally reviewed: Chest x-ray without significant change. Objective - Exam Narrative Exam: Physical Exam: Constitutional: Alert, cooperative. No acute distress Oral: dentition fair, no thrush Cardiovascular: S1, S2 normal. Respiratory: Good air entry, clear to auscultation bilaterally GI: Soft, non-tender; bowel sounds normal. No peritoneal signs. Musculoskeletal: No pedal edema, no cyanosis. Skin: No rash or abscess Hem/Lymphatic: No palpable cervical or supraclavicular nodes. No lymphangitis Psych: Mood ok. Affect normal Neurological: Awake, alert, oriented. No gross abnormality - Constitutional Vitals: Vital Signs Temp Pulse Resp BP Pulse Ox 97.9 F 86 19 157/86 100 07/06/19 04:15 07/06/19 13:48 07/06/19 10:00 07/06/19 13:48 07/06/19 14:09 Temperature -Last 24 Hours Temperature 97.9 F Temperature 98.1 F Temperature 99.2 F - Labs CBC & Chem 7: 07/06/19 06:51 07/06/19 06:51 Labs: Abnormal lab results 0207/05/19 07/06/19 Range/Units 17:33 23:38 06:14 RBC (3.65-5.03) M/mm3 Hgb (10.1-14.3) gm/dl Hct (30.3-42.9) % RDW (13.2-15.2) % [place] % (Auto) (0.0-7.3) % [place] # (0.0-0.8) K/mm3 Sodium (137-145) mmol/L Potassium (3.6-5.0) mmol/L Glucose (65-100) mg/dL POC Glucose 362 H 420 H 246 H (70-105) Albumin (3.9-5) g/dL 07/06/19 07/06/19 Range/Units 06:51 06:51 RBC 3.24 L (3.65-5.03) M/mm3 Hgb 8.9 L (10.1-14.3) gm/dl Hct 27.0 L (30.3-42.9) % RDW 15.3 H (13.2-15.2) % [place] % (Auto) 11.6 H (0.0-7.3) % [place] # 1.0 H (0.0-0.8) K/mm3 Sodium 147 H (137-145) mmol/L Potassium 2.9 L* D (3.6-5.0) mmol/L Glucose 252 H (65-100) mg/dL POC Glucose (70-105) Albumin 2.5 L (3.9-5) g/dL
[2019-07-06] MEDS ORDERED: POTASSIUM CHLORIDE ER 20 MEQ TAB PO ONE (18:00)
--- NOTE | 2019-07-06 22:10 | Treadmill Report ---
CARDIAC IMAGING REPORT INDICATION FOR PROCEDURE: Chest pain, shortness of breath. Informed consent was obtained. Vasodilator stress was achieved with the intravenous administration of 0.4 mg of Lexiscan per protocol. Nuclear cardiac imaging was performed following the intravenous administration of technetium-99m Myoview per protocol. Gated SPECT imaging demonstrates a post-stress left ventricular ejection fraction of 40%. There is akinesis of the anteroapical and inferoapical wall. Myocardial perfusion imaging demonstrates no significant cavity change between stress and rest. There is a large severe predominantly persistent and partially reversible anteroapical and inferoapical perfusion abnormality. Nuclear cardiac imaging demonstrates mild to moderate left ventricular systolic dysfunction with evidence of prior anteroapical and inferoapical wall myocardial infarction accompanied by a residual degree of ischemia. The study is consistent with potential occlusive disease involving the left anterior descending coronary artery and possibly the right coronary artery as well. JOB# [id number] JAME/NTS
[2019-07-07] MEDS: INSULIN LISPRO 100 UNIT/ML SUB-Q SCH ×4 (00:45→18:19)
[2019-07-07 06:29] LABS: Basophils % (Auto) 0.5 % (0.0-1.8); Eosinophils # (Auto) 0.3 K/mm3 (0.0-0.4); Eosinophils % (Auto) 3.1 % (0.0-4.3); Hematocrit 27.5 % (30.3-42.9); Hemoglobin 9.2 gm/dl (10.1-14.3); Lymphocytes % (Auto) 21.1 % (13.4-35.0); Mean Corpuscular HGB Conc 33 % (30-34); Mean Corpuscular Volume 83 fl (79-97); Monocytes # (Auto) 0.9 K/mm3 (0.0-0.8); Platelet Count 379 K/mm3 (140-440); Red Blood Count 3.31 M/mm3 (3.65-5.03); Red Cell Distribution Width 14.8 % (13.2-15.2)
[2019-07-07] MEDS: metroNIDAZOLE/NS 500 MG/100 ML 500 MG/100 ML BAG IV SCH ×2 (06:37→12:59)
[2019-07-07 07:17] LABS: BUN/Creatinine Ratio 14; Blood Urea Nitrogen 10 mg/dL (7-17); Calcium 8.6 mg/dL (8.4-10.2); Hemolysis Index 6
[2019-07-07] MEDS: INSULIN NPH/REGULAR 70/30 INJ SUB-Q SCH ×2 (08:16→17:38)
--- NOTE | 2019-07-07 08:48 | Progress Note ---
Assessment and Plan - Patient Problems (1) Hypernatremia Current Visit: Yes Status: Acute Plan to address problem: Sodium improving. Continue free water replacement and follow-up sodium. (2) Hypokalemia Current Visit: Yes Status: Acute Plan to address problem: Supplement potassium and follow-up level (3) Acute kidney injury Current Visit: Yes Status: Acute Plan to address problem: Acute kidney injury resolved. Follow-up electrolytes and renal function pe riodically (4) Anemia Current Visit: Yes Status: Acute Plan to address problem: Follow-up hemoglobin. EGD/colonoscopy planned by [employer] springs to exclude occult GI bleeding with planned chronic anticoagulation (5) Acute respiratory failure with hypoxia Current Visit: Yes Status: Acute Plan to address problem: Improved. (6) NSTEMI (non-ST elevated myocardial infarction) Current Visit: Yes Status: Acute Plan to address problem: Reversible ischemia on stress test will need angiogram. For endoscopy today to exclude exclude GI lesion before cardiac catheterization.. Subjective Date of service: 07/07/19 Principal diagnosis: anemia Interval history: Patient seen lying in bed. Her daughter is at the bedside. She has no complaints. Pain has improved. No nausea vomiting. Objective - Exam Narrative Exam: Middle-aged female lying in bed in no acute distress HEENT: NCAT, pink oral mucous membrane Neck: Supple, no venous distention CVS: S1S2 RRR with no murmur, rub or gallop Chest: Clear to auscultation, diminished breath sounds in the lower zones Abdomen: Protuberant, soft, nontender, no organomegaly, bowel sounds are present Extremities: No edema Neuro: Awake, alert no focal deficits - Vital Signs Vital signs: Vital Signs - 12hr 07/06/19 07/06/19 07/07/19 22:00 22:03 00:00 Temperature Pulse Rate 78 Respiratory 16 Rate Blood Pressure Blood Pressure [Right] O2 Sat by Pulse 98 97 Oximetry 07/07/19 07/07/19 07/07/19 04:00 04:29 07:27 Temperature 98.1 F 98.6 F Pulse Rate 74 80 87 Respiratory 16 18 Rate Blood Pressure 149/72 Blood Pressure 173/87 [Right] O2 Sat by Pulse 98 100 Oximetry - Lab 07/07/19 05:45 07/07/19 05:45 Most recent lab results ABG pH 7.366 pH Units (7.350-7.450) 07/03/19 04:23 ABG pCO2 29.0 mm Hg 07/03/19 04:23 ABG pO2 134.8 mm Hg (80.0-90.0) H 07/03/19 04:23 ABG HCO3 16.2 mmol/L (20.0-26.0) L 07/03/19 04:23 ABG O2 Saturation 98.6 % (95.0-99.0) 07/03/19 04:23 Calcium 8.6 mg/dL (8.4-10.2) 07/07/19 05:45 Magnesium 1.60 mg/dL (1.7-2.3) L 07/07/19 05:45 Urine Creatinine 62.3 mg/dL (0.1-20.0) H 07/02/19 09:10 Urine Sodium 19 mmol/L 07/02/19 09:10 Medications & Allergies - Medications Allergies/Adverse Reactions: Allergies No Known Allergies Allergy (Unverified 07/01/19 16:29) Home Medications: Home Medications Medication Instructions Recorded Confirmed Last Taken Type Aspirin [Aspirin BABY CHEW TAB] 81 mg PO QDAY 07/01/19 07/01/19 Unknown History AtorvaSTATin [Lipitor] 20 mg PO QHS 07/01/19 07/01/19 Unknown History Metformin HCl [metFORMIN] 1,000 mg PO BID 07/01/19 07/01/19 Unknown History Triamterene/Hydrochlorothiazid 1 each PO QDAY 07/01/19 07/01/19 Unknown History [Triamterene-Hctz 75-50 mg Tab] amLODIPine [Norvasc] 10 mg PO DAILY 07/01/19 07/01/19 Unknown History Active Medications: Generic Name Dose Route Start Last Admin Trade Name Freq PRN Reason Stop Dose Admin Acetaminophen 650 mg 07/01/19 20:08 Tylenol PO Q4H PRN Pain MILD(1-3)/Fever >100.5/STILL Albuterol 2.5 mg 07/01/19 20:08 Proventil IH Q3HRT PRN Shortness Of Breath Lipase/Protease/Amylase 1 each 07/04/19 15:20 Pancrechaparro Best 10,500 Unit FEEDTUBE PRN PRN For Clogged Feeding Tube Atorvastatin Calcium 40 mg 07/01/19 22:00 07/06/19 21:29 Lipitor PO 40 mg QHS FOUZIA Administration Dextrose 0 ml 07/01/19 20:08 D50w (25gm) Syringe IV Q30MIN PRN Hypoglycemia Protocol Docusate Sodium 100 mg 07/01/19 22:00 07/06/19 21:28 Colace PO 100 mg BID FOUZIA Administration Furosemide 40 mg 07/06/19 13:00 07/06/19 13:47 Lasix IV 40 mg QDAY FOUZIA Administration Heparin Sodium (Porcine) 5,000 unit 07/02/19 10:00 07/06/19 21:28 Heparin SUB-Q 5,000 unit Q12HR FOUZIA Administration Ceftriaxone Sodium 2 gm in 100 mls @ 200 mls/hr 07/01/19 18:40 07/06/19 13:47 Rocephin/Ns 2 Gm/100 Ml IV 200 mls/hr Q24HR FOUZIA Administration Protocol Metronidazole 500 mg in 100 mls @ 100 mls/hr 07/02/19 16:00 07/07/19 06:37 Flagyl 500 Mg/100 Ml IV 100 mls/hr Q8HR [facility] Administration Protocol Insulin Human Isoph/Insulin Regular 8 unit 07/05/19 17:00 07/07/19 08:16 Humulin 70/30 SUB-Q Not Given BIDDIAB [facility] Insulin Human Lispro 0 unit 07/02/19 07:00 07/07/19 08:15 Humalog SUB-Q Not Given Q6H [facility] Protocol Lisinopril 10 mg 07/04/19 10:00 07/06/19 13:48 Zestril PO 10 mg QDAY FOUZIA Administration Metoprolol Succinate 25 mg 07/04/19 10:00 07/06/19 13:48 Metoprolol Xl PO 25 mg QDAY [facility] Administration Nitroglycerin 0.4 mg 07/01/19 20:16 Nitrostat SL Q5M PRN Chest Pain Ondansetron HCl 4 mg 07/01/19 20:08 Zofran IV Q8H PRN Nausea And Vomiting Pantoprazole Sodium 40 mg 07/02/19 12:00 07/06/19 21:28 Protonix IV 40 mg BID FOUZIA Administration
[2019-07-07] MEDS ORDERED: MAGNESIUM SULFATE 2 GM/50 ML BAG IV SCH (09:30)
[2019-07-07] MEDS: cefTRIAXone/NS 2 GM/100 ML 2 GM/100 ML BAG IV SCH (09:58)
[2019-07-07] MEDS: PANTOPRAZOLE 40 MG INJ IV SCH ×2 (09:58→22:28)
[2019-07-07] MEDS: FUROSEMIDE 40 MG/4 ML INJ IV SCH (09:59)
[2019-07-07] MEDS: METOPROLOL SUCCINATE XL 25 MG TAB PO SCH (10:01)
[2019-07-07] MEDS: HEPARIN 5,000 UNIT/1 ML VIAL SUB-Q SCH ×2 (10:02→22:28)
[2019-07-07] MEDS: LISINOPRIL 10 MG TAB PO SCH (10:02)
[2019-07-07] MEDS: DOCUSATE SODIUM 100 MG CAP PO SCH ×3 (10:02→22:28)
[2019-07-07] MEDS ORDERED: SODIUM CHLORIDE 0.9% 1000 ML 1,000 ML IV SCH (12:00)
--- NOTE | 2019-07-07 12:03 | Progress Note ---
Assessment and Plan 53 y/o female with acute respiratory failure, likely from pulmonary edema, now with newly diagnosed systolic heart failure. 1. Wean FiO2 as tolerated. 2. Fluid management per cards and renal 3. BP control given CHF, likely new diagnosis 4. signing off, will see PRN. Subjective Date of service: 07/07/19 Principal diagnosis: anemia Interval history: no acute events. Cards diuresed again which I agree with. For Scope today. had stress yesterday, positive. Objective Vital Signs - 12hr 07/07/19 07/07/19 07/07/19 04:00 04:29 07:27 Temperature 98.1 F 98.6 F Pulse Rate 74 80 87 Pulse Rate [ Left Dorsalis Pedis] Pulse Rate [ Left Radial] Pulse Rate [ Right Dorsalis Pedis] Pulse Rate [ Right Radial] Respiratory 16 18 Rate Blood Pressure 149/72 Blood Pressure 173/87 [Right] O2 Sat by Pulse 98 100 Oximetry 07/07/19 07/07/19 07/07/19 08:00 08:55 10:00 Temperature Pulse Rate 90 Pulse Rate [ 87 Left Dorsalis Pedis] Pulse Rate [ 87 Left Radial] Pulse Rate [ 87 Right Dorsalis Pedis] Pulse Rate [ 87 Right Radial] Respiratory 19 Rate Blood Pressure Blood Pressure [Right] O2 Sat by Pulse 100 97 Oximetry 07/07/19 07/07/19 07/07/19 10:01 10:02 10:55 Temperature Pulse Rate 90 90 90 Pulse Rate [ Left Dorsalis Pedis] Pulse Rate [ Left Radial] Pulse Rate [ Right Dorsalis Pedis] Pulse Rate [ Right Radial] Respiratory Rate Blood Pressure 161/83 161/83 161/83 Blood Pressure [Right] O2 Sat by Pulse 99 Oximetry Constitutional: alert, appears uncomfortable Eyes: non-icteric ENT: oropharynx moist Neck: supple Effort: mildly labored Ascultation: Bilateral: rales Gastrointestinal: normoactive bowel sounds, soft, non-tender Integumentary: normal CBC and BMP: 07/07/19 05:45 07/07/19 05:45 ABG, PT/INR, D-dimer: ABG ABG pH 7.366 pH Units (7.350-7.450) 07/03/19 04:23 ABG pCO2 29.0 mm Hg 07/03/19 04:23 ABG pO2 134.8 mm Hg (80.0-90.0) H 07/03/19 04:23 ABG O2 Saturation 98.6 % (95.0-99.0) 07/03/19 04:23 PT/INR, D-dimer PT 13.3 Sec. (12.2-14.9) 07/01/19 20:25 INR 1.00 (0.87-1.13) 07/01/19 20:25 D-Dimer 626.19 ng/mlDDU (0-234) H 07/01/19 16:58 Abnormal lab findings: Abnormal Labs 07/01/19 07/01/19 07/01/19 16:58 16:58 16:58 WBC 17.6 H RBC 2.59 L Hgb 6.9 L Hct 21.2 L MCH 27 L RDW Plt Count 565 H Lymph % (Auto) 8.5 L [place] % (Auto) Lymph # [place] # 1.0 H Seg Neutrophils % 85.5 H Seg Neutrophils # 15.0 H D-Dimer 626.19 H ABG pH ABG pO2 ABG HCO3 ABG O2 Saturation ABG Base Excess ABG Hemoglobin Oxyhemoglobin Sodium 132 L Potassium Chloride 94.7 L Carbon Dioxide 17 L BUN 53 H Creatinine 1.3 H Glucose POC Glucose Hemoglobin A1c Calcium Magnesium Alkaline Phosphatase Troponin T 0.236 H* Albumin Triglycerides 327 H Cholesterol 205 H HDL Cholesterol 68 H Urine WBC (Auto) Urine Creatinine Urine Chloride Crossmatch 07/01/19 07/01/19 07/01/19 19:17 19:17 20:25 WBC RBC Hgb Hct MCH RDW Plt Count Lymph % (Auto) [place] % (Auto) Lymph # [place] # Seg Neutrophils % Seg Neutrophils # D-Dimer ABG pH ABG pO2 ABG HCO3 ABG O2 Saturation ABG Base Excess ABG Hemoglobin Oxyhemoglobin Sodium Potassium Chloride Carbon Dioxide BUN Creatinine Glucose POC Glucose Hemoglobin A1c Calcium Magnesium Alkaline Phosphatase 135 H Troponin T 0.214 H* Albumin 3.5 L Triglycerides Cholesterol HDL Cholesterol Urine WBC (Auto) Urine Creatinine Urine Chloride Crossmatch See Detail 07/01/19 07/01/19 07/01/19 20:25 20:25 21:58 WBC RBC Hgb 6.2 L Hct 18.8 L* MCH RDW Plt Count 551 H Lymph % (Auto) [place] % (Auto) Lymph # [place] # Seg Neutrophils % Seg Neutrophils # D-Dimer ABG pH ABG pO2 ABG HCO3 ABG O2 Saturation ABG Base Excess ABG Hemoglobin Oxyhemoglobin Sodium Potassium Chloride Carbon Dioxide BUN Creatinine Glucose POC Glucose Hemoglobin A1c 11.5 H Calcium Magnesium Alkaline Phosphatase Troponin T 0.211 H* Albumin Triglycerides Cholesterol HDL Cholesterol Urine WBC (Auto) Urine Creatinine Urine Chloride Crossmatch 07/01/19 07/02/19 07/02/19 22:20 04:30 05:15 WBC 15.0 H RBC 2.33 L Hgb 6.2 L Hct 19.2 L* MCH 27 L RDW 15.3 H Plt Count Lymph % (Auto) 6.0 L [place] % (Auto) 9.4 H Lymph # 0.9 L [place] # 1.4 H Seg Neutrophils % 84.2 H Seg Neutrophils # 12.6 H D-Dimer ABG pH 7.287 L ABG pO2 194.3 H 65.4 L ABG HCO3 12.7 L 17.1 L ABG O2 Saturation 99.1 H 90.8 L ABG Base Excess -12.8 L -7.2 L ABG Hemoglobin 5.9 L 9.1 L Oxyhemoglobin 89.8 L Sodium Potassium Chloride Carbon Dioxide BUN Creatinine Glucose POC Glucose Hemoglobin A1c Calcium Magnesium Alkaline Phosphatase Troponin T Albumin Triglycerides Cholesterol HDL Cholesterol Urine WBC (Auto) Urine Creatinine Urine Chloride Crossmatch 07/02/19 07/02/19 07/02/19 05:15 05:15 07:34 WBC RBC Hgb Hct MCH RDW Plt Count Lymph % (Auto) [place] % (Auto) Lymph # [place] # Seg Neutrophils % Seg Neutrophils # D-Dimer ABG pH ABG pO2 ABG HCO3 ABG O2 Saturation ABG Base Excess ABG Hemoglobin Oxyhemoglobin Sodium 134 L Potassium Chloride Carbon Dioxide 15 L BUN 49 H Creatinine 1.3 H Glucose 228 H POC Glucose 270 H Hemoglobin A1c Calcium 7.7 L D Magnesium Alkaline Phosphatase Troponin T 0.294 H* D Albumin Triglycerides Cholesterol HDL Cholesterol Urine WBC (Auto) Urine Creatinine Urine Chloride Crossmatch 07/02/19 07/02/19 07/02/19 09:10 09:10 12:50 WBC RBC Hgb 7.4 L Hct 22.0 L MCH RDW Plt Count Lymph % (Auto) [place] % (Auto) Lymph # [place] # Seg Neutrophils % Seg Neutrophils # D-Dimer ABG pH ABG pO2 ABG HCO3 ABG O2 Saturation ABG Base Excess ABG Hemoglobin Oxyhemoglobin Sodium Potassium Chloride Carbon Dioxide BUN Creatinine Glucose POC Glucose Hemoglobin A1c Calcium Magnesium Alkaline Phosphatase Troponin T Albumin Triglycerides Cholesterol HDL Cholesterol Urine WBC (Auto) 19.0 H Urine Creatinine 62.3 H Urine Chloride 17.5 L Crossmatch 07/02/19 07/02/19 07/02/19 13:19 16:16 17:55 WBC RBC Hgb 7.6 L Hct 22.6 L MCH RDW Plt Count Lymph % (Auto) [place] % (Auto) Lymph # [place] # Seg Neutrophils % Seg Neutrophils # D-Dimer ABG pH ABG pO2 74.8 L ABG HCO3 17.1 L ABG O2 Saturation ABG Base Excess -7.0 L ABG Hemoglobin 8.4 L Oxyhemoglobin 94.1 L Sodium Potassium Chloride Carbon Dioxide BUN Creatinine Glucose POC Glucose 220 H Hemoglobin A1c Calcium Magnesium Alkaline Phosphatase Troponin T Albumin Triglycerides Cholesterol HDL Cholesterol Urine WBC (Auto) Urine Creatinine Urine Chloride Crossmatch 07/02/19 07/02/19 07/03/19 18:25 23:23 00:43 WBC RBC Hgb 8.0 L Hct 24.2 L MCH RDW Plt Count Lymph % (Auto) [place] % (Auto) Lymph # [place] # Seg Neutrophils % Seg Neutrophils # D-Dimer ABG pH ABG pO2 ABG HCO3 ABG O2 Saturation ABG Base Excess ABG Hemoglobin Oxyhemoglobin Sodium Potassium Chloride Carbon Dioxide BUN Creatinine Glucose POC Glucose 191 H 141 H Hemoglobin A1c Calcium Magnesium Alkaline Phosphatase Troponin T Albumin Triglycerides Cholesterol HDL Cholesterol Urine WBC (Auto) Urine Creatinine Urine Chloride Crossmatch 07/03/19 07/03/19 07/03/19 04:23 05:10 08:53 WBC 16.4 H RBC 3.25 L Hgb 9.1 L Hct 27.4 L MCH RDW Plt Count 453 H Lymph % (Auto) 6.8 L [place] % (Auto) 9.8 H Lymph # 1.1 L [place] # 1.6 H Seg Neutrophils % 83.2 H Seg Neutrophils # 13.6 H D-Dimer ABG pH ABG pO2 134.8 H ABG HCO3 16.2 L ABG O2 Saturation ABG Base Excess -8.1 L ABG Hemoglobin 8.9 L Oxyhemoglobin Sodium Potassium Chloride Carbon Dioxide BUN Creatinine Glucose POC Glucose 180 H Hemoglobin A1c Calcium Magnesium Alkaline Phosphatase Troponin T Albumin Triglycerides Cholesterol HDL Cholesterol Urine WBC (Auto) Urine Creatinine Urine Chloride Crossmatch 07/03/19 07/03/19 07/03/19 08:53 11:50 13:44 WBC RBC Hgb 8.9 L Hct 26.5 L MCH RDW Plt Count Lymph % (Auto) [place] % (Auto) Lymph # [place] # Seg Neutrophils % Seg Neutrophils # D-Dimer ABG pH ABG pO2 ABG HCO3 ABG O2 Saturation ABG Base Excess ABG Hemoglobin Oxyhemoglobin Sodium Potassium Chloride Carbon Dioxide 13 L BUN 46 H Creatinine 1.4 H Glucose 242 H POC Glucose 286 H Hemoglobin A1c Calcium Magnesium Alkaline Phosphatase Troponin T 0.370 H* D Albumin Triglycerides Cholesterol HDL Cholesterol Urine WBC (Auto) Urine Creatinine Urine Chloride Crossmatch 07/03/19 07/03/19 07/04/19 17:57 19:25 00:02 WBC RBC Hgb 8.8 L Hct 26.5 L MCH RDW Plt Count Lymph % (Auto) [place] % (Auto) Lymph # [place] # Seg Neutrophils % Seg Neutrophils # D-Dimer ABG pH ABG pO2 ABG HCO3 ABG O2 Saturation ABG Base Excess ABG Hemoglobin Oxyhemoglobin Sodium Potassium Chloride Carbon Dioxide BUN Creatinine Glucose POC Glucose 239 H 265 H Hemoglobin A1c Calcium Magnesium Alkaline Phosphatase Troponin T Albumin Triglycerides Cholesterol HDL Cholesterol Urine WBC (Auto) Urine Creatinine Urine Chloride Crossmatch 07/04/19 07/04/19 07/04/19 00:13 04:05 04:05 WBC 14.0 H RBC 2.97 L Hgb 8.3 L 8.3 L Hct 25.6 L 25.0 L MCH RDW Plt Count Lymph % (Auto) [place] % (Auto) Lymph # [place] # Seg Neutrophils % Seg Neutrophils # D-Dimer ABG pH ABG pO2 ABG HCO3 ABG O2 Saturation ABG Base Excess ABG Hemoglobin Oxyhemoglobin Sodium 146 H D Potassium Chloride 109.6 H Carbon Dioxide 16 L BUN 37 H Creatinine 1.3 H Glucose 232 H POC Glucose Hemoglobin A1c Calcium Magnesium Alkaline Phosphatase Troponin T Albumin Triglycerides Cholesterol HDL Cholesterol Urine WBC (Auto) Urine Creatinine Urine Chloride Crossmatch 07/04/19 07/04/19 07/04/19 05:17 12:57 17:54 WBC RBC Hgb Hct MCH RDW Plt Count Lymph % (Auto) [place] % (Auto) Lymph # [place] # Seg Neutrophils % Seg Neutrophils # D-Dimer ABG pH ABG pO2 ABG HCO3 ABG O2 Saturation ABG Base Excess ABG Hemoglobin Oxyhemoglobin Sodium Potassium Chloride Carbon Dioxide BUN Creatinine Glucose POC Glucose 241 H 249 H 291 H Hemoglobin A1c Calcium Magnesium Alkaline Phosphatase Troponin T Albumin Triglycerides Cholesterol HDL Cholesterol Urine WBC (Auto) Urine Creatinine Urine Chloride Crossmatch 07/05/19 07/05/19 07/05/19 00:15 05:20 11:35 WBC RBC Hgb Hct MCH RDW Plt Count Lymph % (Auto) [place] % (Auto) Lymph # [place] # Seg Neutrophils % Seg Neutrophils # D-Dimer ABG pH ABG pO2 ABG HCO3 ABG O2 Saturation ABG Base Excess ABG Hemoglobin Oxyhemoglobin Sodium Potassium Chloride Carbon Dioxide BUN Creatinine Glucose POC Glucose 365 H 282 H 278 H Hemoglobin A1c Calcium Magnesium Alkaline Phosphatase Troponin T Albumin Triglycerides Cholesterol HDL Cholesterol Urine WBC (Auto) Urine Creatinine Urine Chloride Crossmatch 07/05/19 07/05/19 07/06/19 17:33 23:38 06:14 WBC RBC Hgb Hct MCH RDW Plt Count Lymph % (Auto) [place] % (Auto) Lymph # [place] # Seg Neutrophils % Seg Neutrophils # D-Dimer ABG pH ABG pO2 ABG HCO3 ABG O2 Saturation ABG Base Excess ABG Hemoglobin Oxyhemoglobin Sodium Potassium Chloride Carbon Dioxide BUN Creatinine Glucose POC Glucose 362 H 420 H 246 H Hemoglobin A1c Calcium Magnesium Alkaline Phosphatase Troponin T Albumin Triglycerides Cholesterol HDL Cholesterol Urine WBC (Auto) Urine Creatinine Urine Chloride Crossmatch 07/06/19 07/06/19 07/06/19 06:51 06:51 13:44 WBC RBC 3.24 L Hgb 8.9 L Hct 27.0 L MCH RDW 15.3 H Plt Count Lymph % (Auto) [place] % (Auto) 11.6 H Lymph # [place] # 1.0 H Seg Neutrophils % Seg Neutrophils # D-Dimer ABG pH ABG pO2 ABG HCO3 ABG O2 Saturation ABG Base Excess ABG Hemoglobin Oxyhemoglobin Sodium 147 H Potassium 2.9 L* D Chloride Carbon Dioxide BUN Creatinine Glucose 252 H POC Glucose 297 H Hemoglobin A1c Calcium Magnesium Alkaline Phosphatase Troponin T Albumin 2.5 L Triglycerides Cholesterol HDL Cholesterol Urine WBC (Auto) Urine Creatinine Urine Chloride Crossmatch 07/06/19 07/06/19 07/07/19 15:48 16:23 00:54 WBC RBC Hgb Hct MCH RDW Plt Count Lymph % (Auto) [place] % (Auto) Lymph # [place] # Seg Neutrophils % Seg Neutrophils # D-Dimer ABG pH ABG pO2 ABG HCO3 ABG O2 Saturation ABG Base Excess ABG Hemoglobin Oxyhemoglobin Sodium Potassium 3.0 L Chloride Carbon Dioxide BUN Creatinine Glucose POC Glucose 370 H 196 H Hemoglobin A1c Calcium Magnesium Alkaline Phosphatase Troponin T Albumin Triglycerides Cholesterol HDL Cholesterol Urine WBC (Auto) Urine Creatinine Urine Chloride Crossmatch 07/07/19 07/07/19 07/07/19 05:45 05:45 11:02 WBC RBC 3.31 L Hgb 9.2 L Hct 27.5 L MCH RDW Plt Count Lymph % (Auto) [place] % (Auto) 10.0 H Lymph # [place] # 0.9 H Seg Neutrophils % Seg Neutrophils # D-Dimer ABG pH ABG pO2 ABG HCO3 ABG O2 Saturation ABG Base Excess ABG Hemoglobin Oxyhemoglobin Sodium 146 H Potassium 3.0 L Chloride Carbon Dioxide BUN Creatinine Glucose 229 H POC Glucose 264 H Hemoglobin A1c Calcium Magnesium 1.60 L Alkaline Phosphatase Troponin T Albumin Triglycerides Cholesterol HDL Cholesterol Urine WBC (Auto) Urine Creatinine Urine Chloride Crossmatch Allied health notes reviewed: nursing
--- NOTE | 2019-07-07 12:07 | Progress Note ---
Assessment and Plan Currently stable cardiac status. Cont GDMT for CMP and IV lasix. Mild hypernatremina noted, recommend against IVF at this time. Replete K+ and Mg and f/u BMP in AM. GI w/u of anemia in progress. Pt is for endoscopy today. Currently stable cardiac status. Pt is at moderate cardiovascular risk for endoscopy. There are no immediate cardiac contraindications to proceeding with endoscopy at this time. Pending GI recs, we will tentatively plan for LHC tomorrow. NPO after MN. The patient has been seen in conjunction with Dr. Buckner who agrees with the assessment and plan of care. - Patient Problems (1) NSTEMI (non-ST elevated myocardial infarction) Current Visit: Yes Status: Acute (2) Cardiopulmonary arrest with successful resuscitation Current Visit: Yes Status: Acute (3) Cardiomyopathy Current Visit: Yes Status: Chronic (4) Acute respiratory failure with hypoxia Current Visit: Yes Status: Acute (5) Pneumonia Current Visit: Yes Status: Suspected Qualifiers: Pneumonia type: due to unspecified organism Laterality: bilateral Lung location: lower lobe of lung Qualified Code(s): J18.9 - Pneumonia, unspecified organism (6) Subcutaneous emphysema Current Visit: Yes Status: Acute Qualifiers: Encounter type: initial encounter Qualified Code(s): T79.7XXA - Traumatic subcutaneous emphysema, initial encounter (7) Sepsis Current Visit: Yes Status: Suspected (8) UTI (urinary tract infection) Current Visit: Yes Status: Acute (9) Renal insufficiency Current Visit: Yes Status: Acute (10) Anemia Current Visit: Yes Status: Acute Plan to address problem: s/p PRBC tx (11) History of CVA (cerebrovascular accident) Current Visit: Yes Status: Chronic (12) Hypertension Current Visit: Yes Status: Chronic (13) Hyperlipidemia Current Visit: Yes Status: Chronic (14) Diabetes Current Visit: Yes Status: Chronic (15) Hypokalemia Current Visit: Yes Status: Acute (16) Abnormal stress test Current Visit: Yes Status: Chronic Subjective Date of service: 07/07/19 Principal diagnosis: anemia Interval history: pt for endoscopy today. no current complaints. in SR on tele. family member translating at bedside. Objective Last Vital Signs Temp 98.6 F 07/07/19 07:27 Pulse 90 07/07/19 10:55 Resp 19 07/07/19 10:00 BP 161/83 07/07/19 10:55 Pulse Ox 99 07/07/19 10:55 - Physical Examination General: No Apparent Distress HEENT: Positive: PERRL, Normocephaly Neck: Positive: neck supple, trachea midline Cardiac: Positive: Reg Rate and Rhythm, S1/S2 Lungs: Positive: Decreased Breath Sounds Neuro: Positive: Grossly Intact Abdomen: Positive: Soft, Active Bowel Sounds Skin: Negative: Rash, Wound Musculoskeletal: No Pain Extremities: Present: upper extr. pulses, lower extr. pulses. Absent: edema - Labs and Meds CBC 07/07/19 Range/Units 05:45 WBC 9.4 (4.5-11.0) K/mm3 RBC 3.31 L (3.65-5.03) M/mm3 Hgb 9.2 L (10.1-14.3) gm/dl Hct 27.5 L (30.3-42.9) % Plt Count 379 (140-440) K/mm3 Lymph # 2.0 (1.2-5.4) K/mm3 [place] # 0.9 H (0.0-0.8) K/mm3 Eos # 0.3 (0.0-0.4) K/mm3 Baso # 0.0 (0.0-0.1) K/mm3 Comprehensive Metabolic Panel 07/06/19 07/07/19 Range/Units 15:48 05:45 Sodium 146 H (137-145) mmol/L Potassium 3.0 L 3.0 L (3.6-5.0) mmol/L Chloride 104.1 (98-107) mmol/L Carbon Dioxide 26 (22-30) mmol/L BUN 10 (7-17) mg/dL Creatinine 0.7 (0.7-1.2) mg/dL Glucose 229 H (65-100) mg/dL Calcium 8.6 (8.4-10.2) mg/dL - Imaging and Cardiology EKG: report reviewed, image reviewed Echo: report reviewed ( EF 30-35%, pseudonormalization, mild MR and TR, RVSP 49mmHg. ) - EKG Sinus rhythms and dysrhythmias: sinus tachycardia - Allied health notes Allied health notes reviewed: nursing
[2019-07-07] MEDS ORDERED: LISINOPRIL 10 MG TAB PO SCH (12:14)
[2019-07-07] MEDS: LISINOPRIL 20 MG TAB PO SCH (12:57)
[2019-07-07] MEDS ORDERED: SODIUM CHLORIDE 0.9% 500 ML 500 ML IV SCH (13:00)
[2019-07-07] MEDS ORDERED: WATER FOR IRRIG STERILE 250 ML BOTTLE IR ONE (14:36)
[2019-07-07] MEDS ORDERED: LIDOCAINE MPF (2%) 20 MG/1 ML VIAL 5 ML ONE (15:00)
[2019-07-07] MEDS ORDERED: INSULIN REGULAR, HUMAN 100 UNITS/1 ML SUB-Q ONE (15:06)
--- NOTE | 2019-07-07 15:09 | Anesthesia Consultation ---
Anesthesia Consult and Med Hx Date of service: 07/07/19 - Airway Anesthetic Teeth Evaluation: Dentures (full upper and lower) ROM Head & Neck: Adequate Mental/Hyoid Distance: Adequate Mallampati Class: Class III Intubation Access Assessment: Possibly Difficult - Pulmonary Exam CTA: Yes - Cardiac Exam Cardiac Exam: RRR - Pre-Operative Health Status ASA Pre-Surgery Classification: ASA4 Proposed Anesthetic Plan: MAC - Pulmonary Hx Smoking: No - Cardiovascular System Hx Hypertension: Yes Hx Coronary Artery Disease: Yes (positive stress test this admission) Hx Heart Attack/AMI: Yes (NSTEMI this admission ) Hx Angina: Yes (on admission; none in recent days) Hx Percutaneous Transluminal Coronary Angioplasty (PTCA): No (LHC pending GI eval) Hx Cardia Arrhythmia: No - Central Nervous System CVA: Yes (2013 with left side weakness) - Gastrointestinal Hx Gastroesophageal Reflux Disease: No - Endocrine Hx Renal Disease: No Hx Liver Disease: No Hx Insulin Dependent Diabetes: Yes Hx Thyroid Disease: No - Hematic Hx Anemia: Yes - Other Systems Hx Obesity: No - Additional Comments Anesthesia Medical History Comments: No hx anesthetic complications. Presented with chest pain, dyspnea, and anemia and suffered cardiac arrest while in ED with successful recusitation. Intubated during cardiac arrest and since weaned to NC. Ischemic work up this admission revealed new diagnosis cardiomyopathy with EF 35% and positive stress test. Currently scheduled for EGD/colonscopy to evaluate for GI source of bleeding prior to planned LHC and possible coronary i ntervention with anticoagulation.
--- NOTE | 2019-07-07 15:13 | Anesthesia Day of Surgery ---
Anesthesia Day of Surgery - Day of Surgery Patient Examined: Yes Patient H&P Reviewed: Yes Patient is NPO: Yes
[2019-07-07] MEDS ORDERED: MIDAZOLAM 2 MG/2 ML INJ ONE (15:50)
[2019-07-07] MEDS ORDERED: fentaNYL 100 MCG/2 ML INJ ONE (15:50)
[2019-07-07] MEDS ORDERED: MAGNESIUM SULFATE 2 GM/50 ML BAG IV ONE (16:41)
--- NOTE | 2019-07-07 16:42 | Progress Note ---
Assessment and Plan /Anemia; required blood transfusion Stool + for occult blood, GI following GI evaluated the patient planning EGD and colonoscopy today Findings: EGD: hiatal hernia - 3 large pedunculated like lesions (approx. 1 1/2-2) mid greater curvature gastric body. Lesions with distal white based ulcerations and inflammation w/o bleeding stigmata. Likely benign but unsure (bx's) - gastritis - otherwise normal Colon: benign /Non-ST elevation OH; continue current cardiac medications Stress test , abnormal stress test, advised heart cath after GI work-up -likely tomorrow /Cardiac arrest status post CPR; Patient intubated and extubated On nasal cannula oxygen /New onset systolic congestive heart failure; EF 30 to 35% IV diuretics, beta-blockers, no ERNESTO inhibitors due to acute renal failure, Input output monitoring, cardiology following /Acute hypoxic respiratory failure; status post extubation Nasal cannula oxygen, not in acute distress /Possible bilateral pneumonia; placed on Empiric antibiotics, follow cultures Supportive care, ID following /Sepsis; With leukocytosis tachycardia tachypnea - likley from PNA Continue empiric antibiotics follow cultures /-Acute kidney injury; ATN /vasomotor nephropathy Monitor renal function, avoid nephrotoxins, Nephrology following /Elevated D-dimers; CT angiogram negative for PE Lower extremity venous Doppler negative for DVT /Type 2 diabetes mellitus: Accu-Chek sliding scale coverage ADA diet insulin as needed /DVT prophylaxis;SCDs --Full CODE STATUS Disposition; cardiology recommend heart cath tomorrow Follow all the consultants recommendations Brief History 53-year-old female with history of diabetes, hypertension, and CVA (2012) who presents to [facility] ED with complaints of left-sided chest pain, subsequently went into cardiac arrest while getting a VQ scan, status post CPR, and was intubated with vent, patient was stabilized Weaned and extubated. Stress test noted abnormal. Plan heart cath. GI planning EGD colonoscopy today for low h/h on admission required blood transfusion, follow clinically Hospitalist Physical General appearance: Present: mild distress, well-nourished, other (On nasal cannula oxygen) - EENT Eyes: Present: PERRL, EOM intact - Neck Neck: Present: supple, normal ROM - Respiratory Respiratory effort: normal Respiratory: bilateral: diminished, negative: rales, rhonchi, wheezing - Cardiovascular Rhythm: regular Heart Sounds: Present: S1 & S2 - Extremities Extremities: no ischemia, No edema - Abdominal General gastrointestinal: soft, non-tender, non-distended, normal bowel sounds - Integumentary Integumentary: Present: clear, warm - Psychiatric Psychiatric: appropriate mood/affect, cooperative - Neurologic Neurologic: CNII-XII intact, moves all extremities JED score - Jed Score Age > 65: (0) No Aspirin use within the Past 7 Days: (0) No 3 or more CAD Risk Factors: (1) Yes 2 or more Angina events in past 24 hrs: (1) Yes Known CAD with more than 50% Stenosis: (0) No Elevated Cardiac Markers: (1) Yes ST Deviation Greater than 0.5mm: (0) No JED Score: 3 Subjective Date of service: 07/07/19 Principal diagnosis: anemia Interval history: pATIENT SEEN AND EXAMINED S/P egd AND COLONOSCOPY TODAY denies any chest pain, no active bleeding plan for cardiac cath tomorrow Objective - Constitutional Vitals: Vital Signs - 12hr 07/07/19 07/07/19 07/07/19 07:27 08:00 08:55 Temperature 98.6 F Pulse Rate 87 90 Pulse Rate [ Left Dorsalis Pedis] Pulse Rate [ Left Radial] Pulse Rate [ Right Dorsalis Pedis] Pulse Rate [ Right Radial] Respiratory 18 Rate Blood Pressure Blood Pressure 173/87 [Right] O2 Sat by Pulse 100 100 Oximetry 07/07/19 07/07/19 07/07/19 10:00 10:01 10:02 Temperature Pulse Rate 90 90 Pulse Rate [ 87 Left Dorsalis Pedis] Pulse Rate [ 87 Left Radial] Pulse Rate [ 87 Right Dorsalis Pedis] Pulse Rate [ 87 Right Radial] Respiratory 19 Rate Blood Pressure 161/83 161/83 Blood Pressure [Right] O2 Sat by Pulse 97 Oximetry 07/07/19 07/07/19 07/07/19 10:55 12:00 12:57 Temperature Pulse Rate 90 82 90 Pulse Rate [ Left Dorsalis Pedis] Pulse Rate [ Left Radial] Pulse Rate [ Right Dorsalis Pedis] Pulse Rate [ Right Radial] Respiratory Rate Blood Pressure 161/83 161/56 Blood Pressure [Right] O2 Sat by Pulse 99 Oximetry 07/07/19 07/07/19 14:40 14:44 Temperature 98.2 F 98.2 F Pulse Rate 91 H 91 H Pulse Rate [ Left Dorsalis Pedis] Pulse Rate [ Left Radial] Pulse Rate [ Right Dorsalis Pedis] Pulse Rate [ Right Radial] Respiratory 23 23 Rate Blood Pressure 161/83 161/83 Blood Pressure [Right] O2 Sat by Pulse 99 99 Oximetry - Labs CBC & Chem 7: 07/08/19 05:03 07/08/19 05:03 Labs: Abnormal lab results 07/06/19 07/06/19 07/06/19 Range/Units 13:44 15:48 16:23 RBC (3.65-5.03) M/mm3 Hgb (10.1-14.3) gm/dl Hct (30.3-42.9) % [place] % (Auto) (0.0-7.3) % [place] # (0.0-0.8) K/mm3 Sodium (137-145) mmol/L Potassium 3.0 L (3.6-5.0) mmol/L Glucose (65-100) mg/dL POC Glucose 297 H 370 H (70-105) Magnesium (1.7-2.3) mg/dL 07/07/19 07/07/19 07/07/19 Range/Units 00:54 05:45 05:45 RBC 3.31 L (3.65-5.03) M/mm3 Hgb 9.2 L (10.1-14.3) gm/dl Hct 27.5 L (30.3-42.9) % [place] % (Auto) 10.0 H (0.0-7.3) % [place] # 0.9 H (0.0-0.8) K/mm3 Sodium 146 H (137-145) mmol/L Potassium 3.0 L (3.6-5.0) mmol/L Glucose 229 H (65-100) mg/dL POC Glucose 196 H (70-105) Magnesium 1.60 L (1.7-2.3) mg/dL 07/07/19 Range/Units 11:02 RBC (3.65-5.03) M/mm3 Hgb (10.1-14.3) gm/dl Hct (30.3-42.9) % [place] % (Auto) (0.0-7.3) % [place] # (0.0-0.8) K/mm3 Sodium (137-145) mmol/L Potassium (3.6-5.0) mmol/L Glucose (65-100) mg/dL POC Glucose 264 H (70-105) Magnesium (1.7-2.3) mg/dL
--- NOTE | 2019-07-07 16:50 | Post Operative Note ---
Pre-op diagnosis: gi bleed Post-op diagnosis: same Findings: EGD: hiatal hernia - 3 large pedunculated like lesions (approx. 1 1/2-2) mid greater curvature gastric body. Lesions with distal white based ulcerations and inflammation w/o bleeding stigmata. Likely benign but unsure (bx's) - gastritis - otherwise normal Colon: benign Procedure: EGD Anesthesia: MAC Surgeon: ANSLEY DEL VALLE Estimated blood loss: none Pathology: list Specimen disposition: to lab Condition: stable Disposition: floor
--- NOTE | 2019-07-07 17:17 | Post Anesthesia Evaluation ---
- Post Anesthesia Evaluation Patient Participated: Yes Airway Patent: Yes Stable Respiratory Function: Yes Nausea/Vomiting: No Temp > 96.8F: Yes Pain Manageable: Yes Adequeate Hydration: Yes Anesthesia Complications: No
[2019-07-07] MEDS ORDERED: POTASSIUM CHLORIDE ER 20 MEQ TAB PO ONE (18:00)
--- NOTE | 2019-07-07 18:46 | Operative Report ---
PROCEDURE: EGD with cold biopsy. INDICATIONS: 1. Anemia. 2. GI bleed. MEDICATIONS: Propofol per ANIMAL PATHOLOGY TEACHER. COMPLICATIONS: None. DESCRIPTION OF PROCEDURE: The patient was brought to the procedure suite. The patient had the procedure discussed with her family at length. All risks, complications and benefits were discussed with the patient and family, after which consent was gotten for the procedure to be performed. The patient was placed in the left lateral decubitus position. Mouth block placed in the patient's oral cavity. After adequate sedation medication as above, endoscope was placed in the mouth and brought to level of the second portion of duodenum. Retroflexion view performed. The patient's vital signs remained stable throughout the procedure. FINDINGS: There was a small hiatal hernia at GE junction 36 cm from the gums. The esophagus otherwise appeared grossly normal. Along the mid greater curvature of the gastric body, there were noted to be 3 large pedunculated light lesions that were raised. Lesions were approximately 1.5 to just over 2 cm in size. Lesions were for the most part mildly erythematous, but there were noted to be ulcerated areas which were for the most part white base with no bleeding stigmata. These lesions may be most likely benign, but cannot rule out that they could be malignant. Multiple biopsies were taken and sent to pathology. The stomach otherwise appeared grossly normal. The duodenum appeared normal. Retroflexion view performed in the stomach showed no other pathology other than noted above. The patient tolerated the procedure well. No complications during the procedure. IMPRESSION: 1. Hiatal hernia. 2. Otherwise normal esophagus. 3. Abnormal appearing raised polyps lesions in the mid stomach x 3 with erythema and white based ulcer in the distal ends. Lesions are more likely benign, but cannot rule out malignancy. Biopsies taken. 4. Otherwise benign EGD. RECOMMENDATIONS: 1. Follow up biopsy results. 2. If H. pylori positive, treat. 3. PPI daily. 4. Colonoscopy, follow further recommendation based on colonoscopy results. JOB# [id number] [facility]/NTS
--- NOTE | 2019-07-07 20:17 | Operative Report ---
COLONOSCOPY PROCEDURE NOTE INDICATIONS: 1. Anemia. 2. Gastrointestinal bleed. MEDICATIONS: Propofol per AUTOMATIC TIRE TESTER. COMPLICATIONS: None. DESCRIPTION OF PROCEDURE: The patient brought to the procedure suite. The patient had the procedure discussed with her at length. All risks, complications, and benefits discussed, after which the patient signed for the procedure to be performed. The patient was placed in left lateral decubitus position. Rectal exam performed prior to insertion of the scope. After adequate sedation medication as above, scope was introduced into the rectum and brought to level of cecum. Ileocecal valve, appendiceal orifice, cecal strap were adequately visualized. Colonoscope was then removed and mucosa of colon visualized. Prep quality was fair. The patient's vital signs remained stable throughout the procedure. FINDINGS: There were no mass lesions, polyps, or diverticula noted during this procedure. Retroflexion view performed in the rectum showed small internal hemorrhoids. The patient tolerated the procedure well. No complications noted in the procedure. IMPRESSION: 1. Internal hemorrhoids. 2. Otherwise, normal colonoscopy. 3. Fair prep at best. RECOMMENDATIONS: 1. High fiber diet. 2. Continue current medication. 3. Follow H and H and transfuse as needed. 4. Given recent EGD results, would prefer holding anticoagulation for approximately 3 days, but if need arises per cardiology, can restart at any time. 5. We will follow up in a.m. JOB# [id number] [facility]/NTS
[2019-07-08] MEDS: INSULIN LISPRO 100 UNIT/ML SUB-Q SCH ×4 (01:07→18:23)
[2019-07-08 06:17] LABS: Basophils % (Auto) 0.4 % (0.0-1.8); Eosinophils # (Auto) 0.3 K/mm3 (0.0-0.4); Hemoglobin 9.2 gm/dl (10.1-14.3); Lymphocytes # (Auto) 1.8 K/mm3 (1.2-5.4); Lymphocytes % (Auto) 17.6 % (13.4-35.0); Mean Corpuscular HGB Conc 34 % (30-34); Mean Corpuscular Volume 83 fl (79-97); Monocytes # (Auto) 1.1 K/mm3 (0.0-0.8); Monocytes % (Auto) 10.4 % (0.0-7.3); Platelet Count 372 K/mm3 (140-440); Red Blood Count 3.24 M/mm3 (3.65-5.03); Red Cell Distribution Width 15.2 % (13.2-15.2)
[2019-07-08 06:24] LABS: INR 1.12 (0.87-1.13)
[2019-07-08 06:37] LABS: BUN/Creatinine Ratio 15; Blood Urea Nitrogen 12 mg/dL (7-17); Calcium 8.4 mg/dL (8.4-10.2); Hemolysis Index 1
[2019-07-08] MEDS: INSULIN NPH/REGULAR 70/30 INJ SUB-Q SCH ×2 (08:47→17:00)
[2019-07-08] MEDS ORDERED: HEPARIN 10,000 UNITS/10 ML VIAL ONE (09:32)
[2019-07-08] MEDS ORDERED: MIDAZOLAM 2 MG/2 ML INJ ONE (09:32)
[2019-07-08] MEDS ORDERED: fentaNYL 100 MCG/2 ML INJ ONE (09:33)
[2019-07-08] MEDS ORDERED: LIDOCAINE (2%) 20 MG/1 ML VIAL 20 ML MDV INFILTRATI ONE ×2 (09:33→10:26)
[2019-07-08] MEDS: HEPARIN/NS 5000 UNIT/500ML 1,000 ML IR ONE ×2 (09:35→21:26)
[2019-07-08] MEDS ORDERED: HEPARIN/NS 5000 UNIT/500ML 1,000 ML IR ONE (10:26)
--- NOTE | 2019-07-08 10:49 | Event Note ---
Date: 07/08/19 Patient off floor for heart cath. She is s/p EGD yesterday that revealed 3 large gastric lesions. H/H stable; continue to monitor/transfuse as needed. Continue PPI. Will follow path.
--- NOTE | 2019-07-08 11:44 | Cardiac Catherization Report ---
INDICATION FOR PROCEDURE: The patient is a 53-year-old female who was admitted with shortness of breath and was found to be anemic. Subsequently also had a cardiac arrest. Her echocardiogram showed poor LV function. Had endoscopy performed, which showed gastric lesion and nature of this needs to be determined, can be malignant. However, cardiac catheterization being performed because of her history of cardiac arrest and poor LV function. The patient does not understand Thai. The patient's family is with her. I explained to them the procedure, potential complications and alternatives of therapy available. DESCRIPTION OF PROCEDURE: The patient was brought to the catheterization laboratory. Her right radial artery was not palpable. Hence, right femoral arterial access was obtained. The patient was prepared in standard fashion. Sterile drapes were applied. Local anesthesia was given in the right groin area. Under fluoroscopy a right femoral artery puncture was made using 5-Mauritian micropuncture needle. Subsequently, a 5-Mauritian sheath was introduced. A 5-Mauritian multipurpose catheter was used to obtain the angiograms of the left coronary artery in multiple views followed by angiograms of the right coronary artery and left ventriculogram done in MATHUR projection using power injector. At the end of the procedure, catheter and sheath were removed and good hemostasis was achieved with manual pressure. No untoward complications were noted. She was monitored in the outpatient area for an extended time to rule out any underlying hematoma. The patient was transferred to the room in stable condition. The patient was evaluated for moderate sedation and after appropriate evaluation was made the patient received Versed and fentanyl starting at 10:42 a.m. and monitored with pulse oximetry, EKG and hemodynamic monitoring up to 11:01 a.m. At the end of the procedure, the patient is breathing normally, vital signs are stable. No focal neurological deficit noted. The patient was transferred to the room in stable condition. Following findings were noted: HEMODYNAMICS: 1. Opening aortic pressure 182/84. Left ventricular pressure 152/25. No gradient across the aortic valve. Estimated ejection fraction 20%. 2. Left ventriculogram done in MATHUR projection using power injector showed mildly enlarged left ventricle with akinesis to dyskinesis of the distal two-thirds of the anterior wall and also distal apex. Basal anterior wall and basal inferior wall moving fairly well. Ejection fraction was felt to be around 20%. No significant mitral regurgitation noted. 3. Right coronary artery dominant vessel arises normally from right coronary cusp. This shows a focal 95% eccentric lesion in the distal part. PDA which is very small caliber vessel shows 98% long lesion. This is a dominant vessel. 4. Left coronary artery arises normally from left coronary cusp. Diffuse calcifications were noted in the left main and LAD area. Left main without significant disease. Proximal LAD without significant disease. There is a fairly large diagonal branch arising from the mid part and this is a long 95% lesion. Mid LAD has a focal 80% lesion in addition to distal LAD showing 90% lesion. However, it is to be noted the entire LAD is diffusely diseased and distal LAD is small caliber vessel, less than 1 mm in size. 5. Circumflex artery and its marginal branches show only mild irregularities along with 40% smooth distal lesion. 6. Collaterals none. FINAL IMPRESSION AND PLAN: Severe left ventricular dysfunction with akinetic anterior wall and apex, ejection fraction 20%. At this time, the patient has very small caliber left anterior descending vessels. Circumflex artery without significant disease. Right coronary artery dominant vessel shows significant distal right coronary artery lesion along with small caliber posterior descending artery showing significant disease. At this time, considering the small caliber of the left anterior descending and its branches revascularization is going to be difficult either percutaneously or by surgery. Distal vessels do not appear to be good bypassable vessels. Right coronary artery does have a tight distal right coronary artery lesion, which is amenable to intervention. This is subtending remaining normally functioning area of left ventricle with rest of the anterior wall and apex are akinetic. Considering that this vessel is supplying remaining functioning myocardium, angioplasty of this vessel can be very risky. However, we will await gastrointestinal evaluation to see what is the nature of the lesion in the stomach and see if she is a candidate for long-term dual antiplatelet therapy. In the meantime, we will continue medical therapy. Findings were explained to the patient's daughter. Procedure was uncomplicated and the patient was transferred to the room in stable condition. JOB# [id number] JOY/DEBRA SOLIS
--- NOTE | 2019-07-08 12:09 | Progress Note ---
Assessment and Plan S/p diagnostic C this AM which showed distal RCA 95% lesion, diffuse calcifications in left main and LAD area, long 95% lesion in diagonal branch, mid LAD focal 80% lesion in addition to distal LAD 90% lesion, distal LAD small caliber vessel, EF 20% with akinesis to dyskinesis of the distal two-thirds of the anterior wall and also distal apex. Revascularization of small caliber LAD and its branches would be difficult, distal vessels do not appear to be good bypassable vessels. RCA lesion is amenable to intervention - ? high-risk PCI at tertiary care facility. However, we will await GI evaluation and biopsy results to determine if pt is a candidate for long-term DAPT. Cont with aggressive medical therapy at this time and will plan to follow closely as OP. Initiate ASA 81 if okay per GI team, cont statin, Toprol and lisinopril. Convert IV lasix to PO lasix 40mg daily. Recommend pt follow up in our office with Dr. Almodovar within 1-2 weeks of discharge ([phone]). The patient has been seen in conjunction with Dr. Buckner who agrees with the assessment and plan of care. - Patient Problems (1) NSTEMI (non-ST elevated myocardial infarction) Current Visit: Yes Status: Acute (2) Cardiopulmonary arrest with successful resuscitation Current Visit: Yes Status: Acute (3) Ischemic cardiomyopathy Current Visit: Yes Status: Chronic (4) CAD Current Visit: Yes Status: Chronic (5) Acute respiratory failure with hypoxia Current Visit: Yes Status: Acute (6) Pneumonia Current Visit: Yes Status: Suspected Qualifiers: Pneumonia type: due to unspecified organism Laterality: bilateral Lung location: lower lobe of lung Qualified Code(s): J18.9 - Pneumonia, unspecified organism (7) Sepsis Current Visit: Yes Status: Suspected (8) UTI (urinary tract infection) Current Visit: Yes Status: Acute (9) Renal insufficiency Current Visit: Yes Status: Acute (10) Anemia Current Visit: Yes Status: Acute Plan to address problem: s/p PRBC tx (11) History of CVA (cerebrovascular accident) Current Visit: Yes Status: Chronic (12) Hypertension Current Visit: Yes Status: Chronic (13) Hyperlipidemia Current Visit: Yes Status: Chronic (14) Diabetes Current Visit: Yes Status: Chronic (15) Hypokalemia Current Visit: Yes Status: Acute (16) Abnormal stress test Current Visit: Yes Status: Chronic Subjective Date of service: 07/08/19 Principal diagnosis: anemia Interval history: pt for [facility] today. no current complaints. in SR on tele. family member translating at bedside. Objective Last Vital Signs Temp 98.5 F 07/08/19 11:35 Pulse 81 07/08/19 11:45 Resp 16 07/08/19 11:45 BP 154/75 07/08/19 11:45 Pulse Ox 98 07/08/19 11:45 - Physical Examination General: No Apparent Distress HEENT: Positive: PERRL, Normocephaly Neck: Positive: neck supple, trachea midline Cardiac: Positive: Reg Rate and Rhythm, S1/S2 Lungs: Positive: Decreased Breath Sounds Neuro: Positive: Grossly Intact Abdomen: Positive: Soft, Active Bowel Sounds Skin: Negative: Rash, Wound Musculoskeletal: No Pain Extremities: Present: upper extr. pulses, lower extr. pulses. Absent: edema - Labs and Meds Coagulation 07/08/19 Range/Units 05:03 PT 14.6 (12.2-14.9) Sec. INR 1.12 (0.87-1.13) CBC 07/08/19 Range/Units 05:03 WBC 10.5 (4.5-11.0) K/mm3 RBC 3.24 L (3.65-5.03) M/mm3 Hgb 9.2 L (10.1-14.3) gm/dl Hct 27.0 L (30.3-42.9) % Plt Count 372 (140-440) K/mm3 Lymph # 1.8 (1.2-5.4) K/mm3 [place] # 1.1 H (0.0-0.8) K/mm3 Eos # 0.3 (0.0-0.4) K/mm3 Baso # 0.0 (0.0-0.1) K/mm3 Comprehensive Metabolic Panel 07/08/19 Range/Units 05:03 Sodium 143 (137-145) mmol/L Potassium 3.6 (3.6-5.0) mmol/L Chloride 103.9 (98-107) mmol/L Carbon Dioxide 24 (22-30) mmol/L BUN 12 (7-17) mg/dL Creatinine 0.8 (0.7-1.2) mg/dL Glucose 319 H (65-100) mg/dL Calcium 8.4 (8.4-10.2) mg/dL - Imaging and Cardiology EKG: report reviewed, image reviewed Echo: report reviewed ( EF 30-35%, pseudonormalization, mild MR and TR, RVSP 49mmHg. ) - EKG Sinus rhythms and dysrhythmias: sinus tachycardia - Allied health notes Allied health notes reviewed: nursing
[2019-07-08] MEDS: METOPROLOL SUCCINATE XL 25 MG TAB PO SCH (12:56)
[2019-07-08] MEDS: LISINOPRIL 20 MG TAB PO SCH (12:57)
[2019-07-08] MEDS: DOCUSATE SODIUM 100 MG CAP PO SCH ×2 (12:58→21:25)
[2019-07-08] MEDS: FUROSEMIDE 40 MG/4 ML INJ IV SCH (12:58)
[2019-07-08] MEDS: PANTOPRAZOLE 40 MG INJ IV SCH ×2 (12:59→21:26)
[2019-07-08] MEDS: HEPARIN 5,000 UNIT/1 ML VIAL SUB-Q SCH ×2 (12:59→21:25)
--- NOTE | 2019-07-08 16:19 | Progress Note ---
Subjective Date of service: 07/08/19 Principal diagnosis: anemia Objective - Constitutional Vitals: Vital Signs - 12hr 07/08/19 07/08/19 07/08/19 06:30 07:47 11:35 Temperature 97.9 F 98.5 F Pulse Rate 75 78 81 Respiratory 20 18 Rate Blood Pressure 148/76 152/77 Blood Pressure 140/63 [Right] O2 Sat by Pulse 99 93 98 Oximetry 07/08/19 07/08/19 07/08/19 11:45 12:00 12:15 Temperature Pulse Rate 81 83 81 Respiratory 16 19 19 Rate Blood Pressure 154/75 141/72 159/80 Blood Pressure [Right] O2 Sat by Pulse 98 99 99 Oximetry 07/08/19 07/08/19 07/08/19 12:56 12:57 13:15 Temperature 98 F Pulse Rate 82 82 93 H Respiratory 19 Rate Blood Pressure 161/81 161/81 Blood Pressure 153/73 [Right] O2 Sat by Pulse 4 L Oximetry 07/08/19 07/08/19 07/08/19 13:30 13:45 14:00 Temperature Pulse Rate 88 80 84 Respiratory 19 18 19 Rate Blood Pressure Blood Pressure 162/77 151/62 144/72 [Right] O2 Sat by Pulse 4 L 98 98 Oximetry - Labs CBC & Chem 7: 07/08/19 05:03 07/08/19 05:03 Labs: Abnormal lab results 07/07/19 07/07/19 07/07/19 Range/Units 14:34 15:53 16:55 RBC (3.65-5.03) M/mm3 Hgb (10.1-14.3) gm/dl Hct (30.3-42.9) % [place]le % (Auto) (0.0-7.3) % [place] # (0.0-0.8) K/mm3 Glucose (65-100) mg/dL POC Glucose 314 H 303 H 265 H (70-105) Magnesium (1.7-2.3) mg/dL 07/07/19 07/08/19 07/08/19 Range/Units 17:17 00:54 05:03 RBC 3.24 L (3.65-5.03) M/mm3 Hgb 9.2 L (10.1-14.3) gm/dl Hct 27.0 L (30.3-42.9) % [place] % (Auto) 10.4 H (0.0-7.3) % [place] # 1.1 H (0.0-0.8) K/mm3 Glucose (65-100) mg/dL POC Glucose 287 H 437 H (70-105) Magnesium (1.7-2.3) mg/dL 07/08/19 07/08/19 07/08/19 Range/Units 05:03 06:16 13:06 RBC (3.65-5.03) M/mm3 Hgb (10.1-14.3) gm/dl Hct (30.3-42.9) % [place] % (Auto) (0.0-7.3) % [place] # (0.0-0.8) K/mm3 Glucose 319 H (65-100) mg/dL POC Glucose 315 H 255 H (70-105) Magnesium 2.40 H (1.7-2.3) mg/dL
--- NOTE | 2019-07-08 16:28 | Discharge Summary ---
Providers - Providers Date of Admission: 07/01/19 20:08 Date of discharge: 07/08/19 Attending physician: GALLO CURIEL 07/01/19 20:07 Consult to Physician [CONS] Routine Comment: Consulting Provider: TALON COHEN Physician Instructions: Reason For Exam: sepsis, pna 07/01/19 20:08 Consult to Physician [CONS] Routine Comment: Consulting Provider: VINITA TORRES Physician Instructions: Reason For Exam: NSTEMI type 2, s/p arrest 07/01/19 20:18 Consult to Physician [CONS] Routine Comment: Consulting Provider: CONSUELO CARMICHAEL Physician Instructions: Reason For Exam: tabitha 07/01/19 21:37 Consult to Dietitian/Nutrition [CONS] Routine Physician Instructions: Reason For Exam: Reason for Consult: Evaluate nutritional intake 07/02/19 16:07 Consult to Physician [CONS] Routine Comment: Consulting Provider: KAY HERRERA Physician Instructions: Reason For Exam: cardiac arrest /anoxic brain injury 07/03/19 11:00 Consult to Physician [CONS] Routine Comment: Consulting Provider: AOLNDRA FREDERICK Physician Instructions: Reason For Exam: severe anemia/r/o GI causes 07/03/19 12:20 Speech Therapy Evaluation and Treat [CONS] Routine Reason For Exam: Failed Bedside Swallow s/p extubation 07/04/19 13:53 Consult to Dietitian/Nutrition [CONS] Routine Physician Instructions: Reason For Exam: Reason for Consult: Write/Manage Tube Feeding 07/08/19 11:58 Consult to Cardiac Rehabilitation [CONS] Routine Reason For Exam: Cardiac Rehab Evaluation Primary care physician: BUSINESS SYSTEM CONSULTANT Hospitalization Condition: Stable Pertinent studies: CXR VQ scan abdomen/pelvis CT cardiac cath 2d echo EGD/colonoscopy Hospital course: Brief History 53-year-old female with history of diabetes, hypertension, and CVA (2012) who presents to [facility] ED with complaints of left-sided chest pain, subsequently went into cardiac arrest while getting a VQ scan, status post CPR, and was intubated with vent, patient was stabilized Weaned and extubated. Stress test noted abnormal. Plan heart cath. GI planning EGD colonoscopy today for low h/h on admission required blood transfusion, follow clinically Discharge diagnosis: /Anemia; required blood transfusion Stool + for occult blood, GI following GI evaluated the patient planning EGD and colonoscopy 07/17/19 Findings: EGD: hiatal hernia - 3 large pedunculated like lesions (approx. 1 1/2-2) mid greater curvature gastric body. Lesions with distal white based ulcerations and inflammation w/o bleeding stigmata. Likely benign but unsure (bx's) - gastritis - otherwise normal Colon: benign /Non-ST elevation NE; continue current cardiac medications abnormal stress test, advised heart cath Findings cardiac cath: S/p diagnostic LHC this AM which showed distal RCA 95% lesion, diffuse calcifications in left main and LAD area, long 95% lesion in diagonal branch, mid LAD focal 80% lesion in addition to distal LAD 90% lesion, distal LAD small caliber vessel, EF 20% with akinesis to dyskinesis of the distal two-thirds of the anterior wall and also distal apex. Recommend pt for medical therapy now and follow up with Dr. Almodovar within 1-2 weeks of discharge ([phone]). /Cardiac arrest status post CPR; Patient intubated and extubated On nasal cannula oxygen /New onset systolic congestive heart failure; EF 30 to 35% IV diuretics, beta-blockers, no ERNESTO inhibitors due to acute renal failure, Input output monitoring, cardiology following /Acute hypoxic respiratory failure; status post extubation Nasal cannula oxygen, not in acute distress /Possible bilateral pneumonia; placed on Empiric antibiotics, follow cultures Supportive care, ID following /Sepsis; With leukocytosis tachycardia tachypnea - likley from PNA Continue empiric antibiotics follow cultures /-Acute kidney injury; ATN /vasomotor nephropathy Monitor renal function, avoid nephrotoxins, Nephrology following /Elevated D-dimers; CT angiogram negative for PE Lower extremity venous Doppler negative for DVT /Type 2 diabetes mellitus: Accu-Chek sliding scale coverage ADA diet insulin as needed /DVT prophylaxis;SCDs --Full CODE STATUS Disposition; cardiology recommend heart cath tomorrow Follow all the consultants recommendations Disposition: - TO HOME OR SELFCARE Time spent for discharge: 34 minutes Core Measure Documentation - Palliative Care Palliative Care/ Comfort Measures: Not Applicable - Core Measures Any of the following diagnoses?: none Exam - Constitutional Vitals: Temp Pulse Resp BP Pulse Ox 98 F 84 19 144/72 98 07/08/19 13:15 07/08/19 14:00 07/08/19 14:00 07/08/19 14:00 07/08/19 14:00 Plan Activity: advance as tolerated Weight Bearing Status: Non-Weight Bearing Diet: low fat, diabetic Special Instructions: restrict fluid intake to (1.2 L daily) Additional Instructions: f/u pending biopsy result as outpt with GI Follow up with: PRIMARY CAREMD [Primary Care Provider] - 7 Days JAKE ALMODOVAR MD [Staff Physician] - 7 Days ALONDRA FREDERICK MD [Staff Physician] - 7 Days Prescriptions: AtorvaSTATin [Lipitor] 40 mg PO QHS #30 tablet Furosemide [Lasix TAB] 40 mg PO QDAY #30 tablet Metoprolol Xl [Metoprolol SUCCINATE ER TAB] 25 mg PO QDAY #30 tablet Nitroglycerin [Nitrostat] 0.4 mg SL Q5M PRN #30 tablet PRN Reason: Chest Pain Insulin NPH/Regular [NovoLIN 70/30] 12 unit SUB-Q BIDDIAB 30 Days Pantoprazole [Protonix] 40 mg PO BID #60 tablet lisinopriL [Zestril TAB] 20 mg PO QDAY #30 tablet
[2019-07-08] MEDS ORDERED: guaiFENesin 200 MG TAB PO PRN (22:53)
[2019-07-08] MEDS: guaiFENesin ER 600 MG TAB PO SCH (22:59)
[2019-07-09] MEDS: INSULIN LISPRO 100 UNIT/ML SUB-Q SCH ×2 (00:47→09:36)
[2019-07-09] MEDS: INSULIN NPH/REGULAR 70/30 INJ SUB-Q SCH (09:36)
[2019-07-09] MEDS: DOCUSATE SODIUM 100 MG CAP PO SCH (09:37)
[2019-07-09] MEDS: PANTOPRAZOLE 40 MG INJ IV SCH (09:37)
[2019-07-09] MEDS: HEPARIN 5,000 UNIT/1 ML VIAL SUB-Q SCH (09:37)
[2019-07-09] MEDS: guaiFENesin ER 600 MG TAB PO SCH (09:37)
[2019-07-09] MEDS: METOPROLOL SUCCINATE XL 25 MG TAB PO SCH (09:37)
[2019-07-09] MEDS: LISINOPRIL 20 MG TAB PO SCH (09:38)
[2019-07-09 09:46] VITALS: BP 149/74
--- NOTE | 2019-07-09 09:46 | Event Note ---
Date: 07/09/19 Patient refused to be diuscharge yesterday as she was feeling lightheaded following cardiac cath. She is being discharge today.
[2019-07-09] MEDS ORDERED: FUROSEMIDE 40 MG TAB PO SCH (10:00)
--- NOTE | 2019-07-09 10:30 | Gastroenterology Progress Note ---
Assessment and Plan 1.anemia -MCV WNL -H/H 9.2/27.0-stable -continue to monitor H/H and transfuse as needed -no active signs of bleeding -s/p EGD/colonoscopy 07/07/19 that showed hiatal hernia, gastritis, and 3 large pedunculated like lesions (approx. 1 1/2-2) mid greater curvature gastric body with distal white based ulcerations and inflammation w/o bleeding stigmata. Colon benign. -bx results pending (r/o malignancy)-f/u in clinic -ischemic workup per cardiology-s/p diagnostic LHC with significant CAD revealed (distal RCA 95% lesion, diffuse calcifications in left main and LAD area, long 95% lesion in diagonal branch, mid LAD focal 80% lesion in addition to distal LAD 90% lesion, distal LAD small caliber vessel, EF 20% with akinesis to dyskinesis of the distal two-thirds of the anterior wall and also distal apex; further recommendations/intervention pending GI evaluation/biopsy results to determine if pt is a candidate for long-term DAPT) -clinically, patient is stable with no current GI complaints. Tolerating diet. -okay for cardiac ASA -continue PPI and supportive care -patient okay to be d/c per GI standpoint with f/u in clinic in ~2 weeks for further management of gastric lesions as outpatient (findings and plan discussed with family/patient with understanding voiced and office information given) 2.s/p cardiac arrest 3.NSTEMI 4.cardiomyopathy 5.acute respiratory failure 6.sepsis 7.pneumonia 8.subcutaneous emphysema 9.SYL 10.HTN 11.DM 12.H/o CVA 12.HLD Subjective Date of service: 07/09/19 Principal diagnosis: anemia Interval history: No acute distress or active signs of bleeding. Denies abd pain or N/V. Tolerating diet. Objective - Constitutional Vitals: Temp Pulse Resp BP Pulse Ox 98.0 F 88 18 149/74 95 07/09/19 09:39 07/09/19 09:39 07/09/19 09:39 07/09/19 09:39 07/09/19 09:39 General appearance: no acute distress - Respiratory Respiratory effort: normal - Cardiovascular Rhythm: regular - Gastrointestinal General gastrointestinal: Present: soft, non-tender, non-distended, normal bowel sounds - Neurologic Neurological: alert and oriented x3 - Labs CBC & Chem 7: 07/08/19 05:03 07/08/19 05:03 Labs: Laboratory Results - last 24 hr 07/08/19 07/08/19 07/08/19 13:06 16:39 19:45 POC Glucose 255 H 291 H 470 H 07/09/19 07/09/19 00:34 09:28 POC Glucose 231 H 189 H
--- NOTE | 2019-07-09 12:42 | Progress Note ---
Assessment and Plan S/p diagnostic LHC yesterday which showed distal RCA 95% lesion, diffuse calcifications in left main and LAD area, long 95% lesion in diagonal branch, mid LAD focal 80% lesion in addition to distal LAD 90% lesion, distal LAD small caliber vessel, EF 20% with akinesis to dyskinesis of the distal two-thirds of the anterior wall and also distal apex. Revascularization of small caliber LAD and its branches would be difficult, distal vessels do not appear to be good bypassable vessels. RCA lesion is amenable to intervention - ? high-risk PCI at tertiary care facility. However, we will await GI evaluation and biopsy results to determine if pt is a candidate for long-term DAPT. Cont with aggressive medical therapy at this time and will p elroy to follow closely as OP. Initiate ASA 81 - okay per GI team, cont statin, Toprol and lisinopril, PO lasix. Pt may discharge home from cardiology standpoint. Recommend pt follow up in our office with Dr. Almodovar within 1-2 weeks of discharge ([phone]). The patient has been seen in conjunction with Dr. Buckner who agrees with the assessment and plan of care. - Patient Problems (1) NSTEMI (non-ST elevated myocardial infarction) Current Visit: Yes Status: Acute (2) Cardiopulmonary arrest with successful resuscitation Current Visit: Yes Status: Acute (3) Ischemic cardiomyopathy Current Visit: Yes Status: Chronic (4) CAD Current Visit: Yes Status: Chronic (5) Acute respiratory failure with hypoxia Current Visit: Yes Status: Acute (6) Pneumonia Current Visit: Yes Status: Suspected Qualifiers: Pneumonia type: due to unspecified organism Laterality: bilateral Lung location: lower lobe of lung Qualified Code(s): J18.9 - Pneumonia, unspecified organism (7) Sepsis Current Visit: Yes Status: Suspected (8) UTI (urinary tract infection) Current Visit: Yes Status: Acute (9) Renal insufficiency Current Visit: Yes Status: Acute (10) Anemia Current Visit: Yes Status: Acute Plan to address problem: s/p PRBC tx (11) History of CVA (cerebrovascular accident) Current Visit: Yes Status: Chronic (12) Hypertension Current Visit: Yes Status: Chronic (13) Hyperlipidemia Current Visit: Yes Status: Chronic (14) Diabetes Current Visit: Yes Status: Chronic (15) Hypokalemia Current Visit: Yes Status: Acute (16) Abnormal stress test Current Visit: Yes Status: Chronic Subjective Date of service: 07/09/19 Principal diagnosis: anemia Interval history: pt resting in bed, no current complaints. in SR on tele. family member translating at bedside. Objective Last Vital Signs Temp 98.0 F 07/09/19 09:39 Pulse 73 07/09/19 11:55 Resp 18 07/09/19 09:39 BP 149/74 07/09/19 09:39 Pulse Ox 95 07/09/19 09:39 - Physical Examination General: No Apparent Distress HEENT: Positive: PERRL, Normocephaly Neck: Positive: neck supple, trachea midline Cardiac: Positive: Reg Rate and Rhythm, S1/S2 Lungs: Positive: Decreased Breath Sounds Neuro: Positive: Grossly Intact Abdomen: Positive: Soft, Active Bowel Sounds Skin: Negative: Rash, Wound Musculoskeletal: No Pain Extremities: Present: upper extr. pulses, lower extr. pulses. Absent: edema - Imaging and Cardiology EKG: report reviewed, image reviewed Echo: report reviewed ( EF 30-35%, pseudonormalization, mild MR and TR, RVSP 49mmHg. ) - EKG Sinus rhythms and dysrhythmias: sinus tachycardia - Allied health notes Allied health notes reviewed: nursing
[2019-07-09] MEDS ORDERED: PANTOPRAZOLE 40 MG TAB PO SCH (22:00)
== END 2019-07-09 12:40 | disposition home or self-care (01) | DRG 871 ==
LOC: ED 16:09 → 4A 20:08 → CC1 21:56 → 4A 07-05 13:18
PROVIDERS: ADMIT Internal Medicine; ATTEND Internal Medicine
PROC: 4A033R1 Measurement of Arterial Saturation, Peripheral, Percutaneous Approach (ICD-10-PCS; principal; 2019-07-01)
PROC: 30233N1 Transfusion of Nonautologous Red Blood Cells into Peripheral Vein, Percutaneous Approach (ICD-10-PCS; 2019-07-01)
PROC: 5A1945Z Respiratory Ventilation, 24-96 Consecutive Hours (ICD-10-PCS; 2019-07-01)
PROC: 0BH17EZ Insertion of Endotracheal Airway into Trachea, Via Natural or Artificial Opening (ICD-10-PCS; 2019-07-01)
PROC: 5A12012 Performance of Cardiac Output, Single, Manual (ICD-10-PCS; 2019-07-01)
PROC: 06HY33Z Insertion of Infusion Device into Lower Vein, Percutaneous Approach (ICD-10-PCS; 2019-07-01)
PROC: B54BZZA Ultrasonography of Right Lower Extremity Veins, Guidance (ICD-10-PCS; 2019-07-01)
PROC: 5A09357 Assistance with Respiratory Ventilation, Less than 24 Consecutive Hours, Continuous Positive Airway Pressure (ICD-10-PCS; 2019-07-04)
PROC: 5A09357 Assistance with Respiratory Ventilation, Less than 24 Consecutive Hours, Continuous Positive Airway Pressure (ICD-10-PCS; 2019-07-07)
PROC: 0DJD8ZZ Inspection of Lower Intestinal Tract, Via Natural or Artificial Opening Endoscopic (ICD-10-PCS; 2019-07-07)
PROC: 0DB68ZX Excision of Stomach, Via Natural or Artificial Opening Endoscopic, Diagnostic (ICD-10-PCS; 2019-07-07)
PROC: 4A023N7 Measurement of Cardiac Sampling and Pressure, Left Heart, Percutaneous Approach (ICD-10-PCS; 2019-07-08)
PROC: B2111ZZ Fluoroscopy of Multiple Coronary Arteries using Low Osmolar Contrast (ICD-10-PCS; 2019-07-08)
PROC: B2151ZZ Fluoroscopy of Left Heart using Low Osmolar Contrast (ICD-10-PCS; 2019-07-08)
DX: A41.9 Sepsis, unspecified organism (principal); J18.9 Pneumonia, unspecified organism; I21.4 Non-ST elevation (NSTEMI) myocardial infarction; J96.01 Acute respiratory failure with hypoxia; N17.0 Acute kidney failure with tubular necrosis; I46.9 Cardiac arrest, cause unspecified; E87.1 Hypo-osmolality and hyponatremia; J93.83 Other pneumothorax; G93.1 Anoxic brain damage, not elsewhere classified; K81.0 Acute cholecystitis; I50.20 Unspecified systolic (congestive) heart failure; E87.0 Hyperosmolality and hypernatremia; I69.354 Hemiplegia and hemiparesis following cerebral infarction affecting left non-dominant side; I08.1 Rheumatic disorders of both mitral and tricuspid valves; I11.0 Hypertensive heart disease with heart failure; E87.6 Hypokalemia; K64.8 Other hemorrhoids; K25.9 Gastric ulcer, unspecified as acute or chronic, without hemorrhage or perforation; K44.9 Diaphragmatic hernia without obstruction or gangrene; E11.9 Type 2 diabetes mellitus without complications; E86.0 Dehydration; J98.2 Interstitial emphysema; E78.5 Hyperlipidemia, unspecified; Z86.74 Personal history of sudden cardiac arrest; Z79.82 Long term (current) use of aspirin
CPT/HCPCS: 36415; 36600; 70450; 71045; 71260; 74177; 76705; 76770; 78452; 78582; 80048; 80053; 80061; 80076; 81001; 82140; 82436; 82570; 82803; 82962; 83036; 83735; 84132; 84300; 84484; 84703; 85014; 85018; 85025; 85027; 85049; 85379; 85610; 85730; 86850; 86900; 86901; 86920; 87040; 87070; 87086; 87205; 87400; 88305; 88342; 93005; 93010; 93017; 93306; 93458; 93970; 94002; 94003; 94660; 94760; 96365; G0378; A9270-GY; A9502; A9540; A9558; C9113; J0171; J0456; J0696; J1644; J1815; J1940; J2060; J2250; J2785; J3010; J3475; J3480; J7030; J7040; J7050; P9016; Q9967